=== PATIENT | female | born 1975 | race Caucasian/White ===

== ENCOUNTER 2017-09-19 13:41 | Emergency (ER) | payer OTHER ==
[~2017-09-19] VITALS: Ht 167.6 cm; Wt 126.1 kg
--- OUTSIDE RECORDS SUMMARY | ~2017-09-19 | XMS | Clinical Summary ---
Demographics + + + | Address | [address] [place] | | | [place] [address] | + + + | Home Phone | | + + + | Preferred Language | Unknown | + + + | Marital Status | Single | + + + | Yazidi Affiliation | None | + + + | Race | White | + + + | Ethnic Group | Not or | + + + Author + + + | Author | [facility] | + + + | Organization | [facility] | + + + | Address | Unknown | + + + | Phone | Unavailable | + + + Support + + +---------+ + | Name | Relationship | Address | Phone | + + +---------+ + | MANDEEP BRICE | ECON | Unknown | | + + +---------+ + Care Team Providers + +------+ + | Care Learning Support Aide Name | Role | Phone | + +------+ + | Sekou Willis MANAGER ANDROID | PP | | + +------+ + Allergies + + + + + + | Active Allergy | Reactions | Severity | Noted | Comments | | | | | Date | | + + + + + + | Codeine | Other (See Comments) | Low | | Oversedation -all | | | | | | other opioids are | | | | | | fine | + + + + + + | Egg Derived | Nausea And Vomiting | Low | 02/19/20 | | | | | | 11 | | + + + + + + Current Medications + + +--------+---------+------+------+-------+ | Prescription | Sig. | Disp. | Refills | Star | End | Statu | | | | | | t | Date | s | | | | | | Date | | | + + +--------+---------+------+------+-------+ | albuterol (PROAIR | Inhale 1 puff into | | 0 | 06/2 | | Activ | | HFA) 90 | the lung Every 4 | | | 5/20 | | e | | mcg/Actuation | Hours As Needed. | | | 10 | | | | inhaler | | | | | | | + + +--------+---------+------+------+-------+ | sertraline | Take 150 mg by mouth | | | | | Activ | | (ZOLOFT) 100 mg | daily | | | | | e | | tablet | | | | | | | + + +--------+---------+------+------+-------+ | | Take 1 tablet by | | | | | Activ | | HYDROcodone-acetamin | mouth every 4 hours | | | | | e | | ophen (NORCO) 10-325 | as needed for Pain | | | | | | | mg per tablet | | | | | | | + + +--------+---------+------+------+-------+ | furosemide (LASIX) | Take 20 mg by mouth | | | | | Activ | | 20 mg tablet | 2 times daily | | | | | e | + + +--------+---------+------+------+-------+ | pramipexole | Take 0.125 mg by | | | | | Activ | | (MIRAPEX) 0.125 mg | mouth every evening | | | | | e | | tablet | | | | | | | + + +--------+---------+------+------+-------+ | oxybutynin | Take 5 mg by mouth | | | | | Activ | | (DITROPAN) 5 mg | every evening | | | | | e | | tablet | | | | | | | + + +--------+---------+------+------+-------+ | cholecalciferol, | Take 1,000 Units by | | | | | Activ | | Vitamin D3, (VITAMIN | mouth daily | | | | | e | | D3) 1,000 unit | | | | | | | | tablet | | | | | | | + + +--------+---------+------+------+-------+ | atorvastatin | Take 40 mg by mouth | | | | | Activ | | (LIPITOR) 40 mg | at bedtime | | | | | e | | tablet | | | | | | | + + +--------+---------+------+------+-------+ | calcium acetate | Take 667 mg by mouth | | | | | Activ | | (PHOSLO) 667 mg | 3 times daily (with | | | | | e | | capsule | meals) | | | | | | + + +--------+---------+------+------+-------+ | lisinopril | Take 1 tablet (40 mg | 30 | 0 | 06/1 | | Activ | | (PRINIVIL;ZESTRIL) | total) by mouth | tablet | | 8/20 | | e | | 40 mg tablet | daily | | | 15 | | | + + +--------+---------+------+------+-------+ | oxybutynin | Take 1 tablet (10 mg | | | 06/1 | | Activ | | (DITROPAN-XL) 10 mg | total) by mouth | | | 8/20 | | e | | ER tablet | daily | | | 15 | | | + + +--------+---------+------+------+-------+ | propranolol | Take 1 tablet (40 mg | | | 06/1 | | Activ | | (INDERAL) 40 mg | total) by mouth 2 | | | 8/20 | | e | | tablet | times daily | | | 15 | | | + + +--------+---------+------+------+-------+ | acetaminophen | Take 2 tablets (650 | | | 06/1 | | Activ | | (TYLENOL) 325 mg | mg total) by mouth | | | 8/20 | | e | | tablet | every 6 hours as | | | 15 | | | | | needed for Pain | | | | | | + + +--------+---------+------+------+-------+ | insulin glargine | Inject 5 Units into | | | 06/1 | | Activ | | (LANTUS) 100 unit/mL | the skin 2 times | | | 8/20 | | e | | injection | daily | | | 15 | | | + + +--------+---------+------+------+-------+ | oxyCODONE | Take 1-2 tablets | 30 | 0 | 06/1 | | Activ | | (ROXICODONE) 5 mg | (5-10 mg total) by | tablet | | 8/20 | | e | | immediate release | mouth every 6 hours | | | 15 | | | | tablet | as needed for Pain | | | | | | + + +--------+---------+------+------+-------+ | AMLODIPINE | Take by mouth | | | | | Activ | | BESYLATE (AMLODIPINE | | | | | | e | | ORAL) | | | | | | | + + +--------+---------+------+------+-------+ | buPROPion | Take 75 mg by mouth | | | | | Activ | | (WELLBUTRIN) 75 mg | daily | | | | | e | | tablet | | | | | | | + + +--------+---------+------+------+-------+ | | Take 1-2 tablets by | 30 | 0 | 05/2 | | Activ | | HYDROcodone-acetamin | mouth every 6 hours | tablet | | 5/20 | | e | | ophen (NORCO) 5-325 | as needed for Pain | | | 17 | | | | mg per tablet | | | | | | | + + +--------+---------+------+------+-------+ Active Problems + + + | Problem | Noted Date | + + + | Hypervolemia | 04/20/2015 | + + + | DM (diabetes mellitus), type 2 with neurological complications | 12/30/2014 | | (HCC) | | + + + + + | Overview: Formatting of this note may be different from the | | original.Lab Results Component Value Date HGBA1C 6.5* 12/30/2014 | | | | HGBA1C 6.5* 12/30/2014 | | | | | | | | | + + + + + | HTN (hypertension), benign | 12/30/2014 | + + + | Unspecified osteomyelitis, site unspecified | 12/28/2014 | + + + + + | Overview: Left MTP | + + + + + | Diabetes mellitus, insulin dependent (IDDM), controlled ([facility]) | 12/28/2014 | + + + | ESRD on dialysis ([facility]) | 12/28/2014 | + + + | 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 | 12/28/2014 | | circulatory disorders, not stated as uncontrolled(250.71) | | + + + | Tobacco use disorder | 12/28/2014 | + + + Resolved Problems + + + + | Problem | Noted | Resolved | | | Date | Date | + + + + | Hypoxia | 04/20/20 | | | | 15 | 5 | + + + + | Acute dyspnea | 04/20/20 | | | | 15 | 5 | + + + + Social History + + + +--------+------+ | Tobacco Use | Types | Packs/Day | Years | Date | | | | | Used | | + + + +--------+------+ | Current Every Day | Cigarettes | 0.75 | 15 | | | Smoker | | | | | + + + +--------+------+ + + | Tobacco Cessation: Ready to Quit: No | + + + + +---------+ + | Alcohol Use | Drinks/We | oz/Week | Comments | | | ek | | | + + +---------+ + | No | | | | + + +---------+ + + + + | Sex Assigned at | Date Recorded | | | | + + + | Not on file | | + + + Last Filed Vital Signs + + + + | Vital Sign | Reading | Time Taken | + + + + | Blood Pressure | 134/73 | 12/09/2016 11:50 AM PDT | + + + + | Pulse | 84 | 12/09/2016 11:11 AM PDT | + + + + | Temperature | 36 C (96.8 F) | 12/09/2016 11:11 AM PDT | + + + + | Respiratory Rate | 18 | 12/09/2016 11:11 AM PDT | + + + + | Oxygen Saturation | 90% | 12/09/2016 11:50 AM PDT | + + + + | Inhaled Oxygen | - | - | | Concentration | | | + + + + | Weight | 124.7 kg (275 lb) | 12/07/2016 3:24 PM PDT | + + + + | Height | 167.6 cm (5' 6") | 12/07/2016 3:24 PM PDT | + + + + | Body Mass Index | 44.39 | 12/07/2016 3:24 PM PDT | + + + + Plan of Treatment + + + + + | Health Maintenance | Due Date | Last Done | Comments | + + + + + | Eye Exam Chronic | | | | | Disease | 7 | | | + + + + + | Foot Exam | | | | | | 7 | | | + + + + + | Microalbuminuria | | | | | | 7 | | | + + + + + | Lipid Screening | | | | | | 7 | | | + + + + + | Tobacco Cessation | | | | | Counseling | 9 | | | + + + + + | HIV Screening | | | | | | 2 | | | + + + + + | Pneumo 19-64 Medium | | | | | Risk (1 of 1 - | 6 | | | | PPSV23) | | | | + + + + + | Tetanus | | | | | | 6 | | | + + + + + | Cervical Cancer | | | | | Screening | 8 | | | + + + + + | Hemoglobin A1c | | 12/30/2014, 10/03/2010 | | | | 5 | | | + + + + + | Breast Cancer | | | | | Screening | 7 | | | + + + + + | IMM Influenza (#1) | | | | | | 7 | | | + + + + + Implants + +--------+--------+ +--------+--------+--------+ | Implanted | Type | Area | Manufacture | Device | Expira | Model | | | | | r | | tion | / | | | | | | Identi | Date | Serial | | | | | | fier | | / Lot | + +--------+--------+ +--------+--------+--------+ | Imp Osteoset Mini Bead 5cc | Surgic | Left: | ELKINS | | 11/14/ | 8400-0 | | Kit Fast Cure *[id number] - | al IMP | Bone - | MEDICAL | | 2022 | 611 | | [id number]: Qty: 1 on | Bone | Foot | TECHNOLOGY | | | /N/A | | 12/31/2014 by Maryann, | & | | | | | /[id number] | | Minesh Le DPM | Tissue | | | | | 15 | | | (47 | | | | | | | | 432) | | | | | | + +--------+--------+ +--------+--------+--------+ Results Not on filefrom Last 3 Months Insurance + +--------+ +--------+ + + | Payer | Benefi | Subscriber | Type | Phone | Address | | | t Plan | ID | | | | | | / | | | | | | | Group | | | | | + +--------+ +--------+ + + | MOD[employer]DS MNGD MCAID | [place] | [id number] | Medica | [phone] | [address] | | | MODA | | id | [id number] | [place], [place] | | | ODS | | | | [phone] | + +--------+ +--------+ + + + +--------+ +--------+ + + | Guarantor Name | Accoun | Relation to | Date | Phone | Billing Address | | | t Type | Patient | of | | | | | | | | | | + +--------+ +--------+ + + | CORRINA BRICE | Person | Self | [birth year] | Home: | [address] | | | al/Fam | | 1974 | [phone] | [place] | | | telly | | | [phone] | + +--------+ +--------+ + + Advance Directives Patient has advance directives. For more information, please contact:[address] [place] [address]
--- OUTSIDE RECORDS SUMMARY | ~2017-09-19 | XMS | Clinical Summary ---
Demographics + + + | Address | [address] | | | [place] [address] | + + + | Home Phone | | + + + | Preferred Language | Unknown | + + + | Marital Status | Single | + + + | Druze Affiliation | None | + + + [...] Team Providers + +------+ + | Care Assistant City Attorney Name | Role | Phone | + +------+ + | Sekou Willis VICE PRESIDENT OF INSTRUCTION | PP | | + +------+ + [...] | Diabetes mellitus, insulin dependent (IDDM), controlled ([facility]) | 12/28/2014 | + + + | ESRD on dialysis ([facility]) | 12/28/2014 | + + + | [...] | 8400-0 | | Kit Fast Cure *[id number] - | al IMP | Bone - | MEDICAL | | 2022 | 611 | | [id number]: Qty: 1 on | Bone | Foot | TECHNOLOGY | | | /N/A | | 12/31/2014 by Maryann, | & | | | | | /[id number] | | Minesh Le DPM | Tissue [...] MODA ODS MNGD MCAID | [place] | [id number] | Medica | [phone] | [address] | | | MODA | | id | [id number] | [place], [place] | | | ODS | | | | [phone] | + +--------+ +--------+ + + + +--------+ +--------+ + + | Guarantor Name | Accoun | Relation to | Date | Phone | Billing Address | | | t Type | Patient | of | | | | | | | | | | + +--------+ +--------+ + + | CORRINA BRICE | Person | Self | [birth year] | Home: | [address] | | | al/Fam | | 1974 | [phone] | [place] | | | telly | | | [phone] | + +--------+ +--------+ + + Advance Directives Patient has advance directives. For more information, please contact:[id number] [place] [address]
[~2017-09-19 13:41] MED LIST: AMLODIPINE BESY10 MG PO; ASPIR 8181 MG PO; ATORVASTATIN CA40 MG PO; BACTRIM DS TAB1 EACH PO; CARDURA4 MG PO; CRUTCH1 EACH; DOXYCYCLINE HY100 MG PO; HUMALOG100 UNITS/ IV; HYDROCODON-ACE1 EAC8 PO; KEFLEX500 MG PO; LANTUS100 UNITS/ SUB-Q; LASIX20 MG PO; LISINOPRIL40 MG PO; NORCO 5-325 TA1 EACH PO; OXYBUTYNIN CHLOR5 MG PO; OXYCODONE HCL5 MG PO; PROPRANOLOL HCL40 MG PO; VICODIN HP 10-1 EAC1 PO; ZOLOFT50 MG PO
== END 2017-09-19 13:58 | disposition home or self-care (01) ==
LOC: ED 13:41
DX: M25.551 Pain in right hip (principal)

== ENCOUNTER 2017-12-26 13:08 | Emergency (ER) | payer OTHER ==
[~2017-12-26] VITALS: Ht 167.6 cm; Wt 121.1 kg
[2017-12-26] MEDS ORDERED: BACTRIM DS TAB1 EACH PO (13:50)
== END 2017-12-26 14:00 | disposition home or self-care (01) ==
LOC: ED 13:08
DX: L97.529 Non-pressure chronic ulcer of other part of left foot with unspecified severity (principal); F17.200 Nicotine dependence, unspecified, uncomplicated; Z91.012 Allergy to eggs; Z99.2 Dependence on renal dialysis; Z86.73 Personal history of transient ischemic attack (TIA), and cerebral infarction without residual deficits; Z79.899 Other long term (current) drug therapy
CPT/HCPCS: 99283

== ENCOUNTER 2018-04-02 15:18 | Emergency (ER) | payer OTHER ==
[~2018-04-02] VITALS: Ht 167.6 cm; Wt 118.4 kg
--- OUTSIDE RECORDS SUMMARY | ~2018-04-02 | XMS | Clinical Summary ---
Demographics + + + | Address | [address] | | | [place] [address] | + + + | Home Phone | | + + + | Preferred Language | Unknown | + + + | Marital Status | Single | + + + | Temple Affiliation | Unknown | + + + | Race | Unknown | + + + | Ethnic Group | Unknown | + + + Author + + + | Author | [facility] | + + + | Organization | [facility] | + + + | Address | Unknown | + + + | Phone | Unavailable | + + + Support + + + + + | Name | Relationship | Address | Phone | + + + + + | Juliana Dixon | ECON | Unknown | | + + + + + | Mya Dixon | ECON | [address] | | | | | [place] | | | | | [address] | | + + + + + Care Team Providers + +------+ + | Care Reinforcing Steel Placer Name | Role | Phone | + +------+ + | Donis Martel MD | PP | | + +------+ + Allergies + + + + + + | Active Allergy | Reactions | Severity | Noted | Comments | | | | | Date | | + + + + + + | Codeine | Other (See Comments) | Medium | 04/02/20 | "I dont wake up on | | | | | 15 | it" | + + + + + + | Eggs Or Egg-Derived | Nausea and Vomiting | Low | 04/02/20 | | | Products | | | 15 | | + + + + + + Current Medications + + +---------+---------+------+------+-------+ | Prescription | Sig. | Disp. | Refills | Star | End | Statu | | | | | | t | Date | s | | | | | | Date | | | + + +---------+---------+------+------+-------+ | oxybutynin | Take 10 mg by mouth | | | | | Activ | | (DITROPAN) 5 MG | 2 (two) times daily. | | | | | e | | tablet | | | | | | | + + +---------+---------+------+------+-------+ | propranolol | Take 40 mg by mouth | | | | | Activ | | (INDERAL) 40 MG | daily. | | | | | e | | tablet | | | | | | | + + +---------+---------+------+------+-------+ | RENVELA 2.4 G | MIX AND TAKE 1 | 150 | 11 | 11/0 | | Activ | | packet | PACKET WITHEACH | each | | 1/20 | | e | | | MEALS 3 TIMES DAILY | | | 16 | | | | | AND WITH SNACKS | | | | | | + + +---------+---------+------+------+-------+ | doxazosin | Take 4 mg by mouth 2 | | | | | Activ | | (CARDURA) 4 MG | (two) times daily. | | | | | e | | tablet | Take with doxazosin | | | | | | | | 1 mg tablet | | | | | | + + +---------+---------+------+------+-------+ | albuterol (PROAIR | Inhale 2 puffs into | | | | | Activ | | HFA) 108 (90 BASE) | the lungs every 4 | | | | | e | | MCG/ACT inhaler | (four) hours as | | | | | | | | needed for Wheezing. | | | | | | + + +---------+---------+------+------+-------+ | amLODIPine | Take 1 tablet by | 30 | 1 | 03/1 | | Activ | | (NORVASC) 5 MG | mouth daily. | tablet | | 3/20 | | e | | tablet | | | | 17 | | | + + +---------+---------+------+------+-------+ | Cholecalciferol | TAKE 1 BY MOUTH | 30 | 11 | 06/ | | Activ | | (VITAMIN D3) 5000 | DAILY | capsule | | 7/20 | | e | | units CAPS | | | | 17 | | | + + +---------+---------+------+------+-------+ | doxazosin | TAKE 1 BY MOUTH TWO | 60 | 10 | 07/0 | | Activ | | (CARDURA) 1 MG | TIMES DAILY | tablet | | 3/20 | | e | | tablet | | | | 17 | | | + + +---------+---------+------+------+-------+ | sertraline | Take 100 mg by mouth | | | | | Activ | | (ZOLOFT) 100 MG | daily. | | | | | e | | tablet | | | | | | | + + +---------+---------+------+------+-------+ | cinacalcet | Take 1 tablet by | 84 | 0 | 04/17 | | Activ | | (SENSIPAR) 30 MG | mouth daily. Lot# | tablet | | 8/20 | | e | | tablet | [id number]. Exp date | | | 17 | | | | | 02/02. | | | | | | + + +---------+---------+------+------+-------+ | PHOSLO 667 MG CAPS | TAKE 3 BY MOUTH 3 | 390 | 11 | 02/1 | | Activ | | | TIMES DAILY WITH | capsule | | 8/20 | | e | | | MEALS AND 2 BY | | | 18 | | | | | MOUTH TWO TIMES | | | | | | | | DAILY WITH SNACKS | | | | | | + + +---------+---------+------+------+-------+ + + +-------+ +------+------+-------+ | Hospital, Clinic, or | Ordered | Route | Frequency | Star | End | Statu | | Other Facility | Dose | | | t | Date | s | | Administered | | | | Date | | | | Medication | | | | | | | + + +-------+ +------+------+-------+ | lidocaine buffered | 0.5 mL | ID | Once | 05/2 | | Activ | | 1% injection 0.5 | | | | 7/20 | | e | | mLIndications: ESRD | | | | 16 | | | | (end stage renal | | | | | | | | disease) (HCC) | | | | | | | + + +-------+ +------+------+-------+ Active Problems + + + | Problem | Noted Date | + + + | Morbid obesity due to excess calories (HCC) | 09/27/2016 | + + + | ESRD on hemodialysis | 09/27/2016 | + + + | BMI 45.0-49.9, adult | 09/26/2016 | + + + | Renovascular hypertension | 09/26/2016 | + + + | Leucocytosis | 09/26/2016 | + + + | Hyperphosphatemia | 12/13/2015 | + + + | Hypoalbuminemia | 12/13/2015 | + + + | Anemia of chronic renal failure, stage 5 (HCC) | 12/13/2015 | + + + | Essential hypertension | 04/03/2015 | + + + | ESRD (end stage renal disease) | 04/02/2015 | + + + | Pulmonary edema | 04/02/2015 | + + + | Non-compliance with treatment | 04/02/2015 | + + + | Smoker | 04/02/2015 | + + + | Obesity (BMI 30-39.9) | | + + + Resolved Problems + + + + | Problem | Noted | Resolved | | | Date | Date | + + + + | Acute respiratory failure with hypoxia (HCC) | 09/28/19 | | | | 17 | 7 | + + + + | Limb ischemia | 12/12/19 | | | | 16 | 6 | + + + + | Clotted renal dialysis AV graft | 12/12/19 | | | | 16 | 6 | + + + + | Arm pain, left | 12/12/19 | | | | 16 | 6 | + + + + | Hyperkalemia | 04/02/20 | | | | 15 | 7 | + + + + Encounters +--------+ + + + + | Date | Type | Specialty | Care Team | Description | +--------+ + + + + | 03/21/ | Documentati | | Eric Sun MD | Other (February 2018- | | 2018 | on Only | | | [facility] Provider | | | | | | Antoine Rounding | | | | | | Note) | +--------+ + + + + | 02/17/ | Documentati | | Eric Sun MD | Other (January | 2017 | on Only | | | 2017-[facility] Provider | | | | | | Dialysis Rounding | | | | | | Note) | +--------+ + + + + | 01/20/ | Documentati | | Eric Sun MD | Other (December | on Only | | | 2017-[facility] Provider | | | | | | Rounding Dialysis | | | | | | Note) | +--------+ + + + + | 01/06/ | Documentati | | Eric Sun MD | Other (November | on Only | | | 2017-[facility] Provider | | | | | | Rounding Dialysis | | | | | | Note) | +--------+ + + + + from Last 3 Months Family History + + +------+ + | Medical History | Relation | Name | Comments | + + +------+ + | Kidney disease | Neg Hx | | | + + +------+ + + +------+--------+ + | Relation | Name | Status | Comments | + +------+--------+ + | Mother | | Alive | | + +------+--------+ + | Sister | | Alive | | + +------+--------+ + Social History + + + +--------+------+ | Tobacco Use | Types | Packs/Day | Years | Date | | | | | Used | | + + + +--------+------+ | Current Some Day | Cigarettes | 0.5 | 8 | | | Smoker | | | | | + + + +--------+------+ + +---+---+---+ | Smokeless Tobacco: | | | | | Never Used | | | | + +---+---+---+ + + | Tobacco Cessation: Ready to Quit: Yes; Counseling Given: Yes | + + + + +---------+ + | Alcohol Use | Drinks/We | oz/Week | Comments | | | ek | | | + + +---------+ + | Yes | 0 | 0.0 | "Once a year" | | | Standard | | | | | drinks or | | | | | | | | | | equivalen | | | | | t | | | + + +---------+ + + + + | Sex Assigned at | Date Recorded | | | | + + + | Not on file | | + + + Last Filed Vital Signs + + + + | Vital Sign | Reading | Time Taken | + + + + | Blood Pressure | 163/71 | 02/28/2017 8:18 PM PDT | + + + + | Pulse | 87 | 02/28/2017 8:18 PM PDT | + + + + | Temperature | 36.2 C (97.2 F) | 02/28/2017 7:40 PM PDT | + + + + | Respiratory Rate | 20 | 02/28/2017 8:18 PM PDT | + + + + | Oxygen Saturation | 94% | 02/28/2017 8:02 PM PDT | + + + + | Inhaled Oxygen | - | - | | Concentration | | | + + + + | Weight | 126.1 kg (278 lb) | 02/28/2017 3:22 PM PDT | + + + + | Height | 168.9 cm (5' 6.5") | 02/28/2017 3:22 PM PDT | + + + + | Body Mass Index | 44.2 | 02/28/2017 3:22 PM PDT | + + + + Plan of Treatment + + + + + | Health Maintenance | Due Date | Last Done | Comments | + + + + + | Vaccine: | | | | | Pneumococcal 19-64 | 6 | | | | Highest Risk (1 of 3 | | | | | - PCV13) | | | | + + + + + | Cervical Cancer | | | | | Screening (Pap) | 7 | | | + + + + + | Vaccine: Influenza | | | | | (#1) | 8 | | | + + + + + | Vaccine: | | 12/16/2009 | | | Dtap/Tdap/Td (2 - | 0 | | | | Td) | | | | + + + + + Results Not on filefrom Last 3 Months Insurance + +--------+ +------+-------+ + | Payer | Benefi | Subscriber | Type | Phone | Address | | | t Plan | ID | | | | | | / | | | | | | | Group | | | | | + +--------+ +------+-------+ + | MEDICAID | [place] | [id number] | | | [address] | | | [place] | | | | [place] | | | [place] | | | | [phone] | | | [place] | | | | | + +--------+ +------+-------+ + + +--------+ +--------+ + + | Guarantor Name | Accoun | Relation to | Date | Phone | Billing Address | | | t Type | Patient | of | | | | | | | | | | + +--------+ +--------+ + + | CORRINA BRICE | Person | Self [birth year] | Home: | [address] | | | [place] | | 1974 | [phone] | [place] | | | telly | | [phone] | + +--------+ +--------+ + +
--- OUTSIDE RECORDS SUMMARY | ~2018-04-02 | XMS | Encounter Summary ---
Demographics + + + | Address | [address] | | | [place] [address] | + + + | Home Phone | | + + + | Preferred Language | Unknown | + + + | Marital Status | Single | + + + | Quaker Affiliation | Unknown | + + + | Race | Unknown | + + + | Ethnic Group | Unknown | + + + Author + + + | Author | [facility] | + + + | Organization | [facility] | + + + | Address | Unknown | + + + | Phone | Unavailable | + + + Support + + + + + | Name | Relationship | Address | Phone | + + + + + | Juliana Dixon | ECON | Unknown | | + + + + + | Mya Dixon | ECON | [address] | | | | | [place] | | | | | [address] | | + + + + + Care Team Providers + +------+ + | Care Muck Hauler Name | Role | Phone | + +------+ + | Donis Martel MD | PCP | | + +------+ + Reason for Visit +--------+ + | Reason | Comments | +--------+ + | Other | January 2018-[facility] Note | +--------+ + Encounter Details +--------+ + + + + | Date | Type | Department | Care Team | Description | +--------+ + + + + | 02/17/ | Documentati | [facility] | Eric Sun MD | Other (January | | 2017 | on Only | [place] [address] | 2018-[facility] Provider | | | | [address] | [address] [place], [place] | Dialysis Rounding | | | | [place] [address] | [phone] | Note) | | | | [phone] | | | +--------+ + + + + Social History + + + +--------+------+ [...] | | | + +---+---+---+ + + +---------+ + | Alcohol Use [...] on file | | + + + as of this encounter Plan of Treatment Not on fileas of this encounter Visit Diagnoses Not on filein this encounter
--- OUTSIDE RECORDS SUMMARY | ~2018-04-02 | XMS | Encounter Summary ---
Demographics + + + | Address | [address] | | | [place] [address] | + + + | Home Phone | | + + + | Preferred Language | Unknown | + + + | Marital Status | Single | + + + | Faith Affiliation | Unknown | + + + | Race | Unknown | + + + | Ethnic Group | Unknown | + + + Author + + + | Author | [facility] | + + + | Organization | [facility] | + + + | Address | Unknown | + + + | Phone | Unavailable | + + + Support + + + + + | Name | Relationship | Address | Phone | + + + + + | Juliana Dixon | ECON | Unknown | | + + + + + | Mya Dixon | ECON | [address] | | | | | [place] | | | | | [address] | | + + + + + Care Team Providers + +------+ + | Care Custom Frame Assembler Name | Role | Phone | + +------+ + | Donis Martel MD | PCP | | + +------+ + Reason for Visit +--------+ + | Reason | Comments | +--------+ + | Other | November 2017[facility] Note | +--------+ + Encounter Details +--------+ + + + + | Date | Type | Department | Care Team | Description | +--------+ + + + + | 01/06/ | Documentati | [facility] | Eric Sun MD | Other (November | 2017 | on Only | [employer] [facility] [address] | [address] | 2018-[facility] Provider | | | | [address] | [address] [place], [place] | Rounding Dialysis | | | | [place] [address] | [address] | Note) | | | | [phone] | | | +--------+ + + + [...]
--- OUTSIDE RECORDS SUMMARY | ~2018-04-02 | XMS | Encounter Summary ---
Demographics + + + | Address | [address] | | | [place] [address] | + + + | Home Phone | | + + + | Preferred Language | Unknown | + + + | Marital Status | Single | + + + | Restoration Affiliation | Unknown | + + + | Race | Unknown | + + + | Ethnic Group | Unknown | + + + Author + + + | Author | [facility] | + + + | Organization | [facility] | + + + | Address | Unknown | + + + | Phone | Unavailable | + + + Support + + + + + | Name | Relationship | Address | Phone | + + + + + | Juliana Dixon | ECON | Unknown | | + + + + + | Mya Dixon | ECON | [address] | | | | | [place] | | | | | [address] | | + + + + + Care Team Providers + +------+ + | Care Shift Mechanic Name | Role | Phone | + +------+ + | Donis Martel MD | PCP | | + +------+ + Reason for Visit +--------+ + | Reason | Comments | +--------+ + | Other | February 2018- [facility] Provider [facility] Note | +--------+ + Encounter Details +--------+ + + + + | Date | Type | Department | Care Team | Description | +--------+ + + + + | 03/21/ | Documentati | [facility] | Eric Sun MD | Other (February 2018- | | 2018 | on Only | [place] [address] | [address] | [facility] Provider | | | | [address] | [address] [place], [place] | Dialysis Rounding | | | | [place] [address] | [address] | Note) | | | | [phone] | | | +--------+ + + + [...]
--- OUTSIDE RECORDS SUMMARY | ~2018-04-02 | XMS | Clinical Summary ---
Demographics + + + | Address | [address] | | | [place] [address] | + + + | Home Phone | | + + + | Preferred Language | Unknown | + + + | Marital Status | Single | + + + | Christianity Affiliation | Unknown | + + + | Race | Unknown | + + + | Ethnic Group | Unknown | + + + Author + + + | Author | [facility] | | | and [place] | + + + | Organization | [facility] | | | and [place] | + + + | Address | Unknown | + + + | Phone | Unavailable | + + + Care Team Providers + +------+ + | Care Furniture Decals Inspector Name | Role | Phone | + +------+ + | Donis Martel MD | PP | | + +------+ + Allergies Not on File Current Medications Not on file Active Problems Not on file Social History + +-------+ +--------+------+ | Tobacco Use | Types | Packs/Day | Years | Date | | | | | Used | | + +-------+ +--------+------+ | Never Assessed | | | | | + +-------+ +--------+------+ + + + | Sex Assigned at | Date Recorded | | | | + + + | Not on file | | + + + Plan of Treatment + [...] Last 3 Months Insurance + +--------+ +--------+ +---------+ | Payer | Benefi | Subscriber | Type | Phone | Address | | | t Plan | ID | | | | | | / | | | | | | | Group | | | | | + +--------+ +--------+ +---------+ | [employer] | MODA | [id number] | Medica | [phone] | | | MEDICAID HMO | HEALTH | | id | [id number] | | | | [place] | | | | | | | [place] | | | | | + +--------+ +--------+ +---------+ + +--------+ +--------+ + + | Guarantor Name | Accoun | Relation to | Date | Phone | Billing Address | | | t Type | Patient | of | | | | | | | | | | + +--------+ +--------+ + + | CORRINA BRICE | Person | Self | [birth year] | Home: | [address] | | | al/Fam | | 1974 | [phone] | [place] | | | telly | | | [phone] | + +--------+ +--------+ + +"
--- OUTSIDE RECORDS SUMMARY | ~2018-04-02 | XMS | Encounter Summary ---
Demographics + + + | Address | [address] | | | [place] [address] | + + + | Home Phone | | + + + | Preferred Language | Unknown | + + + | Marital Status | Single | + + + | Baptism Affiliation | Unknown | + + + | Race | Unknown | + + + | Ethnic Group | Unknown | + + + Author + + + | Author | [facility] | + + + | Organization | [facility] | + + + | Address | Unknown | + + + | Phone | Unavailable | + + + Support + + + + + | Name | Relationship | Address | Phone | + + + + + | Juliana Dixon | ECON | Unknown | | + + + + + | Mya Dixon | ECON | [address] | | | | | [place] | | | | | [address] | | + + + + + Care Team Providers + +------+ + | Care Primary Teaching Assistant Name | Role | Phone | [...] | | 2018 | on Only | [place] [address] | [address] | [facility] Provider | | | | [address] | [address] [place], [place] | Dialysis Rounding | | | | [place] [address] | [address] | Note) | | | | [phone] | | | +--------+ + + + [...]
--- OUTSIDE RECORDS SUMMARY | ~2018-04-02 | XMS | Encounter Summary ---
Demographics + + + | Address | [address] | | | [place] [address] | + + + | Home Phone | | + + + | Preferred Language | Unknown | + + + | Marital Status | Single | + + + | Scientologist Affiliation | Unknown | + + + | Race | Unknown | + + + | Ethnic Group | Unknown | + + + Author + + + | Author | [facility] | + + + | Organization | [facility] | + + + | Address | Unknown | + + + | Phone | Unavailable | + + + Support + + + + + | Name | Relationship | Address | Phone | + + + + + | Juliana Dixon | ECON | Unknown | | + + + + + | Mya Dixon | ECON | [address] | | | | | [place] | | | | | [address] | | + + + + + Care Team Providers + +------+ + | Care Director Data Architecture Name | Role | Phone | + [...] | | 2017 | on Only | [place] [address] | [address] | 2018-[facility] Provider | | | | [address] | [address] [place], [place] | Dialysis Rounding | | | | [place] [address] | [address] | Note) | | | | [phone] | | | +--------+ + + + [...]
--- OUTSIDE RECORDS SUMMARY | ~2018-04-02 | XMS | Encounter Summary ---
Demographics + + + | Address | [address] | | | [place] [address] | + + + | Home Phone | | + + + | Preferred Language | Unknown | + + + | Marital Status | Single | + + + | Tenriism Affiliation | Unknown | + + + | Race | Unknown | + + + | Ethnic Group | Unknown | + + + Author + + + | Author | [facility] | + + + | Organization | [facility] | + + + | Address | Unknown | + + + | Phone | Unavailable | + + + Support + + + + + | Name | Relationship | Address | Phone | + + + + + | Juliana Dixon | ECON | Unknown | | + + + + + | Mya Dixon | ECON | [address] | | | | | [place] | | | | | [address] | | + + + + + Care Team Providers + +------+ + | Care Hot Cell Technician Name | Role | Phone | + +------+ + | Donis Martel MD | PCP | | + +------+ + Reason for Visit +--------+ + | Reason | Comments | +--------+ + | Other | December 2017-[facility] Provider [facility] Note | +--------+ + Encounter Details +--------+ + + + + | Date | Type | Department | Care Team | Description | +--------+ + + + + | 01/20/ | Documentati | [facility] | Eric Sun MD | Other (December | | 2017 | on Only | [place] [address] | [address] | 2018-[facility] Provider | | | | [address] | [address] [place], [place] | Rounding Dialysis | | | | [place] [address] | [address] | Note) | | | | [phone] | | | +--------+ + + + [...]
--- OUTSIDE RECORDS SUMMARY | ~2018-04-02 | XMS | Encounter Summary ---
Demographics + + + | Address | [address] | | | [place] [address] | + + + | Home Phone | | + + + | Preferred Language | Unknown | + + + | Marital Status | Single | + + + | Buddhism Affiliation | Unknown | + + + | Race | Unknown | + + + | Ethnic Group | Unknown | + + + Author + + + | Author | [facility] | + + + | Organization | [facility] | + + + | Address | Unknown | + + + | Phone | Unavailable | + + + Support + + + + + | Name | Relationship | Address | Phone | + + + + + | Juliana Dixon | ECON | Unknown | | + + + + + | Mya Dixon | ECON | [address] | | | | | [place] | | | | | [address] | | + + + + + Care Team Providers + +------+ + | Care Architecture Professor Name | Role | Phone | [...] (November | 2017 | on Only | [place] [address] | [address] | 2018-[facility] Provider | | | | [address] | [address] [place], [place] | Rounding Dialysis | | | | [place] [address] | [address] | Note) | | | | [phone] | | | +--------+ + + + [...]
--- OUTSIDE RECORDS SUMMARY | ~2018-04-02 | XMS | Clinical Summary ---
Demographics + + + | Address | [address] | | | [place] [address] | + + + | Home Phone | | + + + | Preferred Language | Unknown | + + + | Marital Status | Single | + + + | Tenriism Affiliation | Unknown | + + + | Race | Unknown | + + + | Ethnic Group | Unknown | + + + Author + + + | Author | [facility] | | | and [place] | + + + | Organization | [facility] | | | and [place] | + + + | Address | Unknown | + + + | Phone | Unavailable | + + + Care Team Providers + +------+ + | Care Regional Sales Associate Name | Role | Phone | + [...] | [employer] | MODA | [id number] | Medica | [phone] | | | MEDICAID HMO | HEALTH [...] | Self | [birth year] | Home: | [address] | | | al/Fam | | 1974 | [phone] | [place] | | | [place]elly | | | [phone] | [phone] | + +--------+ +--------+ + +"
--- OUTSIDE RECORDS SUMMARY | ~2018-04-02 | XMS | Clinical Summary ---
Demographics + + + | Address | [address] | | | [place] [address] | + + + | Home Phone | | + + + | Preferred Language | Unknown | + + + | Marital Status | Single | + + + | Yarsanism Affiliation | Unknown | + + + | Race | Unknown | + + + | Ethnic Group | Unknown | + + + Author + + + | Author | [facility] | + + + | Organization | [facility] | + + + | Address | Unknown | + + + | Phone | Unavailable | + + + Support + + + + + | Name | Relationship | Address | Phone | + + + + + | Juliana Dixon | ECON | Unknown | | + + + + + | Mya Dixon | ECON | [address] | | | | | [place] | | | | | [address] | | + + + + + Care Team Providers + +------+ + | Care Irrigator Overhead Name | Role | Phone | + [...] | | e | | tablet | [id number]. Exp date | | | 17 | [...] +------+-------+ + | MEDICAID | [place] | [id number] | | | [address] | | | N | | | | [place] | | | [place] | | | | [address] | | | DEALER ACCOUNTS INVESTIGATOR | | | | | + +--------+ [...] | Self | [birth year] | Home: | [address] | | | [place] | | 1974 | [phone] | [place] | | | [place] | | | [phone] | [phone] | + +--------+ +--------+ + +
--- OUTSIDE RECORDS SUMMARY | ~2018-04-02 | XMS | Encounter Summary ---
Demographics + + + | Address | [address] | | | [place] [address] | + + + | Home Phone | | + + + | Preferred Language | Unknown | + + + | Marital Status | Single | + + + | Taoism Affiliation | Unknown | + + + | Race | Unknown | + + + | Ethnic Group | Unknown | + + + Author + + + | Author | [facility] | + + + | Organization | [facility] | + + + | Address | Unknown | + + + | Phone | Unavailable | + + + Support + + + + + | Name | Relationship | Address | Phone | + + + + + | Juliana Dixon | ECON | Unknown | | + + + + + | Mya Dixon | ECON | [address] | | | | | [place] | | | | | [address] | | + + + + + Care Team Providers + +------+ + | Care Unix Architect Name | Role | Phone | [...] | | 2017 | on Only | [place] [address] | [address] | 2018-[facility] Provider | | | | [address] | [address] [place], [place] | Rounding Dialysis | | | | [place] [address] | [address] | Note) | | | | [phone] | | | +--------+ + + + [...]
[~2018-04-02 15:18] MED LIST changes: +CARVEDILOL ER10 MG PO
--- OUTSIDE RECORDS SUMMARY | 2018-04-02 15:22 | XMS ---
PreManage Notification: SRINIVASAN BRICE Security Cash Accounting Clerk Events No recent Security Events currently on file CRITERIA MET - [facility] - 2 Visits in 30 Days CARE PROVIDERS [facility] 04/23/2013-Current Tim [place] PHONE: Unknown [facility] Current PHONE: Unknown Rodrigo has no Care Guidelines for this patient. Darek VISIT COUNT (12 MO.) [address] [place] [address] TOTAL 4 NOTE: Visits indicate total known visits. 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 - Allergy to eggs - Other specified soft tissue disorders - Nicotine dependence, unspecified, uncomplicated - Cellulitis of left lower limb 12/26/2017 13:09 [facility] [place] TYPE: Emergency COMPLAINT: - POSS INFECTION ON LEFT FOOT DIAGNOSES: - Allergy to eggs - Personal history of transient ischemic attack (TIA), and cerebral infarction without residual deficits - Local infection of the skin and subcutaneous tissue, unspecified - 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
[2018-04-02] MEDS ORDERED: WELLBUTRIN SR100 MG PO (16:03)
[2018-04-02] MEDS ORDERED: CLEOCIN HCL300 MG PO (18:19)
[2018-04-02] MEDS ORDERED: NORCO 5-325 TA1 EACH PO (18:19)
== END 2018-04-02 18:30 | disposition home or self-care (01) ==
LOC: ED 15:18
DX: L03.116 Cellulitis of left lower limb (principal); N18.9 Chronic kidney disease, unspecified; Z99.2 Dependence on renal dialysis; F17.200 Nicotine dependence, unspecified, uncomplicated; Z91.012 Allergy to eggs; Z79.899 Other long term (current) drug therapy
CPT/HCPCS: 73630; 80053; 85025; 96374; 99283; J3490

== ENCOUNTER 2018-07-31 14:05 | Emergency (ER) | payer OTHER ==
[~2018-07-31] VITALS: Ht 167.6 cm; Wt 118.4 kg
[~2018-07-31 14:05] MED LIST changes: +CLEOCIN HCL300 MG PO; +WELLBUTRIN SR100 MG PO
[2018-07-31] MEDS ORDERED: LIDOCAINE-PRILO30 GM TOP (14:34)
[2018-07-31] MEDS ORDERED: NORCO 7.5-3251 EACH PO (16:59)
== END 2018-07-31 19:13 | disposition home or self-care (01) ==
LOC: ED 14:05
DX: L03.311 Cellulitis of abdominal wall (principal); N18.6 End stage renal disease; Z99.2 Dependence on renal dialysis; F17.200 Nicotine dependence, unspecified, uncomplicated; Z90.710 Acquired absence of both cervix and uterus; Z91.012 Allergy to eggs; Z79.899 Other long term (current) drug therapy
CPT/HCPCS: 74176; 80053; 83605; 85025; 85610; 96365; 96366; 96375; 99284-25; J2270; J2405; J3370; J7060

== ENCOUNTER 2018-08-11 13:44 | Emergency (ER) | payer OTHER ==
[~2018-08-11] VITALS: Ht 167.6 cm; Wt 118.4 kg
[~2018-08-11 13:44] MED LIST changes: +LIDOCAINE-PRILO30 GM TOP; +NORCO 7.5-3251 EACH PO
--- OUTSIDE RECORDS SUMMARY | 2018-08-11 13:46 | XMS ---
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 Care History Medical/Surgical 04/03/2018 [facility] - Patient is currently established with [facility]. If patient is seen in the ED during business hours. Please contact CHWs at [facility]. Care Recommendation: This patient has had 5 or more Emergency Department visits in the last 12 months.\T\nbsp; Patient requires education on the scope and purpose of the ED as an acute care provider not a Primary Care Provider and should not be utilized for chronic conditions.\T\nbsp; These are guidelines and the provider should exercise clinical judgment when providing care. E.D. VISIT COUNT (12 MO.) 6 [facility] TOTAL 6 NOTE: Visits indicate total known visits. ED/UCC VISIT TRACKING (12 MO.) 08/11/2018 13:44 [facility] [place] TYPE: Emergency COMPLAINT: - SKIN PROBLEM 07/31/2018 14:06 [facility] [place] TYPE: Emergency COMPLAINT: - POSS ABSCESS/SKIN PROBLEM DIAGNOSES: - Dependence on renal dialysis - Cellulitis of abdominal wall - Nicotine dependence, unspecified, uncomplicated - Allergy to eggs - End stage renal disease - Acquired absence of both cervix and uterus - Other termite helper (current) drug therapy 04/02/2018 15:19 [facility] [place] TYPE: Emergency COMPLAINT: - EXTREMITY SWELLING,NON INJURY DIAGNOSES: - Other specified soft tissue disorders - Chronic kidney disease, unspecified - Nicotine dependence, unspecified, uncomplicated - Allergy to eggs - Dependence on renal dialysis - Cellulitis of left lower limb - Other mcc (current) drug therapy 03/27/2018 13:27 [facility] [place] [place] TYPE: Emergency COMPLAINT: - L LEG SWOLLEN/PAINFUL/NO INJURY DIAGNOSES: - Other termite helper (current) drug therapy - Allergy to eggs [...] and subcutaneous tissue, unspecified - Other termite helper (current) drug therapy - Dependence on renal dialysis - Non-pressure chronic ulcer of other part of left foot with unspecified severity - Nicotine dependence, unspecified, uncomplicated 09/19/2017 13:41 [facility] [place] TYPE: Emergency COMPLAINT: - RIGHT HIP/TROUBLE WALKING/NO KNOWN INJURY DIAGNOSES: - Pain in right hip INPATIENT VISIT TRACKING (12 MO.) No inpatient visits to display in this time frame [email or web address]
[2018-08-11] MEDS ORDERED: ULTRAM50 MG PO (15:54)
== END 2018-08-11 16:00 | disposition home or self-care (01) ==
LOC: ED 13:44
DX: L98.9 Disorder of the skin and subcutaneous tissue, unspecified (principal); N19 Unspecified kidney failure; Z99.2 Dependence on renal dialysis; Z86.73 Personal history of transient ischemic attack (TIA), and cerebral infarction without residual deficits; Z90.710 Acquired absence of both cervix and uterus; F17.200 Nicotine dependence, unspecified, uncomplicated; Z79.899 Other long term (current) drug therapy
CPT/HCPCS: 36415; 80053; 85025; 99283

== ENCOUNTER 2018-08-16 13:47 | Emergency (ER) | payer OTHER ==
[~2018-08-16] VITALS: Ht 167.6 cm; Wt 118.4 kg
[~2018-08-16 13:47] MED LIST changes: +ULTRAM50 MG PO
--- OUTSIDE RECORDS SUMMARY | 2018-08-16 13:50 | XMS ---
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 Care History Medical/Surgical 04/03/2018 [facility] - Patient is currently established with [facility]. If patient is seen in the ED during business hours. Please contact CHWs at [facility]. Care Recommendation: This patient has had 5 [...] providing care. E.D. VISIT COUNT (12 MO.) 7 [facility]. TOTAL 7 NOTE: Visits indicate total known visits. ED/UCC VISIT TRACKING (12 MO.) 08/16/2018 13:47 [facility] [place] TYPE: Emergency COMPLAINT: - ABD PAIN 08/11/2018 13:44 [facility] [place] TYPE: Emergency COMPLAINT: - SKIN PROBLEM DIAGNOSES: - Acquired absence of both cervix and uterus - Other specified disorders of the skin and subcutaneous tissue - Dependence on renal dialysis - Other long term care pharmacist (current) drug therapy - Unspecified kidney failure - Disorder of the skin and subcutaneous tissue, unspecified - Nicotine dependence, unspecified, uncomplicated - Personal history of transient ischemic attack (TIA), and cerebral infarction without residual deficits 07/31/2018 14:06 [facility] [place] [place] TYPE: Emergency COMPLAINT: - POSS ABSCESS/SKIN PROBLEM DIAGNOSES: - Dependence on renal dialysis - Cellulitis of abdominal wall - Nicotine dependence, unspecified, uncomplicated - Allergy to eggs - End stage renal disease - Acquired absence of both cervix and uterus - Other long term care pharmacist (current) drug therapy 04/02/2018 15:19 [facility] [place] [place] TYPE: Emergency COMPLAINT: - EXTREMITY SWELLING,NON INJURY DIAGNOSES: - Other specified soft tissue disorders - Chronic kidney disease, unspecified - Nicotine dependence, unspecified, uncomplicated - Allergy to eggs - Dependence on renal dialysis - Cellulitis of left lower limb - Other senior care (current) drug therapy 03/27/2018 13:27 [facility] [place] [place] TYPE: Emergency COMPLAINT: - L LEG SWOLLEN/PAINFUL/NO INJURY DIAGNOSES: - Other senior care (current) drug therapy - Allergy to eggs [...] skin and subcutaneous tissue, unspecified - Other long term care pharmacist (current) drug therapy - Dependence on renal dialysis - Non-pressure chronic ulcer of other part of left foot with unspecified severity - Nicotine dependence, unspecified, uncomplicated 09/19/2017 13:[address] [facility] [place] TYPE: Emergency COMPLAINT: - RIGHT HIP/TROUBLE WALKING/NO KNOWN INJURY DIAGNOSES: - Pain in right hip INPATIENT VISIT TRACKING (12 MO.) No inpatient visits to display in this time frame [id number]
== END 2018-08-16 16:00 | disposition home or self-care (01) ==
LOC: ED 13:47
DX: M79.3 Panniculitis, unspecified (principal); N19 Unspecified kidney failure; Z99.2 Dependence on renal dialysis; Z90.710 Acquired absence of both cervix and uterus; F17.200 Nicotine dependence, unspecified, uncomplicated; Z79.899 Other long term (current) drug therapy
CPT/HCPCS: 80053; 83690; 85025; 96374; 99284-25; 99406; J1170

== ENCOUNTER 2018-09-07 12:56 | Emergency (ER) | payer OTHER ==
[~2018-09-07] VITALS: Ht 167.6 cm; Wt 118.4 kg
--- OUTSIDE RECORDS SUMMARY | 2018-09-07 12:58 | XMS ---
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 Care History Medical/Surgical 04/03/2018 [facility] - Patient is currently established with [facility]. If patient is seen in the ED during business hours. Please contact CHWs at [facility]. Care Recommendation: This patient has had 5 [...] providing care. E.D. VISIT COUNT (12 MO.) 8 [facility] TOTAL 8 NOTE: Visits indicate total known visits. ED/UCC VISIT TRACKING (12 MO.) 09/07/2018 12:57 [facility] [place] TYPE: Emergency COMPLAINT: - ABDOMINAL SORES 08/16/2018 13:47 [facility] [place] TYPE: Emergency COMPLAINT: - ABD PAIN DIAGNOSES: - Panniculitis, unspecified - Unspecified kidney failure - Lower abdominal pain, unspecified - Acquired absence of both cervix and uterus - Dependence on renal dialysis - Nicotine dependence, unspecified, uncomplicated - Other detention (current) drug therapy 08/11/2018 13:44 [facility] [place] TYPE: Emergency COMPLAINT: - SKIN PROBLEM DIAGNOSES: - Acquired absence of both cervix and uterus - Other specified disorders of the skin and subcutaneous tissue - Dependence on renal dialysis - Other ferry engineer (current) drug therapy - Unspecified kidney failure [...] of both cervix and uterus - Other detention (current) drug therapy 04/02/2018 15:19 [facility] [place] TYPE: Emergency COMPLAINT: - EXTREMITY SWELLING,NON INJURY DIAGNOSES: - Other specified soft tissue disorders - Chronic kidney disease, unspecified - Nicotine dependence, unspecified, uncomplicated - Allergy to eggs - Dependence on renal dialysis - Cellulitis of left lower limb - Other detention (current) drug therapy 03/27/2018 13:27 [facility] [place] TYPE: Emergency COMPLAINT: - L LEG SWOLLEN/PAINFUL/NO INJURY DIAGNOSES: - Other ferry engineer (current) drug therapy - Allergy to eggs [...] skin and subcutaneous tissue, unspecified - Other ferry engineer (current) drug therapy - Dependence on renal dialysis - Non-pressure chronic ulcer of other part of left foot with unspecified severity - Nicotine dependence, unspecified, uncomplicated 09/19/2017 13:41 [facility] [place] TYPE: Emergency COMPLAINT: - RIGHT HIP/TROUBLE WALKING/NO KNOWN INJURY DIAGNOSES: - Pain in right hip INPATIENT VISIT TRACKING (12 MO.) No inpatient visits to display in this time frame [email or web address]
== END 2018-09-07 15:13 | disposition home or self-care (01) ==
LOC: ED 12:56
PROC: 0H97XZZ Drainage of Abdomen Skin, External Approach (ICD-10-PCS; principal; 2018-09-07)
DX: M79.3 Panniculitis, unspecified (principal); N19 Unspecified kidney failure; Z99.2 Dependence on renal dialysis; F17.200 Nicotine dependence, unspecified, uncomplicated; Z90.710 Acquired absence of both cervix and uterus; Z79.899 Other long term (current) drug therapy
CPT/HCPCS: 10060; 88305; 99283-25; J1630; J1885

== ENCOUNTER 2018-09-13 13:54 | Emergency (ER) | payer OTHER ==
[~2018-09-13] VITALS: Ht 167.6 cm; Wt 118.4 kg
--- OUTSIDE RECORDS SUMMARY | 2018-09-13 13:56 | XMS ---
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 Care History Medical/Surgical 04/03/2018 [facility] - Patient is currently established with [facility]. If patient is seen in the ED during business hours. Please contact CHWs at [facility]. Care Recommendation: This patient has had 5 [...] providing care. E.D. VISIT COUNT (12 MO.) 9 [facility] TOTAL 9 NOTE: Visits indicate total known visits. ED/UCC VISIT TRACKING (12 MO.) 09/13/2018 13:55 [facility] [place] TYPE: Emergency COMPLAINT: - SKIN PROBLEM 09/07/2018 12:57 [facility] [place] TYPE: Emergency COMPLAINT: - ABDOMINAL SORES DIAGNOSES: - Nicotine dependence, unspecified, uncomplicated - Unspecified kidney failure - Dependence on renal dialysis - Other detention (current) drug therapy - Acquired absence of both cervix and uterus - Panniculitis, unspecified - Unspecified abdominal pain 08/16/2018 13:47 [facility] [place] TYPE: Emergency [...] - Dependence on renal dialysis - Other detention (current) drug therapy - Unspecified kidney failure [...] of both cervix and uterus - Other exterminator termite (current) drug therapy 04/02/2018 15:19 [facility] [...] L LEG SWOLLEN/PAINFUL/NO INJURY DIAGNOSES: - Other exterminator termite (current) drug therapy - Allergy to eggs [...] skin and subcutaneous tissue, unspecified - Other exterminator termite (current) drug therapy - Dependence on renal dialysis - Non-pressure chronic ulcer of other part of left foot with unspecified severity - Nicotine dependence, unspecified, uncomplicated 09/19/2017 13:41 [facility] [place] TYPE: Emergency COMPLAINT: - RIGHT HIP/TROUBLE WALKING/NO KNOWN INJURY DIAGNOSES: - Pain in right hip INPATIENT VISIT TRACKING (12 MO.) No inpatient visits to display in this time frame [id number]
[2018-09-13] MEDS ORDERED: AMLODIPINE BESY10 MG PO (17:51)
[2018-09-13] MEDS ORDERED: NORCO 7.5-3251 EACH PO (18:59)
[2018-09-13] MEDS ORDERED: ONDANSETRON ODT8 MG PO (18:59)
== END 2018-09-13 14:19 | disposition home or self-care (01) ==
LOC: ED 13:54
DX: Z00.8 Encounter for other general examination (principal)

== ENCOUNTER 2018-09-13 17:14 | Emergency (ER) | payer OTHER ==
[~2018-09-13] VITALS: Ht 167.6 cm; Wt 118.4 kg
--- OUTSIDE RECORDS SUMMARY | 2018-09-13 17:16 | XMS ---
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 Care History Medical/Surgical 04/03/2018 [facility] - Patient is currently established with [facility]. If patient is seen in the ED during business hours. Please contact CHWs at [facility]. Care Recommendation: This patient has had [...] providing care. E.D. VISIT COUNT (12 MO.) 10 [facility] TOTAL 10 NOTE: Visits indicate total known visits. ED/UCC VISIT TRACKING (12 MO.) 09/13/2018 17:15 [facility] [place] TYPE: Emergency COMPLAINT: - STICH REMOVAL 09/13/2018 13:55 [facility] [place] TYPE: Emergency COMPLAINT: - SKIN PROBLEM 09/07/2018 12:[address] 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 - Acquired absence of both cervix and uterus - Panniculitis, unspecified - Unspecified abdominal pain 08/16/2018 13:47 [facility] [place] TYPE: Emergency COMPLAINT: - ABD PAIN DIAGNOSES: - Panniculitis, unspecified - Unspecified kidney failure - Lower abdominal pain, unspecified - Acquired absence of both cervix and uterus - Dependence on renal dialysis - Nicotine dependence, unspecified, uncomplicated - 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 08/11/2018 13:44 [facility] [place] TYPE: Emergency COMPLAINT: - SKIN PROBLEM DIAGNOSES: - Acquired absence of both cervix and uterus - Other specified disorders of the skin and subcutaneous tissue - Dependence on renal dialysis - Other [place] [facility] (current[facility] drug therapy - Unspecified kidney failure [...] of both cervix and uterus - 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 04/02/2018 15:19 [facility] [place] TYPE: Emergency COMPLAINT: - EXTREMITY SWELLING,NON INJURY DIAGNOSES: - Other specified soft tissue disorders - Chronic kidney disease, unspecified - Nicotine dependence, unspecified, uncomplicated - Allergy to eggs - Dependence on renal dialysis - Cellulitis of left lower limb - Other [place] [facility] (current) drug therapy 03/27/2018 13:27 [facility] [place] TYPE: Emergency COMPLAINT: - L LEG SWOLLEN/PAINFUL/NO INJURY DIAGNOSES: - 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
[2018-09-13] MEDS ORDERED: AMLODIPINE BESY10 MG PO (17:51)
[2018-09-13] MEDS ORDERED: NORCO 7.5-3251 EACH PO (18:59)
[2018-09-13] MEDS ORDERED: ONDANSETRON ODT8 MG PO (18:59)
== END 2018-09-13 19:19 | disposition home or self-care (01) ==
LOC: ED 17:14
DX: N18.9 Chronic kidney disease, unspecified (principal); Z99.2 Dependence on renal dialysis; F17.200 Nicotine dependence, unspecified, uncomplicated; Z79.899 Other long term (current) drug therapy
CPT/HCPCS: 99283

== ENCOUNTER 2018-09-20 14:24 | Emergency (ER) | payer OTHER ==
[~2018-09-20] VITALS: Ht 167.6 cm; Wt 118.4 kg
[~2018-09-20 14:24] MED LIST changes: +ONDANSETRON ODT8 MG PO
--- OUTSIDE RECORDS SUMMARY | 2018-09-20 14:28 | XMS ---
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 Care History Medical/Surgical 04/03/2018 [facility] - Patient is currently established with [facility]. If patient is seen in the ED during business hours. Please contact CHWs at [facility]. Care Recommendation: This patient has [...] care. E.D. VISIT COUNT (12 MO.) 10 [facility] TOTAL 10 NOTE: Visits indicate total known visits. 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 - Dependence on renal dialysis - Chronic kidney disease, unspecified - Chronic kidney disease, unspecified 09/13/2018 13:55 [facility] [place] TYPE: Emergency COMPLAINT: - SKIN PROBLEM DIAGNOSES: - Encounter for other general examination 09/07/2018 12:57 [facility] [place] TYPE: Emergency COMPLAINT: - ABDOMINAL SORES DIAGNOSES: - Nicotine dependence, unspecified, uncomplicated - Unspecified kidney failure - Dependence on renal dialysis - 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 - Acquired absence of both cervix and uterus - Panniculitis, unspecified - Unspecified abdominal pain 08/16/2018 13:47 [facility] [place] TYPE: Emergency COMPLAINT: - ABD PAIN DIAGNOSES: - Panniculitis, unspecified - Unspecified kidney failure - Lower abdominal pain, unspecified - Acquired absence of both cervix and uterus - Dependence on renal dialysis - Nicotine dependence, unspecified, uncomplicated - Other long-term (current) drug therapy 08/11/2018 13:44 [facility] [place] TYPE: Emergency COMPLAINT: - SKIN PROBLEM DIAGNOSES: - Acquired absence of both cervix and uterus - Other specified disorders of the skin and subcutaneous tissue - Dependence on renal dialysis - 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 - Unspecified kidney failure [...] of both cervix and uterus - Other long-term (current) drug therapy 04/02/2018 15:19 [facility] [place] TYPE: Emergency COMPLAINT: - EXTREMITY SWELLING,NON INJURY DIAGNOSES: - Other specified soft tissue disorders - Chronic kidney disease, unspecified - Nicotine dependence, unspecified, uncomplicated - Allergy to eggs - Dependence on renal dialysis - Cellulitis of left lower limb - 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 03/27/2018 13:27 [facility] [place] TYPE: Emergency COMPLAINT: - L LEG SWOLLEN/PAINFUL/NO INJURY DIAGNOSES: - 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
== END 2018-09-20 17:56 | disposition short-term general hospital (02) ==
LOC: ED 14:24
DX: L03.311 Cellulitis of abdominal wall (principal); N18.6 End stage renal disease; Z99.2 Dependence on renal dialysis; E66.9 Obesity, unspecified; Z86.73 Personal history of transient ischemic attack (TIA), and cerebral infarction without residual deficits; F17.200 Nicotine dependence, unspecified, uncomplicated
CPT/HCPCS: 74176; 80053; 83605; 85025; 96365; 96375; 96376; 99284-25; 99406; J1170; J2270; J2405; J2543; J7060

== ENCOUNTER 2018-10-28 14:34 | Emergency (ER) | payer OTHER ==
[~2018-10-28] VITALS: Ht 167.6 cm; Wt 108.9 kg
--- OUTSIDE RECORDS SUMMARY | ~2018-10-28 | XMS | Encounter Summary ---
Demographics + + + | Address | [address] | | | [place] [address] | + + + | Home Phone | | + + + | Preferred Language | Unknown | + + + | Marital Status | Single | + + + | Roman Catholic Affiliation | Unknown | + + + | Race | Unknown | + + + | Ethnic Group | Unknown | + + + Author + + + | Author | [facility] [employer] | + + + | Organization | [facility] [employer] | + + + | Address | Unknown | + + + | Phone | Unavailable | + + + Support + + + + + | Name | Relationship | Address | Phone | + + + + + | Juliana Dixon | ECON | Unknown | | + + + + + | Mya Dixon | ECON | [address] | | | | | [place] | | | | | [address] | | + + + + + Care Team Providers + +------+ + | Care Office Communication Professor Name | Role | Phone | + +------+ + | Donis Martel MD | PCP | | + +------+ + Reason for Visit +--------+ + | Reason | Comments | +--------+ + | Other | August 2018-Светлана Provider Antoine Avila Note | +--------+ + Encounter Details +--------+ + + + + | Date | Type | Department | Care Team | Description | +--------+ + + + + | 09/22/ | Documentati | [facility] | Eric Sun MD | Other (August | | 2018 | on Only | [place] [address] | [address] | 2019-[facility] Provider | | | | [address] | [address] [place], [place] | Dialysis Rounding | | | | [place] [address] | [address] | Note) | | | | [phone] | | | +--------+ + + + [...] as of this encounter Plan of Treatment +--------+---------+ + + + | Date | Type | Specialty | Care Team | Description | +--------+---------+ + + + | 10/31/ | Office | Infectious Diseases | Jordan Beltrán DO | | | 2019 | Visit | | [address] | | | | | | [place] [address] | | | | | | [phone] | | | | | | | | +--------+---------+ + + + as of this encounter Visit Diagnoses Not on filein this encounter
--- OUTSIDE RECORDS SUMMARY | ~2018-10-28 | XMS | Encounter Summary ---
Demographics + + + | Address | [address] | | | [place] [address] | + + + | Home Phone | | + + + | Preferred Language | Unknown | + + + | Marital Status | Single | + + + | Yarsani Affiliation | Unknown | + + + | Race | Unknown | + + + | Ethnic Group | Unknown | + + + Author + + + | Author | [facility] [employer] | + + + | Organization | [facility] [employer] [facility] | + + + | Address | Unknown | + + + | Phone | Unavailable | + + + Support + + + + + | Name | Relationship | Address | Phone | + + + + + | Juliana Dixon | ECON | Unknown | | + + + + + | Mya Dixon | ECON | [address] | | | | | [place] | | | | | [address] | | + + + + + Care Team Providers + +------+ + | Care Gasket Inspector Name | Role | Phone | + [...] | | 2018 | on Only | [address] | [address] | 2019-[facility] Provider | | | | [address] | [address] [place], [place] | Dialysis Rounding | | | | [place] [address] | [id number] | Note) | | | | [phone] | | | +--------+ + + + [...] [address] | | | | | | [place] [address] | | | | | | [phone] | | | | | | | | +--------+---------+ + + + as of this encounter Visit Diagnoses Not on filein this encounter
--- OUTSIDE RECORDS SUMMARY | ~2018-10-28 | XMS | Encounter Summary ---
Demographics + + + | Address | [address] | | | [place] [address] | + + + | Home Phone | | + + + | Preferred Language | Unknown | + + + | Marital Status | Single | + + + | Buddhism Affiliation | Unknown | + + + | Race | Unknown | + + + | Ethnic Group | Unknown | + + + Author + + + | Author | [facility] [employer] | + + + | Organization | [facility] [employer] | + + + | Address | Unknown | + + + | Phone | Unavailable | + + + Support + + + + + | Name | Relationship | Address | Phone | + + + + + | Juliana Dixon | ECON | Unknown | | + + + + + | Mya Dixon | ECON | [address] | | | | | [place] | | | | | [address] | | + + + + + Care Team Providers + +------+ + | Care Dietary Aide Name | Role | Phone | + +------+ + | Donis Martel MD | PCP | | + +------+ + Encounter Details +--------+ + + + + | Date | Type | Department | Care Team | Description | +--------+ + + + + | 09/26/ | [facility] | [facility] | | [facility] | [facility] | [facility] | | | | | | Operating [address] | | | | | | [address] | | | | | | [place] [address] | | | | | | [phone] | | | +--------+ + + + [...] [address] | | | | | | [place] [address] | | | | | | [phone] | | | | | | | | +--------+---------+ + + + as of this encounter Visit Diagnoses Not on filein this encounter
--- OUTSIDE RECORDS SUMMARY | ~2018-10-28 | XMS | Encounter Summary ---
Demographics + + + | Address | [address] | | | [place] [address] | + + + | Home Phone | | + + + | Preferred Language | Unknown | + + + | Marital Status | Single | + + + | Mandaeism Affiliation | Unknown | + + + | Race | Unknown | + + + | Ethnic Group | Unknown | + + + Author + + + | Author | [facility] | + + + | Organization | [facility] | + + + | Address | Unknown | + + + | Phone | Unavailable | + + + Support + + + + + | Name | Relationship | Address | Phone | + + + + + | Juliana Dixon | ECON | Unknown | | + + + + + | Mya Dixon | ECON | [address] | | | | | [place] | | | | | [address] | | + + + + + Care Team Providers + +------+ + | Care Running Rigger Name | Role | Phone | + +------+ + | Jatin Rodríguez MD | PCP | | + +------+ + Reason for Referral Consultation (Urgent) + + + + + + + | Status | Reason | Specialty | Diagnoses / | Referred By | Referred To | | | | | Procedures | Contact | Contact | + + + + + + + | New Request | Specialty | Infectious | Diagnoses | Becki, | Jerel, | | | Services | Diseases | | MD Ludin | DO Jordan | | | Required | | Panniculitis | [address] | [address] | [address] | [place], [place] | | | | | | [place], [place] | [address] Phone: | | | | | | [phone] | [phone] | | | | | | Phone: | Fax: | | | | | | [phone] | [phone] | | | | | | Fax: | | | | | | | [phone] | | + + + + + + + Surgical (Urgent) +--------+ + + + + + | Status | Reason | Specialty | Diagnoses / | Referred By | Referred To | | | | | Procedures | Contact | Contact | +--------+ + + + + + | Denied | Specialty | Plastic | Diagnoses | Becki, | Rocío, | | | Services | Surgery | | MD Ludin | MD Qamar | | | Required | | Panniculitis | [address] | | | | | [address] | Point | | | | | | [address] | [place], [place] | | | | | | [place], [place] | [address] Phone: | | | | | | [address] | [phone] | | | | | | Phone: | Fax: | | | | | | [phone] | [phone] | | | | | | Fax: | | | | | | | [phone] | | +--------+ + + + + + Consultation (Routine) + + + + + + + | Status | Reason | Specialty | Diagnoses / | Referred By | Referred To | | | | | Procedures | Contact | Contact | + + + + + + + | New Request | Specialty | Wound Care | Diagnoses | | [facility]ound | | | Services | | | Laith, | Care [address] | | | Required | | Panniculitis | Dayna Rizzo MD | [address] | | | | | | [address] | [place], [place] | | | | | | [address]VD | [address] Phone: | | | | | | [place], [place] | [phone] | | | | | | [address] | Fax: | | | | | | Phone: | [phone] | | | | | | [phone] | | | | | | | Fax: | | | | | | | [phone] | | + + + + + + + Reason for Visit Auth/Cert +--------+--------+ + + + + | Status | Reason | Specialty | Diagnoses / | Referred By | Referred To | | | | | Procedures | Contact | Contact | +--------+--------+ + + + + | | | | Diagnoses | | | | | | | ABD wall | | | | | | | cellulitis | | | +--------+--------+ + + + + Encounter Details +--------+ + + + + | Date | Type | Department | Care Team | Description | +--------+ + + + + | 09/20/ | Hospital | [facility] | Horace Escoto, | ESRD (end stage | | 2019 - | Encounter | [address] | MD [address] | renal disease) | | | | Floor [facility] | [place] [address] | (Primary Dx); | | 09/30/ | | [address] | [phone] | Essential | | 2018 | | [place] [address] | | hypertension; | | | | [phone] | [place] Oz[place] S, | Panniculitis | | | | | [address] | | | | | | [place] [address] | | | | | | [phone] | | | | | | | | | | | | Ludin Connell MD | | | | | | [address] | | | | | | [address] | | | | | | [place] [address] | | | | | | [phone] | | | | | | | | +--------+ + + + [...] + +---+---+---+ + + | Tobacco Cessation: Counseling Given: Yes | + + + [...] + + + as of this encounter Last Filed Vital Signs + + + + | Vital Sign | Reading | Time Taken | + + + + | Blood Pressure | 117/57 | 09/30/2018 7:50 AM PDT | + + + + | Pulse | 70 | 09/30/2018 7:50 AM PDT | + + + + | Temperature | 36.7 C (98 F) | 09/30/2018 7:50 AM PDT | + + + + | Respiratory Rate | 20 | 09/30/2018 7:50 AM PDT | + + + + | Oxygen Saturation | 93% | 09/30/2018 7:50 AM PDT | + + + + | Inhaled Oxygen | - | - | | Concentration | | | + + + + | Weight | 108.8 kg (239 lb | 09/29/2018 11:48 AM PDT | | | 13.8 oz) | | + + + + | Height | 168.9 cm (5' 6.5") | 09/20/2018 9:53 PM PST | + + + + | Body Mass Index | 38.13 | 09/29/2018 11:48 AM PDT | + + + + in this encounter Discharge Summaries Ludin Connell MD - 09/30/2018 11:30 AM PDTFormatting of this note may be different from gela michelle. [facility] Service: Hospitalist Discharge Summary Date of Admission: 09/20/2018 Date of Discharge: 09/30/2018 Discharge Provider: Ludin Connell MD Treatment Team: Consulting Physician: Venkatesh Ingram MD Consulting Physician: Qamar Alford MD Consulting Physician: Louisa Sarmiento MD Admitting Provider: Horace Escoto MD Discharge Diagnoses: Principal Problem: Panniculitis Active Problems: Smoker Obesity (BMI 30-39.9) Hyperphosphatemia Hypoalbuminemia Anemia of chronic renal failure, stage 5 (HCC) BMI 45.0-49.9, adult Renovascular hypertension Morbid obesity due to excess calories (HCC) ESRD on hemodialysis Diabetes mellitus, type 2 (HCC) Resolved Problems: * No resolved hospital problems. * BRIEF HISTORY OF PRESENTATION: Corrina Knight is a 43 y.o. female whoHistory of end-stage renal disease, diabetes, hypertension, history of obesity, who has been fighting the panniculitis for several days, t ried outpatient IV antibiotics and failed to improve, so she is admitted by Dr. Alford. Sh e underwent panniculectomy. She tolerated the surgery well. She had expected postop pain, which was adequately controlled with oral narcotics. The patient was quite deconditioned fr om the hospital stay and will be discharged to a [facility] facility. Blood culture wa s negative. ID advised 2 weeks of IV vancomycin post dialysis and Augmentin for 2 weeks. T he patient still has 2 drains in her abdomen, which will be removed by Dr. Alford during th e clinic visit. She does not need regular dressing change. He advised dressing change prio r to discharge and then when he follows up with her in the clinic. Facility-Administered Medications Prior to Admission Medication Dose Route Frequency Provider Last Rate Last Dose lidocaine buffered 1% injection 0.5 mL 0.5 mL Intradermal Once Caden Sultana MD Prescriptions Prior to Admission Medication Sig Dispense Refill Last Dose buPROPion (WELLBUTRIN) 100 MG tablet Take 100 mg by mouth 2 (two) times daily. carvedilol (COREG) 25 MG tablet Take 25 mg by mouth 2 (two) times daily with meals. T aking at 0600 cinacalcet (SENSIPAR) 30 MG tablet Take 1 tablet by mouth daily. Lot# [id number]. Exp date 02/02. 84 tablet 0 Taking at Unknown time doxazosin (CARDURA) 1 MG tablet TAKE 1 BY MOUTH TWO TIMES DAILY 60 tablet 10 Taking at Unknown time albuterol (PROAIR HFA) 108 (90 BASE) MCG/ACT inhaler Inhale 2 puffs into the lungs ever y 4 (four) hours as needed for Wheezing. Not Taking at Unknown time amLODIPine (NORVASC) 5 MG tablet Take 1 tablet by mouth daily. 30 tablet 1 02/28/2017 at Unknown time Cholecalciferol (VITAMIN D3) 5000 units CAPS TAKE 1 BY MOUTH DAILY (Patient not taking: Reported on 02/28/2017) 30 capsule 11 Not Taking at Unknown time oxybutynin (DITROPAN) 5 MG tablet Take 10 mg by mouth 2 (two) times daily. Not Taking at Unknown time RENVELA 2.4 G packet MIX AND TAKE 1 PACKET WITHEACH MEALS 3 TIMES DAILY AND WITH SNA CKS (Patient not taking: Reported on 02/28/2017) 150 each 11 Not Taking at Unknown time sertraline (ZOLOFT) 100 MG tablet Take 75 mg by mouth daily. 02/28/2017 at Unknown edyta e DISCHARGE EXAM Vital Signs: BP 117/57 (BP Location: Right upper arm) | Pulse 70 | Temp 98 F (36.7 C) (Oral) | Re sp 20 | Ht 1.689 m (5' 6.5") | Wt 108.8 kg (239 lb 13.8 oz) | SpO2 93% | BMI 38.13 kg/m Physical Exam General Appearance: awake, alert, oriented, in no acute distress Eyes: No gross abnormalities. Neck: neck- supple, no mass, non-tender Lungs: Normal expansion. Clear to auscultation. No rales, rhonchi, or wheezing. Abdomen: [address] Extremities: Extremities warm to touch, pink, with no edema. DATA Recent Labs Lab 09/30/18 0529 09/29/18 0612 09/28/18 0525 09/27/18 0521 WBC 12.34* 14.78* 14.43* 14.33* HGB 8.6* 8.3* 8.2* 8.5* HCT 27.6* 26.5* 26.5* 28.1* PLT 328 313 292 292 NEUTOPHILPCT 67.57 71.16 -- 74.28 MONOPCT 11.35 10.20 -- 9.23 Recent Labs Lab 09/30/18 0529 09/29/18 0612 09/28/18 0525 NA 132* 131* 131* K 4.5 4.6 4.5 CL 93* 92* 95* CO2 30 27 27 BUN 15 22 14 CREATININE 3.8* 5.1* 3.7* Phosphorus: Lab Results Component Value Date PHOS 3.7 09/30/2018 Invalid input(s): LABALBU No results for input(s): MG in the last 168 hours. No results for input(s): AMYLASE in the last 168 hours. No results for input(s): PHART, PO2ART, HFZ4XKH, Q1YDJBHT, BEART in the last 168 hours. No results for input(s): APTT, INR, PTT in the last 168 hours. No results for input(s): TSH, T3FREE, FREET4 in the last 168 hours. No results for input(s): CKTOTAL, TROPONINI, TROPONINT, CKMBINDEX in the last 168 hours. Radiology No results found. Disposition: Home Condition: Stable Code Status: Prior Discharge Instructions CBC W/Auto Diff (Reflex to Manual) Standing Status: Future Standing Exp. Date: 09/28/19 Order Comments: STANDING ORDER: Please draw weekly while on IV antibiotics. Comprehensive metabolic panel Standing Status: Future Standing Exp. Date: 09/28/19 Order Comments: STANDING ORDER: Please draw weekly while on IV antibiotics. Ambulatory Referral to Wound Clinic Referral Priority: Routine Referral Type: Consultation Referral Reason: Specialty Services Required Requested Specialty: Wound Care Number of Visits Requested: 1 Ambulatory referral to Plastic Surgery Referral Priority: Urgent Referral Type: Surgical Referral Reason: Specialty Services Required Referred to Provider: QAMAR ALFORD Requested Specialty: Plastic Surgery Number of Visits Requested: 1 Ambulatory referral to Infectious Disease Referral Priority: Urgent Referral Type: Consultation Referral Reason: Specialty Services Required Referred to Provider: JORDAN HO Requested Specialty: Infectious Diseases Number of Visits Requested: 1 Call MD for: Persistant Nausea and Vomiting Call MD for: Redness, Tenderness, or Signs of Infection (Pain, Swelling, Redness, Odor or Green/Yellow Discharge Around Incision Site) Call MD for: Persistant Dizziness or Light-Headedness Follow up: Jatin Rodríguez MD [address] [place] [address] Follow up [facility] [address] [place] [id number] Jordan Ho DO [address] [facility] [id number] On 10/10/2018 Qamar Alford MD [address] [facility] [id number] In 1 week Medication List START taking these medications amoxicillin-clavulanate 500-125 MG per tablet QTY: 10 tablet Refills: 0 Commonly known as: AUGMENTIN Take 1 tablet by mouth daily. oxyCODONE 5 MG immediate release tablet QTY: 30 tablet Refills: 0 Commonly known as: ROXICODONE Take 1 tablet by mouth every 6 (six) hours as needed. vancomycin 750 mg QTY: 7500 mL Refills: 0 Commonly known as: VANCOCIN Inject 750 mg into the vein After Hemodialysis (see admin instructions) for 12 days. CHANGE how you take these medications doxazosin 1 MG tablet QTY: 60 tablet Refills: 10 Commonly known as: CARDURA TAKE 1 BY MOUTH TWO TIMES DAILY What changed: Another medication with the same name was removed. Continue taking this medi cation, and follow the directions you see here. CONTINUE taking these medications albuterol 108 (90 BASE) MCG/ACT inhaler Refills: 0 Commonly known as: PROAIR HFA amLODIPine 5 MG tablet QTY: 30 tablet Refills: 1 Commonly known as: NORVASC Take 1 tablet by mouth daily. buPROPion 100 MG tablet Refills: 0 Commonly known as: WELLBUTRIN carvedilol 25 MG tablet Refills: 0 Commonly known as: COREG cinacalcet 30 MG tablet QTY: 84 tablet Refills: 0 Commonly known as: SENSIPAR Take 1 tablet by mouth daily. Lot# [id number]. Exp date 02/02. oxybutynin 5 MG tablet Refills: 0 Commonly known as: DITROPAN RENVELA 2.4 g packet QTY: 150 each Refills: 11 Generic drug: sevelamer carbonate MIX AND TAKE 1 PACKET WITHEACH MEALS 3 TIMES DAILY AND WITH SNACKS sertraline 100 MG tablet Refills: 0 Commonly known as: ZOLOFT Vitamin D3 5000 units Caps QTY: 30 capsule Refills: 11 TAKE 1 BY MOUTH DAILY You might also be taking other medications not listed above. If you have questions about an y of your other medications, talk to the person who prescribed them or your Primary Care Pro vider. STOP taking these medications PHOSLO 667 MG Caps Generic drug: Calcium Acetate (Phos Binder) propranolol 40 MG tablet Commonly known as: INDERAL Where to Get Your Medications You can get these medications from any pharmacy Bring a paper prescription for each of these medications amoxicillin-clavulanate 500-125 MG per tablet oxyCODONE 5 MG immediate release tablet vancomycin 750 mg Discharge took 35 minutes, to include final examination, discussion of admission, and prepa ration of prescriptions, instructions for on-going care, follow-up and documentation of disc harge summary. Ludin Connell MD 09/30/2018 11:30 Richardson this encounter Discharge Instructions Ludin Connell MD - 09/28/2018No need to change dressing if it appears clean. Dr Alford w zahra change it at clinic appointment in 1 week Drain will stay in till patient sees Dr Alford.in this encounter Medications at Time of Discharge + + + +---------+ + + | Medication | Sig. | Disp. | Refills | Start | End Date | | | | | | Date | | + + + +---------+ + + | albuterol (PROAIR | Inhale 2 puffs into | | | | | | HFA) 108 (90 BASE) | the lungs every 4 | | | | | | MCG/ACT inhaler | (four) hours as | | | | | | | needed for Wheezing. | | | | | + + + +---------+ + + | buPROPion | Take 100 mg by mouth | | | | | | (WELLBUTRIN) 100 MG | 2 (two) times | | | | | | tablet | daily. | | | | | + + + +---------+ + + | carvedilol (COREG) | Take 25 mg by mouth | | | | | | 25 MG tablet | 2 (two) times daily | | | | | | | with meals. | | | | | + + + +---------+ + + | Cholecalciferol | TAKE 1 BY MOUTH | 30 | 11 | 01/02/20 | | | (VITAMIN D3) 5000 | DAILY | capsule | | 17 | | | units CAPS | | | | | | + + + +---------+ + + | cinacalcet | Take 1 tablet by | 84 | 0 | 05/04/20 | | | (SENSIPAR) 30 MG | mouth daily. Lot# | tablet | | 17 | | | tablet | [id number]. Exp date | | | | | | | 02/02. | | | | | + + + +---------+ + + | doxazosin | TAKE 1 BY MOUTH TWO | 60 | 10 | 01/18/20 | | | (CARDURA) 1 MG | TIMES DAILY | tablet | | 17 | | | tablet | | | | | | + + + +---------+ + + | oxybutynin | Take 10 mg by mouth | | | | | | (DITROPAN) 5 MG | 2 (two) times daily. | | | | | | tablet | | | | | | + + + +---------+ + + | oxyCODONE | Take 1 tablet by | 30 | 0 | 09/24/19 | | | (ROXICODONE) 5 MG | mouth every 6 (six) | tablet | | 19 | | | immediate release | hours as needed. | | | | | | tablet | | | | | | + + + +---------+ + + | RENVELA 2.4 G | MIX AND TAKE 1 | 150 | 11 | 05/18/20 | | | packet | PACKET WITHEACH | each | | 16 | | | | MEALS 3 TIMES DAILY | | | | | | | AND WITH SNACKS | | | | | + + + +---------+ + + | sertraline | Take 75 mg by mouth | | | | | | (ZOLOFT) 100 MG | daily. | | | | | | tablet | | | | | | + + + +---------+ + + | vancomycin | Inject 750 mg into | 7500 mL | 0 | 09/29/19 | | | (VANCOCIN) 750 | the vein After | | | 19 | 9 | | mgIndications: | Hemodialysis (see | | | | | | Panniculitis | admin instructions) | | | | | | | for 12 days. | | | | | + + + +---------+ + + | | Take 1 tablet by | 10 | 0 | 10/01/19 | | | amoxicillin-clavulan | mouth daily. | tablet | | 19 | 9 | | ate (AUGMENTIN) | | | | | | | 500-125 MG per | | | | | | | tabletIndications: | | | | | | | Skin and Soft Tissue | | | | | | | Abscess | | | | | | + + + +---------+ + + as of this encounter Progress Notes Ludin oCnnell MD - 09/29/2018 11:09 AM PDTFormatting of this note may be different from t he original. [facility] Service: Hospitalist Progress Note Hospital Day: LOS: 9 days SUBJECTIVE Patient Summary: Events Overnight: Patient reports pain is well controlled. Drain in place. No new com plaints. Scheduled Medications amoxicillin-clavulanate 1 tablet Oral Daily buPROPion 100 mg Oral BID carvedilol 25 mg Oral BID WC cinacalcet 30 mg Oral Daily doxazosin 1 mg Oral BID insulin lispro (human) 0-3 Units Subcutaneous Nightly insulin lispro (human) 0-6 Units Subcutaneous TID AC sevelamer 2,400 mg Oral TID WC tumescent anesthetic solution Infiltration What Job Titles Mean to OR tumescent anesthetic solution Infiltration What Job Titles Mean to OR sodium chloride (PF) 10 mL Intravenous Q8H vancomycin 750 mg Intravenous See Admin Instructions vancomycin 750 mg Intravenous Once Continuous Infusions dextrose OBJECTIVE Vital Signs: BP 102/50 | Pulse 63 | Temp 98 F (36.7 C) (Oral) | Resp 14 | Ht 1.689 m (5' 6.5") | Wt 112 kg (246 lb 14.6 oz) | SpO2 99% | BMI 39.26 kg/m Physical Exam General Appearance: awake, alert, oriented, in no acute distress Eyes: No gross abnormalities. Neck: neck- supple, no mass, non-tender Lungs: Normal expansion. Clear to auscultation. No rales, rhonchi, or wheezing. Abdomen: Binder in place drain in place Extremities: ++edema DATA Recent Labs Lab 09/29/18 0609/28/18 0525 09/27/18 0509/26/18 0555 WBC 14.78* 14.43* 14.33* 10.22 HGB 8.3* 8.2* 8.5* 9.2* HCT 26.5* 26.5* 28.1* 29.0* PLT 313 292 292 302 NEUTOPHILPCT 71.16 -- 74.28 63.97 MONOPCT 10.20 -- 9.23 9.57 Recent Labs Lab 09/29/18 0612 09/28/18 0525 09/27/18 0521 NA 131* 131* 132* K 4.6 4.5 4.7 CL 92* 95* 94* CO2 27 27 28 BUN 22 14 27* CREATININE 5.1* 3.7* 5.3* Phosphorus: Lab Results Component Value Date PHOS 4.7 09/29/2018 Invalid input(s): LABALBU No results for input(s): MG in the last 168 hours. No results for input(s): AMYLASE in the last 168 hours. No results for input(s): PHART, PO2ART, NSS3WQY, V8CCEFBG, BEART in the last 168 hours. No results for input(s): APTT, INR, PTT in the last 168 hours. No results for input(s): TSH, T3FREE, FREET4 in the last 168 hours. No results for input(s): CKTOTAL, TROPONINI, TROPONINT, CKMBINDEX in the last 168 hours. Radiology No results found. PROBLEM LIST Principal Problem: Panniculitis Active Problems: Smoker Obesity (BMI 30-39.9) Hyperphosphatemia Hypoalbuminemia Anemia of chronic renal failure, stage 5 (HCC) BMI 45.0-49.9, adult Renovascular hypertension Morbid obesity due to excess calories ([facility]) ESRD on hemodialysis Diabetes mellitus, type 2 ([facility]) Resolved Problems: * No resolved hospital problems. * ASSESSMENT & PLAN Panniculitis, status post debridement and then surgery and on broad spectrum antibiotics. Dr Alford advised to keep the drain in at discharge. Cont abx, Home tomorrow. Dressing to b e changed prior to discharge. No need for dressing change until patient follows up with Dr Magdiel segovia in 1 week CKD stage 5, end stage renal disease, hemodialysis dependent. Continue hemodialysis. Anemia of chronic kidney disease. Deferred to Dr. Sanchez for further management. Obesity, encourage weight loss. Deconditioned awaiting placement Code Status: Prior Ludin Connell MD 09/29/2018 11:09 AMDerrick Sanchez MD - 09/29/2018 11:05 AM PDTFormatting of this note may be differen t from the original. PCP : JATIN RODRÍGUEZ LOS: 9 days Corrina Knight is a 43 y.o. woman followed for ESRD management. I assumed nephrology care from Dr. Ingram 09/26/18. She is s/p panniculectomy with Dr. Alford 09/26/18. She feels 'OK' today and has no fever, chills sweats, nausea, vomiting or diarrhea, shortne ss of breath, chest pain, cough. She is seen on HD with RN, Zeenat. No complications during HD identified. Discharge planning is ongoing. ROS: As in History of Present Illness. 7 area ROS was done and was otherwise negative. Examination: Vitals: As noted General appearance: Morbidly obese woman sitting in bed comfortably. Conversant Neck: FROM, supple. Thick neck without JVD. Lungs: Effort fair. Extremities: Minimal peripheral edema and no digital cyanosis Skin: Venous stasis both LE. Psych: Pleasant demeanor Neurologic: Alert and oriented to person, place and time. Gait not tested. Speech fluent. Dialysis access: Left UE AVF. The following portions of the patient's history were reviewed and updated as appropriate: l aboratory data, radiologic studies, allergies, current medications, and problem list. Past m edical, surgical, social, and family history was also reviewed as appropriate. Past history summarized as above. Vital Signs: BP 108/53 | Pulse 63 | Temp 98 F (36.7 C) (Oral) | Resp 14 | Ht 1.689 m (5' 6.5") | Wt 112 kg (246 lb 14.6 oz) | SpO2 97% | BMI 39.26 kg/m Intake/Output Summary (Last 24 hours) at 09/29/18 1105 Last data filed at 09/29/18 0003 Gross per 24 hour Intake 0 ml Output 50 ml Net -50 ml Data evaluation: Lab Results Component Value Date BUN 22 09/29/2018 CREATININE 5.1 (H) 09/29/2018 EGFR 9 (L) 09/29/2018 NA 131 (L) 09/29/2018 K 4.6 09/29/2018 CL 92 (L) 09/29/2018 CO2 27 09/29/2018 CA 8.4 (L) 09/29/2018 PHOS 4.7 09/29/2018 MG 2.1 09/21/2018 ALB 3.3 (L) 09/20/2018 HGB 8.3 (L) 09/29/2018 Lab Results Component Value Date ANIONGAP 17 09/29/2018 Assessment and Recommendations: 1. ESRD on HD 2. S/p panniculectomy 3. Hyponatremia 4. Hypochloremia 5. Anemia chronic renal failure 6. Leucocytosis 7. Hypoalbuminemia 8. Secondary hypertension 9. Secondary hyperparathyroidism She is hemodynamically stable with no fever/tachycardia/bradycardia/hypotension or severe h ypertension/hypoxia at rest. Blood cultures from 09/20/18 remain -. MRSA screen from 09/20/18 is +. She is s/p panniculectom y with Dr. Alford 09/26/18. ESRD is established. Access is working OK. She is close to euvolemic state. BP is on the lower side on BB/CB. She is not on BITA-/ARB. Anemia is moderate. I would continue maintenance HD MWF using left UE AVF for now. Continue to use DELL to achieve target Hb of 10-11. Continue current medications. As noted in Dr. Ho's note she will be on vancomycin/augm entin through [facility] . FU corrected Ca every day for now as she is on Sensipar. Diet 2 gm Na Dose all meds for an eGFR of less than 15 ml/min/1.73 m2. No use of NSAIDs (including CAMPOS 2 inhibitors). No use of Magnesium or aluminum containing antacids. No use of Magnesium or phosphorus containing laxatives Fluid restriction 1.5 L in 24 hour period. Strict I/O Daily weights. DERRICK SANCHEZ MD 09/29/2018 Plan of care was discussed with Dr. Connell. Portions of my previous notes have been carried over for continuity of care. She was seen earlier in the day and charting was completed later after rounds. Dictation software, [employer], was used which may contain error for similar sounding words jaye n after review. Personal communication is requested for any clarification. Risk of complications is high and prognosis is guarded in view of multiple comorbid illness es and ESRD amoxicillin-clavulanate 1 tablet Oral Daily buPROPion 100 mg Oral BID carvedilol 25 mg Oral BID WC cinacalcet 30 mg Oral Daily doxazosin 1 mg Oral BID insulin lispro (human) 0-3 Units Subcutaneous Nightly insulin lispro (human) 0-6 Units Subcutaneous TID AC sevelamer 2,400 mg Oral TID WC tumescent anesthetic solution Infiltration What Job Titles Mean to OR tumescent anesthetic solution Infiltration What Job Titles Mean to OR sodium chloride (PF) 10 mL Intravenous Q8H vancomycin 750 mg Intravenous See Admin Instructions vancomycin 750 mg Intravenous Once dextrose Jordan Ho, - 09/29/2018 8:04 AM PDTFormatting of this note may be different from the original. [facility] Service: Infectious Disease Progress Note Hospital Day: LOS: 9 days Post-Op Day: * No surgery found * SUBJECTIVE Patient Summary: 43 y.o. female with significant past medical history of morbid obes ity, type II diabetes mellitus, end-stage renal disease on hemodialysis who presented on Sep with abdominal wall pain, found to have cellulitis of the pannus. The patient has repor tedly been treated with multiple recent courses of antibiotics, including a recent course of vancomycin with hemodialysis. The patient initially presented to [facility], and was transferred here with the supposedly need for surgical debridement, although CT scan did not show any evidence of abscess. At the time of admission, the patient was placed on Z osyn. I am asked to consult regarding further antibiotic recommendations. The patient reports that her most recent course of antibiotics for her panniculitis was abo ut 2 months ago, and consisted of vancomycin being given with hemodialysis. She reports that since that time she has continued to have painful swelling of the lower pannus, including a reas that are lumpy and firm. MRSA screen was positive on admission. The patient had persist ent necrotic changes despite vancomycin, and still persistent despite addition of Zosyn, and ultimately underwent panniculectomy on September 26. CC: Panniculitis Chart reviewed: No new events. Subjective The patient reports that her incisional pain is gradually improving. She has been able to e at without difficulty, tolerating regular diet. She was told that she may be able to dischar ge early next week. ROS No fever, chills sweats. No nausea, vomiting or diarrhea. No rashes or pruritis. No oral pa in. Scheduled Medications amoxicillin-clavulanate 1 tablet Oral Daily buPROPion 100 mg Oral BID carvedilol 25 mg Oral BID WC cinacalcet 30 mg Oral Daily doxazosin 1 mg Oral BID epoetin curly 10,000 Units Intravenous Once in dialysis insulin lispro (human) 0-3 Units Subcutaneous Nightly insulin lispro (human) 0-6 Units Subcutaneous TID AC sevelamer 2,400 mg Oral TID WC tumescent anesthetic solution Infiltration What Job Titles Mean to OR tumescent anesthetic solution Infiltration What Job Titles Mean to OR sodium chloride (PF) 10 mL Intravenous Q8H vancomycin 750 mg Intravenous See Admin Instructions Continuous Infusions dextrose PRN Medications acetaminophen OR acetaminophen, albumin human, albuterol, denture adhesive, dextrose, d extrose, dextrose, diphenhydrAMINE, fentaNYL, glucagon, glucagon, ondansetron OR ondanse ira, oxyCODONE OR [DISCONTINUED] oxyCODONE, polyethylene glycol, traMADol, zolpidem OBJECTIVE Vital Signs: BP 110/58 (BP Location: Right upper arm) | Pulse 69 | Temp 98 F (36.7 C) (Oral) | Re sp 16 | Ht 1.689 m (5' 6.5") | Wt 112 kg (246 lb 14.6 oz) | SpO2 93% | BMI 39.26 kg/m Temp (24hrs), Av.3 F (36.8 C), Min:98 F (36.7 C), Max:98.5 F (36.9 C) Exam: Const: Vitals reviewed. No acute distress Skin: No rashes, no edema. Binder in place on lower abdominal wall. CALEB drains contain scant serosanguineous fluid. ENT: No thrush. Lungs: CTAB, no rales or wheezes Heart: RRR, no murmur Abd: soft, NT, + bowel sounds DATA CBC: Lab Results Component Value Date WBC 14.78 (H) 09/29/2018 RBC 3.31 (L) 09/29/2018 HGB 8.3 (L) 09/29/2018 HCT 26.5 (L) 09/29/2018 MCV 79.9 (L) 09/29/2018 MCH 25.0 (L) 09/29/2018 MCHC 31.3 (L) 09/29/2018 RDW 52.5 09/29/2018 PLT 313 09/29/2018 MPV 8.6 09/29/2018 DIFFTYPE AUTOMATED 09/29/2018 CMP: Lab Results Component Value Date NA 131 (L) 09/29/2018 K 4.6 09/29/2018 K 6.1 (H) 12/12/2015 CL 92 (L) 09/29/2018 CO2 27 09/29/2018 ANIONGAP 17 09/29/2018 GLUF 77 09/29/2018 BUN 22 09/29/2018 CREATININE 5.1 (H) 09/29/2018 BCR 4 09/29/2018 CA 8.4 (L) 09/29/2018 PROT 7.3 09/20/2018 ALB 3.3 (L) 09/20/2018 GLOB 4.0 09/20/2018 BILITOT 0.4 09/20/2018 ALP 109 09/20/2018 AST 16 09/20/2018 ALT 9 (L) 09/20/2018 EGFR 9 (L) 09/29/2018 Microbiology: MRSA screen positive. Blood cultures negative 2 so far. PROBLEM LIST Principal Problem: Panniculitis Active Problems: Smoker Obesity (BMI 30-39.9) Hyperphosphatemia Hypoalbuminemia Anemia of chronic renal failure, stage 5 (HCC) BMI 45.0-49.9, adult Renovascular hypertension Morbid obesity due to excess calories ([facility]) ESRD on hemodialysis Diabetes mellitus, type 2 ([facility]) ASSESSMENT & PLAN Panniculitis (09/21/2018) appreciate panniculectomy. Continue oral Augmentin and vancomycin with hemodialysis for a total of 2 weeks following surgical debridement, therefore through October 10. ESRD (end stage renal disease) (04/02/2015) Vancomycin and Zosyn dosed accordingly. Diabetes mellitus type II Reportedly resolved. Leukocytosis Expected exacerbation postop, we will monitor. Disposition: Ready for discharge from infectious diseases standpoint. Orders written to con tinue vancomycin through October 10. She will also need prescription for Augmentin to last thr ough October 10 at the time of discharge. Dr. Sarmiento will assume Infectious Diseases followup starting Saturday 09/30 if needed. Code Status: Prior JORDAN HO, 09/29/2018Vance Rosenberg, [facility] - 09/29/2018 7:58 AM PDTFormatting of this note may be different from the original. Vancomycin Monitoring Subjective Pharmacy to dose vancomycin per protocol. Diagnosis: Panniculitis. Vancomycin Day: 9 Objective Lab Results Component Value Date/Time CREATININE 5.1 (H) 09/29/2018 06:12 AM WBC 14.78 (H) 09/29/2018 06:12 AM Wt= 112 kg, CrCl= HD, Tmax afeb Cultures= Bloodx2 [id number], MRSA PCR - Pos . Other Abx= Augmentin Current Vancomycin Dose = 750 mg post dialysis Vancomycin Random Level: 24.1 ug/mL on 09/29/18 @ 0612. Assessment Per protocol, continue current dosing for a random level between 15-25 ug/mL. Vancomycin will continue through October 10. Plan Continue vancomycin HD protocol. No further levels needed at this time. Pharmacist: Vance Real, [facility] - 09/28/2018 1:27 PM PDTRenal Dosing Monitoring: S: Renal dose monitoring per protocol. O: Dialysis Patient A/P: Changed dosing of Augmentin from 500-125 mg BID to 500-125 mg QD based on dialysis dos ing and per Lexicomp/Gaffney Guide. Pharmacist: Vance Rosenberg, Derrick Saunders MD - 09/28/2018 12:55 PM PDTFormatting of this note may be different from t he original. PCP : JATIN RODRÍGUEZ LOS: 8 days Corrina Knight is a 43 y.o. woman followed for ESRD management. I assumed nephrology care from Dr. Ingram 09/26/18. She is s/p panniculectomy with Dr. Alford 09/26/18. She feels 'OK' today and has no fever, chills sweats, nausea, vomiting or diarrhea, shortne ss of breath, chest pain, cough. ROS: As in History of Present Illness. 7 area ROS was done and was otherwise negative. Examination: Vitals: As noted General appearance: Morbidly obese woman sitting in chair comfortably. Conversant Neck: FROM, supple. Thick neck without JVD. Lungs: Effort fair. Reduced AE at bases. CV: RRR, no MRGs; normal carotid upstroke and amplitude without bruits. No pericardial rub. Abdomen: Binder in with 2 drains. Extremities: No peripheral edema or digital cyanosis Skin: No rash, lesions or ulcers Psych: Pleasant demeanor Neurologic: Alert and oriented to person, place and time. Gait not tested. Speech fluent. Dialysis access: Left UE AVF. The following portions of the patient's history were reviewed and updated as appropriate: l aboratory data, radiologic studies, allergies, current medications, and problem list. Past m edical, surgical, social, and family history was also reviewed as appropriate. Past history summarized as above. Vital Signs: BP 106/55 (BP Location: Right upper arm) | Pulse 74 | Temp 98.5 F (36.9 C) (Oral) | Resp 20 | Ht 1.689 m (5' 6.5") | Wt 112.4 kg (247 lb 12.8 oz) | SpO2 95% | BMI 39.40 kg/ m Intake/Output Summary (Last 24 hours) at 09/28/18 1255 Last data filed at 09/28/18 0950 Gross per 24 hour Intake 710 ml Output 70.5 ml Net 639.5 ml Data evaluation: Lab Results Component Value Date BUN 09/28/2018 CREATININE 3.7 (H) 09/28/2018 EGFR 14 (L) 09/28/2018 NA 131 (L) 09/28/2018 K 4.5 09/28/2018 CL 95 (L) 09/28/2018 CO2 27 09/28/2018 CA 7.9 (L) 09/28/2018 PHOS 3.3 09/28/2018 MG 2.1 09/21/2018 ALB 3.3 (L) 09/20/2018 HGB 8.2 (L) 09/28/2018 Lab Results Component Value Date ANIONGAP 09/28/2018 Assessment and Recommendations: 1. ESRD on HD 2. S/p panniculectomy 3. Hyponatremia 4. Hypochloremia 5. Anemia chronic renal failure 6. Leucocytosis 7. Hypoalbuminemia 8. Secondary hypertension 9. Secondary hyperparathyroidism She is hemodynamically stable with no fever/tachycardia/bradycardia/hypotension or severe h ypertension/hypoxia at rest. Blood cultures from 09/20/18 remain -. MRSA screen from 09/20/18 is +. She is s/p panniculectom y with Dr. Alford 09/26/18. ESRD is established. Access is working OK. She is close to euvolemic state. BP is on the lower side on BB/CB. She is not on ARB. Anemia is moderate. I would continue maintenance HD MWF using left UE AVF for now. Continue to use DELL to achieve target Hb of 10-11. Continue current medications. As noted in Dr. Ho's note she will be on vancomycin/augm entin through [facility] . FU corrected Ca every day for now as she is on Sensipar. Diet 2 gm Na Dose all meds for an eGFR of less than 15 ml/min/1.73 m2. No use of NSAIDs (including CAMPOS 2 inhibitors). No use of Magnesium or aluminum containing antacids. No use of Magnesium or phosphorus containing laxatives Fluid restriction 1.5 L in 24 hour period. Strict I/O Daily weights. DERRICK SANCHEZ MD 09/28/2018 Plan of care was discussed with Dr. Connell. Portions of my previous notes have been carried over for continuity of care. She was seen earlier in the day and charting was completed later after rounds. Dictation software, GonnaBe, was used which may contain error for similar sounding words jaye n after review. Personal communication is requested for any clarification. Risk of complications is high and prognosis is guarded in view of multiple comorbid illness es and ESRD amoxicillin-clavulanate 1 tablet Oral 2 times per day buPROPion 100 mg Oral BID carvedilol 25 mg Oral BID WC cinacalcet 30 mg Oral Daily doxazosin 1 mg Oral BID insulin lispro (human) 0-3 Units Subcutaneous Nightly insulin lispro (human) 0-6 Units Subcutaneous TID AC sevelamer 2,400 mg Oral TID WC tumescent anesthetic solution Infiltration What Job Titles Mean to OR tumescent anesthetic solution Infiltration What Job Titles Mean to OR sodium chloride (PF) 10 mL Intravenous Q8H vancomycin 750 mg Intravenous See Admin Instructions dextrose Ludin Connell MD - 09/28/2018 11:45 AM PDTFormatting of this note may be different from t mary original. [facility] Service: Hospitalist Progress Note Hospital Day: LOS: 8 days SUBJECTIVE Patient Summary: Events Overnight: Patient reports pain is well controlled. Drain in place. No new com plaints. Scheduled Medications amoxicillin-clavulanate 1 tablet Oral 2 times per day buPROPion 100 mg Oral BID carvedilol 25 mg Oral BID WC cinacalcet 30 mg Oral Daily doxazosin 1 mg Oral BID insulin lispro (human) 0-3 Units Subcutaneous Nightly insulin lispro (human) 0-6 Units Subcutaneous TID AC sevelamer 2,400 mg Oral TID WC tumescent anesthetic solution Infiltration What Job Titles Mean to OR tumescent anesthetic solution Infiltration What Job Titles Mean to OR sodium chloride (PF) 10 mL Intravenous Q8H vancomycin 750 mg Intravenous See Admin Instructions Continuous Infusions dextrose OBJECTIVE Vital Signs: BP 99/57 | Pulse 74 | Temp 98.4 F (36.9 C) (Oral) | Resp 19 | Ht 1.689 m (5' 6.5") | Wt 112.4 kg (247 lb 12.8 oz) | SpO2 93% | BMI 39.40 kg/m Physical Exam General Appearance: awake, alert, oriented, in no acute distress Eyes: No gross abnormalities. Neck: neck- supple, no mass, non-tender Lungs: Normal expansion. Clear to auscultation. No rales, rhonchi, or wheezing. Abdomen: Binder in place drain in place Extremities: ++edema DATA Recent Labs Lab 09/28/18 0525 09/27/18 0521 09/26/18 0555 09/25/18 0538 WBC 14.43* 14.33* 10.22 10.60 HGB 8.2* 8.5* 9.2* 9.3* HCT 26.5* 28.1* 29.0* 29.9* PLT 292 292 302 316 NEUTOPHILPCT -- 74.28 63.97 65.29 MONOPCT -- 9.23 9.57 8.17 Recent Labs Lab 09/28/18 0525 09/27/18 0521 09/26/18 0555 NA 131* 132* 133* K 4.5 4.7 4.4 CL 95* 94* 96* CO2 27 28 28 BUN 14 27* 20 CREATININE 3.7* 5.3* 4.0* Phosphorus: Lab Results Component Value Date PHOS 3.3 09/28/2018 Invalid input(s): LABALBU No results for input(s): MG in the last 168 hours. No results for input(s): AMYLASE in the last 168 hours. No results for input(s): PHART, PO2ART, SRF1PMN, Y0ENGEWK, BEART in the last 168 hours. No results for input(s): APTT, INR, PTT in the last 168 hours. No results for input(s): TSH, T3FREE, FREET4 in the last 168 hours. No results for input(s): CKTOTAL, TROPONINI, TROPONINT, CKMBINDEX in the last 168 hours. Radiology No results found. PROBLEM LIST Principal Problem: Panniculitis Active Problems: Smoker Obesity (BMI 30-39.9) Hyperphosphatemia Hypoalbuminemia Anemia of chronic renal failure, stage 5 (HCC) BMI 45.0-49.9, adult Renovascular hypertension Morbid obesity due to excess calories (HCC) ESRD on hemodialysis Diabetes mellitus, type 2 (HCC) Resolved Problems: * No resolved hospital problems. * ASSESSMENT & PLAN Panniculitis, status post debridement and then surgery and on broad spectrum antibiotics. Dr Alford advised to keep the drain in at discharge. Cont abx, Home tomorrow. Dressing to b e changed prior to discharge. No need for dressing change until patient follows up with Dr Magdiel segovia. CKD stage 5, end stage renal disease, hemodialysis dependent. Continue hemodialysis. Anemia of chronic kidney disease. Deferred to Dr. Sanchez for further management. Obesity, encourage weight loss. Code Status: Prior Ludin Connell MD 09/28/2018 11:45 Vance Mendoza, [facility] - 09/28/2018 11:39 AM PDTFormatting of this note may be d ifferent from the original. Vancomycin Monitoring Subjective Pharmacy to dose vancomycin per protocol. Diagnosis: Panniculitis. Vancomycin Day: 8 Objective Lab Results Component Value Date/Time CREATININE 3.7 (H) 09/28/2018 05:25 AM WBC 14.43 (H) 09/28/2018 05:25 AM Wt= 112.4 kg, CrCl= HD, Tmax afeb Cultures= Bloodx2 [id number], MRSA PCR - Pos . Other Abx= Zosyn. Current Vancomycin Dose = 750 mg post dialysis. Assessment Trough goal: 10- 20 ug/mL Per ID, vancomycin will continue through October 10. Plan Continue vancomycin HD protocol. Order written to draw level Tuesday morning (09/27/18) pr ior to dialysis. Pharmacist: Qamar Olson MD - 09/28/2018 10:08 AM PDTThe patient's pain is controlled Afebrile vital signs stable No wound or blood supply issues. The patient can be discharged when cleared by the hospitalist service. I should see her for follow-up in about 7-10 days.Jordan Ho, - 09/28/2018 9:55 AM PDTFormatting of this no te may be different from the original. [facility] Service: Infectious Disease Progress Note Hospital Day: LOS: 8 days Post-Op Day: * No surgery found * SUBJECTIVE Patient Summary: 43 y.o. female with significant past medical history of morbid obes ity, type II diabetes mellitus, end-stage renal disease on hemodialysis who presented on Sep with abdominal wall pain, found to have cellulitis of the pannus. The patient has repor tedly been treated with multiple recent courses of antibiotics, including a recent course of vancomycin with hemodialysis. The patient initially presented to [facility], and was transferred here with the supposedly need for surgical debridement, although CT scan did not show any evidence of abscess. At the time of admission, the patient was placed on Z osyn. I am asked to consult regarding further antibiotic recommendations. The patient reports that her most recent course of antibiotics for her panniculitis was abo ut 2 months ago, and consisted of vancomycin being given with hemodialysis. She reports that since that time she has continued to have painful swelling of the lower pannus, including a reas that are lumpy and firm. MRSA screen was positive on admission. The patient had persist ent necrotic changes despite vancomycin, and still persistent despite addition of Zosyn, and ultimately underwent panniculectomy on September 26. CC: Panniculitis Chart reviewed: No new events. Subjective The patient reports that her incisional pain is gradually improving. She has been able to e at without difficulty, tolerating regular diet. She was told that she may be able to dischar ge early next week. ROS No fever, chills sweats. No nausea, vomiting or diarrhea. No rashes or pruritis. No oral pa in. Scheduled Medications buPROPion 100 mg Oral BID carvedilol 25 mg Oral BID WC cinacalcet 30 mg Oral Daily doxazosin 1 mg Oral BID insulin lispro (human) 0-3 Units Subcutaneous Nightly insulin lispro (human) 0-6 Units Subcutaneous TID AC piperacillin-tazobactam 2.25 g Intravenous Q12H sevelamer 2,400 mg Oral TID WC tumescent anesthetic solution Infiltration What Job Titles Mean to OR tumescent anesthetic solution Infiltration What Job Titles Mean to OR sodium chloride (PF) 10 mL Intravenous Q8H vancomycin 750 mg Intravenous See Admin Instructions Continuous Infusions dextrose PRN Medications acetaminophen OR acetaminophen, albuterol, denture adhesive, dextrose, dextrose, dextro se, diphenhydrAMINE, fentaNYL, glucagon, glucagon, ondansetron OR ondansetron, oxyCODONE OR [DISCONTINUED] oxyCODONE, polyethylene glycol, traMADol, zolpidem OBJECTIVE Vital Signs: BP 97/56 (BP Location: Right upper arm) | Pulse 72 | Temp 98.4 F (36.9 C) (Oral) | R salma 19 | Ht 1.689 m (5' 6.5") | Wt 112.4 kg (247 lb 12.8 oz) | SpO2 93% | BMI 39.40 kg/m Temp (24hrs), Av.2 F (36.8 C), Min:97.7 F (36.5 C), Max:98.7 F (37.1 C) Exam: Const: Vitals reviewed. No acute distress Skin: No rashes, no edema. Binder in place on lower abdominal wall. CALEB drains contain scant serosanguineous fluid. ENT: No thrush. Lungs: CTAB, no rales or wheezes Heart: RRR, no murmur Abd: soft, NT, + bowel sounds DATA CBC: Lab Results Component Value Date WBC 14.43 (H) 09/28/2018 RBC 3.22 (L) 09/28/2018 HGB 8.2 (L) 09/28/2018 HCT 26.5 (L) 09/28/2018 MCV 82.4 09/28/2018 MCH 25.5 (L) 09/28/2018 MCHC 30.9 (L) 09/28/2018 RDW 54.7 (H) 09/28/2018 PLT 292 09/28/2018 MPV 8.4 09/28/2018 DIFFTYPE MANUAL 09/28/2018 CMP: Lab Results Component Value Date NA 131 (L) 09/28/2018 K 4.5 09/28/2018 K 6.1 (H) 12/12/2015 CL 95 (L) 09/28/2018 CO2 27 09/28/2018 ANIONGAP 14 09/28/2018 GLUF 85 09/28/2018 BUN 14 09/28/2018 CREATININE 3.7 (H) 09/28/2018 BCR 4 09/28/2018 CA 7.9 (L) 09/28/2018 PROT 7.3 09/20/2018 ALB 3.3 (L) 09/20/2018 GLOB 4.0 09/20/2018 BILITOT 0.4 09/20/2018 ALP 109 09/20/2018 AST 16 09/20/2018 ALT 9 (L) 09/20/2018 EGFR 14 (L) 09/28/2018 Microbiology: MRSA screen positive. Blood cultures negative 2 so far. PROBLEM LIST Principal Problem: Panniculitis Active Problems: Smoker Obesity (BMI 30-39.9) Hyperphosphatemia Hypoalbuminemia Anemia of chronic renal failure, stage 5 (HCC) BMI 45.0-49.9, adult Renovascular hypertension Morbid obesity due to excess calories (HCC) ESRD on hemodialysis Diabetes mellitus, type 2 (HCC) ASSESSMENT & PLAN Panniculitis (09/21/2018) appreciate panniculectomy. I will transition from Zosyn to oral Augmentin, and we will p rhiannon to continue Augmentin and vancomycin for a total of 2 weeks following surgical debrideme nt, therefore through October 10. ESRD (end stage renal disease) (04/02/2015) Vancomycin and Zosyn dosed accordingly. Diabetes mellitus type II Reportedly resolved. Leukocytosis Expected exacerbation postop, we will monitor. Disposition: Orders written to continue vancomycin through October 10. She will also need pre scription for Augmentin to last through October 10 at the time of discharge. Code Status: Prior JORDAN HO, DO 09/28/2018Diane Haider, RD - 09/27/2018 3:53 PM PDTFormatting of this note may b e different from the original. 09/27/18 1530 Subjective Timepoint Admit Pt c/o Triggered for screening secondary to LOS. Pt presented with abdominal pain in the se tting of prior panniculitis and underwent a panniculectomy on 09/26. Pt sitting in chair comp laining of pain with family at bedside. Symptoms Pt reports poor appetite and PO intake. Reported by Patient Diet Experience Self-selected diet(s) followed Pt reports poor PO intake over the last year. Family reports that pt doesn't eat when she is in pain and appears to get tired of chewing. Fluid / Beverage Intake Oral Fluids Amount 1500 mL FR Liquid Meal Replacement or Supplement Discussed dietary supplements with pt. Pt not agreeab le to liquid supplement as it would affect her FR. Pt agreeable to Boost Pudding BID. Food Intake Amount of Food Per charting, 100B on 09/24 and 09/25. Per family, pt only ate a few bites of a urger and a Mountain Dew for lunch today and a few bites of cream of wheat, fruit, and cof fee for breakfast. Type of Food / Meals Renal, Diabetic, Cardiac Nutrition-Focused Physical Findings Overall Appearance Obese. Body Language Uncomfortable. In Pain. Extremities, Muscles and Bones BLE non-pitting edema. Digestive System (Mouth to Rectum) Pt is oliguric. Anthropometrics Weight change Admit Wt: 119.6 kg. Pt is 199% IBW and BMI of 41.9. Pt reports UBW of 120 kg (265 lbs) last measured 2 months ago at the dialysis clinic which indicates non-significant wtl loss of 0.4 kg (2 lbs) over 2 months. No other recents wts found in record over the last year. Biochemical data, medical tests, and procedures reviewed Biochemical data, medical tests, and procedures reviewed Na 132 (L), BUN 27 (H), Cr 5.3 (H) , H&H low. Estimated Energy Needs Total Energy Estimated Needs 7219-1485 kcal/day Method for Estimating Needs 25-30 kcal/kg per 75.1 kg AdjBW Estimated Protein Needs Total Protein Estimated Needs 90-113 gPRO/day Method for Estimating Needs 1.2-1.5 gPRO/kg per 75.1 kg AdjBW Recommendations Recommended energy needs Continue Renal, Diabetic, Cardiac Diet with 1500 mL FR as ordered. Will trial Boost Pudding BID to supplement PO intake. Encourage PO intake of meals and snac ks. Nutritional Risk Nutritional risk Low Follow up date 10/04/18 Diane Lopez MS-MPH, RDN Ludin Connell MD - 09/27/2018 2:49 PM PDTFormatting of this note may be different from t mary original. [facility] Service: Hospitalist Progress Note Hospital Day: LOS: 7 days SUBJECTIVE Patient Summary: Events Overnight: Patient reports pain is not well controlled Requesting adjustment o f pain meds. Scheduled Medications buPROPion 100 mg Oral BID carvedilol 25 mg Oral BID WC cinacalcet 30 mg Oral Daily doxazosin 1 mg Oral BID insulin lispro (human) 0-3 Units Subcutaneous Nightly insulin lispro (human) 0-6 Units Subcutaneous TID AC piperacillin-tazobactam 2.25 g Intravenous Q12H sevelamer 2,400 mg Oral TID WC tumescent anesthetic solution Infiltration What Job Titles Mean to OR tumescent anesthetic solution Infiltration What Job Titles Mean to OR sodium chloride (PF) 10 mL Intravenous Q8H vancomycin 750 mg Intravenous See Admin Instructions vancomycin 750 mg Intravenous Once Continuous Infusions dextrose OBJECTIVE Vital Signs: BP 99/51 (BP Location: Right forearm) | Pulse 68 | Temp 97.9 F (36.6 C) (Oral) | Res p 16 | Ht 1.689 m (5' 6.5") | Wt 113.3 kg (249 lb 12.5 oz) | SpO2 99% | BMI 39.71 kg/m Physical Exam General Appearance: awake, alert, oriented, in no acute distress Eyes: No gross abnormalities. Neck: neck- supple, no mass, non-tender Lungs: Normal expansion. Clear to auscultation. No rales, rhonchi, or wheezing. Abdomen: Binder in place Extremities: ++edema DATA Recent Labs Lab 09/27/18 0521 09/26/18 0555 09/25/18 0538 WBC 14.33* 10.22 10.60 HGB 8.5* 9.2* 9.3* HCT 28.1* 29.0* 29.9* PLT 292 302 316 NEUTOPHILPCT 74.28 63.97 65.29 MONOPCT 9.23 9.57 8.17 Recent Labs Lab 09/27/18 0521 09/26/18 0555 09/25/18 0538 09/20/18 1950 NA 132* 133* 132* < > 139 K 4.7 4.4 5.2* < > 4.2 CL 94* 96* 94* < > 97* CO2 28 28 27 < > 35* BUN 27* 20 40* < > 13 CREATININE 5.3* 4.0* 5.9* < > 2.69* PROT -- -- -- -- 7.3 BILITOT -- -- -- -- 0.4 ALT -- -- -- -- 9* AST -- -- -- -- 16 < > = values in this interval not displayed. Phosphorus: Lab Results Component Value Date PHOS 4.5 09/27/2018 Invalid input(s): LABALBU Recent Labs Lab 09/21/18 0610 09/20/18 1950 MG 2.1 1.8 No results for input(s): AMYLASE in the last 168 hours. No results for input(s): PHART, PO2ART, OUT0IKQ, R0VKOBAW, BEART in the last 168 hours. No results for input(s): APTT, INR, PTT in the last 168 hours. No results for input(s): TSH, T3FREE, FREET4 in the last 168 hours. No results for input(s): CKTOTAL, TROPONINI, TROPONINT, CKMBINDEX in the last 168 hours. Radiology No results found. PROBLEM LIST Principal Problem: Panniculitis Active Problems: Smoker Obesity (BMI 30-39.9) Hyperphosphatemia Hypoalbuminemia Anemia of chronic renal failure, stage 5 (HCC) BMI 45.0-49.9, adult Renovascular hypertension Morbid obesity due to excess calories (HCC) ESRD on hemodialysis Diabetes mellitus, type 2 ([facility]) Resolved Problems: * No resolved hospital problems. * ASSESSMENT & PLAN Panniculitis, status post debridement and then surgery and on broad spectrum antibiotics. Deferred to ID for further management. Dr. Alford following the wound. CKD stage 5, end s tage renal disease, hemodialysis dependent. Continue hemodialysis. Anemia of chronic kidne y disease. Deferred to Dr. Sanchez for further management. Obesity, encourage weight loss. Code Status: Prior Ludin Connell MD 09/27/2018 2:49 Vance Owusu, [facility] - 09/27/2018 12:55 PM PDTFormatting of this note may be di fferent from the original. Vancomycin Monitoring Subjective Pharmacy to dose vancomycin per protocol. Diagnosis: Panniculitis. Vancomycin Day: 7 Objective Lab Results Component Value Date/Time CREATININE 5.3 (H) 09/27/2018 05:21 AM WBC 14.33 (H) 09/27/2018 05:21 AM Wt= 113.3 kg, CrCl= HD, Tmax afeb, Procalcitonin 0.45 ng/mL on 09/20/18 Cultures= Bloodx2 [id number], MRSA PCR - Pos . Other Abx= Zosyn. Current Vancomycin Dose = 750 mg post dialysis. Assessment Trough goal: 10- 20 ug/mL. May warrant higher trough goals given necrotizing nature/sev erity of infection noted. No vancomycin level has been drawn since admission. Will drawn level prior to next dialy sis session on Tuesday since today is day 7 of therapy. Plan Continue vancomycin HD protocol. Order written to draw level Tuesday morning (09/27/18) pr ior to dialysis. Pharmacist: Jordan Hardy, - 09/27/2018 11:26 AM PDTFormatting of this note may be different from the original. [facility] Service: Infectious Disease Progress Note Hospital Day: LOS: 7 days Post-Op Day: * No surgery found * SUBJECTIVE Patient Summary: 43 y.o. female with significant past medical history of morbid obes ity, type II diabetes mellitus, end-stage renal disease on hemodialysis who presented on Sep with abdominal wall pain, found to have cellulitis of the pannus. The patient has repor tedly been treated with multiple recent courses of antibiotics, including a recent course of vancomycin with hemodialysis. The patient initially presented to [facility], and was transferred here with the supposedly need for surgical debridement, although CT scan did not show any evidence of abscess. At the time of admission, the patient was placed on Z osyn. I am asked to consult regarding further antibiotic recommendations. The patient reports that her most recent course of antibiotics for her panniculitis was abo ut 2 months ago, and consisted of vancomycin being given with hemodialysis. She reports that since that time she has continued to have painful swelling of the lower pannus, including a reas that are lumpy and firm. MRSA screen was positive on admission. The patient had persist ent necrotic changes despite vancomycin, and still persistent despite addition of Zosyn, and ultimately underwent panniculectomy on September 26. CC: Panniculitis Chart reviewed: No new events. Subjective The patient underwent panniculectomy yesterday afternoon. She continues to have episodic lo wer abdominal pain. She denies any fevers, chills, nausea or vomiting. ROS No fever, chills sweats. No nausea, vomiting or diarrhea. No rashes or pruritis. No oral pa in. Scheduled Medications buPROPion 100 mg Oral BID carvedilol 25 mg Oral BID WC cinacalcet 30 mg Oral Daily doxazosin 1 mg Oral BID insulin lispro (human) 0-3 Units Subcutaneous Nightly insulin lispro (human) 0-6 Units Subcutaneous TID AC piperacillin-tazobactam 2.25 g Intravenous Q12H sevelamer 2,400 mg Oral TID WC tumescent anesthetic solution Infiltration What Job Titles Mean to OR tumescent anesthetic solution Infiltration What Job Titles Mean to OR sodium chloride (PF) 10 mL Intravenous Q8H vancomycin 750 mg Intravenous See Admin Instructions Continuous Infusions dextrose PRN Medications acetaminophen OR acetaminophen, albuterol, denture adhesive, dextrose, dextrose, dextro se, diphenhydrAMINE, glucagon, glucagon, HYDROmorphone, ondansetron OR ondansetron, oxyC ODONE OR [DISCONTINUED] oxyCODONE, polyethylene glycol, traMADol, zolpidem OBJECTIVE Vital Signs: BP 104/51 | Pulse 66 | Temp 98.3 F (36.8 C) (Oral) | Resp 16 | Ht 1.689 m (5' 6.5") | Wt 115.3 kg (254 lb 3.1 oz) | SpO2 99% | BMI 40.41 kg/m Temp (24hrs), Av.8 F (36.6 C), Min:97.2 F (36.2 C), Max:98.5 F (36.9 C) Exam: Const: Vitals reviewed. No acute distress Skin: No rashes, no edema. Erythema in right lower quadrant of abdominal wall is about the same today. Some of the area of necrosis has sloughed away, but surrounding area remains mar kedly indurated and tender ENT: No thrush. Lungs: CTAB, no rales or wheezes Heart: RRR, no murmur Abd: soft, NT, + bowel sounds DATA CBC: Lab Results Component Value Date WBC 14.33 (H) 09/27/2018 RBC 3.49 (L) 09/27/2018 HGB 8.5 (L) 09/27/2018 HCT 28.1 (L) 09/27/2018 MCV 80.6 09/27/2018 MCH 24.5 (L) 09/27/2018 MCHC 30.3 (L) 09/27/2018 RDW 52.1 09/27/2018 PLT 292 09/27/2018 MPV 8.8 09/27/2018 DIFFTYPE AUTOMATED 09/27/2018 CMP: Lab Results Component Value Date NA 132 (L) 09/27/2018 K 4.7 09/27/2018 K 6.1 (H) 12/12/2015 CL 94 (L) 09/27/2018 CO2 28 09/27/2018 ANIONGAP 15 09/27/2018 GLUF 69 09/27/2018 BUN 27 (H) 09/27/2018 CREATININE 5.3 (H) 09/27/2018 BCR 5 09/27/2018 CA 8.1 (L) 09/27/2018 PROT 7.3 09/20/2018 ALB 3.3 (L) 09/20/2018 GLOB 4.0 09/20/2018 BILITOT 0.4 09/20/2018 ALP 109 09/20/2018 AST 16 09/20/2018 ALT 9 (L) 09/20/2018 EGFR 9 (L) 09/27/2018 Microbiology: MRSA screen positive. Blood cultures negative 2 so far. PROBLEM LIST Principal Problem: Panniculitis Active Problems: Smoker Obesity (BMI 30-39.9) Hyperphosphatemia Hypoalbuminemia Anemia of chronic renal failure, stage 5 (HCC) BMI 45.0-49.9, adult Renovascular hypertension Morbid obesity due to excess calories (HCC) ESRD on hemodialysis Diabetes mellitus, type 2 (HCC) ASSESSMENT & PLAN Panniculitis (09/21/2018) This is usually gram-positive, and with the patient's positive MRSA screen, and there was initial improvement with vancomycin, although she had also been given Unasyn on admission. On a combination of Zosyn and vancomycin, the patient persistent chronic changes, now underg one debridement via panniculectomy, much appreciated. We will monitor for clinical improveme nt. ESRD (end stage renal disease) (04/02/2015) Vancomycin and Zosyn dosed accordingly. Diabetes mellitus type II Reportedly resolved. Leukocytosis Expected exacerbation postop, we will monitor. Code Status: Prior JORDAN HO DO 09/27/2018Derrick Sanchez MD - 09/27/2018 10:48 AM PDTFormatting of this note may be differe nt from the original. PCP : JATIN RODRÍGUEZ LOS: 7 days Corrina Knight is a 43 y.o. woman followed for ESRD management. I assumed nephrology care from Dr. Ingram 09/26/18. She is s/p panniculectomy with Dr. Alford 09/26/18. She is seen with her mother. She is seen on dialysis with RN, Ela. No complications during HD identified. She feels 'OK' today and has no fever, chills sweats, nausea, vomiting or diarrhea, shortne ss of breath, chest pain, cough. She urinated a little yesterday and did not have a BM today. She does have pain at surgical site. ROS: As in History of Present Illness. 7 area ROS was done and was otherwise negative. Examination: Vitals: As noted General appearance: Morbidly obese woman in some pain. Sitting up in bed conversant Neck: FROM, supple. Thick neck without JVD. Lungs: Effort fair. Reduced AE at bases. CV: RRR, no MRGs; normal carotid upstroke and amplitude without bruits. No pericardial rub. Abdomen: Binder in with 2 drains. Extremities: No peripheral edema or digital cyanosis Skin: No rash, lesions or ulcers Psych: Pleasant demeanor Neurologic: Alert and oriented to person, place and time. Gait not tested. Speech fluent. Dialysis access: Left UE AVF. The following portions of the patient's history were reviewed and updated as appropriate: l aboratory data, radiologic studies, allergies, current medications, and problem list. Past m edical, surgical, social, and family history was also reviewed as appropriate. Past history summarized as above. Vital Signs: BP 125/60 | Pulse 66 | Temp 98.3 F (36.8 C) (Oral) | Resp 16 | Ht 1.689 m (5' 6.5") | Wt 115.3 kg (254 lb 3.1 oz) | SpO2 99% | BMI 40.41 kg/m Intake/Output Summary (Last 24 hours) at 09/27/18 1048 Last data filed at 09/27/18 0858 Gross per 24 hour Intake 1457 ml Output 500 ml Net 957 ml Data evaluation: Lab Results Component Value Date BUN 27 (H) 09/27/2018 CREATININE 5.3 (H) 09/27/2018 EGFR 9 (L) 09/27/2018 NA 132 (L) 09/27/2018 K 4.7 09/27/2018 CL 94 (L) 09/27/2018 CO2 28 09/27/2018 CA 8.1 (L) 09/27/2018 PHOS 5.1 (H) 09/21/2018 MG 2.1 09/21/2018 ALB 3.3 (L) 09/20/2018 HGB 8.5 (L) 09/27/2018 Lab Results Component Value Date HGB 8.5 (L) 09/27/2018 No results found for: LDH No results found for: URICACID No results found for: PTHINT, PTHINTACT Lab Results Component Value Date ANIONGAP 15 09/27/2018 Assessment and Recommendations: 1. ESRD on HD 2. S/p panniculectomy 3. Hyponatremia 4. Hypochloremia 5. Anemia chronic renal failure 6. Leucocytosis 7. Hypoalbuminemia 8. Secondary hypertension 9. Secondary hyperparathyroidism She is hemodynamically stable with no fever/tachycardia/bradycardia/hypotension or severe h ypertension/hypoxia at rest. Blood cultures from 09/20/18 remain -. MRSA screen from 09/20/18 is +. She is s/p panniculectom y with Dr. Alford 09/26/18. ESRD is established. Access is working OK. She is close to euvolemic state. Anemia is moderate. I would continue maintenance HD MWF using left UE AVF for now. Continue to use DELL to achieve target Hb of 10-11. Continue current medications. Check corrected Ca every day as she is on Sensipar. Diet 2 gm Na Dose all meds for an eGFR of less than 15 ml/min/1.73 m2. No use of NSAIDs (including CAMPOS 2 inhibitors). No use of Magnesium or aluminum containing antacids. No use of Magnesium or phosphorus containing laxatives Fluid restriction 1.5 L in 24 hour period. Strict I/O Daily weights. DERRICK SANCHEZ MD 09/27/2018 Portions of my previous notes have been carried over for continuity of care. She was seen earlier in the day and charting was completed later after rounds. Dictation software, GonnaBe, was used which may contain error for similar sounding words jaye velasco after review. Personal communication is requested for any clarification. Risk of complications is high and prognosis is guarded in view of multiple comorbid illness es and ESRD buPROPion 100 mg Oral BID carvedilol 25 mg Oral BID WC cinacalcet 30 mg Oral Daily doxazosin 1 mg Oral BID insulin lispro (human) 0-3 Units Subcutaneous Nightly insulin lispro (human) 0-6 Units Subcutaneous TID AC piperacillin-tazobactam 2.25 g Intravenous Q12H sevelamer 2,400 mg Oral TID WC tumescent anesthetic solution Infiltration What Job Titles Mean to OR tumescent anesthetic solution Infiltration What Job Titles Mean to OR sodium chloride (PF) 10 mL Intravenous Q8H vancomycin 750 mg Intravenous See Admin Instructions Derrick Gregory MD - 09/26/2018 6:19 PM PDTFormatting of this note may be different from t he original. PCP : JATIN RODRÍGUEZ LOS: 6 days Corrina Knight is a 43 y.o. woman followed for ESRD management. I assumed nephrology care from Dr. Ingram 09/26/18. She is s/p panniculectomy with Dr. Alford today. She is seen with her mother. She feels 'OK' today and has no fever, chills sweats, nausea, vomiting or diarrhea, shortne ss of breath, chest pain, cough. She does have pain at surgical site. She is oliguric. ROS: As in History of Present Illness. 7 area ROS was done and was otherwise negative. Examination: Vitals: As noted General appearance: Morbidly obese woman in some pain. Sitting up in bed conversant Neck: FROM, supple. Thick neck without JVD. Lungs: Effort fair. CV: RRR, no MRGs; normal carotid upstroke and amplitude without bruits Abdomen: Binder in with 2 drains. Extremities: No peripheral edema or digital cyanosis Skin: No rash, lesions or ulcers Psych: Pleasant demeanor Neurologic: Alert and oriented to person, place and time. Gait not tested. Speech fluent. Dialysis access: Left UE AVF. The following portions of the patient's history were reviewed and updated as appropriate: l aboratory data, radiologic studies, allergies, current medications, and problem list. Past m edical, surgical, social, and family history was also reviewed as appropriate. Past history summarized as above. Vital Signs: BP 112/57 | Pulse 61 | Temp 97.6 F (36.4 C) (Axillary) | Resp 16 | Ht 1.689 m (5' 6 .5") | Wt 118 kg (260 lb 2.3 oz) | SpO2 96% | BMI 41.36 kg/m Intake/Output Summary (Last 24 hours) at 09/26/18 1819 Last data filed at 09/26/18 1713 Gross per 24 hour Intake 250 ml Output 410 ml Net -160 ml Data evaluation: Lab Results Component Value Date BUN 20 09/26/2018 CREATININE 4.0 (H) 09/26/2018 EGFR 12 (L) 09/26/2018 NA 133 (L) 09/26/2018 K 4.4 09/26/2018 CL 96 (L) 09/26/2018 CO2 28 09/26/2018 CA 8.3 (L) 09/26/2018 PHOS 5.1 (H) 09/21/2018 MG 2.1 09/21/2018 ALB 3.3 (L) 09/20/2018 HGB 9.2 (L) 09/26/2018 Lab Results Component Value Date HGB 9.2 (L) 09/26/2018 No results found for: LDH No results found for: URICACID No results found for: PTHINT, PTHINTACT Lab Results Component Value Date ANIONGAP 13 09/26/2018 Assessment and Recommendations: 1. ESRD on HD 2. S/p panniculectomy 3. Anemia chronic renal failure 4. Hypoalbuminemia ESRD is established. Access is working OK. She is close to euvolemic state. Anemia is moderate. I would continue maintenance HD MWF using left UE AVF for now. Continue to use DELL to achieve target Hb of 10-11. Continue current medications. Diet 2 gm Na Dose all meds for an eGFR of less than 15 ml/min/1.73 m2. No use of NSAIDs (including CAMPOS 2 inhibitors). No use of Magnesium or aluminum containing antacids. No use of Magnesium or phosphorus containing laxatives Fluid restriction 1.5 L in 24 hour period. Strict I/O Daily weights. DERRICK SANCHEZ MD 09/26/2018 Plan of care was discussed with Dr. Fransisca Clarke She was seen earlier in the day and charting was completed later after rounds. Dictation software, GonnaBe, was used which may contain error for similar sounding words jaye n after review. Personal communication is requested for any clarification. Prognosis is guarded in view of multiple comorbid illnesses and ESRD buPROPion 100 mg Oral BID carvedilol 25 mg Oral BID WC cinacalcet 30 mg Oral Daily doxazosin 1 mg Oral BID insulin lispro (human) 0-3 Units Subcutaneous Nightly insulin lispro (human) 0-6 Units Subcutaneous TID AC piperacillin-tazobactam 2.25 g Intravenous Q12H sevelamer 2,400 mg Oral TID WC tumescent anesthetic solution Infiltration What Job Titles Mean to OR tumescent anesthetic solution Infiltration What Job Titles Mean to OR sodium chloride (PF) 10 mL Intravenous Q8H vancomycin 750 mg Intravenous See Admin Instructions dextrose Dayna Ozuna MD - 09/26/2018 3:38 PM PDTFormatting of this note may be different f rom the original. [facility] Service: Hospitalist Progress Note Pt: Corrina Knight AGE/SEX: 43 y.o. female ROOM: 4461/4461-1 : 1975 PCP: JATIN RODRÍGUEZ ADMIT DATE: 09/20/2018 TODAY'S DATE: 09/26/2018 Hospital Day/Hospital Course: LOS: 6 days SUBJECTIVE: Patient seen and examine. Patient was seen after surgery for panniculectomy with Dr. Jericho ruiz, she is awake and pain is controlled at this time as anesthesia didn't wear off completely Scheduled Medications: buPROPion 100 mg Oral BID carvedilol 25 mg Oral BID WC cinacalcet 30 mg Oral Daily doxazosin 1 mg Oral BID insulin lispro (human) 0-3 Units Subcutaneous Nightly insulin lispro (human) 0-6 Units Subcutaneous TID AC piperacillin-tazobactam 2.25 g Intravenous Q12H sevelamer 2,400 mg Oral TID WC tumescent anesthetic solution Infiltration What Job Titles Mean to OR tumescent anesthetic solution Infiltration What Job Titles Mean to OR sodium chloride (PF) 10 mL Intravenous Q8H vancomycin 750 mg Intravenous See Admin Instructions Continuous Infusions dextrose PRN Medications acetaminophen OR acetaminophen, albuterol, denture adhesive, dextrose, dextrose, dextro se, diphenhydrAMINE, glucagon, glucagon, HYDROmorphone, ondansetron OR ondansetron, oxyC ODONE OR [DISCONTINUED] oxyCODONE, polyethylene glycol, traMADol, zolpidem Allergy: No Known Allergies OBJECTIVE: Vitals: Temp: [97.2 F (36.2 C)-98.8 F (37.1 C)] 97.6 F (36.4 C) Heart Rate: [58-74] 61 Resp: [0-20] 16 BP: (106-161)/(56-78) 112/57 FiO2 : [56 %-100 %] 99 % I&O Detailed Table: Intake/Output Summary (Last 24 hours) at 09/26/18 1738 Last data filed at 09/26/18 1713 Gross per 24 hour Intake 750 ml Output 410 ml Net 340 ml Patient Vitals for the past 96 hrs: Weight 09/26/18 0310 118 kg (260 lb 2.3 oz) 09/25/18 1638 117 kg (257 lb 15 oz) 09/25/18 1220 119 kg (262 lb 5.6 oz) Physical Examination: Constitutional: Alert and oriented to person, place, and time. Morbid obese HEENT: Neck supple, no JVD, non icteric sclera. Cardiovascular: Normal rate, regular rhythm, normal heart sounds with S1 and S2, and intact distal pulses. Exam reveals no gallop and no friction rub. No murmur heard. Pulmonary/Chest: Effort normal and breath sounds normal. No stridor. No respiratory distres s. no wheezes. no rales. exhibits no tenderness. Abdominal: Soft. Bowel sounds are normal. exhibits no distension and no mass. There is Gigi gical dressing over incision Extremeties/Musculoskeletal: Normal range of motion.exhibits no tenderness. exhibits no ed brandyn. Normal equal peripheral pulses. Neurological: Alert and oriented to person, place, and time. No cranial nerve deficit. E xhibits normal muscle tone. No gross motor deficits. Skin: Skin is warm. No pallor. Patient has normal capillary refill, no mottling. Psychiatric: Has a normal mood and affect. Behavior is normal. Judgment normal. LABS: Recent Labs Lab 09/26/18 0555 09/25/18 0538 09/24/18 0524 WBC 10.22 10.60 11.57* HGB 9.2* 9.3* 9.1* HCT 29.0* 29.9* 29.1* PLT 302 316 294 NEUTOPHILPCT 63.97 65.29 67.46 MONOPCT 9.57 8.17 8.73 Recent Labs Lab 09/26/18 0555 09/25/18 0538 09/24/18 0524 09/20/18 1950 NA 133* 132* 131* < > 139 K 4.4 5.2* 5.0* < > 4.2 CL 96* 94* 94* < > 97* CO2 28 27 25 < > 35* BUN 20 40* 29* < > 13 CREATININE 4.0* 5.9* 4.7* < > 2.69* PROT -- -- -- -- 7.3 BILITOT -- -- -- -- 0.4 ALT -- -- -- -- 9* AST -- -- -- -- 16 < > = values in this interval not displayed. Phosphorus: Lab Results Component Value Date PHOS 5.1 (H) 09/21/2018 Invalid input(s): LABALBU Recent Labs Lab 09/21/18 0610 09/20/18 1950 MG 2.1 1.8 No results for input(s): AMYLASE in the last 168 hours. No results for input(s): PHART, PO2ART, JPC3GYH, I2PHIQPT, BEART in the last 168 hours. No results for input(s): APTT, INR, PTT in the last 168 hours. No results for input(s): TSH, T3FREE, FREET4 in the last 168 hours. No results for input(s): CKTOTAL, TROPONINI, TROPONINT, CKMBINDEX in the last 168 hours.i PROBLEM LIST Principal Problem: Panniculitis Active Problems: ESRD (end stage renal disease) Smoker Essential hypertension Obesity (BMI 30-39.9) Anemia of chronic renal failure, stage 5 (HCC) Renovascular hypertension Morbid obesity due to excess calories (HCC) Diabetes mellitus, type 2 (HCC) ASSESSMENT & PLAN 1. Panniculitis with recurrent infection, MRSA nasal screen is positive continue IV Zosyn a nd Vancomycin s/p panniculectomy with Dr. Mahoney on 09/26/18, PRN Dilaudid IV and continue O xycodone Tramadol PRN. 2. ESRD (end stage renal disease) nephrology was consulted, HD, M/W/F 3. Tobacco Smoker counseling to stop smoking. 4. Essential hypertension continue Carvedilol. 5. Obesity (BMI 30-39.9) lifestyle modification is advised.. 6. Anemia of chronic renal failure, stable 7. Diabetes mellitus, type 2 insulin sliding scale. 8. DVT prophylaxis Heparin D/C in 48 hours when pain improves and cleared by Dr. Ho and Denzel Ozuna MD 09/26/2018 5:38 PM Jordan Ho, DO - 09/26/2018 9:41 AM PDTFormatting of this note may be different from the original. [facility] Service: Infectious Disease Progress Note Hospital Day: LOS: 6 days Post-Op Day: * No surgery found * SUBJECTIVE Patient Summary: 43 y.o. female with significant past medical history of morbid obes ity, type II diabetes mellitus, end-stage renal disease on hemodialysis who presented on Sep with abdominal wall pain, found to have cellulitis of the pannus. The patient has repor tedly been treated with multiple recent courses of antibiotics, including a recent course of vancomycin with hemodialysis. The patient initially presented to [facility], and was transferred here with the supposedly need for surgical debridement, although CT scan did not show any evidence of abscess. At the time of admission, the patient was placed on Z osyn. I am asked to consult regarding further antibiotic recommendations. The patient reports that her most recent course of antibiotics for her panniculitis was abo ut 2 months ago, and consisted of vancomycin being given with hemodialysis. She reports that since that time she has continued to have painful swelling of the lower pannus, including a reas that are lumpy and firm. MRSA screen was positive on admission. CC: Panniculitis Chart reviewed: No new events. Subjective The patient reports that she still has pain in the lower abdominal wall, no significant imp rovement. She denies any fevers or chills. She has been scheduled for surgical debridement a t noon. ROS No fever, chills sweats. No nausea, vomiting or diarrhea. No rashes or pruritis. No oral pa in. Scheduled Medications buPROPion 100 mg Oral BID carvedilol 25 mg Oral BID WC cinacalcet 30 mg Oral Daily doxazosin 1 mg Oral BID insulin lispro (human) 0-3 Units Subcutaneous Nightly insulin lispro (human) 0-6 Units Subcutaneous TID AC piperacillin-tazobactam 2.25 g Intravenous Q12H sevelamer 2,400 mg Oral TID WC tumescent anesthetic solution Infiltration What Job Titles Mean to OR sodium chloride (PF) 10 mL Intravenous Q8H vancomycin 750 mg Intravenous See Admin Instructions Continuous Infusions dextrose PRN Medications acetaminophen OR acetaminophen, albuterol, denture adhesive, dextrose, dextrose, dextro se, diphenhydrAMINE, glucagon, glucagon, HYDROmorphone, ondansetron OR ondansetron, oxyC ODONE OR [DISCONTINUED] oxyCODONE, polyethylene glycol, traMADol, zolpidem OBJECTIVE Vital Signs: BP 121/59 (BP Location: Right upper arm) | Pulse 65 | Temp 98.6 F (37 C) (Oral) | Re sp 18 | Ht 1.689 m (5' 6.5") | Wt 118 kg (260 lb 2.3 oz) | SpO2 91% | BMI 41.36 kg/m Temp (24hrs), Av.2 F (36.8 C), Min:97.9 F (36.6 C), Max:98.7 F (37.1 C) Exam: Const: Vitals reviewed. No acute distress Skin: No rashes, no edema. Erythema in right lower quadrant of abdominal wall is about the same today. Some of the area of necrosis has sloughed away, but surrounding area remains mar kedly indurated and tender ENT: No thrush. Lungs: CTAB, no rales or wheezes Heart: RRR, no murmur Abd: soft, NT, + bowel sounds DATA CBC: Lab Results Component Value Date WBC 10.22 09/26/2018 RBC 3.63 (L) 09/26/2018 HGB 9.2 (L) 09/26/2018 HCT 29.0 (L) 09/26/2018 MCV 79.7 (L) 09/26/2018 MCH 25.4 (L) 09/26/2018 MCHC 31.9 (L) 09/26/2018 RDW 52.1 09/26/2018 PLT 302 09/26/2018 MPV 8.8 09/26/2018 DIFFTYPE AUTOMATED 09/26/2018 CMP: Lab Results Component Value Date NA 133 (L) 09/26/2018 K 4.4 09/26/2018 K 6.1 (H) 12/12/2015 CL 96 (L) 09/26/2018 CO2 28 09/26/2018 ANIONGAP 13 09/26/2018 GLUF 80 09/26/2018 BUN 20 09/26/2018 CREATININE 4.0 (H) 09/26/2018 BCR 5 09/26/2018 CA 8.3 (L) 09/26/2018 PROT 7.3 09/20/2018 ALB 3.3 (L) 09/20/2018 GLOB 4.0 09/20/2018 BILITOT 0.4 09/20/2018 ALP 109 09/20/2018 AST 16 09/20/2018 ALT 9 (L) 09/20/2018 EGFR 12 (L) 09/26/2018 Microbiology: MRSA screen positive. Blood cultures negative 2 so far. PROBLEM LIST Principal Problem: Panniculitis Active Problems: ESRD (end stage renal disease) Smoker Essential hypertension Obesity (BMI 30-39.9) Anemia of chronic renal failure, stage 5 (HCC) Renovascular hypertension Morbid obesity due to excess calories ([facility]) Diabetes mellitus, type 2 ([facility]) ASSESSMENT & PLAN Panniculitis (09/21/2018) This is usually gram-positive, and with the patient's positive MRSA screen, and there was initial improvement with vancomycin, although she had also been given Unasyn on admission. Today there is increased pain and induration, but no fluctuance. There is a large necrotic a bev, which is unlikely to improve without debridement, therefore appreciate plan for debride ment later today. ESRD (end stage renal disease) (04/02/2015) Vancomycin dosed accordingly. Diabetes mellitus type II Reportedly resolved. Code Status: Full Code JORDAN HO DO 09/26/2018Andres Jn - 09/25/2018 11:16 PM PDTOn call shingles roofer helper responded to staff vis it request per pt's mother while on site. Corrina (43/f) expressed feeling anxious prior to gigi edi tomorrow. Her mother requested a shingles roofer helper visit for prayer. Assumed goal of emotional/s piritual support. Visited briefly with Corrina and her mother. Corrina showed normal signs of distress/anxiety prio r to surgery; stated she was not in any pain. Her mother stated she goes to dialysis 3x/week , but is hopeful tomorrow's surgery will be "successful". Per request, offered prayer of pea ce at Corrina's bedside with full participation. Corrina stated she "felt better" after prayer, adding she felt she would be able to rest now. Musical Instrument Supervisor offered simulation engineer support through the night and on site support at 0600. Family expre ssed openness to follow up visit post op. Left message for day shingles roofer helper to check in.Benita Ingram MD - 09/25/2018 4:00 PM PDTFormatting of this note may be different from the original . [facility] Service: NEPHROLOGY Dialysis/ Progress Note Corrina Knight 43 y.o. [id number] female [facility] Day: LOS: 5 days 43-year-old female with past medical history significant for end-stage renal disease on hem odialysis 3 times a week Tuesday, hypertension, obesity, type II diabetes, anemia in end-stage renal disease, history of cva presented to [facility] with abdominal wall pain and swelling in the setting of prior panniculitis with repeated treatment with several antibiotic courses most recently got vancomycin admitted with acute panniculitis. Nephrology consulted for evaluation and management of ESRD ONSET Chronic severity severe Associated with fluid electrolyte acid base imbalances Assess need for hd/uf Seen and examined on hd with hd rn zeenat/ family tolerating hd/ uf well Access functioning well HD FLOW SHEET REVIEWED Says feel ok, plan for sx in am Denies cp, sob, nausea, vomiting, diarrhea, fever, headache Past Medical History Diagnosis Date Allergic rhinitis, cause unspecified Anemia of chronic renal failure, stage 5 ([facility]) 12/13/2015 Chronic kidney disease Diabetes mellitus, type 2 (HCC) Dialysis patient ([facility]) ESRD (end stage renal disease) ([facility]) 04/02/2015 Essential hypertension 04/03/2015 Hypertension Obesity (BMI 30-39.9) Stroke ([facility]) Past Surgical History Procedure Laterality Date ANKLE SURGERY DENTAL SURGERY left dialysis catheter removal of 2 toes Facility-Administered Medications Prior to Admission Medication Dose Route Frequency Provider Last Rate Last Dose lidocaine buffered 1% injection 0.5 mL 0.5 mL Intradermal Once Caden Sultana MD Prescriptions Prior to Admission Medication Sig Dispense Refill Last Dose buPROPion (WELLBUTRIN) 100 MG tablet Take 100 mg by mouth 2 (two) times daily. carvedilol (COREG) 25 MG tablet Take 25 mg by mouth 2 (two) times daily with meals. T aking at 0600 cinacalcet (SENSIPAR) 30 MG tablet Take 1 tablet by mouth daily. Lot# [id number]. Exp date tablet 0 Taking at Unknown time doxazosin (CARDURA) 1 MG tablet TAKE 1 BY MOUTH TWO TIMES DAILY 60 tablet 10 Taking at Unknown time doxazosin (CARDURA) 4 MG tablet Take 4 mg by mouth 2 (two) times daily. Take with doxaz osin 1 mg tablet Taking at Unknown time PHOSLO 667 MG CAPS TAKE 3 BY MOUTH 3 TIMES DAILY WITH MEALS AND 2 BY MOUTH TWO TIME S DAILY WITH SNACKS 390 capsule 11 Taking at Unknown time albuterol (PROAIR HFA) 108 (90 BASE) MCG/ACT inhaler Inhale 2 puffs into the lungs ever y 4 (four) hours as needed for Wheezing. Not Taking at Unknown time amLODIPine (NORVASC) 5 MG tablet Take 1 tablet by mouth daily. 30 tablet 1 02/28/2017 at Unknown time Cholecalciferol (VITAMIN D3) 5000 units CAPS TAKE 1 BY MOUTH DAILY (Patient not taking: Reported on 02/28/2017) 30 capsule 11 Not Taking at Unknown time oxybutynin (DITROPAN) 5 MG tablet Take 10 mg by mouth 2 (two) times daily. Not Taking at Unknown time propranolol (INDERAL) 40 MG tablet Take 40 mg by mouth daily. 02/28/2017 at Unknown ti me RENVELA 2.4 G packet MIX AND TAKE 1 PACKET WITHEACH MEALS 3 TIMES DAILY AND WITH SNA CKS (Patient not taking: Reported on 02/28/2017) 150 each 11 Not Taking at Unknown time sertraline (ZOLOFT) 100 MG tablet Take 100 mg by mouth daily. 02/28/2017 at Unknown ti me Allergies Allergen Reactions Codeine Other (See Comments) "I dont wake up on it" Eggs Or Egg-Derived Products Nausea and Vomiting Family History Problem Relation Age of Onset Kidney disease Neg Hx Social History Social History Marital status: Single Spouse name: N/A Number of children: N/A Years of education: N/A Occupational History Not on file. Social History Main Topics Smoking status: Current Some Day Smoker Packs/day: 0.50 Years: 8.00 Types: Cigarettes Smokeless tobacco: Never Used Alcohol use 0.0 oz/week Comment: "Once a year" Drug use: Yes Types: Marijuana Comment: Occasional Sexual activity: Not on file Other Topics Concern Not on file Social History Narrative Lives in [place] (lives with her sister who is her caregiver). Mother lives in [place]. Uses cane for ambulation. No kids Allergy: Allergies Allergen Reactions Codeine Other (See Comments) "I dont wake up on it" Eggs Or Egg-Derived Products Nausea and Vomiting OBJECTIVE Vital Signs: BP 116/64 | Pulse 57 | Temp 97.7 F (36.5 C) (Oral) | Resp 16 | Ht 1.689 m (5' 6.5") | Wt 119.6 kg (263 lb 11.2 oz) | SpO2 94% | BMI 41.92 kg/m I&O Detailed Table: I/O last 3 completed shifts: In: 478 [P.O.:240; I.V.:238] Out: 0 Weight change: Examination: seen with hd rn zeenat/ family at bedside APPEARANCE: The patient is a pleasant lying in bed in no apparent distress. VITALS: Reviewed as listed. HEAD: NC/AT. EYES: +ve pale conjunctiva LUNGS: Clear to auscultation bilaterally. HEART: S1, S2, no pericardial rub noted. +vbradycardia ABDOMEN: Full, soft, no tenderness. +ve for erythema/ area of induration/ tenderness on right side of abd pannus noted EXTREMITIES: no pedal edema noted. NEUROLOGIC: No gross focal motor deficit noted. PSYCH: The patient is alert and oriented x 3, mood and affect looks ok, memory seems to be intact. MEGHAN AVG functioning well LABS: Recent Results (from the past 24 hour(s)) POCT glucose Collection Time: 09/24/18 12:04 PM Result Value Ref Range GLUCOSE,POC SCREEN 121 (H) 65 - 99 mg/dL POCT glucose Collection Time: 09/24/18 4:38 PM Result Value Ref Range GLUCOSE,POC SCREEN 123 (H) 65 - 99 mg/dL POCT glucose Collection Time: 09/24/18 10:02 PM Result Value Ref Range GLUCOSE,POC SCREEN 107 (H) 65 - 99 mg/dL CBC W/Auto Diff (Reflex to Manual) Collection Time: 09/25/18 5:38 AM Result Value Ref Range WBC 10.60 3.80 - 11.00 K/uL RBC 3.73 3.70 - 5.10 M/uL HGB 9.3 (L) 11.3 - 15.5 g/dL HCT 29.9 (L) 34.0 - 46.0 % MCV 80.3 80.0 - 100.0 fl MCH 24.9 (L) 27.0 - 34.0 pg MCHC 31.0 (L) 32.0 - 35.5 g/dL RDW SD 50.8 37 - 53 fl PLT 316 150 - 400 K/uL MPV 9.0 fl DIFF TYPE AUTOMATED NEUTROPHILS 65.29 % LYMPHOCYTES 14.66 % MONOCYTES 8.17 % EOSINOPHILS 10.87 % BASOPHILS 1.01 % NEUTROPHILS ABS 6.92 1.90 - 7.40 K/uL LYMPHOCYTES ABS 1.55 1.00 - 3.90 K/uL MONOCYTES ABS 0.87 (H) 0.00 - 0.80 K/uL EOSINOPHILS ABS 1.15 (H) 0.00 - 0.50 K/uL BASOPHILS ABS 0.11 (H) 0.00 - 0.10 K/uL MORPHOLOGY 1+ Basic metabolic panel Collection Time: 09/25/18 5:38 AM Result Value Ref Range SODIUM 132 (L) 135 - 145 mmol/L POTASSIUM 5.2 (H) 3.5 - 4.9 mmol/L CHLORIDE 94 (L) 99 - 109 mmol/L CO2 27 23 - 32 mmol/L ANION GAP AGAP 16 5 - 20 mmol/L GLUCOSE 85 65 - 99 mg/dL BUN 40 (H) 8 - 25 mg/dL CREATININE 5.9 (H) 0.50 - 1.00 mg/dL BUN/CREAT 7 CALCIUM 8.2 (L) 8.5 - 10.5 mg/dL EGFR 8 (L) >60 mL/min/1.73m2 POCT glucose Collection Time: 09/25/18 6:22 AM Result Value Ref Range GLUCOSE,POC SCREEN 103 (H) 65 - 99 mg/dL IMAGING: Ct Abdomen Pelvis Without Contrast Result Date: 09/20/2018 This is a non-reportable procedure without a radiologist report and is used for image [employer] only Patient's old records, imaging and labs were reviewed in detail and summarized. PROBLEM LIST Principal Problem: Panniculitis Active Problems: ESRD (end stage renal disease) Smoker Essential hypertension Obesity (BMI 30-39.9) Anemia of chronic renal failure, stage 5 (HCC) Renovascular hypertension Morbid obesity due to excess calories (HCC) Diabetes mellitus, type 2 (HCC) ASSESSMENT & PLAN ESRD ON HD Seen and examined on hd tolerating hd/ uf well Access functioning well HD FLOW SHEET REVIEWED Assess daily for need for hd & uf Orders in the chart Fluid restriction 1.2 litres/24 hours Strict I & O Daily RFP Renal diet Daily weights will help with subsequent hd with uf Dose all meds per protocol for ESRD on hd ANEMIA in ESRD stable EPOGEN TO KEEP HGB 10-11 on dialysis Lab Results Component Value Date HGB 9.3 (L) 09/25/2018 HGB 9.1 (L) 09/24/2018 HGB 9.5 (L) 09/23/2018 HYPERTENSION controlled WATCH BP CLOSELY DURING HOSPITALIZATION LOW NA DIET Will adjust BP meds according to BP readings BP Readings from Last 3 Encounters: 09/25/18 116/64 02/28/17 163/71 09/27/16 153/63 HYPERPHOSPHATEMIA LOW P DIET PO4 BINDERS ca acetate with meals Lab Results Component Value Date PHOS 5.1 (H) 09/21/2018 PHOS 4.3 09/20/2018 PHOS 7.7 (H) 09/26/2016 Lab Results Component Value Date CA 8.2 (L) 09/25/2018 CA 8.7 09/24/2018 CA 8.8 09/23/2018 HYPOALBUMINEMIA INCREASE PROTEIN INTAKE Lab Results Component Value Date ALB 3.3 (L) 09/20/2018 ALB 2.5 (L) 09/26/2016 ALB 2.7 (L) 09/26/2016 DM-2 OPTIMUM GLYCEMIC CONTROL PER PRIMARY TEAM Panniculitis Abx per ID Plan for debridement in am by plastic sx CASE DISCUSSED IN DETAIL WITH PATIENT/ care team, ANSWERS ALL QUESTIONS IN DETAIL, VERBALIZ ES UNDERSTANDING VENKATESH INGRAM MD 09/25/2018 JATIN RODRÍGUEZ Seen earlier and charting completed later Dictation software, [employer], used which may contain error for similar sounding words even af ter review. Personal communication requested for any clarification. Dayna Ozuna MD - 09/25/2018 2:52 PM PDTFormatting of this note may be different f rom the original. [facility] Service: Hospitalist Progress Note Pt: Corrina Knight AGE/SEX: 43 y.o. female ROOM: 4461/4461-1 : 1975 PCP: JATIN RODRÍGUEZ ADMIT DATE: 09/20/2018 TODAY'S DATE: 09/25/2018 Hospital Day/Hospital Course: LOS: 5 days SUBJECTIVE: Patient seen and examine. Complaint of sever pain at pannus ulceration site, she will go fo r OR tomorrow at 12:[address] Mahoney. Scheduled Medications: buPROPion 100 mg Oral BID calcium acetate 2,001 mg Oral TID WC carvedilol 25 mg Oral BID WC cinacalcet 30 mg Oral Daily doxazosin 1 mg Oral BID insulin lispro (human) 0-3 Units Subcutaneous Nightly insulin lispro (human) 0-6 Units Subcutaneous TID AC piperacillin-tazobactam 2.25 g Intravenous Q12H [START ON 09/26/2018] tumescent anesthetic solution Infiltration What Job Titles Mean to OR sodium chloride (PF) 10 mL Intravenous Q8H vancomycin 750 mg Intravenous See Admin Instructions vancomycin 750 mg Intravenous Once Continuous Infusions dextrose PRN Medications acetaminophen OR acetaminophen, albuterol, denture adhesive, dextrose, dextrose, dextro se, diphenhydrAMINE, glucagon, glucagon, HYDROmorphone, ondansetron OR ondansetron, oxyC ODONE OR [DISCONTINUED] oxyCODONE, polyethylene glycol, traMADol, zolpidem Allergy: Allergies Allergen Reactions Codeine Other (See Comments) "I dont wake up on it" Eggs Or Egg-Derived Products Nausea and Vomiting OBJECTIVE: Vitals: Temp: [97.7 F (36.5 C)-98.4 F (36.9 C)] 97.9 F (36.6 C) Heart Rate: [57-70] 65 Resp: [14-18] 14 BP: (106-150)/(55-75) 146/65 I&O Detailed Table: Intake/Output Summary (Last 24 hours) at 09/25/18 1452 Last data filed at 09/25/18 1317 Gross per 24 hour Intake 778 ml Output 1 ml Net 777 ml Patient Vitals for the past 96 hrs: Weight 09/25/18 1220 119 kg (262 lb 5.6 oz) 09/22/18 0336 119.6 kg (263 lb 11.2 oz) Physical Examination: Constitutional: Alert and oriented to person, place, and time. Morbid obese HEENT: Neck supple, no JVD, non icteric sclera. Cardiovascular: Normal rate, regular rhythm, normal heart sounds with S1 and S2, and intact distal pulses. Exam reveals no gallop and no friction rub. No murmur heard. Pulmonary/Chest: Effort normal and breath sounds normal. No stridor. No respiratory distres s. no wheezes. no rales. exhibits no tenderness. Abdominal: Soft. Bowel sounds are normal. exhibits no distension and no mass. There is ulc eration tenderness and redness of right side of Pannus. There is no rebound and no guarding. Extremeties/Musculoskeletal: Normal range of motion.exhibits no tenderness. exhibits no ed brandyn. Normal equal peripheral pulses. Neurological: Alert and oriented to person, place, and time. No cranial nerve deficit. E xhibits normal muscle tone. No gross motor deficits. Skin: Skin is warm. No pallor. Patient has normal capillary refill, no mottling. Psychiatric: Has a normal mood and affect. Behavior is normal. Judgment normal. LABS: Recent Labs Lab 09/25/1853709/24/[id number]/23/18 0557 WBC 10.60 11.57* 10.54 HGB 9.3* 9.1* 9.5* HCT 29.9* 29.1* 31.3* PLT 316 294 274 NEUTOPHILPCT 65.29 67.46 69.41 MONOPCT 8.17 8.73 10.89 Recent Labs Lab 09/25/18 0538 09/24/18 0524 09/23/18 0557 09/20/18 1950 NA 132* 131* 132* < > 139 K 5.2* 5.0* 4.8 < > 4.2 CL 94* 94* 94* < > 97* CO2 27 25 26 < > 35* BUN 40* 29* 18 < > 13 CREATININE 5.9* 4.7* 3.4* < > 2.69* PROT -- -- -- -- 7.3 BILITOT -- -- -- -- 0.4 ALT -- -- -- -- 9* AST -- -- -- -- 16 < > = values in this interval not displayed. Phosphorus: Lab Results Component Value Date PHOS 5.1 (H) 09/21/2018 Invalid input(s): LABALBU Recent Labs Lab 09/21/18 0610 09/20/18 1950 MG 2.1 1.8 No results for input(s): AMYLASE in the last 168 hours. No results for input(s): PHART, PO2ART, CKG6XGF, L7MBMSZV, BEART in the last 168 hours. No results for input(s): APTT, INR, PTT in the last 168 hours. No results for input(s): TSH, T3FREE, FREET4 in the last 168 hours. No results for input(s): CKTOTAL, TROPONINI, TROPONINT, CKMBINDEX in the last 168 hours.i PROBLEM LIST Principal Problem: Panniculitis Active Problems: ESRD (end stage renal disease) Smoker Essential hypertension Obesity (BMI 30-39.9) Anemia of chronic renal failure, stage 5 (HCC) Renovascular hypertension Morbid obesity due to excess calories (HCC) Diabetes mellitus, type 2 ([facility]) ASSESSMENT & PLAN 1. Panniculitis with recurrent infection, MRSA nasal screen is positive continue IV Zosyn a nd Vancomycin discussed with Dr. Ho recommendations. she will go for OR tomorrow at 12:[address] Mahoney for debridement. He had plan for panniculectomy in 7-10 days. pain management decreased Dilaudid, continue Oxycodone less frequent and Tramadol PRN. 2. ESRD (end stage renal disease) nephrology was consulted, HD, M/W/F 3. Tobacco Smoker counseling to stop smoking. 4. Essential hypertension continue Carvedilol. 5. Obesity (BMI 30-39.9) lifestyle modification is advised.. 6. Anemia of chronic renal failure, stable 7. Diabetes mellitus, type 2 insulin sliding scale. 8. DVT prophylaxis Heparin Dayna Ozuna MD 09/25/2018 2:52 PM Marcia Tran, [facility] - 09/25/2018 11:42 AM PDTPatient is scheduled for HD today at 1300. Vanco mycin dose has been sent to the floor and RN has been notified that is should be given durin g the last hour of HD today.JerelJordan, DO - 09/25/2018 10:19 AM PDTFormatting of this note may be different from the original. [facility] Service: Infectious Disease Progress Note Hospital Day: LOS: 5 days Post-Op Day: * No surgery found * SUBJECTIVE Patient Summary: 43 y.o. female with significant past medical history of morbid obes ity, type II diabetes mellitus, end-stage renal disease on hemodialysis who presented on Sep with abdominal wall pain, found to have cellulitis of the pannus. The patient has repor tedly been treated with multiple recent courses of antibiotics, including a recent course of vancomycin with hemodialysis. The patient initially presented to [facility], and was transferred here with the supposedly need for surgical debridement, although CT scan did not show any evidence of abscess. At the time of admission, the patient was placed on Z osyn. I am asked to consult regarding further antibiotic recommendations. The patient reports that her most recent course of antibiotics for her panniculitis was abo ut 2 months ago, and consisted of vancomycin being given with hemodialysis. She reports that since that time she has continued to have painful swelling of the lower pannus, including a reas that are lumpy and firm. MRSA screen was positive on admission. CC: Panniculitis Chart reviewed: No new events. Subjective The patient reports that she still has pain in the lower abdominal wall, no significant imp rovement. She denies any fevers or chills. ROS No fever, chills sweats. No nausea, vomiting or diarrhea. No rashes or pruritis. No oral pa in. Scheduled Medications buPROPion 100 mg Oral BID calcium acetate 2,001 mg Oral TID WC carvedilol 25 mg Oral BID WC cinacalcet 30 mg Oral Daily doxazosin 1 mg Oral BID insulin lispro (human) 0-3 Units Subcutaneous Nightly insulin lispro (human) 0-6 Units Subcutaneous TID AC piperacillin-tazobactam 2.25 g Intravenous Q12H sodium chloride (PF) 10 mL Intravenous Q8H vancomycin 750 mg Intravenous See Admin Instructions Continuous Infusions dextrose PRN Medications acetaminophen OR acetaminophen, albuterol, dextrose, dextrose, dextrose, diphenhydrAMIN E, glucagon, glucagon, HYDROmorphone, ondansetron OR ondansetron, oxyCODONE OR [DISC ONTINUED] oxyCODONE, polyethylene glycol, traMADol, zolpidem OBJECTIVE Vital Signs: BP 116/64 | Pulse 57 | Temp 97.7 F (36.5 C) (Oral) | Resp 16 | Ht 1.689 m (5' 6.5") | Wt 119.6 kg (263 lb 11.2 oz) | SpO2 94% | BMI 41.92 kg/m Temp (24hrs), Av.1 F (36.7 C), Min:97.7 F (36.5 C), Max:98.4 F (36.9 C) Exam: Const: Vitals reviewed. No acute distress Skin: No rashes, no edema. Erythema in right lower quadrant of abdominal wall is about the same today. Some of the area of necrosis has sloughed away, but surrounding area remains mar kedly indurated and tender ENT: No thrush. Lungs: CTAB, no rales or wheezes Heart: RRR, no murmur Abd: soft, NT, + bowel sounds DATA CBC: Lab Results Component Value Date WBC 10.60 09/25/2018 RBC 3.73 09/25/2018 HGB 9.3 (L) 09/25/2018 HCT 29.9 (L) 09/25/2018 MCV 80.3 09/25/2018 MCH 24.9 (L) 09/25/2018 MCHC 31.0 (L) 09/25/2018 RDW 50.8 09/25/2018 PLT 316 09/25/2018 MPV 9.0 09/25/2018 DIFFTYPE AUTOMATED 09/25/2018 CMP: Lab Results Component Value Date NA 132 (L) 09/25/2018 K 5.2 (H) 09/25/2018 K 6.1 (H) 12/12/2015 CL 94 (L) 09/25/2018 CO2 27 09/25/2018 ANIONGAP 16 09/25/2018 GLUF 85 09/25/2018 BUN 40 (H) 09/25/2018 CREATININE 5.9 (H) 09/25/2018 BCR 7 09/25/2018 CA 8.2 (L) 09/25/2018 PROT 7.3 09/20/2018 ALB 3.3 (L) 09/20/2018 GLOB 4.0 09/20/2018 BILITOT 0.4 09/20/2018 ALP 109 09/20/2018 AST 16 09/20/2018 ALT 9 (L) 09/20/2018 EGFR 8 (L) 09/25/2018 Microbiology: MRSA screen positive. Blood cultures negative 2 so far. PROBLEM LIST Principal Problem: Panniculitis Active Problems: ESRD (end stage renal disease) Smoker Essential hypertension Obesity (BMI 30-39.9) Anemia of chronic renal failure, stage 5 (HCC) Renovascular hypertension Morbid obesity due to excess calories (HCC) Diabetes mellitus, type 2 (HCC) ASSESSMENT & PLAN Panniculitis (09/21/2018) This is usually gram-positive, and with the patient's positive MRSA screen, and there was initial improvement with vancomycin, although she had also been given Unasyn on admission. Today there is increased pain and induration, but no fluctuance. There is a large necrotic a bev, which is unlikely to improve without debridement. I think we have seen as much benefit as can be gained from her current broad-spectrum IV antibiotics. Would recommend surgical de bridement. ESRD (end stage renal disease) (04/02/2015) Vancomycin dosed accordingly. Diabetes mellitus type II Reportedly resolved. Code Status: Full Code JORDAN HO, DO 09/25/2018Dayna Ozuna MD - 09/24/2018 3:35 PM PDTFormatting of this note may be di fferent from the original. [facility] Service: Hospitalist Progress Note Pt: Corrina Knight AGE/SEX: 43 y.o. female ROOM: 4461/4461-1 : 1975 PCP: JATIN RDORÍGUEZ ADMIT DATE: 09/20/2018 TODAY'S DATE: 09/24/2018 Hospital Day/Hospital Course: LOS: 4 days SUBJECTIVE: Patient seen and examine. Complaint of sever pain at pannus ulceration site it is the same she said the pain is 10/10. Scheduled Medications: buPROPion 100 mg Oral BID calcium acetate 2,001 mg Oral TID WC carvedilol 25 mg Oral BID WC cinacalcet 30 mg Oral Daily doxazosin 1 mg Oral BID heparin (porcine) 5000 unit/0.5mL 5,000 Units Subcutaneous 3 times per day insulin lispro (human) 0-3 Units Subcutaneous Nightly insulin lispro (human) 0-6 Units Subcutaneous TID AC piperacillin-tazobactam 2.25 g Intravenous Q12H sodium chloride (PF) 10 mL Intravenous Q8H vancomycin 750 mg Intravenous See Admin Instructions Continuous Infusions dextrose PRN Medications acetaminophen OR acetaminophen, albuterol, dextrose, dextrose, dextrose, diphenhydrAMIN E, glucagon, glucagon, HYDROmorphone, ondansetron OR ondansetron, oxyCODONE OR [DISC ONTINUED] oxyCODONE, polyethylene glycol, traMADol, zolpidem Allergy: Allergies Allergen Reactions Codeine Other (See Comments) "I dont wake up on it" Eggs Or Egg-Derived Products Nausea and Vomiting OBJECTIVE: Vitals: Temp: [98.1 F (36.7 C)-98.6 F (37 C)] 98.1 F (36.7 C) Heart Rate: [64-70] 70 Resp: [17-18] 18 BP: (100-122)/(55-61) 116/58 I&O Detailed Table: Intake/Output Summary (Last 24 hours) at 09/24/18 1535 Last data filed at 09/24/18 0745 Gross per 24 hour Intake 500 ml Output 0 ml Net 500 ml Patient Vitals for the past 96 hrs: Weight 09/22/18 0336 119.6 kg (263 lb 11.2 oz) 09/21/18 0430 126.1 kg (278 lb) 09/20/18 1940 126.1 kg (278 lb) Physical Examination: Constitutional: Alert and oriented to person, place, and time. Morbid obese HEENT: Neck supple, no JVD, non icteric sclera. Cardiovascular: Normal rate, regular rhythm, normal heart sounds with S1 and S2, and intact distal pulses. Exam reveals no gallop and no friction rub. No murmur heard. Pulmonary/Chest: Effort normal and breath sounds normal. No stridor. No respiratory distres s. no wheezes. no rales. exhibits no tenderness. Abdominal: Soft. Bowel sounds are normal. exhibits no distension and no mass. There is ulc eration tenderness and redness of right side of Pannus. There is no rebound and no guarding. Extremeties/Musculoskeletal: Normal range of motion.exhibits no tenderness. exhibits no ed brandyn. Normal equal peripheral pulses. Neurological: Alert and oriented to person, place, and time. No cranial nerve deficit. E xhibits normal muscle tone. No gross motor deficits. Skin: Skin is warm. No pallor. Patient has normal capillary refill, no mottling. Psychiatric: Has a normal mood and affect. Behavior is normal. Judgment normal. LABS: Recent Labs Lab 09/24/[id number]/23/1855609/21/18 0610 WBC 11.57* 10.54 7.63 HGB 9.1* 9.5* 9.3* HCT 29.1* 31.3* 30.0* PLT 294 274 273 NEUTOPHILPCT 67.46 69.41 69.73 MONOPCT 8.73 10.89 9.94 Recent Labs Lab 09/24/1852309/23/1857 09/21/18 0610 09/20/181949 NA 131* 132* 135 139 K 5.0* 4.8 4.6 4.2 CL 94* 94* 93* 97* CO2 25 26 32 35* BUN 29* 18 18 13 CREATININE 4.7* 3.4* 3.5* 2.69* PROT -- -- -- 7.3 BILITOT -- -- -- 0.4 ALT -- -- -- 9* AST -- -- -- 16 Phosphorus: Lab Results Component Value Date PHOS 5.1 (H) 09/21/2018 Invalid input(s): LABALBU Recent Labs Lab 09/21/1860909/20/18 1950 MG 2.1 1.8 No results for input(s): AMYLASE in the last 168 hours. No results for input(s): PHART, PO2ART, JTG6CHB, H1LDAKKJ, BEART in the last 168 hours. No results for input(s): APTT, INR, PTT in the last 168 hours. No results for input(s): TSH, T3FREE, FREET4 in the last 168 hours. No results for input(s): CKTOTAL, TROPONINI, TROPONINT, CKMBINDEX in the last 168 hours.i PROBLEM LIST Principal Problem: Panniculitis Active Problems: ESRD (end stage renal disease) Smoker Essential hypertension Obesity (BMI 30-39.9) Anemia of chronic renal failure, stage 5 (HCC) Renovascular hypertension Morbid obesity due to excess calories (HCC) Diabetes mellitus, type 2 (HCC) ASSESSMENT & PLAN 1. Panniculitis with recurrent infection, MRSA nasal screen is positive continue Vancomycin discussed with Dr. Ho recommended to start IV Zosyn continue wound care, may need surgic al debridement, Aba Mahoney was consulted will reevaluate patient tomorrow for possible need for debridement. He had plan for panniculectomy in 7-10 days. pain management decreased Dilaudid, continue Oxycodone less frequent and Tramadol PRN. 2. ESRD (end stage renal disease) nephrology was consulted, HD, M/W/F 3. Tobacco Smoker counseling to stop smoking. 4. Essential hypertension continue Carvedilol. 5. Obesity (BMI 30-39.9) lifestyle modification is advised.. 6. Anemia of chronic renal failure, stable 7. Diabetes mellitus, type 2 insulin sliding scale. 8. DVT prophylaxis Heparin Dayna Ozuna MD 09/24/2018 3:35 PM Anna Xiao, [facility] - 09/24/2018 12:36 PM PDTClinical Pharmacy Note: Vancomycin Day 4 Goal Trough: 10-20 mcg/mL Current dose: 750 mg IV during last hour of each dialysis Plan: Continue same dose. No dialysis today, no dose today. Anna Xiao, Pharm.D. 09/24/2018 12:36 PM Jordan Ho DO - 09/24/2018 10:28 AM PDTFormatting of this note may be different from the original. [facility] Service: Infectious Disease Progress Note Hospital Day: LOS: 4 days Post-Op Day: * No surgery found * SUBJECTIVE Patient Summary: 43 y.o. female with significant past medical history of morbid obes ity, type II diabetes mellitus, end-stage renal disease on hemodialysis who presented on Sep with abdominal wall pain, found to have cellulitis of the pannus. The patient has repor tedly been treated with multiple recent courses of antibiotics, including a recent course of vancomycin with hemodialysis. The patient initially presented to [facility], and was transferred here with the supposedly need for surgical debridement, although CT scan did not show any evidence of abscess. At the time of admission, the patient was placed on Z osyn. I am asked to consult regarding further antibiotic recommendations. The patient reports that her most recent course of antibiotics for her panniculitis was abo ut 2 months ago, and consisted of vancomycin being given with hemodialysis. She reports that since that time she has continued to have painful swelling of the lower pannus, including a reas that are lumpy and firm. MRSA screen was positive on admission. CC: Panniculitis Chart reviewed: No new events. Subjective The patient reports that she still has pain in the lower abdominal wall, no significant imp rovement. She denies any fevers or chills. ROS No fever, chills sweats. No nausea, vomiting or diarrhea. No rashes or pruritis. No oral pa in. Scheduled Medications buPROPion 100 mg Oral BID calcium acetate 2,001 mg Oral TID WC carvedilol 25 mg Oral BID WC cinacalcet 30 mg Oral Daily doxazosin 1 mg Oral BID heparin (porcine) 5000 unit/0.5mL 5,000 Units Subcutaneous 3 times per day insulin lispro (human) 0-3 Units Subcutaneous Nightly insulin lispro (human) 0-6 Units Subcutaneous TID AC piperacillin-tazobactam 2.25 g Intravenous Q12H sodium chloride (PF) 10 mL Intravenous Q8H vancomycin 750 mg Intravenous See Admin Instructions Continuous Infusions dextrose PRN Medications acetaminophen OR acetaminophen, albuterol, dextrose, dextrose, dextrose, diphenhydrAMIN E, glucagon, glucagon, HYDROmorphone, ondansetron OR ondansetron, oxyCODONE OR [DISC ONTINUED] oxyCODONE, polyethylene glycol, traMADol, zolpidem OBJECTIVE Vital Signs: BP 108/56 (BP Location: Right upper arm) | Pulse 65 | Temp 98.4 F (36.9 C) (Oral) | Resp 18 | Ht 1.689 m (5' 6.5") | Wt 119.6 kg (263 lb 11.2 oz) | SpO2 91% | BMI 41.92 kg/ m Temp (24hrs), Av.4 F (36.9 C), Min:98.3 F (36.8 C), Max:98.6 F (37 C) Exam: Const: Vitals reviewed. No acute distress Skin: No rashes, no edema. Erythema in right lower quadrant of abdominal wall is slightly i mproved compared to yesterday's exam, but there continue to be prominent necrotic changes. ENT: No thrush. Lungs: CTAB, no rales or wheezes Heart: RRR, no murmur Abd: soft, NT, + bowel sounds DATA CBC: Lab Results Component Value Date WBC 11.57 (H) 09/24/2018 RBC 3.59 (L) 09/24/2018 HGB 9.1 (L) 09/24/2018 HCT 29.1 (L) 09/24/2018 MCV 81.1 09/24/2018 MCH 25.3 (L) 09/24/2018 MCHC 31.2 (L) 09/24/2018 RDW 52.1 09/24/2018 PLT 294 09/24/2018 MPV 9.2 09/24/2018 DIFFTYPE AUTOMATED 09/24/2018 CMP: Lab Results Component Value Date NA 131 (L) 09/24/2018 K 5.0 (H) 09/24/2018 K 6.1 (H) 12/12/2015 CL 94 (L) 09/24/2018 CO2 25 09/24/2018 ANIONGAP 17 09/24/2018 GLUF 90 09/24/2018 BUN 29 (H) 09/24/2018 CREATININE 4.7 (H) 09/24/2018 BCR 6 09/24/2018 CA 8.7 09/24/2018 PROT 7.3 09/20/2018 ALB 3.3 (L) 09/20/2018 GLOB 4.0 09/20/2018 BILITOT 0.4 09/20/2018 ALP 109 09/20/2018 AST 16 09/20/2018 ALT 9 (L) 09/20/2018 EGFR 10 (L) 09/24/2018 Microbiology: MRSA screen positive. Blood cultures negative 2 so far. PROBLEM LIST Principal Problem: Panniculitis Active Problems: ESRD (end stage renal disease) Smoker Essential hypertension Obesity (BMI 30-39.9) Anemia of chronic renal failure, stage 5 (HCC) Renovascular hypertension Morbid obesity due to excess calories (HCC) Diabetes mellitus, type 2 (HCC) ASSESSMENT & PLAN Panniculitis (09/21/2018) This is usually gram-positive, and with the patient's positive MRSA screen, and there was initial improvement with vancomycin, although she had also been given Unasyn on admission. Today there is increased pain and induration, but no fluctuance. There is a large necrotic a bev, with no improvement despite improvement in erythema on Zosyn and vancomycin. Anticipate that this will need surgical debridement, please reconsult plastic surgery on Tuesday. ESRD (end stage renal disease) (04/02/2015) Vancomycin dosed accordingly. Diabetes mellitus type II Reportedly resolved. Code Status: Full Code JORDAN HO, DO 09/24/2018Dayna Ozuna MD - 09/23/2018 2:29 PM PSTFormatting of this note may be di fferent from the original. [facility] Service: Hospitalist Progress Note Pt: Corrina Knight AGE/SEX: 43 y.o. female ROOM: [facility]/4461- : 1975 PCP: JATIN RODRÍGUEZ ADMIT DATE: 09/20/2018 TODAY'S DATE: 09/23/2018 Hospital Day/Hospital Course: LOS: 3 days SUBJECTIVE: Patient seen and examine. Complaint of sever pain at pannus ulceration site, patient said t hat pain is the same, not much improved. Scheduled Medications: buPROPion 100 mg Oral BID calcium acetate 2,001 mg Oral TID WC carvedilol 25 mg Oral BID WC cinacalcet 30 mg Oral Daily doxazosin 1 mg Oral BID heparin (porcine) 5000 unit/0.5mL 5,000 Units Subcutaneous 3 times per day insulin lispro (human) 0-3 Units Subcutaneous Nightly insulin lispro (human) 0-6 Units Subcutaneous TID AC piperacillin-tazobactam 2.25 g Intravenous Q12H sodium chloride (PF) 10 mL Intravenous Q8H vancomycin 750 mg Intravenous See Admin Instructions Continuous Infusions dextrose PRN Medications acetaminophen OR acetaminophen, albuterol, dextrose, dextrose, dextrose, diphenhydrAMIN E, glucagon, glucagon, HYDROmorphone, ondansetron OR ondansetron, oxyCODONE OR [DISC ONTINUED] oxyCODONE, polyethylene glycol, traMADol, zolpidem Allergy: Allergies Allergen Reactions Codeine Other (See Comments) "I dont wake up on it" Eggs Or Egg-Derived Products Nausea and Vomiting OBJECTIVE: Vitals: Temp: [97.1 F (36.2 C)-98.5 F (36.9 C)] 98.4 F (36.9 C) Heart Rate: [63-69] 64 Resp: [18-20] 18 BP: (95-129)/(54-62) 95/54 I&O Detailed Table: Intake/Output Summary (Last 24 hours) at 09/23/18 1429 Last data filed at 09/23/18 1200 Gross per 24 hour Intake 550 ml Output 0 ml Net 550 ml Patient Vitals for the past 96 hrs: Weight 09/22/18 0336 119.6 kg (263 lb 11.2 oz) 09/21/18 0430 126.1 kg (278 lb) 09/20/18 1940 126.1 kg (278 lb) Physical Examination: Constitutional: Alert and oriented to person, place, and time. Morbid obese HEENT: Neck supple, no JVD, non icteric sclera. Cardiovascular: Normal rate, regular rhythm, normal heart sounds with S1 and S2, and intact distal pulses. Exam reveals no gallop and no friction rub. No murmur heard. Pulmonary/Chest: Effort normal and breath sounds normal. No stridor. No respiratory distres s. no wheezes. no rales. exhibits no tenderness. Abdominal: Soft. Bowel sounds are normal. exhibits no distension and no mass. There is ulc eration tenderness and redness of right side of Pannus. There is no rebound and no guarding. Extremeties/Musculoskeletal: Normal range of motion.exhibits no tenderness. exhibits no ed brandyn. Normal equal peripheral pulses. Neurological: Alert and oriented to person, place, and time. No cranial nerve deficit. E xhibits normal muscle tone. No gross motor deficits. Skin: Skin is warm. No pallor. Patient has normal capillary refill, no mottling. Psychiatric: Has a normal mood and affect. Behavior is normal. Judgment normal. LABS: Recent Labs Lab 09/23/18 0557 09/21/18 0610 09/20/18 1950 WBC 10.54 7.63 6.46 HGB 9.5* 9.3* 9.3* HCT 31.3* 30.0* 30.2* PLT 274 273 280 NEUTOPHILPCT 69.41 69.73 64.74 MONOPCT 10.89 9.94 10.20 Recent Labs Lab 09/23/18 0557 09/21/18 0610 09/20/18 1950 NA 132* 135 139 K 4.8 4.6 4.2 CL 94* 93* 97* CO2 26 32 35* BUN 18 18 13 CREATININE 3.4* 3.5* 2.69* PROT -- -- 7.3 BILITOT -- -- 0.4 ALT -- -- 9* AST -- -- 16 Phosphorus: Lab Results Component Value Date PHOS 5.1 (H) 09/21/2018 Invalid input(s): LABALBU Recent Labs Lab 09/21/18 0610 09/20/18 1950 MG 2.1 1.8 No results for input(s): AMYLASE in the last 168 hours. No results for input(s): PHART, PO2ART, WKT6NOZ, Q7YYNSNW, BEART in the last 168 hours. No results for input(s): APTT, INR, PTT in the last 168 hours. No results for input(s): TSH, T3FREE, FREET4 in the last 168 hours. No results for input(s): CKTOTAL, TROPONINI, TROPONINT, CKMBINDEX in the last 168 hours.i PROBLEM LIST Principal Problem: Panniculitis Active Problems: ESRD (end stage renal disease) Smoker Essential hypertension Obesity (BMI 30-39.9) Anemia of chronic renal failure, stage 5 (HCC) Renovascular hypertension Morbid obesity due to excess calories ([facility]) Diabetes mellitus, type 2 ([facility]) ASSESSMENT & PLAN 1. Panniculitis with recurrent infection, MRSA nasal screen is positive continue Vancomycin discussed with Dr. Ho recommended to start IV Zosyn continue wound care, may need surgic al debridement, Aba Mahoney was consulted and saw the patient. pain management decreased Dilaudid, continue Oxycodone less frequent and Tramadol PRN. 2. ESRD (end stage renal disease) nephrology was consulted, HD, M/W/F 3. Tobacco Smoker counseling to stop smoking. 4. Essential hypertension continue Carvedilol. 5. Obesity (BMI 30-39.9) lifestyle modification is advised.. 6. Anemia of chronic renal failure, stable 7. Diabetes mellitus, type 2 insulin sliding scale. 8. DVT prophylaxis Heparin Dayna Ozuna MD 09/23/2018 2:29 PM Anna Xiao [facility] - 09/23/2018 12:53 PM PSTClinical Pharmacy Note: Vancomycin Day 3 Goal Trough: 10-20 mcg/mL Current dose: 750 mg IV during last hour of each dialysis Plan: Continue same dose. No dialysis today, no dose today. Anna Xiao Pharm.D. 09/23/2018 12:52 PM Vance Rosenberg, [facility] - 09/23/2018 10:58 AM PSTFormatting of this note may be different from the original. Zosyn Extended Infusion Initial Consult Corrina Knight 43 y.o. female Estimated Creatinine Clearance: 28.9 mL/min (A) (by C-G formula based on SCr of 3.4 mg/dL ( H)). NEUTROPHILS ABS Date Value Ref Range Status 09/23/2018 7.32 1.90 - 7.40 K/uL Final Neutrophils Absolute Date Value Ref Range Status 09/26/2016 17.00 (H) 1.90 - 7.40 K/uL Final Comment: [place] [facility] [place] [place] [address];[place] [address] CREATININE Date Value Ref Range Status 09/23/2018 3.4 (H) 0.50 - 1.00 mg/dL Final Zosyn extended Infusion loading and maintenance dose guidelines: Plan per pharmacy protocol: Loading Dose Re-load if maintenance dose is not given within > = 4 hours 4.5 g IV Over 30 minutes CrCl >20 ml/min 3.375 g IV Q 8 hours Over 4 hours CrCl 10-20 ml/min *Do Not re-load if CrCl ?20 ml/min regardless of time in between dosing 3.375 g IV Q 12 matty rs Over 4 hours CrCl <10, HD, PD Zosyn 2.25 g Q12H ordered as patient is an HD patient. 4.5 g load given this morning. Pharmacy will continue monitoring patient for appropriate dosing per renal function. 09/23/2018 10:53 AM Pharmacist: Jordan Hardy DO - 09/23/2018 10:16 AM PSTFormatting of this note may be different from the original. [facility] Service: Infectious Disease Progress Note Hospital Day: LOS: 3 days Post-Op Day: * No surgery found * SUBJECTIVE Patient Summary: 43 y.o. female with significant past medical history of morbid obes ity, type II diabetes mellitus, end-stage renal disease on hemodialysis who presented on Sep with abdominal wall pain, found to have cellulitis of the pannus. The patient has repor tedly been treated with multiple recent courses of antibiotics, including a recent course of vancomycin with hemodialysis. The patient initially presented to [facility], and was transferred here with the supposedly need for surgical debridement, although CT scan did not show any evidence of abscess. At the time of admission, the patient was placed on Z osyn. I am asked to consult regarding further antibiotic recommendations. The patient reports that her most recent course of antibiotics for her panniculitis was abo ut 2 months ago, and consisted of vancomycin being given with hemodialysis. She reports that since that time she has continued to have painful swelling of the lower pannus, including a reas that are lumpy and firm. MRSA screen was positive on admission. CC: Panniculitis Chart reviewed: No new events. Subjective The patient reports that she still has pain in the lower abdominal wall. She states that th e pain has not improved at all. She denies any fevers or chills. ROS No fever, chills sweats. No nausea, vomiting or diarrhea. No rashes or pruritis. No oral pa in. Scheduled Medications buPROPion 100 mg Oral BID calcium acetate 2,001 mg Oral TID WC carvedilol 25 mg Oral BID WC cinacalcet 30 mg Oral Daily doxazosin 1 mg Oral BID heparin (porcine) 5000 unit/0.5mL 5,000 Units Subcutaneous 3 times per day insulin lispro (human) 0-3 Units Subcutaneous Nightly insulin lispro (human) 0-6 Units Subcutaneous TID AC sodium chloride (PF) 10 mL Intravenous Q8H vancomycin 750 mg Intravenous See Admin Instructions Continuous Infusions dextrose PRN Medications acetaminophen OR acetaminophen, albuterol, dextrose, dextrose, dextrose, diphenhydrAMIN E, glucagon, glucagon, HYDROmorphone, ondansetron OR ondansetron, oxyCODONE OR [DISC ONTINUED] oxyCODONE, polyethylene glycol, traMADol, zolpidem OBJECTIVE Vital Signs: BP 110/60 | Pulse 64 | Temp 98.5 F (36.9 C) (Oral) | Resp 18 | Ht 1.689 m (5' 6.5") | Wt 119.6 kg (263 lb 11.2 oz) | SpO2 93% | BMI 41.92 kg/m Temp (24hrs), Av.9 F (36.6 C), Min:97.1 F (36.2 C), Max:98.5 F (36.9 C) Exam: Const: Vitals reviewed. No acute distress Skin: No rashes, no edema. Erythema in right lower quadrant of abdominal wall is stable com pared to yesterday's exam, more prominent ecchymotic changes below the knee dressing, much m ore tender today ENT: No thrush. Lungs: CTAB, no rales or wheezes Heart: RRR, no murmur Abd: soft, NT, + bowel sounds DATA CBC: Lab Results Component Value Date WBC 10.54 09/23/2018 RBC 3.81 09/23/2018 HGB 9.5 (L) 09/23/2018 HCT 31.3 (L) 09/23/2018 MCV 82.1 09/23/2018 MCH 25.0 (L) 09/23/2018 MCHC 30.5 (L) 09/23/2018 RDW 53.4 (H) 09/23/2018 PLT 274 09/23/2018 MPV 9.0 09/23/2018 DIFFTYPE AUTOMATED 09/23/2018 CMP: Lab Results Component Value Date NA 132 (L) 09/23/2018 K 4.8 09/23/2018 K 6.1 (H) 12/12/2015 CL 94 (L) 09/23/2018 CO2 26 09/23/2018 ANIONGAP 17 09/23/2018 GLUF 88 09/23/2018 BUN 18 09/23/2018 CREATININE 3.4 (H) 09/23/2018 BCR 5 09/23/2018 CA 8.8 09/23/2018 PROT 7.3 09/20/2018 ALB 3.3 (L) 09/20/2018 GLOB 4.0 09/20/2018 BILITOT 0.4 09/20/2018 ALP 109 09/20/2018 AST 16 09/20/2018 ALT 9 (L) 09/20/2018 EGFR 15 (L) 09/23/2018 Microbiology: MRSA screen positive. Blood cultures negative 2 so far. PROBLEM LIST Principal Problem: Panniculitis Active Problems: ESRD (end stage renal disease) Smoker Essential hypertension Obesity (BMI 30-39.9) Anemia of chronic renal failure, stage 5 ([facility]) Renovascular hypertension Morbid obesity due to excess calories ([facility]) Diabetes mellitus, type 2 ([facility]) ASSESSMENT & PLAN Panniculitis (09/21/2018) This is usually gram-positive, and with the patient's positive MRSA screen, and there was initial improvement with vancomycin, although she had also been given Unasyn on admission. Today there is increased pain and induration, but no fluctuance. There is a large necrotic a bev. I am going to add Zosyn and monitor 24-48 hours for improvement. We may need to reconsi cece surgical debridement. ESRD (end stage renal disease) (04/02/2015) Vancomycin dosed accordingly. Diabetes mellitus type II Reportedly resolved. Code Status: Full Code JORDAN HO, DO 09/23/2018Dayna Ozuna MD - 09/22/2018 4:13 PM PSTFormatting of this note may be dif ferent from the original. [facility] Service: Hospitalist Progress Note Pt: Corrina Knight AGE/SEX: 43 y.o. female ROOM: [facility]- : 1975 PCP: JATIN RODRÍGUEZ ADMIT DATE: 09/20/2018 TODAY'S DATE: 09/22/2018 Hospital Day/Hospital Course: LOS: 2 days SUBJECTIVE: Patient seen and examine. Complaint of sever pain at pannus ulceration site, still complain s of sever pain. Scheduled Medications: buPROPion 100 mg Oral BID calcium acetate 2,001 mg Oral TID WC carvedilol 25 mg Oral BID WC cinacalcet 30 mg Oral Daily doxazosin 1 mg Oral BID heparin (porcine) 5000 unit/0.5mL 5,000 Units Subcutaneous 3 times per day insulin lispro (human) 0-3 Units Subcutaneous Nightly insulin lispro (human) 0-6 Units Subcutaneous TID AC sodium chloride (PF) 10 mL Intravenous Q8H vancomycin 750 mg Intravenous See Admin Instructions Continuous Infusions dextrose PRN Medications acetaminophen OR acetaminophen, albuterol, dextrose, dextrose, dextrose, glucagon, gluc agon, HYDROmorphone, ondansetron OR ondansetron, oxyCODONE OR [DISCONTINUED] oxyCODO NE, polyethylene glycol, traMADol, zolpidem Allergy: Allergies Allergen Reactions Codeine Other (See Comments) "I dont wake up on it" Eggs Or Egg-Derived Products Nausea and Vomiting OBJECTIVE: Vitals: Temp: [97.1 F (36.2 C)-98.5 F (36.9 C)] 97.1 F (36.2 C) Heart Rate: [60-67] 66 Resp: [18-20] 20 BP: (86-128)/(42-63) 127/60 I&O Detailed Table: Intake/Output Summary (Last 24 hours) at 09/22/18 1613 Last data filed at 09/22/18 1156 Gross per 24 hour Intake 3575 ml Output 4400 ml Net -825 ml Patient Vitals for the past 96 hrs: Weight 09/22/18 0336 119.6 kg (263 lb 11.2 oz) 09/21/18 0430 126.1 kg (278 lb) 09/20/18 1940 126.1 kg (278 lb) Physical Examination: Constitutional: Alert and oriented to person, place, and time. Morbid obese HEENT: Neck supple, no JVD, non icteric sclera. Cardiovascular: Normal rate, regular rhythm, normal heart sounds with S1 and S2, and intact distal pulses. Exam reveals no gallop and no friction rub. No murmur heard. Pulmonary/Chest: Effort normal and breath sounds normal. No stridor. No respiratory distres s. no wheezes. no rales. exhibits no tenderness. Abdominal: Soft. Bowel sounds are normal. exhibits no distension and no mass. There is ulc eration tenderness and redness of right side of Pannus. There is no rebound and no guarding. Extremeties/Musculoskeletal: Normal range of motion.exhibits no tenderness. exhibits no ed brandyn. Normal equal peripheral pulses. Neurological: Alert and oriented to person, place, and time. No cranial nerve deficit. E xhibits normal muscle tone. No gross motor deficits. Skin: Skin is warm. No pallor. Patient has normal capillary refill, no mottling. Psychiatric: Has a normal mood and affect. Behavior is normal. Judgment normal. LABS: Recent Labs Lab 09/21/1860909/20/181949 WBC 7.63 6.46 HGB 9.3* 9.3* HCT 30.0* 30.2* PLT 273 280 NEUTOPHILPCT 69.73 64.74 MONOPCT 9.94 10.20 Recent Labs Lab 09/21/1860909/20/181949 NA 135 139 K 4.6 4.2 CL 93* 97* CO2 32 35* BUN 18 13 CREATININE 3.5* 2.69* PROT -- 7.3 BILITOT -- 0.4 ALT -- 9* AST -- 16 Phosphorus: Lab Results Component Value Date PHOS 5.1 (H) 09/21/2018 Invalid input(s): LABALBU Recent Labs Lab 09/21/1860909/20/181949 MG 2.1 1.8 No results for input(s): AMYLASE in the last 168 hours. No results for input(s): PHART, PO2ART, DNW3OPJ, W6WKRKJW, BEART in the last 168 hours. No results for input(s): APTT, INR, PTT in the last 168 hours. No results for input(s): TSH, T3FREE, FREET4 in the last 168 hours. No results for input(s): CKTOTAL, TROPONINI, TROPONINT, CKMBINDEX in the last 168 hours.i PROBLEM LIST Principal Problem: Panniculitis Active Problems: ESRD (end stage renal disease) Smoker Essential hypertension Obesity (BMI 30-39.9) Anemia of chronic renal failure, stage 5 (HCC) Renovascular hypertension Morbid obesity due to excess calories (HCC) Diabetes mellitus, type 2 (HCC) ASSESSMENT & PLAN 1. Panniculitis with recurrent infection, MRSA nasal screen is positive Vancomycin was kwame [place], I consulted Dr. Ho recommended to D/C Zosyn continue on Vancomycin with HD Dr. Mahoney recommended surgery after 1-2 weeks with antibiotics, continue wound care. pain management decreased Dilaudid, continue Oxycodone less frequent and Tramadol PRN. 2. ESRD (end stage renal disease) nephrology was consulted 3. Tobacco Smoker counseling to stop smoking. 4. Essential hypertension continue Carvedilol. 5. Obesity (BMI 30-39.9) lifestyle modification is advised.. 6. Anemia of chronic renal failure, stable 7. Diabetes mellitus, type 2 insulin sliding scale. 8. DVT prophylaxis Heparin Dayna Ozuna MD 09/22/2018 4:13 PM Jordan Ho DO - 09/22/2018 9:28 AM PSTFormatting of this note may be different from the original. [facility] Service: Infectious Disease Progress Note Hospital Day: LOS: 2 days Post-Op Day: * No surgery found * SUBJECTIVE Patient Summary: 43 y.o. female with significant past medical history of morbid obes ity, type II diabetes mellitus, end-stage renal disease on hemodialysis who presented on Sep with abdominal wall pain, found to have cellulitis of the pannus. The patient has repor tedly been treated with multiple recent courses of antibiotics, including a recent course of vancomycin with hemodialysis. The patient initially presented to [facility], and was transferred here with the supposedly need for surgical debridement, although CT scan did not show any evidence of abscess. At the time of admission, the patient was placed on Z osyn. I am asked to consult regarding further antibiotic recommendations. The patient reports that her most recent course of antibiotics for her panniculitis was abo ut 2 months ago, and consisted of vancomycin being given with hemodialysis. She reports that since that time she has continued to have painful swelling of the lower pannus, including a reas that are lumpy and firm. MRSA screen was positive on admission. CC: Panniculitis Chart reviewed: No new events. Subjective The patient reports that she still has pain in the lower abdominal wall. She has little con fidence that antibiotics will solve this problem, and is desirous of debridement surgery. ROS No fever, chills sweats. No nausea, vomiting or diarrhea. No rashes or pruritis. No oral pa in. Scheduled Medications buPROPion 100 mg Oral BID calcium acetate 2,001 mg Oral TID WC carvedilol 25 mg Oral BID WC cinacalcet 30 mg Oral Daily doxazosin 1 mg Oral BID epoetin curly 10,000 Units Intravenous Once in dialysis heparin (porcine) 5000 unit/0.5mL 5,000 Units Subcutaneous 3 times per day insulin lispro (human) 0-3 Units Subcutaneous Nightly insulin lispro (human) 0-6 Units Subcutaneous TID AC sodium chloride (PF) 10 mL Intravenous Q8H vancomycin 750 mg Intravenous See Admin Instructions vancomycin 750 mg Intravenous Once Continuous Infusions dextrose PRN Medications acetaminophen OR acetaminophen, albuterol, dextrose, dextrose, dextrose, glucagon, gluc agon, HYDROmorphone, ondansetron OR ondansetron, oxyCODONE OR oxyCODONE, polyethylen e glycol, zolpidem OBJECTIVE Vital Signs: BP 112/55 | Pulse 61 | Temp 97.6 F (36.4 C) | Resp 18 | Ht 1.689 m (5' 6.5") | Wt 119.6 kg (263 lb 11.2 oz) | SpO2 98% | BMI 41.92 kg/m Temp (24hrs), Av.2 F (36.8 C), Min:97.6 F (36.4 C), Max:98.5 F (36.9 C) Exam: Const: Vitals reviewed. No acute distress Skin: No rashes, no edema ENT: No thrush. Lungs: CTAB, no rales or wheezes Heart: RRR, no murmur Abd: soft, NT, + bowel sounds DATA CBC: Lab Results Component Value Date WBC 7.63 09/21/2018 RBC 3.70 09/21/2018 HGB 9.3 (L) 09/21/2018 HCT 30.0 (L) 09/21/2018 MCV 81.0 09/21/2018 MCH 25.1 (L) 09/21/2018 MCHC 30.9 (L) 09/21/2018 RDW 52.5 09/21/2018 PLT 273 09/21/2018 MPV 8.6 09/21/2018 DIFFTYPE AUTOMATED 09/21/2018 CMP: Lab Results Component Value Date NA 135 09/21/2018 K 4.6 09/21/2018 K 6.1 (H) 12/12/2015 CL 93 (L) 09/21/2018 CO2 32 09/21/2018 ANIONGAP 15 09/21/2018 GLUF 65 09/21/2018 BUN 18 09/21/2018 CREATININE 3.5 (H) 09/21/2018 BCR 5 09/21/2018 CA 9.0 09/21/2018 PROT 7.3 09/20/2018 ALB 3.3 (L) 09/20/2018 GLOB 4.0 09/20/2018 BILITOT 0.4 09/20/2018 ALP 109 09/20/2018 AST 16 09/20/2018 ALT 9 (L) 09/20/2018 EGFR 14 (L) 09/21/2018 Microbiology: MRSA screen positive. Blood cultures negative 2 so far. PROBLEM LIST Principal Problem: Panniculitis Active Problems: ESRD (end stage renal disease) Smoker Essential hypertension Obesity (BMI 30-39.9) Anemia of chronic renal failure, stage 5 (HCC) Renovascular hypertension Morbid obesity due to excess calories (HCC) Diabetes mellitus, type 2 (HCC) ASSESSMENT & PLAN Panniculitis (09/21/2018) This is usually gram-positive, and with the patient's positive MRSA screen, I would favor treatment with vancomycin. The patient's most recent treatment with vancomycin was about 6 weeks ago. Symptoms are improving today with vancomycin, exam findings much improved. I have advised the patient that surgical debridement would be extensive and difficult to recover f rom, but may be necessary if antibiotics fail. She has had a response the past to IV therapy , though her treatment courses have been 10-14 days. As long as we continues improving, I wo uld recommend treating for 4-6 weeks with intravenous vancomycin. If this does not solve the problem, that surgical debridement would be the next step. ESRD (end stage renal disease) (04/02/2015) Vancomycin dosed accordingly. Diabetes mellitus type II Reportedly resolved. Code Status: Full Code JORDAN HO DO 09/22/2018Anna Xiao RPH - 09/22/2018 8:58 AM PSTClinical Pharmacy Note: Vancomycin Day 2 Goal Trough: 10-20 mcg/mL Current dose: 750 mg IV during last hour of each hemodialysis Plan: Receiving dialysis this am, 750 mg IV dose planned for administration during last matty r of dialysis. Anna Xiao, Pharm.D. 09/22/2018 8:57 AM Anna Xiao RP - 09/21/2018 2:54 PM PSTFormatting of this note may be different from the original. Initiation of Vancomycin Pharmacy Dosing Corrina Knight 43 y.o. female 1.689 m (5' 6.5") 126.1 kg (278 lb) Body mass index is 44.2 kg/m. CREATININE Date Value Ref Range Status 09/21/2018 3.5 (H) 0.50 - 1.00 mg/dL Final Dialysis patient. Indications: Panniculitis Dose per Protocol: Loading Dose: Vancomycin 2000 mg IV once, then 750 mg IV during last hour of each hemodialy sis. First Dose to be Given: 09/21 @ 1530 Goal Trough for Vancomycin: 10-20 mcg/mL Pharmacist: Anna Xiao 09/21/2018 2:53 PM Venkatesh Ingram MD - 09/21/2018 10:49 AM PSTFormatting of this note may be different from the original. [facility] Service: NEPHROLOGY Progress Note Corrina Knight 43 y.o. [id number] female [facility] Day: LOS: 1 day 43-year-old female with past medical history significant for end-stage renal disease on hem odialysis 3 times a week Tuesday, hypertension, obesity, type II diabetes, anemia in end-stage renal disease, history of cva presented to [facility] with abdominal wall pain and swelling in the setting of prior panniculitis with repeated treatment with several antibiotic courses most recently got vancomycin admitted with acute panniculitis. Nephrology consulted for evaluation and management of ESRD ONSET Chronic severity severe Associated with fluid electrolyte acid base imbalances Assess need for hd/uf Patient seen and examined Says feel weak, c/o pain at abd pannus right side Denies cp, sob, nausea, vomiting, diarrhea, fever, headache Past Medical History Diagnosis Date Allergic rhinitis, cause unspecified Anemia of chronic renal failure, stage 5 (HCC) 12/13/2015 Chronic kidney disease Diabetes mellitus, type 2 (HCC) Dialysis patient ([facility]) ESRD (end stage renal disease) ([facility]) 04/02/2015 Essential hypertension 04/03/2015 Hypertension Obesity (BMI 30-39.9) Stroke ([facility]) Past Surgical History Procedure Laterality Date ANKLE SURGERY DENTAL SURGERY left dialysis catheter removal of 2 toes Facility-Administered Medications Prior to Admission Medication Dose Route Frequency Provider Last Rate Last Dose lidocaine buffered 1% injection 0.5 mL 0.5 mL Intradermal Once Caden Sultana MD Prescriptions Prior to Admission Medication Sig Dispense Refill Last Dose buPROPion (WELLBUTRIN) 100 MG tablet Take 100 mg by mouth 2 (two) times daily. carvedilol (COREG) 25 MG tablet Take 25 mg by mouth 2 (two) times daily with meals. T aking at 0600 cinacalcet (SENSIPAR) 30 MG tablet Take 1 tablet by mouth daily. Lot# [id number]. Exp date tablet 0 Taking at Unknown time doxazosin (CARDURA) 1 MG tablet TAKE 1 BY MOUTH TWO TIMES DAILY 60 tablet 10 Taking at Unknown time doxazosin (CARDURA) 4 MG tablet Take 4 mg by mouth 2 (two) times daily. Take with doxaz osin 1 mg tablet Taking at Unknown time PHOSLO 667 MG CAPS TAKE 3 BY MOUTH 3 TIMES DAILY WITH MEALS AND 2 BY MOUTH TWO TIME S DAILY WITH SNACKS 390 capsule 11 Taking at Unknown time albuterol (PROAIR HFA) 108 (90 BASE) MCG/ACT inhaler Inhale 2 puffs into the lungs ever y 4 (four) hours as needed for Wheezing. Not Taking at Unknown time amLODIPine (NORVASC) 5 MG tablet Take 1 tablet by mouth daily. 30 tablet 1 02/28/2017 at Unknown time Cholecalciferol (VITAMIN D3) 5000 units CAPS TAKE 1 BY MOUTH DAILY (Patient not taking: Reported on 02/28/2017) 30 capsule 11 Not Taking at Unknown time oxybutynin (DITROPAN) 5 MG tablet Take 10 mg by mouth 2 (two) times daily. Not Taking at Unknown time propranolol (INDERAL) 40 MG tablet Take 40 mg by mouth daily. 02/28/2017 at Unknown ti me RENVELA 2.4 G packet MIX AND TAKE 1 PACKET WITHEACH MEALS 3 TIMES DAILY AND WITH SNA CKS (Patient not taking: Reported on 02/28/2017) 150 each 11 Not Taking at Unknown time sertraline (ZOLOFT) 100 MG tablet Take 100 mg by mouth daily. 02/28/2017 at Unknown ti me Allergies Allergen Reactions Codeine Other (See Comments) "I dont wake up on it" Eggs Or Egg-Derived Products Nausea and Vomiting Family History Problem Relation Age of Onset Kidney disease Neg Hx Social History Social History Marital status: Single Spouse name: N/A Number of children: N/A Years of education: N/A Occupational History Not on file. Social History Main Topics Smoking status: Current Some Day Smoker Packs/day: 0.50 Years: 8.00 Types: Cigarettes Smokeless tobacco: Never Used Alcohol use 0.0 oz/week Comment: "Once a year" Drug use: Yes Types: Marijuana Comment: Occasional Sexual activity: Not on file Other Topics Concern Not on file Social History Narrative Lives in [place] (lives with her sister who is her caregiver). Mother lives in [place]. Uses cane for ambulation. No kids Allergy: Allergies Allergen Reactions Codeine Other (See Comments) "I dont wake up on it" Eggs Or Egg-Derived Products Nausea and Vomiting OBJECTIVE Vital Signs: BP 123/64 (BP Location: Left upper arm) | Pulse 71 | Temp 98.3 F (36.8 C) (Oral) | R salma 18 | Ht 1.689 m (5' 6.5") | Wt 126.1 kg (278 lb) | SpO2 93% | BMI 44.20 kg/m I&O Detailed Table: I/O last 3 completed shifts: In: 675 [P.O.:300; I.V.:375] Out: - Weight change: Examination: APPEARANCE: The patient is a pleasant lying in bed in no apparent distress. VITALS: Reviewed as listed. HEAD: NC/AT. EYES: +ve pale conjunctiva LUNGS: Clear to auscultation bilaterally, no respiratory distress. HEART: S1, S2, no pericardial rub noted ABDOMEN: Full, soft, no tenderness. +ve for erythema/ area of induration/ tenderness on right side of abd pannus noted EXTREMITIES: no pedal edema noted. NEUROLOGIC: No gross focal motor deficit, no asterixis PSYCH: The patient is alert and oriented x 3, mood and affect looks ok MEGHAN AVG +ve thrill/ bruit LABS: Recent Results (from the past 24 hour(s)) CBC W/Auto Diff (Reflex to Manual) Collection Time: 09/20/18 7:50 PM Result Value Ref Range WBC 6.46 3.80 - 11.00 K/uL RBC 3.73 3.70 - 5.10 M/uL HGB 9.3 (L) 11.3 - 15.5 g/dL HCT 30.2 (L) 34.0 - 46.0 % MCV 80.9 80.0 - 100.0 fl MCH 25.0 (L) 27.0 - 34.0 pg MCHC 30.9 (L) 32.0 - 35.5 g/dL RDW SD 53.8 (H) 37 - 53 fl PLT 280 150 - 400 K/uL MPV 8.3 fl DIFF TYPE AUTOMATED NEUTROPHILS 64.74 % LYMPHOCYTES 18.82 % MONOCYTES 10.20 % EOSINOPHILS 5.26 % BASOPHILS 0.98 % NEUTROPHILS ABS 4.18 1.90 - 7.40 K/uL LYMPHOCYTES ABS 1.22 1.00 - 3.90 K/uL MONOCYTES ABS 0.66 0.00 - 0.80 K/uL EOSINOPHILS ABS 0.34 0.00 - 0.50 K/uL BASOPHILS ABS 0.06 0.00 - 0.10 K/uL MORPHOLOGY NORMAL PLT MORPH Platelet Estimate ADEQUATE Comprehensive metabolic panel Collection Time: 09/20/18 7:50 PM Result Value Ref Range SODIUM 139 135 - 145 mmol/L POTASSIUM 4.2 3.5 - 4.9 mmol/L CHLORIDE 97 (L) 99 - 109 mmol/L CO2 35 (H) 23 - 32 mmol/L ANION GAP AGAP 11 5 - 20 mmol/L GLUCOSE 78 65 - 99 mg/dL BUN 13 8 - 25 mg/dL CREATININE 2.69 (H) 0.50 - 1.00 mg/dL BUN/CREAT 5 CALCIUM 8.4 (L) 8.5 - 10.5 mg/dL TOTAL PROTEIN 7.3 6.3 - 8.2 g/dL Albumin 3.3 (L) 3.6 - 5.0 g/dL GLOBULIN 4.0 1.3 - 4.9 g/dL A/G 0.8 (L) 1.0 - 2.4 TBIL 0.4 0.1 - 1.5 mg/dL ALK PHOS 109 35 - 115 U/L AST 16 10 - 45 U/L ALT 9 (L) 10 - 65 U/L EGFR 20 (L) >60 mL/min/1.73m2 Magnesium Collection Time: 09/20/18 7:50 PM Result Value Ref Range MAGNESIUM 1.8 1.7 - 2.4 mg/dL Phosphorus Collection Time: 09/20/18 7:50 PM Result Value Ref Range PHOSPHORUS 4.3 2.3 - 4.8 mg/dL ESR Collection Time: 09/20/18 7:50 PM Result Value Ref Range ESR >130 (H) 0 - 20 mm/Hr C-reactive protein Collection Time: 09/20/18 7:50 PM Result Value Ref Range CRP 8.8 (H) <0.5 mg/dL Procalcitonin Collection Time: 09/20/18 7:50 PM Result Value Ref Range PROCALCITONIN 0.45 <0.5 ng/mL POCT glucose Collection Time: 09/20/18 11:28 PM Result Value Ref Range GLUCOSE,POC SCREEN 91 65 - 99 mg/dL MRSA by PCR Collection Time: 09/20/18 11:36 PM Result Value Ref Range SOURCE NARES(NOSE) MRSA PCR POSITIVE for MRSA by PCR (A) NEGATIVE POCT glucose Collection Time: 09/21/18 5:13 AM Result Value Ref Range GLUCOSE,POC SCREEN 74 65 - 99 mg/dL POCT glucose Collection Time: 09/21/18 6:05 AM Result Value Ref Range GLUCOSE,POC SCREEN 100 (H) 65 - 99 mg/dL CBC w/auto diff (reflex to manual) Collection Time: 09/21/18 6:10 AM Result Value Ref Range WBC 7.63 3.80 - 11.00 K/uL RBC 3.70 3.70 - 5.10 M/uL HGB 9.3 (L) 11.3 - 15.5 g/dL HCT 30.0 (L) 34.0 - 46.0 % MCV 81.0 80.0 - 100.0 fl MCH 25.1 (L) 27.0 - 34.0 pg MCHC 30.9 (L) 32.0 - 35.5 g/dL RDW SD 52.5 37 - 53 fl PLT 273 150 - 400 K/uL MPV 8.6 fl DIFF TYPE AUTOMATED NEUTROPHILS 69.73 % LYMPHOCYTES 14.95 % MONOCYTES 9.94 % EOSINOPHILS 4.24 % BASOPHILS 1.14 % NEUTROPHILS ABS 5.32 1.90 - 7.40 K/uL LYMPHOCYTES ABS 1.14 1.00 - 3.90 K/uL MONOCYTES ABS 0.76 0.00 - 0.80 K/uL EOSINOPHILS ABS 0.32 0.00 - 0.50 K/uL BASOPHILS ABS 0.09 0.00 - 0.10 K/uL MORPHOLOGY 1+ Basic metabolic panel Collection Time: 09/21/18 6:10 AM Result Value Ref Range SODIUM 135 135 - 145 mmol/L POTASSIUM 4.6 3.5 - 4.9 mmol/L CHLORIDE 93 (L) 99 - 109 mmol/L CO2 32 23 - 32 mmol/L ANION GAP AGAP 15 5 - 20 mmol/L GLUCOSE 65 65 - 99 mg/dL BUN 18 8 - 25 mg/dL CREATININE 3.5 (H) 0.50 - 1.00 mg/dL BUN/CREAT 5 CALCIUM 9.0 8.5 - 10.5 mg/dL EGFR 14 (L) >60 mL/min/1.73m2 Glycohemoglobin A1c Collection Time: 09/21/18 6:10 AM Result Value Ref Range HEMOGLOBIN A1C 5.7 4.0 - 6.0 % ESTIMATED AVG GLUCOSE 117 <154 mg/dL Magnesium Collection Time: 09/21/18 6:10 AM Result Value Ref Range MAGNESIUM 2.1 1.7 - 2.4 mg/dL Phosphorus Collection Time: 09/21/18 6:10 AM Result Value Ref Range PHOSPHORUS 5.1 (H) 2.3 - 4.8 mg/dL Lipid panel Collection Time: 09/21/18 6:10 AM Result Value Ref Range CHOLESTEROL 119 <200 mg/dL Triglycerides 70 <150 mg/dL HDL CHOL 38 (L) >40 mg/dL LDL CALC 67 <100 mg/dL POCT glucose Collection Time: 09/21/18 11:41 AM Result Value Ref Range GLUCOSE,POC SCREEN 99 65 - 99 mg/dL Vancomycin, trough Collection Time: 09/21/18 2:27 PM Result Value Ref Range VANCOMYCIN,TROUGH <3.0 (L) 10 - 20 ug/mL POCT glucose Collection Time: 09/21/18 4:11 PM Result Value Ref Range GLUCOSE,POC SCREEN 86 65 - 99 mg/dL IMAGING: Ct Abdomen Pelvis Without Contrast Result Date: 09/20/2018 This is a non-reportable procedure without a radiologist report and is used for image [facility] ge only Patient's old records, imaging and labs were reviewed in detail and summarized. PROBLEM LIST Principal Problem: Panniculitis Active Problems: ESRD (end stage renal disease) Smoker Essential hypertension Obesity (BMI 30-39.9) Anemia of chronic renal failure, stage 5 (HCC) Renovascular hypertension Morbid obesity due to excess calories (HCC) Diabetes mellitus, type 2 (HCC) ASSESSMENT & PLAN ESRD ON HD No need for hd/uf today from fluid electrolyte acid base balance point of view Assess daily for need for hd & uf Plan for hd/ uf in am , informed HD RN Orders in the chart Fluid restriction 1.2 litres/24 hours Strict I & O Daily RFP Renal diet Daily weights will help with subsequent hd with uf Dose all meds per protocol for ESRD on hd ANEMIA in ESRD Controlled EPOGEN TO KEEP HGB 10-11 on dialysis Lab Results Component Value Date HGB 9.3 (L) 09/21/2018 HGB 9.3 (L) 09/20/2018 HGB 9.4 (L) 09/27/2016 HYPERTENSION Controlled WATCH BP CLOSELY DURING HOSPITALIZATION LOW NA DIET Will adjust BP meds according to BP readings BP Readings from Last 3 Encounters: 09/21/18 123/64 02/28/17 163/71 09/27/16 153/63 HYPERPHOSPHATEMIA Worsened LOW P DIET PO4 BINDERS change ca acetate to RENVELA with meals GIVEN POSSIBILITY OF CALCIPHYLAXIS Lab Results Component Value Date PHOS 5.1 (H) 09/21/2018 PHOS 4.3 09/20/2018 PHOS 7.7 (H) 09/26/2016 HYPOALBUMINEMIA improving INCREASE PROTEIN INTAKE Lab Results Component Value Date ALB 3.3 (L) 09/20/2018 ALB 2.5 (L) 09/26/2016 ALB 2.7 (L) 09/26/2016 DM-2 OPTIMUM GLYCEMIC CONTROL PER PRIMARY TEAM Panniculitis Abx per ID Plan for debridement in am by plastic sx CASE DISCUSSED IN DETAIL WITH PATIENT/ care team, ANSWERS ALL QUESTIONS IN DETAIL, VERBALIZ ES UNDERSTANDING VENKATESH INGRAM MD 09/21/2018 JATIN RODRÍGUEZ Seen earlier and charting completed later Dictation software, GonnaBe, used which may contain error for similar sounding words even af ter review. Personal communication requested for any clarification. Dayna Ozuna MD - 09/21/2018 8:38 AM PSTFormatting of this note may be different f rom the original. [facility] Service: Hospitalist Progress Note Pt: Corrina Knight AGE/SEX: 43 y.o. female ROOM: 4461/4461-1 : 1975 PCP: JATIN RODRÍGUEZ ADMIT DATE: 09/20/2018 TODAY'S DATE: 09/21/2018 Hospital Day/Hospital Course: LOS: 1 day SUBJECTIVE: Patient seen and examine. Complaint of sever pain at pannus ulceration site, 4-04/26 she schultz s no fever. Scheduled Medications: buPROPion 100 mg Oral BID calcium acetate 2,001 mg Oral TID WC carvedilol 25 mg Oral BID WC cinacalcet 30 mg Oral Daily doxazosin 1 mg Oral BID heparin (porcine) 5000 unit/0.5mL 5,000 Units Subcutaneous 3 times per day insulin lispro (human) 0-3 Units Subcutaneous Nightly insulin lispro (human) 0-6 Units Subcutaneous TID AC piperacillin-tazobactam 3.375 g 3.375 g Intravenous Q8H sodium chloride (PF) 10 mL Intravenous Q8H Continuous Infusions dextrose PRN Medications acetaminophen OR acetaminophen, albuterol, dextrose, dextrose, dextrose, glucagon, gluc agon, HYDROmorphone, ondansetron OR ondansetron, polyethylene glycol, zolpidem Allergy: Allergies Allergen Reactions Codeine Other (See Comments) "I dont wake up on it" Eggs Or Egg-Derived Products Nausea and Vomiting OBJECTIVE: Vitals: Temp: [98.3 F (36.8 C)-98.6 F (37 C)] 98.5 F (36.9 C) Heart Rate: [73-81] 73 Resp: [16-18] 17 BP: (116-130)/(61-64) 124/62 I&O Detailed Table: Intake/Output Summary (Last 24 hours) at 09/21/18 0838 Last data filed at 09/21/18 043 Gross per 24 hour Intake 675 ml Output 0 ml Net 675 ml Patient Vitals for the past 96 hrs: Weight 09/21/18 043 126.1 kg (278 lb) 09/20/18 1940 126.1 kg (278 lb) Physical Examination: Constitutional: Alert and oriented to person, place, and time. Morbid obese HEENT: Neck supple, no JVD, non icteric sclera. Cardiovascular: Normal rate, regular rhythm, normal heart sounds with S1 and S2, and intact distal pulses. Exam reveals no gallop and no friction rub. No murmur heard. Pulmonary/Chest: Effort normal and breath sounds normal. No stridor. No respiratory distres s. no wheezes. no rales. exhibits no tenderness. Abdominal: Soft. Bowel sounds are normal. exhibits no distension and no mass. There is ulc eration tenderness and redness of right side of Pannus. There is no rebound and no guarding. Extremeties/Musculoskeletal: Normal range of motion.exhibits no tenderness. exhibits no ed brandyn. Normal equal peripheral pulses. Neurological: Alert and oriented to person, place, and time. No cranial nerve deficit. E xhibits normal muscle tone. No gross motor deficits. Skin: Skin is warm. No pallor. Patient has normal capillary refill, no mottling. Psychiatric: Has a normal mood and affect. Behavior is normal. Judgment normal. LABS: Recent Labs Lab 09/21/1860909/20/181949 WBC 7.63 6.46 HGB 9.3* 9.3* HCT 30.0* 30.2* PLT 273 280 NEUTOPHILPCT 69.73 64.74 MONOPCT 9.94 10.20 Recent Labs Lab 09/21/1860909/20/181949 NA 135 139 K 4.6 4.2 CL 93* 97* CO2 32 35* BUN 18 13 CREATININE 3.5* 2.69* PROT -- 7.3 BILITOT -- 0.4 ALT -- 9* AST -- 16 Phosphorus: Lab Results Component Value Date PHOS 5.1 (H) 09/21/2018 Invalid input(s): LABALBU Recent Labs Lab 09/21/1860909/20/181949 MG 2.1 1.8 No results for input(s): AMYLASE in the last 168 hours. No results for input(s): PHART, PO2ART, OJM3TLG, I2TWHQMJ, BEART in the last 168 hours. No results for input(s): APTT, INR, PTT in the last 168 hours. No results for input(s): TSH, T3FREE, FREET4 in the last 168 hours. No results for input(s): CKTOTAL, TROPONINI, TROPONINT, CKMBINDEX in the last 168 hours.i PROBLEM LIST Principal Problem: Panniculitis Active Problems: ESRD (end stage renal disease) Smoker Essential hypertension Obesity (BMI 30-39.9) Anemia of chronic renal failure, stage 5 (HCC) Renovascular hypertension Morbid obesity due to excess calories (HCC) Diabetes mellitus, type 2 (HCC) ASSESSMENT & PLAN 1. Panniculitis with recurrent infection, continue on zosyn, MRSA nasal screen is positive Vancomycin was added, I consulted Dr. Ho for repeated infection, she was on Vancomycin wit h HD in the past, I consulted Dr. Mahoney for surgical evaluation, continue wound care. 2. ESRD (end stage renal disease) nephrology was consulted 3. Tobacco Smoker counseling to stop smoking. 4. Essential hypertension continue Carvedilol. 5. Obesity (BMI 30-39.9) lifestyle modification is advised.. 6. Anemia of chronic renal failure, stable 7. Diabetes mellitus, type 2 insulin sliding scale. 8. DVT prophylaxis Heparin Dayna Ozuna MD 09/21/2018 8:38 AM Mariana Cabrera RN - 09/21/2018 7:48 AM PSTPlease document contact precautions on the wi owsheets/daily cares. Thank you! Mariana Infection Preventionin this encounter Plan of Treatment +--------+---------+ + + + | Date | Type | Specialty | Care Team | Description | +--------+---------+ + + + | 10/31/ | Office | Infectious Diseases | Jordan Ho DO | | | 2019 | Visit | | [address] [facility] | | | | | | [place] [address] | | | | | | [phone] | | | | | | | | +--------+---------+ + + + + +--------+ + + | Name | Priori | Associated Diagnoses | Order Schedule | | | ty | | | + +--------+ + + | CBC W/Auto Diff (Reflex to | Routin | Panniculitis | Expected: 09/28/2018 | | Manual) | e | | (Approximate), | | | | | Expires: 09/28/2019 | + +--------+ + + | Comprehensive metabolic panel | Routin | Panniculitis | Expected: 09/28/2018 | | | e | | (Approximate), | | | | | Expires: 09/28/2019 | + +--------+ + + + +--------+ + + | Name | Priori | Associated Diagnoses | Order Schedule | | | ty | | | + +--------+ + + | Ambulatory Referral to Wound | Routin | Panniculitis | Ordered: 09/23/2018 | | Clinic | e | | | + +--------+ + + | Ambulatory referral to Plastic | Routin | Panniculitis | Ordered: 09/30/2018 | | Surgery | e | | | + +--------+ + + | Ambulatory referral to Infectious | Routin | Panniculitis | Ordered: 09/30/2018 | | Disease | e | | | + +--------+ + + as of this encounter Procedures + +--------+ + + + | Procedure Name | Priori | Date/Time | Associated Diagnosis | Comments | | | ty | | | | + +--------+ + + + | CBC W/AUTO DIFF | Routin | 09/30/2018 | | Results for this | | (REFLEX TO MANUAL) | e | 5:29 AM | | procedure are in the | | | | PDT | | results section. | + +--------+ + + + | PHOSPHOROUS | Routin | 09/30/2018 | | Results for this | | | e | 5:29 AM | | procedure are in the | | | | PDT | | results section. | + +--------+ + + + | CALCIUM, IONIZED | Routin | 09/30/2018 | | Results for this | | | e | 5:29 AM | | procedure are in the | | | | PDT | | results section. | + +--------+ + + + | BASIC METABOLIC | Routin | 09/30/2018 | | Results for this | | PANEL | e | 5:29 AM | | procedure are in the | | | | PDT | | results section. | + +--------+ + + + | POCT GLUCOSE | Routin | 09/30/2018 | | Results for this | | | e | 5:16 AM | | procedure are in the | | | | PDT | | results section. | + +--------+ + + + | POCT GLUCOSE | Routin | 09/30/2018 | | Results for this | | | e | 12:26 AM | | procedure are in the | | | | PDT | | results section. | + +--------+ + + + | POCT GLUCOSE | Routin | 09/29/2018 | | Results for this | | | e | 9:30 PM | | procedure are in the | | | | PDT | | results section. | + +--------+ + + + | POCT GLUCOSE | Routin | 09/29/2018 | | Results for this | | | e | 4:31 PM | | procedure are in the | | | | PDT | | results section. | + +--------+ + + + | IRON AND TIBC | Routin | 09/29/2018 | | Results for this | | | e | 1:47 PM | | procedure are in the | | | | PDT | | results section. | + +--------+ + + + | FOLATE | Routin | 09/29/2018 | | Results for this | | | e | 1:47 PM | | procedure are in the | | | | PDT | | results section. | + +--------+ + + + | FERRITIN | Routin | 09/29/2018 | | Results for this | | | e | 1:47 PM | | procedure are in the | | | | PDT | | results section. | + +--------+ + + + | VITAMIN B12 | Routin | 09/29/2018 | | Results for this | | | e | 1:47 PM | | procedure are in the | | | | PDT | | results section. | + +--------+ + + + | POCT GLUCOSE | Routin | 09/29/2018 | | Results for this | | | e | 11:39 AM | | procedure are in the | | | | PDT | | results section. | + +--------+ + + + | CBC W/AUTO DIFF | Routin | 09/29/2018 | | Results for this | | (REFLEX TO MANUAL) | e | 6:12 AM | | procedure are in the | | | | PDT | | results section. | + +--------+ + + + | PHOSPHOROUS | Routin | 09/29/2018 | | Results for this | | | e | 6:12 AM | | procedure are in the | | | | PDT | | results section. | + +--------+ + + + | CALCIUM, IONIZED | Routin | 09/29/2018 | | Results for this | | | e | 6:12 AM | | procedure are in the | | | | PDT | | results section. | + +--------+ + + + | VANCOMYCIN RANDOM | EMIGDIO | 09/29/2018 | | Results for this | | | | 6:12 AM | | procedure are in the | | | | PDT | | results section. | + +--------+ + + + | BASIC METABOLIC | Routin | 09/29/2018 | | Results for this | | PANEL | e | 6:12 AM | | procedure are in the | | | | PDT | | results section. | + +--------+ + + + | POCT GLUCOSE | Routin | 09/29/2018 | | Results for this | | | e | 5:39 AM | | procedure are in the | | | | PDT | | results section. | + +--------+ + + + | POCT GLUCOSE | Routin | 09/28/2018 | | Results for this | | | e | 9:02 PM | | procedure are in the | | | | PDT | | results section. | + +--------+ + + + | POCT GLUCOSE | Routin | 09/28/2018 | | Results for this | | | e | 4:13 PM | | procedure are in the | | | | PDT | | results section. | + +--------+ + + + | POCT GLUCOSE | Routin | 09/28/2018 | | Results for this | | | e | 12:01 PM | | procedure are in the | | | | PDT | | results section. | + +--------+ + + + | POCT GLUCOSE | Routin | 09/28/2018 | | Results for this | | | e | 5:48 AM | | procedure are in the | | | | PDT | | results section. | + +--------+ + + + | CBC W/AUTO DIFF | EMIGDIO | 09/28/2018 | | Results for this | | (REFLEX TO MANUAL) | | 5:25 AM | | procedure are in the | | | | PDT | | results section. | + +--------+ + + + | PHOSPHOROUS | Routin | 09/28/2018 | | Results for this | | | e | 5:25 AM | | procedure are in the | | | | PDT | | results section. | + +--------+ + + + | CALCIUM, IONIZED | Routin | 09/28/2018 | | Results for this | | | e | 5:25 AM | | procedure are in the | | | | PDT | | results section. | + +--------+ + + + | BASIC METABOLIC | Routin | 09/28/2018 | | Results for this | | PANEL | e | 5:25 AM | | procedure are in the | | | | PDT | | results section. | + +--------+ + + + | POCT GLUCOSE | Routin | 09/27/2018 | | Results for this | | | e | 9:07 PM | | procedure are in the | | | | PDT | | results section. | + +--------+ + + + | POCT GLUCOSE | Routin | 09/27/2018 | | Results for this | | | e | 4:35 PM | | procedure are in the | | | | PDT | | results section. | + +--------+ + + + | POCT GLUCOSE | Routin | 09/27/2018 | | Results for this | | | e | 11:25 AM | | procedure are in the | | | | PDT | | results section. | + +--------+ + + + | POCT GLUCOSE | Routin | 09/27/2018 | | Results for this | | | e | 5:40 AM | | procedure are in the | | | | PDT | | results section. | + +--------+ + + + | CBC W/AUTO DIFF | Routin | 09/27/2018 | | Results for this | | (REFLEX TO MANUAL) | e | 5:21 AM | | procedure are in the | | | | PDT | | results section. | + +--------+ + + + | PHOSPHOROUS | Add-On | 09/27/2018 | | Results for this | | | | 5:21 AM | | procedure are in the | | | | PDT | | results section. | + +--------+ + + + | BASIC METABOLIC | Routin | 09/27/2018 | | Results for this | | PANEL | e | 5:21 AM | | procedure are in the | | | | PDT | | results section. | + +--------+ + + + | POCT GLUCOSE | Routin | 09/26/2018 | | Results for this | | | e | 9:02 PM | | procedure are in the | | | | PDT | | results section. | + +--------+ + + + | POCT GLUCOSE | Routin | 09/26/2018 | | Results for this | | | e | 4:03 PM | | procedure are in the | | | | PDT | | results section. | + +--------+ + + + | PATHOLOGY HISTOLOGY | Routin | 09/26/2018 | Panniculitis | Results for this | | - TISSUE | e | 3:00 PM | | procedure are in the | | | | PDT | | results section. | + +--------+ + + + | POCT GLUCOSE | Routin | 09/26/2018 | | Results for this | | | e | 2:58 PM | | procedure are in the | | | | PDT | | results section. | + +--------+ + + + | PANNICULECTOMY | | 09/26/2018 | Panniculitis | | | | | 12:00 PM | | | | | | PDT | | | + +--------+ + + + +---+--------+ | | | | | Specia | | | l | | | Needs | | | 1.25 | | | HOURS, | | | | | | GENERA | | | L, | | | DISTRESSER | +---+--------+ + +--------+ +---+ + | POCT GLUCOSE | Routin | 09/26/2018 | | Results for this | | | e | 11:28 AM | | procedure are in the | | | | PDT | | results section. | + +--------+ +---+ + | CBC W/AUTO DIFF | Routin | 09/26/2018 | | Results for this | | (REFLEX TO MANUAL) | e | 5:55 AM | | procedure are in the | | | | PDT | | results section. | + +--------+ +---+ + | BASIC METABOLIC | Routin | 09/26/2018 | | Results for this | | PANEL | e | 5:55 AM | | procedure are in the | | | | PDT | | results section. | + +--------+ +---+ + | POCT GLUCOSE | Routin | 09/26/2018 | | Results for this | | | e | 5:24 AM | | procedure are in the | | | | PDT | | results section. | + +--------+ +---+ + | POCT GLUCOSE | Routin | 09/25/2018 | | Results for this | | | e | 9:02 PM | | procedure are in the | | | | PDT | | results section. | + +--------+ +---+ + | POCT GLUCOSE | Routin | 09/25/2018 | | Results for this | | | e | 4:15 PM | | procedure are in the | | | | PDT | | results section. | + +--------+ +---+ + | POCT GLUCOSE | Routin | 09/25/2018 | | Results for this | | | e | 11:38 AM | | procedure are in the | | | | PDT | | results section. | + +--------+ +---+ + | POCT GLUCOSE | Routin | 09/25/2018 | | Results for this | | | e | 6:22 AM | | procedure are in the | | | | PDT | | results section. | + +--------+ +---+ + | CBC W/AUTO DIFF | Routin | 09/25/2018 | | Results for this | | (REFLEX TO MANUAL) | e | 5:38 AM | | procedure are in the | | | | PDT | | results section. | + +--------+ +---+ + | BASIC METABOLIC | Routin | 09/25/2018 | | Results for this | | PANEL | e | 5:38 AM | | procedure are in the | | | | PDT | | results section. | + +--------+ +---+ + | POCT GLUCOSE | Routin | 09/24/2018 | | Results for this | | | e | 10:02 PM | | procedure are in the | | | | PDT | | results section. | + +--------+ +---+ + | POCT GLUCOSE | Routin | 09/24/2018 | | Results for this | | | e | 4:38 PM | | procedure are in the | | | | PDT | | results section. | + +--------+ +---+ + | POCT GLUCOSE | Routin | 09/24/2018 | | Results for this | | | e | 12:04 PM | | procedure are in the | | | | PDT | | results section. | + +--------+ +---+ + | POCT GLUCOSE | Routin | 09/24/2018 | | Results for this | | | e | 5:53 AM | | procedure are in the | | | | PDT | | results section. | + +--------+ +---+ + | CBC W/AUTO DIFF | Routin | 09/24/2018 | | Results for this | | (REFLEX TO MANUAL) | e | 5:24 AM | | procedure are in the | | | | PDT | | results section. | + +--------+ +---+ + | BASIC METABOLIC | Routin | 09/24/2018 | | Results for this | | PANEL | e | 5:24 AM | | procedure are in the | | | | PDT | | results section. | + +--------+ +---+ + | POCT GLUCOSE | Routin | 09/23/2018 | | Results for this | | | e | 10:15 PM | | procedure are in the | | | | PST | | results section. | + +--------+ +---+ + | POCT GLUCOSE | Routin | 09/23/2018 | | Results for this | | | e | 4:51 PM | | procedure are in the | | | | PST | | results section. | + +--------+ +---+ + | POCT GLUCOSE | Routin | 09/23/2018 | | Results for this | | | e | 11:33 AM | | procedure are in the | | | | PST | | results section. | + +--------+ +---+ + | POCT GLUCOSE | Routin | 09/23/2018 | | Results for this | | | e | 6:04 AM | | procedure are in the | | | | PST | | results section. | + +--------+ +---+ + | CBC W/AUTO DIFF | Routin | 09/23/2018 | | Results for this | | (REFLEX TO MANUAL) | e | 5:57 AM | | procedure are in the | | | | PST | | results section. | + +--------+ +---+ + | BASIC METABOLIC | Routin | 09/23/2018 | | Results for this | | PANEL | e | 5:57 AM | | procedure are in the | | | | PST | | results section. | + +--------+ +---+ + | POCT GLUCOSE | Routin | 09/22/2018 | | Results for this | | | e | 9:16 PM | | procedure are in the | | | | PST | | results section. | + +--------+ +---+ + | POCT GLUCOSE | Routin | 09/22/2018 | | Results for this | | | e | 4:22 PM | | procedure are in the | | | | PST | | results section. | + +--------+ +---+ + | POCT GLUCOSE | Routin | 09/22/2018 | | Results for this | | | e | 11:21 AM | | procedure are in the | | | | PST | | results section. | + +--------+ +---+ + | HEPATITIS | STAT | 09/22/2018 | | Results for this | | PANEL,CHRONIC | | 7:23 AM | | procedure are in the | | | | PST | | results section. | + +--------+ +---+ + | POCT GLUCOSE | Routin | 09/22/2018 | | Results for this | | | e | 6:03 AM | | procedure are in the | | | | PST | | results section. | + +--------+ +---+ + | POCT GLUCOSE | Routin | 09/21/2018 | | Results for this | | | e | 9:10 PM | | procedure are in the | | | | PST | | results section. | + +--------+ +---+ + | POCT GLUCOSE | Routin | 09/21/2018 | | Results for this | | | e | 4:11 PM | | procedure are in the | | | | PST | | results section. | + +--------+ +---+ + | VANCOMYCIN, TROUGH | Timed | 09/21/2018 | | Results for this | | | | 2:27 PM | | procedure are in the | | | | PST | | results section. | + +--------+ +---+ + | POCT GLUCOSE | Routin | 09/21/2018 | | Results for this | | | e | 11:41 AM | | procedure are in the | | | | PST | | results section. | + +--------+ +---+ + | CBC W/AUTO DIFF | Routin | 09/21/2018 | | Results for this | | (REFLEX TO MANUAL) | e - AM | 6:10 AM | | procedure are in the | | | | PST | | results section. | + +--------+ +---+ + | PHOSPHOROUS | Routin | 09/21/2018 | | Results for this | | | e - AM | 6:10 AM | | procedure are in the | | | | PST | | results section. | + +--------+ +---+ + | MAGNESIUM | Routin | 09/21/2018 | | Results for this | | | e - AM | 6:10 AM | | procedure are in the | | | | PST | | results section. | + +--------+ +---+ + | HEMOGLOBIN A1C | Routin | 09/21/2018 | | Results for this | | | e - AM | 6:10 AM | | procedure are in the | | | | PST | | results section. | + +--------+ +---+ + | LIPID PANEL | Routin | 09/21/2018 | | Results for this | | | e - AM | 6:10 AM | | procedure are in the | | | | PST | | results section. | + +--------+ +---+ + | BASIC METABOLIC | Routin | 09/21/2018 | | Results for this | | PANEL | e - AM | 6:10 AM | | procedure are in the | | | | PST | | results section. | + +--------+ +---+ + | POCT GLUCOSE | Routin | 09/21/2018 | | Results for this | | | e | 6:05 AM | | procedure are in the | | | | PST | | results section. | + +--------+ +---+ + | POCT GLUCOSE | Routin | 09/21/2018 | | Results for this | | | e | 5:13 AM | | procedure are in the | | | | PST | | results section. | + +--------+ +---+ + | MRSA BY PCR | Timed | 09/20/2018 | | Results for this | | | | 11:36 PM | | procedure are in the | | | | PST | | results section. | + +--------+ +---+ + | POCT GLUCOSE | Routin | 09/20/2018 | | Results for this | | | e | 11:28 PM | | procedure are in the | | | | PST | | results section. | + +--------+ +---+ + | BLOOD CULTURE, SET 2 | Timed | 09/20/2018 | | Results for this | | | | 8:46 PM | | procedure are in the | | | | PST | | results section. | + +--------+ +---+ + | PROCALCITONIN | STAT | 09/20/2018 | | Results for this | | | | 7:50 PM | | procedure are in the | | | | PST | | results section. | + +--------+ +---+ + | BLOOD CULTURE, SET 1 | Timed | 09/20/2018 | | Results for this | | | | 7:50 PM | | procedure are in the | | | | PST | | results section. | + +--------+ +---+ + | SEDIMENTATION RATE, | STAT | 09/20/2018 | | Results for this | | AUTOMATED | | 7:50 PM | | procedure are in the | | | | PST | | results section. | + +--------+ +---+ + | CBC W/AUTO DIFF | STAT | 09/20/2018 | | Results for this | | (REFLEX TO MANUAL) | | 7:50 PM | | procedure are in the | | | | PST | | results section. | + +--------+ +---+ + | C-REACTIVE PROTEIN | STAT | 09/20/2018 | | Results for this | | | | 7:50 PM | | procedure are in the | | | | PST | | results section. | + +--------+ +---+ + | PHOSPHOROUS | STAT | 09/20/2018 | | Results for this | | | | 7:50 PM | | procedure are in the | | | | PST | | results section. | + +--------+ +---+ + | MAGNESIUM | STAT | 09/20/2018 | | Results for this | | | | 7:50 PM | | procedure are in the | | | | PST | | results section. | + +--------+ +---+ + | COMPREHENSIVE | STAT | 09/20/2018 | | Results for this | | METABOLIC PANEL | | 7:50 PM | | procedure are in the | | | | PST | | results section. | + +--------+ +---+ + in this encounter Results Phosphorus (09/30/2018 5:29 AM) + + + + + | Component | Value | Ref Range | Performed At | + + + + + | PHOSPHORUS | 3.7Comment: Testing | 2.3 - 4.8 mg/dL | [facility] | | | performed at [facility], [address] | | LABORATORY | | | [facility], | | | | | [place] [address] | | | + + + + + + + | Specimen | + + | Blood | + + + + + + + | Performing | Address | City/State/Zipcode | Phone Number | | Organization | | | | + + + + + | [facility] | [address] | [place] [address] | [phone] | | LABORATORY | [address] | | | + + + + + Calcium, ionized (09/30/2018 5:29 AM) + + + + + | Component | Value | Ref Range | Performed At | + + + + + | CA++ | 1.03 (L) | 1.08 - 1.25 mmol/L | [facility] | + + + + + | pH | 7.436Comment: Testing | 7.300 - 7.450 | [facility] | | | performed at [facility] [place];[place] | | | | | [address] | | | + + + + + + + | Specimen | + + | Blood | + + + + + + + | Performing | Address | City/State/Zipcode | Phone Number | | Organization | | | | + + + + + | [facility] | [address] | [place] [address] | | + + + + + Basic metabolic panel (09/30/2018 5:29 AM) + + + + + | Component | Value | Ref Range | Performed At | + + + + + | SODIUM | 132 (L) | 135 - 145 mmol/L | [facility] | | | | | LABORATORY | + + + + + | POTASSIUM | 4.5 | 3.5 - 4.9 mmol/L | [facility] | | | | | LABORATORY | + + + + + | CHLORIDE | 93 (L) | 99 - 109 mmol/L | [facility] | | | | | LABORATORY | + + + + + | CO2 | 30 | 23 - 32 mmol/L | [facility] | | | | | LABORATORY | + + + + + | ANION GAP AGAP | 14 | 5 - 20 mmol/L | [facility] | | | | | LABORATORY | + + + + + | GLUCOSE | 74 | 65 - 99 mg/dL | [facility] | | | | | LABORATORY | + + + + + | BUN | 15 | 8 - 25 mg/dL | [facility] | | | | | LABORATORY | + + + + + | CREATININE | 3.8 (H) | 0.50 - 1.00 mg/dL | [facility] | | | | | LABORATORY | + + + + + | BUN/CREAT | 4 | | [facility] | | | | | LABORATORY | + + + + + | CALCIUM | 8.6 | 8.5 - 10.5 mg/dL | [facility] | | | | | LABORATORY | + + + + + | EGFR | 13 (L)Comment: GFR <60: | >60 mL/min/1.73m2 | [facility] | | | CHRONIC KIDNEY DISEASE, | | LABORATORY | | | IF FOUND OVER A 3 MONTH | | | | | PERIOD.GFR <15: KIDNEY | | | | | FAILURE.FOR | | | | | AMERICANS, MULTIPLY THE | | | | | CALCULATED GFR BY | | | | | 1.210.This eGFR is | | | | | calculated using the | | | | | MDRD IDMS traceable | | | | | equation.Testing | | | | | performed at [facility], [address] | | | | [facility], | | | | | [place] [address] | | | + + + + + + + | Specimen | + + | Blood | + + + + + + + | Performing | Address | City/State/Zipcode | Phone Number | | Organization | | | | + + + + + | [facility] | [address] | [place] [address] | [phone] | | LABORATORY | [address] | | | + + + + + CBC W/Auto Diff (Reflex to Manual) (09/30/2018 5:29 AM) + + + + + | Component | Value | Ref Range | Performed At | + + + + + | WBC | 12.34 (H) | 3.80 - 11.00 K/uL | [facility] | | | | | LABORATORY | + + + + + | RBC | 3.43 (L) | 3.70 - 5.10 M/uL | [facility] | | | | | LABORATORY | + + + + + | HGB | 8.6 (L) | 11.3 - 15.5 g/dL | [facility] | | | | | LABORATORY | + + + + + | HCT | 27.6 (L) | 34.0 - 46.0 % | [facility] | | | | | LABORATORY | + + + + + | MCV | 80.5 | 80.0 - 100.0 fl | [facility] | | | | | LABORATORY | + + + + + | MCH | 25.0 (L) | 27.0 - 34.0 pg | [facility] | | | | | LABORATORY | + + + + + | MCHC | 31.0 (L) | 32.0 - 35.5 g/dL | [facility] | | | | | LABORATORY | + + + + + | RDW SD | 52.5 | 37 - 53 fl | [facility] | | | | | LABORATORY | + + + + + | PLT | 328 | 150 - 400 K/uL | [facility] | | | | | LABORATORY | + + + + + | MPV | 8.4 | fl | [facility] | | | | | LABORATORY | + + + + + | DIFF TYPE | AUTOMATED | | [facility] | | | | | LABORATORY | + + + + + | NEUTROPHILS | 67.57 | % | [facility] | | | | | LABORATORY | + + + + + | LYMPHOCYTES | 13.93 | % | [facility] | | | | | LABORATORY | + + + + + | MONOCYTES | 11.35 | % | [facility] | | | | | LABORATORY | + + + + + | EOSINOPHILS | 6.14 | % | [facility] | | | | | LABORATORY | + + + + + | BASOPHILS | 1.01 | % | [facility] | | | | | LABORATORY | + + + + + | NEUTROPHILS ABS | 8.34 (H) | 1.90 - 7.40 K/uL | [facility] | | | | | LABORATORY | + + + + + | LYMPHOCYTES ABS | 1.72 | 1.00 - 3.90 K/uL | [facility] | | | | | LABORATORY | + + + + + | MONOCYTES ABS | 1.40 (H) | 0.00 - 0.80 K/uL | [facility] | | | | | LABORATORY | + + + + + | EOSINOPHILS ABS | 0.76 (H) | 0.00 - 0.50 K/uL | [facility] | | | | | LABORATORY | + + + + + | BASOPHILS ABS | 0.12 (H) | 0.00 - 0.10 K/uL | [facility] | | | | | LABORATORY | + + + + + | MORPHOLOGY | 1+Comment: ANISONORMAL | | [facility] | | | PLT MORPHTesting | | LABORATORY | | | performed at [facility], [address] | | | | [address], | | | | | [place] [address] | | | | | | | | + + + + + + + | Specimen | + + | Blood | + + + + + + + | Performing | Address | City/State/Zipcode | Phone Number | | Organization | | | | + + + + + | [facility] | [address] | [place] [address] | [phone] | | LABORATORY | [address] | | | + + + + + POCT glucose (09/30/2018 5:16 AM) + + + + + | Component | Value | Ref Range | Performed At | + + + + + | GLUCOSE,POC SCREEN | 94Comment: Testing | 65 - 99 mg/dL | [facility] | | | performed at [facility] [place] | | [address];[place] | | | | | [address] | | | + + + + + + + + + + | Performing | Address | City/State/Zipcode | Phone Number | | Organization | | | | + + + + + | [facility] | [address] | [place] [address] | | + + + + + POCT glucose (09/30/2018 12:26 AM) + + + + + | Component | Value | Ref Range | Performed At | + + + + + | GLUCOSE,POC SCREEN | 124 (H)Comment: Testing | 65 - 99 mg/dL | [facility] | | | performed at [facility] [place] | | | [address];[place] | | | | | [address] | | | + + + + + + + + + + | Performing | Address | City/State/Zipcode | Phone Number | | Organization | | | | + + + + + | [facility] | [address] | [place] [address] | | + + + + + POCT glucose (09/29/2018 9:30 PM) + + + + + | Component | Value | Ref Range | Performed At | + + + + + | GLUCOSE,POC SCREEN | 166 (H)Comment: Testing | 65 - 99 mg/dL | [facility] | | | performed at [facility] [place] | [address] [facility], [place] | | | | | [address] | | | + + + + + + + + + + | Performing | Address | City/State/Zipcode | Phone Number | | Organization | | | | + + + + + | [facility] | [address] | [place] [address] | | + + + + + POCT glucose (09/29/2018 4:31 PM) + + + + + | Component | Value | Ref Range | Performed At | + + + + + | GLUCOSE,POC SCREEN | 172 (H)Comment: Testing | 65 - 99 mg/dL | [facility] | | | performed at [facility] [place] | [address];[place] | | | | | [address] | | | + + + + + + + + + + | Performing | Address | City/State/Zipcode | Phone Number | | Organization | | | | + + + + + | [facility] | [address] | [place] [address] | | + + + + + Ferritin (09/29/2018 1:47 PM) + + + + + | Component | Value | Ref Range | Performed At | + + + + + | FERRITIN | 344 (H)Comment: Testing | 6 - 170 ng/mL | [facility] | | | performed at [facility], [address] | | LABORATORY | | | [address], | | | | | [place] [address] | | | + + + + + + + | Specimen | + + | Blood | + + + + + + + | Performing | Address | City/State/Zipcode | Phone Number | | Organization | | | | + + + + + | [facility] | [address] | [place] [address] | [phone] | | LABORATORY | [address] | | | + + + + + Iron panel (09/29/2018 1:47 PM) + + + + + | Component | Value | Ref Range | Performed At | + + + + + | IRON | 19 (L) | 30 - 180 ug/dL | [facility] | | | | | LABORATORY | + + + + + | TIBC | 177 (L) | 260 - 490 ug/dL | [facility] | | | | | LABORATORY | + + + + + | IRON % SAT | 11 (L)Comment: Testing | 15 - 50 % | [facility] | | | performed at [address], [address] | | LABORATORY | | | [address], | | | | | [place] [address] | | | + + + + + + + | Specimen | + + | Blood | + + + + + + + | Performing | Address | City/State/Zipcode | Phone Number | | Organization | | | | + + + + + | [facility] | [address] [place] [address] | [place] [address] | [phone] | | LABORATORY | [address] | | | + + + + + Vitamin B12 (09/29/2018 1:47 PM) + + + + + | Component | Value | Ref Range | Performed At | + + + + + | VITAMIN B12 | 921Comment: Testing | 254 - 1,320 pg/mL | [facility] | | | performed at [facility], [address] | LABORATORY | | | [facility], | | | | | [place] [address] | | | + + + + + + + | Specimen | + + | Blood | + + + + + + + | Performing | Address | City/State/Zipcode | Phone Number | | Organization | | | | + + + + + | [facility] | [address] [facility] | [place] [address] | [phone] | | LABORATORY | [address] | | | + + + + + Folate (09/29/2018 1:47 PM) + + + + + | Component | Value | Ref Range | Performed At | + + + + + | FOLATE | 5.0 (L)Comment: Testing | >5.4 ng/mL | [facility] | | | performed at [facility], [address] | | LABORATORY | | | [address], | | | | | [place] [address] | | | + + + + + + + | Specimen | + + | Blood | + + + + + + + | Performing | Address | City/State/Zipcode | Phone Number | | Organization | | | | + + + + + | [facility] | [address] | [place] [address] | [phone] | | LABORATORY | [address] | | | + + + + + POCT glucose (09/29/2018 11:39 AM) + + + + + | Component | Value | Ref Range | Performed At | + + + + + | GLUCOSE,POC SCREEN | 108 (H)Comment: Testing | 65 - 99 mg/dL | [facility] | | | performed at [facility] [place] | | | | | [address];[place] | | | | | [address] | | | + + + + + + + + + + | Performing | Address | City/State/Zipcode | Phone Number | | Organization | | | | + + + + + | [facility] | [address] | [place] [address] | | + + + + + Phosphorus (09/29/2018 6:12 AM) + + + + + | Component | Value | Ref Range | Performed At | + + + + + | PHOSPHORUS | 4.7Comment: Testing | 2.3 - 4.8 mg/dL | [facility] | | | performed at [facility], [address] | | LABORATORY | | | [address], | | | | | [place] [address] | | | + + + + + + + | Specimen | + + | Blood | + + + + + + + | Performing | Address | City/State/Zipcode | Phone Number | | Organization | | | | + + + + + | [facility] | [address] [facility] | [place] [address] | [phone] | | LABORATORY | [address] | | | + + + + + Calcium, ionized (09/29/2018 6:12 AM) + + + + + | Component | Value | Ref Range | Performed At | + + + + + | CA++ | 1.01 (L) | 1.08 - 1.25 mmol/L | [facility] | + + + + + | pH | 7.405Comment: Testing | 7.300 - 7.450 | [facility] | | | performed at [facility] | | [address];[place], [place] | | | | | [address] | | | + + + + + + + | Specimen | + + | Blood | + + + + + + + | Performing | Address | City/State/Zipcode | Phone Number | | Organization | | | | + + + + + | [facility] | [address] | [place] [address] | | + + + + + Basic metabolic panel (09/29/2018 6:12 AM) + + + + + | Component | Value | Ref Range | Performed At | + + + + + | SODIUM | 131 (L) | 135 - 145 mmol/L | [facility] | | | | | LABORATORY | + + + + + | POTASSIUM | 4.6 | 3.5 - 4.9 mmol/L | [facility] | | | | | LABORATORY | + + + + + | CHLORIDE | 92 (L) | 99 - 109 mmol/L | [facility] | | | | | LABORATORY | + + + + + | CO2 | 27 | 23 - 32 mmol/L | [facility] | | | | | LABORATORY | + + + + + | ANION GAP AGAP | 17 | 5 - 20 mmol/L | [facility] | | | | | LABORATORY | + + + + + | GLUCOSE | 77 | 65 - 99 mg/dL | [facility] | | | | | LABORATORY | + + + + + | BUN | 22 | 8 - 25 mg/dL | [facility] | | | | | LABORATORY | + + + + + | CREATININE | 5.1 (H) | 0.50 - 1.00 mg/dL | [facility] | | | | | LABORATORY | + + + + + | BUN/CREAT | 4 | | [facility] | | | | | LABORATORY | + + + + + | CALCIUM | 8.4 (L) | 8.5 - 10.5 mg/dL | [facility] | | | | | LABORATORY | + + + + + | EGFR | 9 (L)Comment: GFR <60: | >60 mL/min/1.73m2 | [facility] | | | CHRONIC KIDNEY DISEASE, | | LABORATORY | | | IF FOUND OVER A 3 MONTH | | | | | PERIOD.GFR <15: KIDNEY | | | | | FAILURE.FOR | | | | | AMERICANS, MULTIPLY THE | | | | | CALCULATED GFR BY | | | | | 1.210.This eGFR is | | | | | calculated using the | | | | | MDRD IDMS traceable | | | | | equation.Testing | | | | | performed at [facility], [address] | | | | [address], | | | | | [place] [address] | | | + + + + + + + | Specimen | + + | Blood | + + + + + + + | Performing | Address | City/State/Zipcode | Phone Number | | Organization | | | | + + + + + | [facility] | [address] | [place] [address] | [phone] | | LABORATORY | [address] | | | + + + + + CBC W/Auto Diff (Reflex to Manual) (09/29/2018 6:12 AM) + + + + + | Component | Value | Ref Range | Performed At | + + + + + | WBC | 14.78 (H) | 3.80 - 11.00 K/uL | [facility] | | | | | LABORATORY | + + + + + | RBC | 3.31 (L) | 3.70 - 5.10 M/uL | [facility] | | | | | LABORATORY | + + + + + | HGB | 8.3 (L) | 11.3 - 15.5 g/dL | [facility] | | | | | LABORATORY | + + + + + | HCT | 26.5 (L) | 34.0 - 46.0 % | [facility] | | | | | LABORATORY | + + + + + | MCV | 79.9 (L) | 80.0 - 100.0 fl | [facility] | | | | | LABORATORY | + + + + + | MCH | 25.0 (L) | 27.0 - 34.0 pg | [facility] | | | | | LABORATORY | + + + + + | MCHC | 31.3 (L) | 32.0 - 35.5 g/dL | [facility] | | | | | LABORATORY | + + + + + | RDW SD | 52.5 | 37 - 53 fl | [facility] | | | | | LABORATORY | + + + + + | PLT | 313 | 150 - 400 K/uL | [facility] | | | | | LABORATORY | + + + + + | MPV | 8.6 | fl | [facility] | | | | | LABORATORY | + + + + + | DIFF TYPE | AUTOMATED | | [facility] | | | | | LABORATORY | + + + + + | NEUTROPHILS | 71.16 | % | [facility] | | | | | LABORATORY | + + + + + | LYMPHOCYTES | 11.36 | % | [facility] | | | | | LABORATORY | + + + + + | MONOCYTES | 10.20 | % | [facility] | | | | | LABORATORY | + + + + + | EOSINOPHILS | 6.01 | % | [facility] | | | | | LABORATORY | + + + + + | BASOPHILS | 1.27 | % | [facility] | | | | | LABORATORY | + + + + + | NEUTROPHILS ABS | 10.52 (H) | 1.90 - 7.40 K/uL | [facility] | | | | | LABORATORY | + + + + + | LYMPHOCYTES ABS | 1.68 | 1.00 - 3.90 K/uL | [facility] | | | | | LABORATORY | + + + + + | MONOCYTES ABS | 1.51 (H) | 0.00 - 0.80 K/uL | [facility] | | | | | LABORATORY | + + + + + | EOSINOPHILS ABS | 0.89 (H) | 0.00 - 0.50 K/uL | [facility] | | | | | LABORATORY | + + + + + | BASOPHILS ABS | 0.19 (H) | 0.00 - 0.10 K/uL | [facility] | | | | | LABORATORY | + + + + + | MORPHOLOGY | 2+Comment: | | [facility] | | | ANISO1+HYPONORMAL PLT | | LABORATORY | | | MORPHTesting performed | | | | | at [facility], [address] | | | | [address], | | | | | [place] [address] | | | | |Testing performed at [facility], [address], [place] [address] | | | | | | | | + + + + + + + | Specimen | + + | Blood | + + + + + + + | Performing | Address | City/State/Zipcode | Phone Number | | Organization | | | | + + + + + | [facility] | [address] | [place] [address] | [phone] | | LABORATORY | [address] | | | + + + + + Vancomycin, random (09/29/2018 6:12 AM) + + + + + | Component | Value | Ref Range | Performed At | + + + + + | VANCOMYCIN,RANDOM | 24.1Comment: Testing | ug/mL | [facility] | | | performed at [facility] | | | | | [address];[place], [place] | | | | | [address] | | | + + + + + + + | Specimen | + + | Blood | + + + + + + + | Performing | Address | City/State/Zipcode | Phone Number | | Organization | | | | + + + + + | [facility] | [address] | [facility] [place] [place] [address] | | + + + + + POCT glucose (09/29/2018 5:39 AM) + + + + + | Component | Value | Ref Range | Performed At | + + + + + | GLUCOSE,POC SCREEN | 93Comment: Testing | 65 - 99 mg/dL | [facility] | | | performed at [facility] | | | | [address];[place] | | | | | [address] | | | + + + + + + + + + + | Performing | Address | City/State/Zipcode | Phone Number | | Organization | | | | + + + + + | [facility] | [address] | [place] [address] | | + + + + + POCT glucose (09/28/2018 9:02 PM) + + + + + | Component | Value | Ref Range | Performed At | + + + + + | GLUCOSE,POC SCREEN | 122 (H)Comment: Testing | 65 - 99 mg/dL | [facility] | | | performed at [facility];[address] | | | | | [address];[place] | | | | | [address] | | | + + + + + + + + + + | Performing | Address | City/State/Zipcode | Phone Number | | Organization | | | | + + + + + | [facility] | [address] | [place] [address] | | + + + + + POCT glucose (09/28/2018 4:13 PM) + + + + + | Component | Value | Ref Range | Performed At | + + + + + | GLUCOSE,POC SCREEN | 130 (H)Comment: Testing | 65 - 99 mg/dL | [facility] | | | performed at [facility];[address] | | | [address];[place] | | | | | [address] | | | + + + + + + + + + + | Performing | Address | City/State/Zipcode | Phone Number | | Organization | | | | + + + + + | [facility] | [address] | [place] [address] | | + + + + + POCT glucose (09/28/2018 12:01 PM) + + + + + | Component | Value | Ref Range | Performed At | + + + + + | GLUCOSE,POC SCREEN | 122 (H)Comment: Testing | 65 - 99 mg/dL | [facility] | | | performed at [facility];[address] | | | | | [address];[place] | | | | | [address] | | | + + + + + + + + + + | Performing | Address | City/State/Zipcode | Phone Number | | Organization | | | | + + + + + | [facility] | [address] | [place] [address] | | + + + + + POCT glucose (09/28/2018 5:48 AM) + + + + + | Component | Value | Ref Range | Performed At | + + + + + | GLUCOSE,POC SCREEN | 100 (H)Comment: Testing | 65 - 99 mg/dL | [facility] | | | performed at [facility] | | | | | [address] [facility];[place], [place] | | | | | [address] | | | + + + + + + + + + + | Performing | Address | City/State/Zipcode | Phone Number | | Organization | | | | + + + + + | [facility] | [address] | [place] [address] | | + + + + + Phosphorus (09/28/2018 5:25 AM) + + + + + | Component | Value | Ref Range | Performed At | + + + + + | PHOSPHORUS | 3.3Comment: Testing | 2.3 - 4.8 mg/dL | [facility] | | | performed at [facility], [address] | | LABORATORY | | | [facility] [address], | | | | | [place] [address] | | | + + + + + + + | Specimen | + + | Blood | + + + + + + + | Performing | Address | City/State/Zipcode | Phone Number | | Organization | | | | + + + + + | [facility] | [address] | [place] [address] | [phone] | | LABORATORY | [address] | | | + + + + + Calcium, ionized (09/28/2018 5:25 AM) + + + + + | Component | Value | Ref Range | Performed At | + + + + + | CA++ | 0.99 (L) | 1.08 - 1.25 mmol/L | [facility] | + + + + + | pH | 7.458 (H)Comment: | 7.300 - 7.450 | [facility] | | | Testing performed at | | | | | [facility];[address];[place] [address] | | | + + + + + + + | Specimen | + + | Blood | + + + + + + + | Performing | Address | City/State/Zipcode | Phone Number | | Organization | | | | + + + + + | [facility] | [address] | [place] [address] | | + + + + + Basic metabolic panel (09/28/2018 5:25 AM) + + + + + | Component | Value | Ref Range | Performed At | + + + + + | SODIUM | 131 (L) | 135 - 145 mmol/L | [facility] | | | | | LABORATORY | + + + + + | POTASSIUM | 4.5 | 3.5 - 4.9 mmol/L | [facility] | | | | | LABORATORY | + + + + + | CHLORIDE | 95 (L) | 99 - 109 mmol/L | [facility] | | | | | LABORATORY | + + + + + | CO2 | 27 | 23 - 32 mmol/L | [facility] | | | | | LABORATORY | + + + + + | ANION GAP AGAP | 14 | 5 - 20 mmol/L | [facility] | | | | | LABORATORY | + + + + + | GLUCOSE | 85 | 65 - 99 mg/dL | [facility] | | | | | LABORATORY | + + + + + | BUN | 14 | 8 - 25 mg/dL | [facility] | | | | | LABORATORY | + + + + + | CREATININE | 3.7 (H) | 0.50 - 1.00 mg/dL | [facility] | | | | | LABORATORY | + + + + + | BUN/CREAT | 4 | | [facility] | | | | | LABORATORY | + + + + + | CALCIUM | 7.9 (L) | 8.5 - 10.5 mg/dL | [facility] | | | | | LABORATORY | + + + + + | EGFR | 14 (L)Comment: GFR <60: | >60 mL/min/1.73m2 | [facility] | | | CHRONIC KIDNEY DISEASE, | | LABORATORY | | | IF FOUND OVER A 3 MONTH | | | | | PERIOD.GFR <15: KIDNEY | | | | | FAILURE.FOR | | | | | AMERICANS, MULTIPLY THE | | | | | CALCULATED GFR BY | | | | | 1.210.This eGFR is | | | | | calculated using the | | | | | MDRD IDMS traceable | | | | | equation.Testing | | | | | performed at [facility], [address] | | | | | [facility], | | | | | [place] [address] | | | + + + + + + + | Specimen | + + | Blood | + + + + + + + | Performing | Address | City/State/Zipcode | Phone Number | | Organization | | | | + + + + + | [facility] | [address] | [place] [address] | [phone] | | LABORATORY | [address] | | | + + + + + CBC W/Auto Diff (Reflex to Manual) (09/28/2018 5:25 AM) + + + + + | Component | Value | Ref Range | Performed At | + + + + + | WBC | 14.43 (H) | 3.80 - 11.00 K/uL | [facility] | + + + + + | RBC | 3.22 (L) | 3.70 - 5.10 M/uL | [facility] | + + + + + | HGB | 8.2 (L) | 11.3 - 15.5 g/dL | [facility] | + + + + + | HCT | 26.5 (L) | 34.0 - 46.0 % | [facility] | + + + + + | MCV | 82.4 | 80.0 - 100.0 fl | [facility] | + + + + + | MCH | 25.5 (L) | 27.0 - 34.0 pg | [facility] | + + + + + | MCHC | 30.9 (L) | 32.0 - 35.5 g/dL | [facility] | + + + + + | RDW SD | 54.7 (H) | 37 - 53 fl | [facility] | + + + + + | PLT | 292 | 150 - 400 K/uL | [facility] | + + + + + | MPV | 8.4 | fl | [facility] | + + + + + | DIFF TYPE | MANUAL | | [facility] | + + + + + | Neutrophils Manual | 75 | % | [facility] | + + + + + | Lymphocytes Manual | 12 | % | [facility] | + + + + + | Monocytes Manual | 10 | % | [facility] | + + + + + | Eosinophils Manual | 3 | % | [facility] | + + + + + | Neutrophils Absolute | 10.83 (H) | 1.90 - 7.40 K/uL | [facility] | + + + + + | Lymphocytes Absolute | 1.73 | 1.00 - 3.90 K/uL | [facility] | + + + + + | Monocytes Absolute | 1.44 (H) | 0.00 - 0.80 K/uL | [facility] | + + + + + | Eosinophils Absolute | 0.43 | 0.00 - 0.50 K/uL | [facility] | + + + + + | Platelet Estimate | ADEQUATE | | [facility] | + + + + + | MORPHOLOGY | NORMAL PLT MORPHComment: | | [facility] | | | 1+ANISOTesting | | | | | performed at [facility] | | | | | [address] [facility] [address];[place], [place] | | | | | [address] | | | | | | | | + + + + + + + | Specimen | + + | Blood | + + + + + + + | Performing | Address | City/State/Zipcode | Phone Number | | Organization | | | | + + + + + | [facility] | [address] | [place] [address] | | + + + + + POCT glucose (09/27/2018 9:07 PM) + + + + + | Component | Value | Ref Range | Performed At | + + + + + | GLUCOSE,POC SCREEN | 114 (H)Comment: Testing | 65 - 99 mg/dL | [facility] | | | performed at [facility];[address] | | | | | [address];[place] | | | | | [address] | | | + + + + + + + + + + | Performing | Address | City/State/Zipcode | Phone Number | | Organization | | | | + + + + + | [facility] | [address] | [place] [address] | | + + + + + POCT glucose (09/27/2018 4:35 PM) + + + + + | Component | Value | Ref Range | Performed At | + + + + + | GLUCOSE,POC SCREEN | 87Comment: Testing | 65 - 99 mg/dL | [facility] | | | performed at [facility];[address] | | | [address];[place] | | | | | [address] | | | + + + + + + + + + + | Performing | Address | City/State/Zipcode | Phone Number | | Organization | | | | + + + + + | [facility] | [address] | [facility] [place] [place] [address] | | + + + + + POCT glucose (09/27/2018 11:25 AM) + + + + + | Component | Value | Ref Range | Performed At | + + + + + | GLUCOSE,POC SCREEN | 88Comment: Testing | 65 - 99 mg/dL | [facility] | | | performed at [facility];[address] | | | | | [address];[place] | | | | | [address] | | | + + + + + + + + + + | Performing | Address | City/State/Zipcode | Phone Number | | Organization | | | | + + + + + | [facility] | [address] | [place] [address] | | + + + + + POCT glucose (09/27/2018 5:40 AM) + + + + + | Component | Value | Ref Range | Performed At | + + + + + | GLUCOSE,POC SCREEN | 81Comment: Testing | 65 - 99 mg/dL | [facility] | | | performed at [facility];[address] | | | | | [address];[place] | | | | | [address] | | | + + + + + + + + + + | Performing | Address | City/State/Zipcode | Phone Number | | Organization | | | | + + + + + | [facility] | [address] | [place] [address] | | + + + + + Phosphorus (09/27/2018 5:21 AM) + + + + + | Component | Value | Ref Range | Performed At | + + + + + | PHOSPHORUS | 4.5Comment: Testing | 2.3 - 4.8 mg/dL | [facility] | | | performed at [facility], [address] | | LABORATORY | | | [address], | | | | | [place] [address] | | | + + + + + + + | Specimen | + + | Blood | + + + + + + + | Performing | Address | City/State/Zipcode | Phone Number | | Organization | | | | + + + + + | [facility] | [address] | [place] [address] | [phone] | | LABORATORY | [address] | | | + + + + + Basic metabolic panel (09/27/2018 5:21 AM) + + + + + | Component | Value | Ref Range | Performed At | + + + + + | SODIUM | 132 (L) | 135 - 145 mmol/L | [facility] | | | | | LABORATORY | + + + + + | POTASSIUM | 4.7 | 3.5 - 4.9 mmol/L | [facility] | | | | | LABORATORY | + + + + + | CHLORIDE | 94 (L) | 99 - 109 mmol/L | [facility] | | | | | LABORATORY | + + + + + | CO2 | 28 | 23 - 32 mmol/L | [facility] | | | | | LABORATORY | + + + + + | ANION GAP AGAP | 15 | 5 - 20 mmol/L | [facility] | | | | | LABORATORY | + + + + + | GLUCOSE | 69 | 65 - 99 mg/dL | [facility] | | | | | LABORATORY | + + + + + | BUN | 27 (H) | 8 - 25 mg/dL | [facility] | | | | | LABORATORY | + + + + + | CREATININE | 5.3 (H) | 0.50 - 1.00 mg/dL | [facility] | | | | | LABORATORY | + + + + + | BUN/CREAT | 5 | | [facility] | | | | | LABORATORY | + + + + + | CALCIUM | 8.1 (L) | 8.5 - 10.5 mg/dL | [facility] | | | | | LABORATORY | + + + + + | EGFR | 9 (L)Comment: GFR <60: | >60 mL/min/1.73m2 | [facility] | | | CHRONIC KIDNEY DISEASE, | | LABORATORY | | | IF FOUND OVER A 3 MONTH | | | | | PERIOD.GFR <15: KIDNEY | | | | | FAILURE.FOR | | | | | AMERICANS, MULTIPLY THE | | | | | CALCULATED GFR BY | | | | | 1.210.This eGFR is | | | | | calculated using the | | | | | MDRD IDMS traceable | | | | | equation.Testing | | | | | performed at [facility], [address] | | | | [facility], | | | | | [place] [address] | | | + + + + + + + | Specimen | + + | Blood | + + + + + + + | Performing | Address | City/State/Zipcode | Phone Number | | Organization | | | | + + + + + | [facility] | [address] | [place] [address] | [phone] | | LABORATORY | [address] | | | + + + + + CBC W/Auto Diff (Reflex to Manual) (09/27/2018 5:21 AM) + + + + + | Component | Value | Ref Range | Performed At | + + + + + | WBC | 14.33 (H) | 3.80 - 11.00 K/uL | [facility] | | | | | LABORATORY | + + + + + | RBC | 3.49 (L) | 3.70 - 5.10 M/uL | [facility] | | | | | LABORATORY | + + + + + | HGB | 8.5 (L) | 11.3 - 15.5 g/dL | [facility] | | | | | LABORATORY | + + + + + | HCT | 28.1 (L) | 34.0 - 46.0 % | [facility] | | | | | LABORATORY | + + + + + | MCV | 80.6 | 80.0 - 100.0 fl | [facility] | | | | | LABORATORY | + + + + + | MCH | 24.5 (L) | 27.0 - 34.0 pg | [facility] | | | | | LABORATORY | + + + + + | MCHC | 30.3 (L) | 32.0 - 35.5 g/dL | [facility] | | | | | LABORATORY | + + + + + | RDW SD | 52.1 | 37 - 53 fl | [facility] | | | | | LABORATORY | + + + + + | PLT | 292 | 150 - 400 K/uL | [facility] | | | | | LABORATORY | + + + + + | MPV | 8.8 | fl | [facility] | | | | | LABORATORY | + + + + + | DIFF TYPE | AUTOMATED | | [facility] | | | | | LABORATORY | + + + + + | NEUTROPHILS | 74.28 | % | [facility] | | | | | LABORATORY | + + + + + | LYMPHOCYTES | 7.99 | % | [facility] | | | | | LABORATORY | + + + + + | MONOCYTES | 9.23 | % | [facility] | | | | | LABORATORY | + + + + + | EOSINOPHILS | 7.77 | % | [facility] | | | | | LABORATORY | + + + + + | BASOPHILS | 0.73 | % | [facility] | | | | | LABORATORY | + + + + + | NEUTROPHILS ABS | 10.65 (H) | 1.90 - 7.40 K/uL | [facility] | | | | | LABORATORY | + + + + + | LYMPHOCYTES ABS | 1.15 | 1.00 - 3.90 K/uL | [facility] | | | | | LABORATORY | + + + + + | MONOCYTES ABS | 1.32 (H) | 0.00 - 0.80 K/uL | [facility] | | | | | LABORATORY | + + + + + | EOSINOPHILS ABS | 1.11 (H) | 0.00 - 0.50 K/uL | [facility] | | | | | LABORATORY | + + + + + | BASOPHILS ABS | 0.11 (H) | 0.00 - 0.10 K/uL | [facility] | | | | | LABORATORY | + + + + + | MORPHOLOGY | 2+Comment: | | [facility] | | | ANISO2+HYPONORMAL PLT | | LABORATORY | | | MORPHTesting performed | | | | | at [facility], [address] | | | | | [facility], | | | | | [place] [address] | | | | |Testing performed at [facility], [address] [facility] [facility], [place] [address] | | | | | | | | + + + + + + + | Specimen | + + | Blood | + + + + + + + | Performing | Address | City/State/Zipcode | Phone Number | | Organization | | | | + + + + + | [facility] | [address] | [place] [address] | [phone] | | LABORATORY | [address] | | | + + + + + POCT glucose (09/26/2018 9:02 PM) + + + + + | Component | Value | Ref Range | Performed At | + + + + + | GLUCOSE,POC SCREEN | 125 (H)Comment: Testing | 65 - 99 mg/dL | [facility] | | | performed at [facility] [place] | | [address];[place] | | | | | [address] | | | + + + + + + + + + + | Performing | Address | City/State/Zipcode | Phone Number | | Organization | | | | + + + + + | [facility] | [address] | [place] [address] | | + + + + + POCT glucose (09/26/2018 4:03 PM) + + + + + | Component | Value | Ref Range | Performed At | + + + + + | GLUCOSE,POC SCREEN | 126 (H)Comment: Testing | 65 - 99 mg/dL | [facility] | | | performed at [facility] [place] | [address];[place], [place] | | | | | [address] | | | + + + + + + + + + + | Performing | Address | City/State/Zipcode | Phone Number | | Organization | | | | + + + + + | [facility] | [address] | [place] [address] | | + + + + + Pathology histology - tissue (09/26/2018 3:00 PM) + + | Specimen | + + | Tissue | + + + + + | Narrative | Performed At | + + + | SPECIMEN(S): A RIGHT ABDOMINAL PANNUS SPECIMEN SOURCE: A. RIGHT | [facility] | | ABDOMINAL PANNUS CLINICAL HISTORY: Panniculitis. FINAL PATHOLOGIC | PATHOLOGY | | DIAGNOSIS: Right abdominal pannus, panniculectomy: - Skin and | | | subcutaneous tissue with ulceration, suppurative soft-tissue | | | inflammation, fat necrosis, and calcifications. (See Comment.) | | | COMMENT: Histologic sections show skin and underlying subcutaneous | | | tissue with extensive ulceration, mixed suppurative and chronic | | | soft-tissue inflammation, fat necrosis, and extensive calcifications. | | | Some calcifications are identified within vascular spann, and | | | therefore a component of calciphylaxis cannot be entirely excluded. | | | However, given the extensive background calcification with associated | | | inflammatory infiltrates and fat necrosis, a diagnosis of primary | | | calciphylaxis is not favored. Correlation with clinical findings is | | | recommended. CLR:emb:C2NR MICROSCOPIC EXAMINATION: Histologic | | | sections of all submitted blocks are examined by light | | | microscopy. These findings, together with the gross examination, | | | support the pathologic diagnosis. GROSS DESCRIPTION: The specimen, | | | received in formalin, labeled "right abdominal pannus," consists of a | | | 2375 gram, 54.1 x 17.5 x 7.1 cm fragment of paulson-yellow and lobulated | | | adipose tissue that is overlaid by paulson-brown, granular skin on one | | | side. The skin includes a single 9.1 x 5.4 cm, variegated brown to | | | dark brown discoloration plaque. The adipose tissue cut surface is | | | paulson-yellow and lobulated with diffuse areas of induration and | | | hemorrhagic discoloration. There are also focal areas of bright | | | yellow discoloration and cystic spaces containing paulson-green, thick | | | material. Representatively submitted in (A1-A2). am:BES:meenakshi | | | PERFORMING LABORATORY: The technical component was performed by | | | [facility], [address] [place] [id number] (Medical | | | Director: Ludy Savage MD; CLIA# [id number]). Professional | | | [facility] | | | [address] [address] | | | (Hand Bander: Vance Foley M.D.; | | | CLIA#: [id number]). Diagnostician: Vance Foley MD | | | Pathologist Electronically Signed 09/27/2018 | | + + + + +---------+ + + | Performing | Address | City/State/Zipcode | Phone Number | | Organization | | | | + +---------+ + + | [facility] | | | | + +---------+ + + POCT glucose (09/26/2018 2:58 PM) + + + + + | Component | Value | Ref Range | Performed At | + + + + + | GLUCOSE,POC SCREEN | 91Comment: Testing | 65 - 99 mg/dL | [facility] | | | performed at [facility] | | | | | [address];[place], [place] | | | | | [address] | | | + + + + + + + + + + | Performing | Address | City/State/Zipcode | Phone Number | | Organization | | | | + + + + + | [facility] | [address] | [place] [address] | | + + + + + POCT glucose (09/26/2018 11:28 AM) + + + + + | Component | Value | Ref Range | Performed At | + + + + + | GLUCOSE,POC SCREEN | 81Comment: Testing | 65 - 99 mg/dL | [facility] | | | performed at [facility] | | | | | [address];[place] | | | | | [address] | | | + + + + + + + + + + | Performing | Address | City/State/Zipcode | Phone Number | | Organization | | | | + + + + + | [facility] | [address] | [place] [address] | | + + + + + Basic metabolic panel (09/26/2018 5:55 AM) + + + + + | Component | Value | Ref Range | Performed At | + + + + + | SODIUM | 133 (L) | 135 - 145 mmol/L | [facility] | | | | | LABORATORY | + + + + + | POTASSIUM | 4.4 | 3.5 - 4.9 mmol/L | [facility] | | | | | LABORATORY | + + + + + | CHLORIDE | 96 (L) | 99 - 109 mmol/L | [facility] | | | | | LABORATORY | + + + + + | CO2 | 28 | 23 - 32 mmol/L | [facility] | | | | | LABORATORY | + + + + + | ANION GAP AGAP | 13 | 5 - 20 mmol/L | [facility] | | | | | LABORATORY | + + + + + | GLUCOSE | 80 | 65 - 99 mg/dL | [facility] | | | | | LABORATORY | + + + + + | BUN | 20 | 8 - 25 mg/dL | [facility] | | | | | LABORATORY | + + + + + | CREATININE | 4.0 (H) | 0.50 - 1.00 mg/dL | [facility] | | | | | LABORATORY | + + + + + | BUN/CREAT | 5 | | [facility] | | | | | LABORATORY | + + + + + | CALCIUM | 8.3 (L) | 8.5 - 10.5 mg/dL | [facility] | | | | | LABORATORY | + + + + + | EGFR | 12 (L)Comment: GFR <60: | >60 mL/min/1.73m2 | [facility] | | | CHRONIC KIDNEY DISEASE, | | LABORATORY | | | IF FOUND OVER A 3 MONTH | | | | | PERIOD.GFR <15: KIDNEY | | | | | FAILURE.FOR | | | | | AMERICANS, MULTIPLY THE | | | | | CALCULATED GFR BY | | | | | 1.210.This eGFR is | | | | | calculated using the | | | | | MDRD IDTX traceable | | | | | equation.Testing | | | | | performed at [facility], [address] | | | | [facility], | | | | | [place] [address] | | | + + + + + + + | Specimen | + + | Blood | + + + + + + + | Performing | Address | City/State/Zipcode | Phone Number | | Organization | | | | + + + + + | [facility] | [address] | [place] [address] | [phone] | | LABORATORY | [address] | | | + + + + + CBC W/Auto Diff (Reflex to Manual) (09/26/2018 5:55 AM) + + + + + | Component | Value | Ref Range | Performed At | + + + + + | WBC | 10.22 | 3.80 - 11.00 K/uL | [facility] | | | | | LABORATORY | + + + + + | RBC | 3.63 (L) | 3.70 - 5.10 M/uL | [facility] | | | | | LABORATORY | + + + + + | HGB | 9.2 (L) | 11.3 - 15.5 g/dL | [facility] | | | | | LABORATORY | + + + + + | HCT | 29.0 (L) | 34.0 - 46.0 % | [facility] | | | | | LABORATORY | + + + + + | MCV | 79.7 (L) | 80.0 - 100.0 fl | [facility] | | | | | LABORATORY | + + + + + | MCH | 25.4 (L) | 27.0 - 34.0 pg | [facility] | | | | | LABORATORY | + + + + + | MCHC | 31.9 (L) | 32.0 - 35.5 g/dL | [facility] | | | | | LABORATORY | + + + + + | RDW SD | 52.1 | 37 - 53 fl | [facility] | | | | | LABORATORY | + + + + + | PLT | 302 | 150 - 400 K/uL | [facility] | | | | | LABORATORY | + + + + + | MPV | 8.8 | fl | [facility] | | | | | LABORATORY | + + + + + | DIFF TYPE | AUTOMATED | | [facility] | | | | | LABORATORY | + + + + + | NEUTROPHILS | 63.97 | % | [facility] | | | | | LABORATORY | + + + + + | LYMPHOCYTES | 14.15 | % | [facility] | | | | | LABORATORY | + + + + + | MONOCYTES | 9.57 | % | [facility] | | | | | LABORATORY | + + + + + | EOSINOPHILS | 11.38 | % | [facility] | | | | | LABORATORY | + + + + + | BASOPHILS | 0.93 | % | [facility] | | | | | LABORATORY | + + + + + | NEUTROPHILS ABS | 6.54 | 1.90 - 7.40 K/uL | [facility] | | | | | LABORATORY | + + + + + | LYMPHOCYTES ABS | 1.45 | 1.00 - 3.90 K/uL | [facility] | | | | | LABORATORY | + + + + + | MONOCYTES ABS | 0.98 (H) | 0.00 - 0.80 K/uL | [facility] | | | | | LABORATORY | + + + + + | EOSINOPHILS ABS | 1.16 (H) | 0.00 - 0.50 K/uL | [facility] | | | | | LABORATORY | + + + + + | BASOPHILS ABS | 0.10 | 0.00 - 0.10 K/uL | [facility] | | | | | LABORATORY | + + + + + | MORPHOLOGY | 1+Comment: | | [facility] | | | ANISO2+POLY1+HYPONORMAL | | LABORATORY | | | PLT MORPHTesting | | | | | performed at [facility], [address] | | | | [facility], | | | | | [place] [address] | | | | |HYPO | | | | |NORMAL PLT MORPH | | | | |Testing performed at [facility], [address] [facility], [place] [address] | | | | | | | | + + + + + + + | Specimen | + + | Blood | + + + + + + + | Performing | Address | City/State/Zipcode | Phone Number | | Organization | | | | + + + + + | [facility] | [address] | [place] [address] | [phone] | | LABORATORY | [address] | | | + + + + + POCT glucose (09/26/2018 5:24 AM) + + + + + | Component | Value | Ref Range | Performed At | + + + + + | GLUCOSE,POC SCREEN | 84Comment: Testing | 65 - 99 mg/dL | [facility] | | | performed at [facility] | | | | | [address];[place] | | | | | [address] | | | + + + + + + + + + + | Performing | Address | City/State/Zipcode | Phone Number | | Organization | | | | + + + + + | [facility] | [address] | [place] [address] | | + + + + + POCT glucose (09/25/2018 9:02 PM) + + + + + | Component | Value | Ref Range | Performed At | + + + + + | GLUCOSE,POC SCREEN | 115 (H)Comment: Testing | 65 - 99 mg/dL | [facility] | | | performed at [facility] | [address] | | [address];[place], [place] | | | | | [address] | | | + + + + + + + + + + | Performing | Address | City/State/Zipcode | Phone Number | | Organization | | | | + + + + + | [facility] | [address] | [place] [address] | | + + + + + POCT glucose (09/25/2018 4:15 PM) + + + + + | Component | Value | Ref Range | Performed At | + + + + + | GLUCOSE,POC SCREEN | 116 (H)Comment: Testing | 65 - 99 mg/dL | [facility] | | | performed at [facility];[address] | | | | | [address];[place] | | | | | [address] | | | + + + + + + + + + + | Performing | Address | City/State/Zipcode | Phone Number | | Organization | | | | + + + + + | [facility] | [address] | [place] [address] | | + + + + + POCT glucose (09/25/2018 11:38 AM) + + + + + | Component | Value | Ref Range | Performed At | + + + + + | GLUCOSE,POC SCREEN | 112 (H)Comment: Testing | 65 - 99 mg/dL | [facility] | | | performed at [facility];[address] | | | | | [address];[place] | | | | | [address] | | | + + + + + + + + + + | Performing | Address | City/State/Zipcode | Phone Number | | Organization | | | | + + + + + | [facility] | [address] | [place] [address] | | + + + + + POCT glucose (09/25/2018 6:22 AM) + + + + + | Component | Value | Ref Range | Performed At | + + + + + | GLUCOSE,POC SCREEN | 103 (H)Comment: Testing | 65 - 99 mg/dL | [facility] | | | performed at [facility] | | | | | [address];[place], [place] | | | | | [address] | | | + + + + + + + + + + | Performing | Address | City/State/Zipcode | Phone Number | | Organization | | | | + + + + + | [facility] | [address] | [place] [address] | | + + + + + Basic metabolic panel (09/25/2018 5:38 AM) + + + + + | Component | Value | Ref Range | Performed At | + + + + + | SODIUM | 132 (L) | 135 - 145 mmol/L | [facility] | | | | | LABORATORY | + + + + + | POTASSIUM | 5.2 (H) | 3.5 - 4.9 mmol/L | [facility] | | | | | LABORATORY | + + + + + | CHLORIDE | 94 (L) | 99 - 109 mmol/L | [facility] | | | | | LABORATORY | + + + + + | CO2 | 27 | 23 - 32 mmol/L | [facility] | | | | | LABORATORY | + + + + + | ANION GAP AGAP | 16 | 5 - 20 mmol/L | [facility] | | | | | LABORATORY | + + + + + | GLUCOSE | 85 | 65 - 99 mg/dL | [facility] | | | | | LABORATORY | + + + + + | BUN | 40 (H) | 8 - 25 mg/dL | [facility] | | | | | LABORATORY | + + + + + | CREATININE | 5.9 (H) | 0.50 - 1.00 mg/dL | [facility] | | | | | LABORATORY | + + + + + | BUN/CREAT | 7 | | [facility] | | | | | LABORATORY | + + + + + | CALCIUM | 8.2 (L) | 8.5 - 10.5 mg/dL | [facility] | | | | | LABORATORY | + + + + + | EGFR | 8 (L)Comment: GFR <60: | >60 mL/min/1.73m2 | [facility] | | | CHRONIC KIDNEY DISEASE, | | LABORATORY | | | IF FOUND OVER A 3 MONTH | | | | | PERIOD.GFR <15: KIDNEY | | | | | FAILURE.FOR | | | | | AMERICANS, MULTIPLY THE | | | | | CALCULATED GFR BY | | | | | 1.210.This eGFR is | | | | | calculated using the | | | | | MDRD IDMS traceable | | | | | equation.Testing | | | | | performed at [facility], [address] | | | [address], | | | | | [place] [address] | | | + + + + + + + | Specimen | + + | Blood | + + + + + + + | Performing | Address | City/State/Zipcode | Phone Number | | Organization | | | | + + + + + | [facility] | [address] | [place] [address] | [phone] | | LABORATORY | [address] | | | + + + + + CBC W/Auto Diff (Reflex to Manual) (09/25/2018 5:38 AM) + + + + + | Component | Value | Ref Range | Performed At | + + + + + | WBC | 10.60 | 3.80 - 11.00 K/uL | [facility] | | | | | LABORATORY | + + + + + | RBC | 3.73 | 3.70 - 5.10 M/uL | [facility] | | | | | LABORATORY | + + + + + | HGB | 9.3 (L) | 11.3 - 15.5 g/dL | [facility] | | | | | LABORATORY | + + + + + | HCT | 29.9 (L) | 34.0 - 46.0 % | [facility] | | | | | LABORATORY | + + + + + | MCV | 80.3 | 80.0 - 100.0 fl | [facility] | | | | | LABORATORY | + + + + + | MCH | 24.9 (L) | 27.0 - 34.0 pg | [facility] | | | | | LABORATORY | + + + + + | MCHC | 31.0 (L) | 32.0 - 35.5 g/dL | [facility] | | | | | LABORATORY | + + + + + | RDW SD | 50.8 | 37 - 53 fl | [facility] | | | | | LABORATORY | + + + + + | PLT | 316 | 150 - 400 K/uL | [facility] | | | | | LABORATORY | + + + + + | MPV | 9.0 | fl | [facility] | | | | | LABORATORY | + + + + + | DIFF TYPE | AUTOMATED | | [facility] | | | | | LABORATORY | + + + + + | NEUTROPHILS | 65.29 | % | [facility] | | | | | LABORATORY | + + + + + | LYMPHOCYTES | 14.66 | % | [facility] | | | | | LABORATORY | + + + + + | MONOCYTES | 8.17 | % | [facility] | | | | | LABORATORY | + + + + + | EOSINOPHILS | 10.87 | % | [facility] | | | | | LABORATORY | + + + + + | BASOPHILS | 1.01 | % | [facility] | | | | | LABORATORY | + + + + + | NEUTROPHILS ABS | 6.92 | 1.90 - 7.40 K/uL | [facility] | | | | | LABORATORY | + + + + + | LYMPHOCYTES ABS | 1.55 | 1.00 - 3.90 K/uL | [facility] | | | | | LABORATORY | + + + + + | MONOCYTES ABS | 0.87 (H) | 0.00 - 0.80 K/uL | [facility] | | | | | LABORATORY | + + + + + | EOSINOPHILS ABS | 1.15 (H) | 0.00 - 0.50 K/uL | [facility] | | | | | LABORATORY | + + + + + | BASOPHILS ABS | 0.11 (H) | 0.00 - 0.10 K/uL | [facility] | | | | | LABORATORY | + + + + + | MORPHOLOGY | 1+Comment: | | [facility] | | | ANISO2+POLY2+HYPONORMAL | | LABORATORY | | | PLT MORPHTesting | | | | | performed at [facility], [address] | [address] | [facility], | | | | | [place] [address] | | | | |HYPO | | | | |NORMAL PLT MORPH | | | | |Testing performed at [facility], [facility] [address] [facility], [place] [address] | | | | | | | | + + + + + + + | Specimen | + + | Blood | + + + + + + + | Performing | Address | City/State/Zipcode | Phone Number | | Organization | | | | + + + + + | [facility] | [address] [place], [place] [address] | [place] [address] | [phone] | | LABORATORY | [address] | | | + + + + + POCT glucose (09/24/2018 10:02 PM) + + + + + | Component | Value | Ref Range | Performed At | + + + + + | GLUCOSE,POC SCREEN | 107 (H)Comment: Testing | 65 - 99 mg/dL | [facility] | | | performed at [facility] | | | | | [address];[place], [place] | | | | | [address] | | | + + + + + + + + + + | Performing | Address | City/State/Zipcode | Phone Number | | Organization | | | | + + + + + | [facility] | [address] | [place] [address] | | + + + + + POCT glucose (09/24/2018 4:38 PM) + + + + + | Component | Value | Ref Range | Performed At | + + + + + | GLUCOSE,POC SCREEN | 123 (H)Comment: Testing | 65 - 99 mg/dL | [facility] | | | performed at [facility];[address] | | | | | [address];[place] | | | | | [address] | | | + + + + + + + + + + | Performing | Address | City/State/Zipcode | Phone Number | | Organization | | | | + + + + + | [facility] | [address] | [place] [address] | | + + + + + POCT glucose (09/24/2018 12:04 PM) + + + + + | Component | Value | Ref Range | Performed At | + + + + + | GLUCOSE,POC SCREEN | 121 (H)Comment: Testing | 65 - 99 mg/dL | [facility] | | | performed at [facility];[address] | | | | | [address];[place] | | | | | [address] | | | + + + + + + + + + + | Performing | Address | City/State/Zipcode | Phone Number | | Organization | | | | + + + + + | [facility] | [address] | [place] [address] | | + + + + + POCT glucose (09/24/2018 5:53 AM) + + + + + | Component | Value | Ref Range | Performed At | + + + + + | GLUCOSE,POC SCREEN | 106 (H)Comment: Testing | 65 - 99 mg/dL | [facility] | | | performed at [facility] | | | | | [address];[place] | | | | | [address] | | | + + + + + + + + + + | Performing | Address | City/State/Zipcode | Phone Number | | Organization | | | | + + + + + | [facility] | [address] | [place] [address] | | + + + + + Basic metabolic panel (09/24/2018 5:24 AM) + + + + + | Component | Value | Ref Range | Performed At | + + + + + | SODIUM | 131 (L) | 135 - 145 mmol/L | [facility] | | | | | LABORATORY | + + + + + | POTASSIUM | 5.0 (H) | 3.5 - 4.9 mmol/L | [facility] | | | | | LABORATORY | + + + + + | CHLORIDE | 94 (L) | 99 - 109 mmol/L | [facility] | | | | | LABORATORY | + + + + + | CO2 | 25 | 23 - 32 mmol/L | [facility] | | | | | LABORATORY | + + + + + | ANION GAP AGAP | 17 | 5 - 20 mmol/L | [facility] | | | | | LABORATORY | + + + + + | GLUCOSE | 90 | 65 - 99 mg/dL | [facility] | | | | | LABORATORY | + + + + + | BUN | 29 (H) | 8 - 25 mg/dL | [facility] | | | | | LABORATORY | + + + + + | CREATININE | 4.7 (H) | 0.50 - 1.00 mg/dL | [facility] | | | | | LABORATORY | + + + + + | BUN/CREAT | 6 | | [facility] | | | | | LABORATORY | + + + + + | CALCIUM | 8.7 | 8.5 - 10.5 mg/dL | [facility] | | | | | LABORATORY | + + + + + | EGFR | 10 (L)Comment: GFR <60: | >60 mL/min/1.73m2 | [facility] | | | CHRONIC KIDNEY DISEASE, | | LABORATORY | | | IF FOUND OVER A 3 MONTH | | | | | PERIOD.GFR <15: KIDNEY | | | | | FAILURE.FOR | | | | | AMERICANS, MULTIPLY THE | | | | | CALCULATED GFR BY | | | | | 1.210.This eGFR is | | | | | calculated using the | | | | | MDRD IDMS traceable | | | | | equation.Testing | | | | | performed at [facility], [address] | | | | [address], | | | | | [place] [address] | | | + + + + + + + | Specimen | + + | Blood | + + + + + + + | Performing | Address | City/State/Zipcode | Phone Number | | Organization | | | | + + + + + | [facility] | [address] | [place] [address] | [phone] | | LABORATORY | [address] | | | + + + + + CBC W/Auto Diff (Reflex to Manual) (09/24/2018 5:24 AM) + + + + + | Component | Value | Ref Range | Performed At | + + + + + | WBC | 11.57 (H) | 3.80 - 11.00 K/uL | [facility] | | | | | LABORATORY | + + + + + | RBC | 3.59 (L) | 3.70 - 5.10 M/uL | [facility] | | | | | LABORATORY | + + + + + | HGB | 9.1 (L) | 11.3 - 15.5 g/dL | [facility] | | | | | LABORATORY | + + + + + | HCT | 29.1 (L) | 34.0 - 46.0 % | [facility] | | | | | LABORATORY | + + + + + | MCV | 81.1 | 80.0 - 100.0 fl | [facility] | | | | | LABORATORY | + + + + + | MCH | 25.3 (L) | 27.0 - 34.0 pg | [facility] | | | | | LABORATORY | + + + + + | MCHC | 31.2 (L) | 32.0 - 35.5 g/dL | [facility] | | | | | LABORATORY | + + + + + | RDW SD | 52.1 | 37 - 53 fl | [facility] | | | | | LABORATORY | + + + + + | PLT | 294 | 150 - 400 K/uL | [facility] | | | | | LABORATORY | + + + + + | MPV | 9.2 | fl | [facility] | | | | | LABORATORY | + + + + + | DIFF TYPE | AUTOMATED | | [facility] | | | | | LABORATORY | + + + + + | NEUTROPHILS | 67.46 | % | [facility] | | | | | LABORATORY | + + + + + | LYMPHOCYTES | 13.08 | % | [facility] | | | | | LABORATORY | + + + + + | MONOCYTES | 8.73 | % | [facility] | | | | | LABORATORY | + + + + + | EOSINOPHILS | 9.53 | % | [facility] | | | | | LABORATORY | + + + + + | BASOPHILS | 1.20 | % | [facility] | | | | | LABORATORY | + + + + + | NEUTROPHILS ABS | 7.81 (H) | 1.90 - 7.40 K/uL | [facility] | | | | | LABORATORY | + + + + + | LYMPHOCYTES ABS | 1.51 | 1.00 - 3.90 K/uL | [facility] | | | | | LABORATORY | + + + + + | MONOCYTES ABS | 1.01 (H) | 0.00 - 0.80 K/uL | [facility] | | | | | LABORATORY | + + + + + | EOSINOPHILS ABS | 1.10 (H) | 0.00 - 0.50 K/uL | [facility] | | | | | LABORATORY | + + + + + | BASOPHILS ABS | 0.14 (H) | 0.00 - 0.10 K/uL | [facility] | | | | | LABORATORY | + + + + + | MORPHOLOGY | NORMAL PLT MORPHComment: | | [facility] | | | | | LABORATORY | | | 1+ANISO2+POLY2+HYPOTesti | | | | | ng performed at [facility], | | | | | [address] [facility], | | | | | [place] [address] | | | | |2+ | | | | |HYPO | | | | |Testing performed at [facility], [facility] [address] [facility], [place] [address] | | | | | | | | + + + + + + + | Specimen | + + | Blood | + + + + + + + | Performing | Address | City/State/Zipcode | Phone Number | | Organization | | | | + + + + + | [facility] | [address] | [place] [address] | [phone] | | LABORATORY | [address] | | | + + + + + POCT glucose (09/23/2018 10:15 PM) + + + + + | Component | Value | Ref Range | Performed At | + + + + + | GLUCOSE,POC SCREEN | 126 (H)Comment: Testing | 65 - 99 mg/dL | [facility] | | | performed at [facility] | | | | | [address];[place] | | | | | [address] | | | + + + + + + + + + + | Performing | Address | City/State/Zipcode | Phone Number | | Organization | | | | + + + + + | [facility] | [address] | [place] [address] | | + + + + + POCT glucose (09/23/2018 4:51 PM) + + + + + | Component | Value | Ref Range | Performed At | + + + + + | GLUCOSE,POC SCREEN | 118 (H)Comment: Testing | 65 - 99 mg/dL | [facility] | | | performed at [facility] [place] | | | | | [facility];[place] | | | | | [address] | | | + + + + + + + + + + | Performing | Address | City/State/Zipcode | Phone Number | | Organization | | | | + + + + + | [facility] | [address] | [place] [address] | | + + + + + POCT glucose (09/23/2018 11:33 AM) + + + + + | Component | Value | Ref Range | Performed At | + + + + + | GLUCOSE,POC SCREEN | 131 (H)Comment: Testing | 65 - 99 mg/dL | [facility] | | | performed at [facility] [place] | | | | | [address];[place] | | | | | [address] | | | + + + + + + + + + + | Performing | Address | City/State/Zipcode | Phone Number | | Organization | | | | + + + + + | [facility] | [address] | [place] [address] | | + + + + + POCT glucose (09/23/2018 6:04 AM) + + + + + | Component | Value | Ref Range | Performed At | + + + + + | GLUCOSE,POC SCREEN | 93Comment: Testing | 65 - 99 mg/dL | [facility] | | | performed at [facility] [place] | | [address];[place] | | | | | [address] | | | + + + + + + + + + + | Performing | Address | City/State/Zipcode | Phone Number | | Organization | | | | + + + + + | [facility] | [address] | [place] [address] | | + + + + + Basic metabolic panel (09/23/2018 5:57 AM) + + + + + | Component | Value | Ref Range | Performed At | + + + + + | SODIUM | 132 (L) | 135 - 145 mmol/L | [facility] | | | | | [facility] | + + + + + | POTASSIUM | 4.8 | 3.5 - 4.9 mmol/L | [facility] | | | | | [facility] | + + + + + | CHLORIDE | 94 (L) | 99 - 109 mmol/L | [facility] | | | | | [facility] | + + + + + | CO2 | 26 | 23 - 32 mmol/L | [facility] | | | | | [facility] | + + + + + | ANION GAP AGAP | 17 | 5 - 20 mmol/L | [facility] | | | | | [facility] | + + + + + | GLUCOSE | 88 | 65 - 99 mg/dL | [facility] | | | | | [facility] | + + + + + | BUN | 18 | 8 - 25 mg/dL | [facility] | | | | | [facility] | + + + + + | CREATININE | 3.4 (H) | 0.50 - 1.00 mg/dL | [facility] | | | | | [facility] | + + + + + | BUN/CREAT | 5 | | [facility] | | | | | [facility] | + + + + + | CALCIUM | 8.8 | 8.5 - 10.5 mg/dL | [facility] | | | | | [facility] | + + + + + | EGFR | 15 (L)Comment: GFR <60: | >60 mL/min/1.73m2 | [facility] | | | CHRONIC KIDNEY DISEASE, | | LABORATORY | | | IF FOUND OVER A 3 MONTH | | | | | PERIOD.GFR <15: KIDNEY | | | | | FAILURE.FOR | | | | | AMERICANS, MULTIPLY THE | | | | | CALCULATED GFR BY | | | | | 1.210.This eGFR is | | | | | calculated using the | | | | | [facility] traceable | | | | | equation.Testing | | | | | performed at [facility], [address] | | | | [facility], | | | | | [place] [address] | | | + + + + + + + | Specimen | + + | Blood | + + + + + + + | Performing | Address | City/State/Zipcode | Phone Number | | Organization | | | | + + + + + | [facility] | [address] [facility] | [place] [address] | [phone] | | LABORATORY | [address] | | | + + + + + CBC W/Auto Diff (Reflex to Manual) (09/23/2018 5:57 AM) + + + + + | Component | Value | Ref Range | Performed At | + + + + + | WBC | 10.54 | 3.80 - 11.00 K/uL | [facility] | | | | | [facility] | + + + + + | RBC | 3.81 | 3.70 - 5.10 M/uL | [facility] | | | | | [facility] | + + + + + | HGB | 9.5 (L) | 11.3 - 15.5 g/dL | [facility] | | | | | [facility] | + + + + + | HCT | 31.3 (L) | 34.0 - 46.0 % | [facility] | | | | | [facility] | + + + + + | MCV | 82.1 | 80.0 - 100.0 fl | [facility] | | | | | [facility] | + + + + + | MCH | 25.0 (L) | 27.0 - 34.0 pg | [facility] | | | | | [facility] | + + + + + | MCHC | 30.5 (L) | 32.0 - 35.5 g/dL | [facility] | | | | | [facility] | + + + + + | RDW SD | 53.4 (H) | 37 - 53 fl | [facility] | | | | | [facility] | + + + + + | PLT | 274 | 150 - 400 K/uL | [facility] | | | | | [facility] | + + + + + | MPV | 9.0 | fl | [facility] | | | | | [facility] | + + + + + | DIFF TYPE | AUTOMATED | | [facility] | | | | | [facility] | + + + + + | NEUTROPHILS | 69.41 | % | [facility] | | | | | [facility] | + + + + + | LYMPHOCYTES | 10.33 | % | [facility] | | | | | LABORATORY | + + + + + | MONOCYTES | 10.89 | % | [facility] | | | | | LABORATORY | + + + + + | EOSINOPHILS | 8.58 | % | [facility] | | | | | LABORATORY | + + + + + | BASOPHILS | 0.79 | % | [facility] | | | | | LABORATORY | + + + + + | NEUTROPHILS ABS | 7.32 | 1.90 - 7.40 K/uL | [facility] | | | | | LABORATORY | + + + + + | LYMPHOCYTES ABS | 1.09 | 1.00 - 3.90 K/uL | [facility] | | | | | LABORATORY | + + + + + | MONOCYTES ABS | 1.15 (H) | 0.00 - 0.80 K/uL | [facility] | | | | | LABORATORY | + + + + + | EOSINOPHILS ABS | 0.90 (H) | 0.00 - 0.50 K/uL | [facility] | | | | | LABORATORY | + + + + + | BASOPHILS ABS | 0.08 | 0.00 - 0.10 K/uL | [facility] | | | | | LABORATORY | + + + + + | MORPHOLOGY | NORMAL PLT MORPHComment: | | [facility] | | | | | LABORATORY | | | 1+ANISO1+TEARDROP1+HYPOT | | | | | esting performed at [facility], | | | | | [address], | | | | | [place] [address] | | | | |1+ | | | | |HYPO | | | | |Testing performed at [facility], [facility] [place] [address] | | | | | | | | + + + + + + + | Specimen | + + | Blood | + + + + + + + | Performing | Address | City/State/Zipcode | Phone Number | | Organization | | | | + + + + + | [facility] | [address] | [place] [address] | [phone] | | LABORATORY | [address] | | | + + + + + POCT glucose (09/22/2018 9:16 PM) + + + + + | Component | Value | Ref Range | Performed At | + + + + + | GLUCOSE,POC SCREEN | 117 (H)Comment: Testing | 65 - 99 mg/dL | [facility] | | | performed at [facility] | | | | | [address];[place] | | | | | [address] | | | + + + + + + + + + + | Performing | Address | City/State/Zipcode | Phone Number | | Organization | | | | + + + + + | [facility] | [address] | [place] [address] | | + + + + + POCT glucose (09/22/2018 4:22 PM) + + + + + | Component | Value | Ref Range | Performed At | + + + + + | GLUCOSE,POC SCREEN | 108 (H)Comment: Testing | 65 - 99 mg/dL | [facility] | | | performed at [facility];[address] | | | | | [address];[place] | | | | | [address] | | | + + + + + + + + + + | Performing | Address | City/State/Zipcode | Phone Number | | Organization | | | | + + + + + | [facility] | [address] | [place] [address] | | + + + + + POCT glucose (09/22/2018 11:21 AM) + + + + + | Component | Value | Ref Range | Performed At | + + + + + | GLUCOSE,POC SCREEN | 105 (H)Comment: Testing | 65 - 99 mg/dL | [facility] | | | performed at [facility] | | | | | [address];[place] | | | | | [address] | | | + + + + + + + + + + | Performing | Address | City/State/Zipcode | Phone Number | | Organization | | | | + + + + + | [facility] | [address] | [place] [address] | | + + + + + Hepatitis panel, chronic (09/22/2018 7:23 AM) + + + + + | Component | Value | Ref Range | Performed At | + + + + + | Hep A Total Ab | REACTIVE (A) | NON REACTIVE | [facility] | | | | | LABORATORY | + + + + + | HEP B SURFACE AG | NON REACTIVE | NON REACTIVE | [facility] | | | | | LABORATORY | + + + + + | HEP B CORE AB,TOTAL | NON REACTIVE | NON REACTIVE | [facility] | | | | | LABORATORY | + + + + + | HEP B SURFACE | 0.80Comment: | <1.00 IV | [facility] | | ANTIBODY | <1.00 | | LABORATORY | | | Non Immune1.00 OR | | | | | MORE Indicates | | | | | vaccine response or | | | | | response to HBV | | | | | infection. An Index | | | | | Value (IV) of 1.00 is | | | | | equivalent to 10 | | | | | mIU/mL. Samples with | | | | | an IV of 1.00 or greater | | | | | are considered reactive | | | | | (protected) in | | | | | accordance with CDC | | | | | Guidelines. | | | + + + + + | HEPATITIS C | NON REACTIVE | NON REACTIVE | [facility] | | | | | LABORATORY | + + + + + | HEPATITIS INTERP | Current or past HAV | | [facility] | | | infection. No serologic | | LABORATORY | | | evidence of HCV | | | | | infection or HBV | | | | | infection or | | | | | vaccination.Comment: | | | | | Testing performed at | | | | | [facility], [address] [place] [address] | | | | | [place], [place] | | | | | [address] | | | + + + + + + + + + + | Performing | Address | City/State/Zipcode | Phone Number | | Organization | | | | + + + + + | [facility] | [address] [place] [address] | [place] [address] | [phone] | | LABORATORY | [address] | | | + + + + + POCT glucose (09/22/2018 6:03 AM) + + + + + | Component | Value | Ref Range | Performed At | + + + + + | GLUCOSE,POC SCREEN | 84Comment: Testing | 65 - 99 mg/dL | [facility] | | | performed at [facility];[address] | | | | | [address];[place] | | | | | [address] | | | + + + + + + + + + + | Performing | Address | City/State/Zipcode | Phone Number | | Organization | | | | + + + + + | [facility] | [address] | [place] [address] | | + + + + + POCT glucose (09/21/2018 9:10 PM) + + + + + | Component | Value | Ref Range | Performed At | + + + + + | GLUCOSE,POC SCREEN | 103 (H)Comment: Testing | 65 - 99 mg/dL | [facility] | | | performed at [facility];[address] | | | | | [address];[place] | | | | | [address] | | | + + + + + + + + + + | Performing | Address | City/State/Zipcode | Phone Number | | Organization | | | | + + + + + | [facility] | [address] | [place] [address] | | + + + + + POCT glucose (09/21/2018 4:11 PM) + + + + + | Component | Value | Ref Range | Performed At | + + + + + | GLUCOSE,POC SCREEN | 86Comment: Testing | 65 - 99 mg/dL | [facility] | | | performed at [facility];[address] | | | | | [address];[place] | | | | | [address] | | | + + + + + + + + + + | Performing | Address | City/State/Zipcode | Phone Number | | Organization | | | | + + + + + | [facility] | [address] | [place] [address] | | + + + + + Vancomycin, trough (09/21/2018 2:27 PM) + + + + + | Component | Value | Ref Range | Performed At | + + + + + | VANCOMYCIN,TROUGH | <3.0 (L)Comment: 15 to | 10 - 20 ug/mL | [facility] | | | 20 ug/mL for meningitis, | | | | | osteomyelitis, | | | | | endocarditis, sepsis, or | | | | | healthcare associated | | | | | pneumonia, or an RONY | | | | | equal to or greater than | | | | | 1.0 ug/mLTesting | | | | | performed at [facility];[address] | | | | | [address];[place] | | | | | [address] | | | + + + + + + + | Specimen | + + | Blood | + + + + + + + | Performing | Address | City/State/Zipcode | Phone Number | | Organization | | | | + + + + + | [facility] | [address] | [place] [address] | | + + + + + POCT glucose (09/21/2018 11:41 AM) + + + + + | Component | Value | Ref Range | Performed At | + + + + + | GLUCOSE,POC SCREEN | 99Comment: Testing | 65 - 99 mg/dL | [facility] | | | performed at [facility];[address] | | | | | [address];[place] | | | | | [address] | | | + + + + + + + + + + | Performing | Address | City/State/Zipcode | Phone Number | | Organization | | | | + + + + + | [facility] | [address] | [place] [address] | | + + + + + Lipid panel (09/21/2018 6:10 AM) + + + + + | Component | Value | Ref Range | Performed At | + + + + + | CHOLESTEROL | 119 | <200 mg/dL | [facility] | | | | | LABORATORY | + + + + + | Triglycerides | 70 | <150 mg/dL | [facility] | | | | | LABORATORY | + + + + + | HDL CHOL | 38 (L) | >40 mg/dL | [facility] | | | | | LABORATORY | + + + + + | LDL CALC | 67Comment: Testing | <100 mg/dL | [facility] | | | performed at [facility], [address] | | LABORATORY | | | [address], | | | | | [place] [address] | | | + + + + + + + | Specimen | + + | Blood | + + + + + + + | Performing | Address | City/State/Zipcode | Phone Number | | Organization | | | | + + + + + | [facility] | [address] | [place] [address] | [phone] | | LABORATORY | [address] | | | + + + + + Phosphorus (09/21/2018 6:10 AM) + + + + + | Component | Value | Ref Range | Performed At | + + + + + | PHOSPHORUS | 5.1 (H)Comment: Testing | 2.3 - 4.8 mg/dL | [facility] | | | performed at [facility], [address] | | LABORATORY | | | [facility], | | | | | [place] [address] | | | + + + + + + + | Specimen | + + | Blood | + + + + + + + | Performing | Address | City/State/Zipcode | Phone Number | | Organization | | | | + + + + + | [facility] | [address] [place] [address] | [place] [address] | [phone] | | LABORATORY | [address] | | | + + + + + Magnesium (09/21/2018 6:10 AM) + + + + + | Component | Value | Ref Range | Performed At | + + + + + | MAGNESIUM | 2.1Comment: Testing | 1.7 - 2.4 mg/dL | [facility] | | | performed at [facility], [facility] [address] | | LABORATORY | | | [address] [facility], | | | | | [place] [address] | | | + + + + + + + | Specimen | + + | Blood | + + + + + + + | Performing | Address | City/State/Zipcode | Phone Number | | Organization | | | | + + + + + | [facility] | [address] | [place] [address] | [phone] | | LABORATORY | [address] | | | + + + + + Glycohemoglobin A1c (09/21/2018 6:10 AM) + + + + + | Component | Value | Ref Range | Performed At | + + + + + | HEMOGLOBIN A1C | 5.7Comment: HbA1c method | 4.0 - 6.0 % | [facility] | | | is certified by [employer] | | LABORATORY | | | and traceable to the | | | | | DCCT reference | | | | | method.ADA guidelines | | | | | indicate: | | | | | Prediabetes: 5.7 - | | | | | 6.4 Diabetes: | | | | | >6.4 Glycemic | | | | | control for adults with | | | | | diabetes: <7.0Effective | | | | | 08/02/2018: Note New | | | | | Method | | | + + + + + | ESTIMATED AVG | 117Comment: Estimated | <154 mg/dL | [facility] | | GLUCOSE | Average Glucose | | LABORATORY | | | calculated from | | | | | hemoglobin A1c by use of | | | | | the ADA recommended | | | | | formula.Testing | | | | | performed at [facility], [address] | | | | | [facility] [facility], | | | | | [place] [address] | | | + + + + + + + | Specimen | + + | Blood | + + + + + + + | Performing | Address | City/State/Zipcode | Phone Number | | Organization | | | | + + + + + | [facility] | [address] | [place] [address] | [phone] | | LABORATORY | [address] | | | + + + + + Basic metabolic panel (09/21/2018 6:10 AM) + + + + + | Component | Value | Ref Range | Performed At | + + + + + | SODIUM | 135 | 135 - 145 mmol/L | [facility] | | | | | LABORATORY | + + + + + | POTASSIUM | 4.6 | 3.5 - 4.9 mmol/L | [facility] | | | | | LABORATORY | + + + + + | CHLORIDE | 93 (L) | 99 - 109 mmol/L | [facility] | | | | | LABORATORY | + + + + + | CO2 | 32 | 23 - 32 mmol/L | [facility] | | | | | LABORATORY | + + + + + | ANION GAP AGAP | 15 | 5 - 20 mmol/L | [facility] | | | | | LABORATORY | + + + + + | GLUCOSE | 65 | 65 - 99 mg/dL | [facility] | | | | | LABORATORY | + + + + + | BUN | 18 | 8 - 25 mg/dL | [facility] | | | | | LABORATORY | + + + + + | CREATININE | 3.5 (H) | 0.50 - 1.00 mg/dL | [facility] | | | | | LABORATORY | + + + + + | BUN/CREAT | 5 | | [facility] | | | | | LABORATORY | + + + + + | CALCIUM | 9.0 | 8.5 - 10.5 mg/dL | [facility] | | | | | LABORATORY | + + + + + | EGFR | 14 (L)Comment: GFR <60: | >60 mL/min/1.73m2 | [facility] | | | CHRONIC KIDNEY DISEASE, | | LABORATORY | | | IF FOUND OVER A 3 MONTH | | | | | PERIOD.GFR <15: KIDNEY | | | | | FAILURE.FOR | | | | | AMERICANS, MULTIPLY THE | | | | | CALCULATED GFR BY | | | | | 1.210.This eGFR is | | | | | calculated using the | | | | | MDRD IDMS traceable | | | | | equation.Testing | | | | | performed at [facility], [facility] | | | | | [facility], | | | | | [place] [address] | | | + + + + + + + | Specimen | + + | Blood | + + + + + + + | Performing | Address | City/State/Zipcode | Phone Number | | Organization | | | | + + + + + | [facility] | [address] [place] [address] | [place] [address] | [phone] | | LABORATORY | [address] | | | + + + + + CBC w/auto diff (reflex to manual) (09/21/2018 6:10 AM) + + + + + | Component | Value | Ref Range | Performed At | + + + + + | WBC | 7.63 | 3.80 - 11.00 K/uL | [facility] | | | | | LABORATORY | + + + + + | RBC | 3.70 | 3.70 - 5.10 M/uL | [facility] | | | | | LABORATORY | + + + + + | HGB | 9.3 (L) | 11.3 - 15.5 g/dL | [facility] | | | | | LABORATORY | + + + + + | HCT | 30.0 (L) | 34.0 - 46.0 % | [facility] | | | | | LABORATORY | + + + + + | MCV | 81.0 | 80.0 - 100.0 fl | [facility] | | | | | LABORATORY | + + + + + | MCH | 25.1 (L) | 27.0 - 34.0 pg | [facility] | | | | | LABORATORY | + + + + + | MCHC | 30.9 (L) | 32.0 - 35.5 g/dL | [facility] | | | | | LABORATORY | + + + + + | RDW SD | 52.5 | 37 - 53 fl | [facility] | | | | | LABORATORY | + + + + + | PLT | 273 | 150 - 400 K/uL | [facility] | | | | | LABORATORY | + + + + + | MPV | 8.6 | fl | [facility] | | | | | LABORATORY | + + + + + | DIFF TYPE | AUTOMATED | | [facility] | | | | | LABORATORY | + + + + + | NEUTROPHILS | 69.73 | % | [facility] | | | | | LABORATORY | + + + + + | LYMPHOCYTES | 14.95 | % | [facility] | | | | | LABORATORY | + + + + + | MONOCYTES | 9.94 | % | [facility] | | | | | LABORATORY | + + + + + | EOSINOPHILS | 4.24 | % | [facility] | | | | | LABORATORY | + + + + + | BASOPHILS | 1.14 | % | [facility] | | | | | LABORATORY | + + + + + | NEUTROPHILS ABS | 5.32 | 1.90 - 7.40 K/uL | [facility] | | | | | LABORATORY | + + + + + | LYMPHOCYTES ABS | 1.14 | 1.00 - 3.90 K/uL | [facility] | | | | | LABORATORY | + + + + + | MONOCYTES ABS | 0.76 | 0.00 - 0.80 K/uL | [facility] | | | | | LABORATORY | + + + + + | EOSINOPHILS ABS | 0.32 | 0.00 - 0.50 K/uL | [facility] | | | | | LABORATORY | + + + + + | BASOPHILS ABS | 0.09 | 0.00 - 0.10 K/uL | [facility] | | | | | LABORATORY | + + + + + | MORPHOLOGY | 1+Comment: | | [facility] | | | ANISO1+HYPO1+POLYNORMAL | | LABORATORY | | | PLT MORPHTesting | | | | | performed at [facility], [address] | | | | | [facility], | | | | | [place] [address] | | | | |POLY | | | | |NORMAL PLT MORPH | | | | |Testing performed at [facility], [address], [place] [address] | | | | | | | | + + + + + + + | Specimen | + + | Blood | + + + + + + + | Performing | Address | City/State/Zipcode | Phone Number | | Organization | | | | + + + + + | [facility] | [address] | [place] [address] | [phone] | | LABORATORY | [address] | | | + + + + + POCT glucose (09/21/2018 6:05 AM) + + + + + | Component | Value | Ref Range | Performed At | + + + + + | GLUCOSE,POC SCREEN | 100 (H)Comment: Testing | 65 - 99 mg/dL | [facility] | | | performed at [facility] | | | | | [address];[place] | | | | | [address] | | | + + + + + + + + + + | Performing | Address | City/State/Zipcode | Phone Number | | Organization | | | | + + + + + | [facility] | [address] | [place] [address] | | + + + + + POCT glucose (09/21/2018 5:13 AM) + + + + + | Component | Value | Ref Range | Performed At | + + + + + | GLUCOSE,POC SCREEN | 74Comment: Testing | 65 - 99 mg/dL | [facility] | | | performed at [facility];[address] | | | | | [address];[place] | | | | | [address] | | | + + + + + + + + + + | Performing | Address | City/State/Zipcode | Phone Number | | Organization | | | | + + + + + | [facility] | [address] | [place] [address] | | + + + + + MRSA by PCR (09/20/2018 11:36 PM) + + + + + | Component | Value | Ref Range | Performed At | + + + + + | SOURCE | NARES(NOSE) | | [facility] | + + + + + | MRSA PCR | POSITIVE for MRSA by PCR | NEGATIVE | [facility] | | | (A)Comment: Testing | | | | | performed at [facility] | | | | | [address];[place] | | | | | [address] | | | + + + + + + + | Specimen | + + | Nasopharyngeal - | | Nares(Nose) | + + + + + + + | Performing | Address | City/State/Zipcode | Phone Number | | Organization | | | | + + + + + | [facility] | [address] | [place] [address] | | + + + + + POCT glucose (09/20/2018 11:28 PM) + + + + + | Component | Value | Ref Range | Performed At | + + + + + | GLUCOSE,POC SCREEN | 91Comment: Testing | 65 - 99 mg/dL | [facility] | | | performed at [facility];[address] | | | | | [address];[place] | | | | | [address] | | | + + + + + + + + + + | Performing | Address | City/State/Zipcode | Phone Number | | Organization | | | | + + + + + | [facility] | [address] | [place] [address] | | + + + + + Blood Culture Set 2 (09/20/2018 8:46 PM) + + + + + | Component | Value | Ref Range | Performed At | + + + + + | Specimen Description | BLOOD | | [facility] | | | | | LABORATORY | + + + + + | SPECIAL REQUESTS | R HAND | | [facility] | + + + + + | CULTURE | NO GROWTH 6 DAYS | | [facility] | | | | | LABORATORY | + + + + + + + | Specimen | + + | Blood - Blood | + + + + + + + | Performing | Address | City/State/Zipcode | Phone Number | | Organization | | | | + + + + + | [facility] | [address] | [place] [address] | [phone] | | LABORATORY | [address] | | | + + + + + | [facility] | [address] | [place] [address] | | + + + + + Blood Culture Set 1 (09/20/2018 7:50 PM) + + + + + | Component | Value | Ref Range | Performed At | + + + + + | Specimen Description | BLOOD | | [facility] | | | | | LABORATORY | + + + + + | SPECIAL REQUESTS | RAC | | [facility] | + + + + + | CULTURE | NO GROWTH 6 DAYS | | [facility] | | | | | LABORATORY | + + + + + + + | Specimen | + + | Blood - Blood | + + + + + + + | Performing | Address | City/State/Zipcode | Phone Number | | Organization | | | | + + + + + | [facility] | [address] | [place] [address] | [phone] | | LABORATORY | [address] | | | + + + + + | [facility] | [address] | [place] [address] | | + + + + + PROCALCITONIN (09/20/2018 7:50 PM) + + + + + | Component | Value | Ref Range | Performed At | + + + + + | PROCALCITONIN | 0.45Comment: | <0.5 ng/mL | [facility] | | | INTERPRETIVE | | | | | INFORMATION: PROCALCI | | | | | TONIN PCT <= 0.5 | | | | | ng/mL: Low risk | | | | | for progression to | | | | | severe | | | | | systemic bacteria | | | | | l infection (severe | | | | | sepsis/septic | | | | | shock). Does not | | | | | exclude an infection, | | | | | because | | | | | localized infecti | | | | | ons may be associated | | | | | with such low | | | | | levels. If PCT is | | | | | measured very early | | | | | after | | | | | bacterial challen | | | | | ge (usually <6 hours), | | | | | results may still | | | | | be low and should | | | | | re-assess PCT 6-24 | | | | | hours later. PCT >0.5 | | | | | and <= 2 | | | | | ng/mL: Moderate | | | | | risk for progression to | | | | | severe | | | | | systemic infectio | | | | | n (severe sepsis/septic | | | | | shock). Other | | | | | conditions are known to | | | | | elevate PCT, patient | | | | | should be | | | | | closely monitored both | | | | | clinically and | | | | | by re-assessing | | | | | PCT within 6-24 hours. | | | | | PCT > 2 | | | | | ng/mL: High | | | | | likelihood for | | | | | progression to severe | | | | | systemic bacteria | | | | | l infection (severe | | | | | sepsis/septic shock). | | | | | PCT >= 10 | | | | | ng/mL: High | | | | | likelihood of severe | | | | | sepsis or septic | | | | | shock.Testing performed | | | | | at [facility];[address] [facility] | | | | | [facility];[place] [address] | | | + + + + + + + + + + | Performing | Address | City/State/Zipcode | Phone Number | | Organization | | | | + + + + + | [facility] | [address] | [place] [address] | | + + + + + C-reactive protein (09/20/2018 7:50 PM) + + + + + | Component | Value | Ref Range | Performed At | + + + + + | CRP | 8.8 (H)Comment: Testing | <0.5 mg/dL | [facility] | | | performed [place] [facility] [id number] | | | | | [address];[place] | | | | | [address] | | | + + + + + + + | Specimen | + + | Blood | + + + + + + + | Performing | Address | City/State/Zipcode | Phone Number | | Organization | | | | + + + + + | [facility] | [address] | [place] [address] | | + + + + + ESR (09/20/2018 7:50 PM) + + + + + | Component | Value | Ref Range | Performed At | + + + + + | ESR | >130 (H)Comment: Testing | 0 - 20 mm/Hr | [facility] | | | performed at [facility] [place] | | [address];[place] | | | | | [address] | | | + + + + + + + | Specimen | + + | Blood | + + + + + + + | Performing | Address | City/State/Zipcode | Phone Number | | Organization | | | | + + + + + | [facility] | [address] | [place] [address] | | + + + + + Phosphorus (09/20/2018 7:50 PM) + + + + + | Component | Value | Ref Range | Performed At | + + + + + | PHOSPHORUS | 4.3Comment: Testing | 2.3 - 4.8 mg/dL | [facility] | | | performed at [facility] [place] | | | | | [address];[place] | | | | | [address] | | | + + + + + + + | Specimen | + + | Blood | + + + + + + + | Performing | Address | City/State/Zipcode | Phone Number | | Organization | | | | + + + + + | [facility] | [address] | [place] [address] | | + + + + + Magnesium (09/20/2018 7:50 PM) + + + + + | Component | Value | Ref Range | Performed At | + + + + + | MAGNESIUM | 1.8Comment: Testing | 1.7 - 2.4 mg/dL | [facility] | | | performed at [facility] [place] | | | [address];[place] | | | | | [address] | | | + + + + + + + | Specimen | + + | Blood | + + + + + + + | Performing | Address | City/State/Zipcode | Phone Number | | Organization | | | | + + + + + | [facility] | [address] | [place] [address] | | + + + + + Comprehensive metabolic panel (09/20/2018 7:50 PM) + + + + + | Component | Value | Ref Range | Performed At | + + + + + | SODIUM | 139 | 135 - 145 mmol/L | [facility] | + + + + + | POTASSIUM | 4.2 | 3.5 - 4.9 mmol/L | [facility] | + + + + + | CHLORIDE | 97 (L) | 99 - 109 mmol/L | [facility] | + + + + + | CO2 | 35 (H) | 23 - 32 mmol/L | [facility] | + + + + + | ANION GAP AGAP | 11 | 5 - 20 mmol/L | [facility] | + + + + + | GLUCOSE | 78 | 65 - 99 mg/dL | [facility] | + + + + + | BUN | 13 | 8 - 25 mg/dL | [facility] | + + + + + | CREATININE | 2.69 (H) | 0.50 - 1.00 mg/dL | [facility] | + + + + + | BUN/CREAT | 5 | | [facility] | + + + + + | CALCIUM | 8.4 (L) | 8.5 - 10.5 mg/dL | [facility] | + + + + + | TOTAL PROTEIN | 7.3 | 6.3 - 8.2 g/dL | [facility] | + + + + + | Albumin | 3.3 (L) | 3.6 - 5.0 g/dL | [facility] | + + + + + | GLOBULIN | 4.0 | 1.3 - 4.9 g/dL | [facility] | + + + + + | A/G | 0.8 (L) | 1.0 - 2.4 | [facility] | + + + + + | TBIL | 0.4 | 0.1 - 1.5 mg/dL | [facility] | + + + + + | ALK PHOS | 109 | 35 - 115 U/L | [facility] | + + + + + | AST | 16 | 10 - 45 U/L | [facility] | + + + + + | ALT | 9 (L) | 10 - 65 U/L | [facility] | + + + + + | EGFR | 20 (L)Comment: GFR <60: | >60 mL/min/1.73m2 | [facility] | | | CHRONIC KIDNEY DISEASE, | | | | | IF FOUND OVER A 3 MONTH | | | | | PERIOD.GFR <15: KIDNEY | | | | | FAILURE.FOR | | | | | AMERICANS, MULTIPLY THE | | | | | CALCULATED GFR BY | | | | | 1.210.This eGFR is | | | | | calculated using the | | | | | MDRD IDMS traceable | | | | | equation.Testing | | | | | performed at [facility] [place] | | | | | [facility];[place], [place] | | | | | [address] | | | + + + + + + + | Specimen | + + | Blood | + + + + + + + | Performing | Address | City/State/Zipcode | Phone Number | | Organization | | | | + + + + + | [facility] | [address] | [place] [address] | | + + + + + CBC W/Auto Diff (Reflex to Manual) (09/20/2018 7:50 PM) + + + + + | Component | Value | Ref Range | Performed At | + + + + + | WBC | 6.46 | 3.80 - 11.00 K/uL | [facility] | + + + + + | RBC | 3.73 | 3.70 - 5.10 M/uL | [facility] | + + + + + | HGB | 9.3 (L) | 11.3 - 15.5 g/dL | [facility] | + + + + + | HCT | 30.2 (L) | 34.0 - 46.0 % | [facility] | + + + + + | MCV | 80.9 | 80.0 - 100.0 fl | [facility] | + + + + + | MCH | 25.0 (L) | 27.0 - 34.0 pg | [facility] | + + + + + | MCHC | 30.9 (L) | 32.0 - 35.5 g/dL | [facility] | + + + + + | RDW SD | 53.8 (H) | 37 - 53 fl | [facility] | + + + + + | PLT | 280 | 150 - 400 K/uL | [facility] | + + + + + | MPV | 8.3 | fl | [facility] | + + + + + | DIFF TYPE | AUTOMATED | | [facility] | + + + + + | NEUTROPHILS | 64.74 | % | [facility] | + + + + + | LYMPHOCYTES | 18.82 | % | [facility] | + + + + + | MONOCYTES | 10.20 | % | [facility] | + + + + + | EOSINOPHILS | 5.26 | % | [facility] | + + + + + | BASOPHILS | 0.98 | % | [facility] | + + + + + | NEUTROPHILS ABS | 4.18 | 1.90 - 7.40 K/uL | [facility] | + + + + + | LYMPHOCYTES ABS | 1.22 | 1.00 - 3.90 K/uL | [facility] | + + + + + | MONOCYTES ABS | 0.66 | 0.00 - 0.80 K/uL | [facility] | + + + + + | EOSINOPHILS ABS | 0.34 | 0.00 - 0.50 K/uL | [facility] | + + + + + | BASOPHILS ABS | 0.06 | 0.00 - 0.10 K/uL | [facility] | + + + + + | MORPHOLOGY | NORMAL PLT MORPH | | [facility] | | | Comment: | | | | | 2+ | | | | | ANISO | | | | | 2+ | | | | | HYPO | | | | | | | | + + + + + | Platelet Estimate | ADEQUATEComment: Testing | | [facility] | | | performed at [facility] [place];[place] | | | | | [address] | | | + + + + + + + | Specimen | + + | Blood | + + + + + + + | Performing | Address | City/State/Zipcode | Phone Number | | Organization | | | | + + + + + | [facility] | [address] | [place] [address] | | + + + + + in this encounter Visit Diagnoses + + | Diagnosis | + + | Panniculitis - Primary | + + | Panniculitis, unspecified site | + + | ESRD (end stage renal disease) | + + | End stage renal disease | + + | Essential hypertension | + + | Unspecified essential hypertension | + + | Diabetes mellitus, type 2 (HCC) | + + | Type II or unspecified type diabetes mellitus without mention of complication, not | | stated as uncontrolled | + + | Smoker | + + | Tobacco use disorder | + + | Obesity (BMI 30-39.9) | + + | Renovascular hypertension | + + | Secondary renovascular hypertension, unspecified | + + | Anemia of chronic renal failure, stage 5 (HCC) | + + | Morbid obesity due to excess calories (HCC) | + + | ESRD on hemodialysis | + + | End stage renal disease | + + | Hyperphosphatemia | + + | Disorders of phosphorus metabolism | + + | Hypoalbuminemia | + + | Other disorders of plasma protein metabolism | + + | BMI 45.0-49.9, adult | + + Admitting Diagnoses + + | Diagnosis | + + | Panniculitis | + + | Panniculitis, unspecified site | + + | Essential hypertension | + + | Unspecified essential hypertension | + + | End-stage renal disease (HCC) - ESRD (end stage renal disease) | + + | End stage renal disease | + + | ABD wall cellulitis | + + Administered Medications + +--------+---------+------+------+------+ | Medication Order | MAR | Action | Dose | Rate | Site | | | Action | Date | | | | + +--------+---------+------+------+------+ + +---+ | acetaminophen (TYLENOL) | | | suppository 650 mg 650 mg, | | | Rectal, Every 6 Hours PRN, Mild | | | Pain (1-3), Fever, Starting Wed | | | 09/20/18 at 2152 | | + +---+ | | | + +---+ | acetaminophen (TYLENOL) tablet | | | 650 mg 650 mg, Oral, Every 6 | | | Hours PRN, Mild Pain (1-3), | | | Fever, Starting 09/20/18 at | | | 2152 | | + +---+ | | | + +---+ + +---------+ +--------+---+---+ | albumin human 25 % solution | New Bag | | 12.5 g | | | | 12.5 g 12.5 g, Intravenous, | | 9 09:00 | | | | | Every 1 Hour PRN, Other, for | | PDT | | | | | cramps or hypotension during | | | | | | | dialysis., Starting 09/29/18 | | | | | | | at 0714, DIALYSIS | | | | | | + +---------+ +--------+---+---+ +---+---+ | | | +---+---+ + +-------+ + +---+---+ | amoxicillin-clavulanate | Given | | 1 tablet | | | | (AUGMENTIN) 500-125 MG per tablet | | 9 12:50 | | | | | 1 tablet 1 tablet, Oral, Every | | PDT | | | | | 12 Hours Scheduled (2 times per | | | | | | | day), First dose on [facility] 09/28/18 | | | | | | | at 1100, Indications: Skin and | | | | | | | Soft Tissue Abscess | | | | | | + +-------+ + +---+---+ +---+---+ | | | +---+---+ + +-------+ + +---+---+ | amoxicillin-clavulanate | Given | | 1 tablet | | | | (AUGMENTIN) 500-125 MG per tablet | | 9 16:47 | | | | | 1 tablet 1 tablet, Oral, Every | | PDT | | | | | 24 Hours Scheduled (Daily), First | | | | | | | dose on [facility] 09/28/18 at 1800, | | | | | | | Indications: Skin and Soft Tissue | | | | | | | Abscess | | | | | | + +-------+ + +---+---+ +-------+ + +---+---+ | Given | | 1 tablet | | | | | 9 18:13 | | | | | | PDT | | | | +-------+ + +---+---+ +---+---+ | | | +---+---+ + +-------+ +--------+---+---+ | buPROPion (WELLBUTRIN) tablet | Given | | 100 mg | | | | 100 mg 100 mg, Oral, 2 Times | | 9 20:34 | | | | | Daily, First dose on Tue09/20/18 | | PDT | | | | | at 2230 | | | | | | + +-------+ +--------+---+---+ +-------+ +--------+---+---+ | Given | | 100 mg | | | | | 9 21:19 | | | | | | PDT | | | | +-------+ +--------+---+---+ | Given | | 100 mg | | | | | 9 08:27 | | | | | | PDT | | | | +-------+ +--------+---+---+ +---+---+ | | | +---+---+ + +-------+ + +---+---+ | calcium acetate (PHOSLO) | Given | | 2,001 mg | | | | capsule 2,001 mg 2,001 mg, Oral, | | 9 12:11 | | | | | 3 Times Daily With Meals, First | | PDT | | | | | dose on Tue09/20/18 at 2230 | | | | | | + +-------+ + +---+---+ +-------+ + +---+---+ | Given | | 2,001 mg | | | | | 9 08:52 | | | | | | PDT | | | | +-------+ + +---+---+ | Given | | 2,001 mg | | | | | 9 17:49 | | | | | | PDT | | | | +-------+ + +---+---+ +---+---+ | | | +---+---+ + +-------+ +-------+---+---+ | carvedilol (COREG) tablet 25 mg | Given | | 25 mg | | | | 25 mg, Oral, 2 Times Daily With | | 9 16:47 | | | | | Meals, First dose on [facility] 09/21/18 | | PDT | | | | | at 0800 | | | | | | + +-------+ +-------+---+---+ +-------+ +-------+---+---+ | Given | | 25 mg | | | | | 9 16:25 | | | | | | PDT | | | | +-------+ +-------+---+---+ | Given | | 25 mg | | | | | 9 08:27 | | | | | | PDT | | | | +-------+ +-------+---+---+ +---+---+ | | | +---+---+ + +-------+ +-------+---+---+ | cinacalcet (SENSIPAR) tablet 30 | Given | | 30 mg | | | | mg 30 mg, Oral, Daily, First | | 9 08:41 | | | | | dose on Tue09/20/18 at 2230 | | PDT | | | | + +-------+ +-------+---+---+ +-------+ +-------+---+---+ | Given | | 30 mg | | | | | 9 09:43 | | | | | | PDT | | | | +-------+ +-------+---+---+ | Given | | 30 mg | | | | | 9 08:27 | | | | | | PDT | | | | +-------+ +-------+---+---+ + +---+ | | | + +---+ | denture adhesive (FIXODENT) | | | cream SANDRINE Becerril, ZEUS, Other, | | | Starting 09/25/18 at 1449 | | + +---+ | | | + +---+ + +-------+ +-------+---+---+ | diphenhydrAMINE (BENADRYL) | Given | 09/23/2018 | 25 mg | | | | capsule 25 mg 25 mg, Oral, Every | | 20:31 | | | | | 6 Hours PRN, Itching, Starting | | PST | | | | | 09/22/18 at 2049 | | | | | | + +-------+ +-------+---+---+ +-------+ +-------+---+---+ | Given | | 25 mg | | | | | 9 06:39 | | | | | | PDT | | | | +-------+ +-------+---+---+ | Given | | 25 mg | | | | | 9 20:52 | | | | | | PDT | | | | +-------+ +-------+---+---+ +---+---+ | | | +---+---+ + +-------+ +------+---+---+ | doxazosin (CARDURA) tablet 1 mg | Given | | 1 mg | | | | 1 mg, Oral, 2 Times Daily, | | 9 20:34 | | | | | First dose on Tue09/20/18 at 2230 | | PDT | | | | + +-------+ +------+---+---+ +-------+ +------+---+---+ | Given | | 1 mg | | | | | 9 21:19 | | | | | | PDT | | | | +-------+ +------+---+---+ | Given | | 1 mg | | | | | 9 08:27 | | | | | | PDT | | | | +-------+ +------+---+---+ +---+---+ | | | +---+---+ + +-------+ +---------+---+---+ | epoetin curly (PROCRIT) | Given | 09/22/2018 | 10,000 | | | | injection 10,000 Units 10,000 | | 09:45 | Units | | | | Units, Intravenous, Once In | | PST | | | | | Dialysis, 09/22/18 at 0700, For | | | | | | | 1 dose, DIALYSIS | | | | | | + +-------+ +---------+---+---+ +---+---+ | | | +---+---+ + +-------+ +---------+---+---+ | epoetin curly (PROCRIT) | Given | | 10,000 | | | | injection 10,000 Units 10,000 | | 9 13:45 | Units | | | | Units, Intravenous, Once In | | PDT | | | | | Dialysis, [facility] 09/25/18 at 1100, | | | | | | | For 1 dose, DIALYSIS | | | | | | + +-------+ +---------+---+---+ +---+---+ | | | +---+---+ + +-------+ +---------+---+---+ | epoetin curly (PROCRIT) | Given | | 10,000 | | | | injection 10,000 Units 10,000 | | 9 08:00 | Units | | | | Units, Intravenous, Once In | | PDT | | | | | Dialysis, [facility] 09/27/18 at 0700, | | | | | | | For 1 dose, DIALYSIS | | | | | | + +-------+ +---------+---+---+ +---+---+ | | | +---+---+ + +-------+ +---------+---+---+ | epoetin curly (PROCRIT) | Given | | 10,000 | | | | injection 10,000 Units 10,000 | | 9 08:40 | Units | | | | Units, Intravenous, Once In | | PDT | | | | | Dialysis, 09/29/18 at 0730, | | | | | | | For 1 dose, DIALYSIS | | | | | | + +-------+ +---------+---+---+ +---+---+ | | | +---+---+ + +-------+ +--------+---+---+ | fentaNYL (SUBLIMAZE) injection | Given | | 25 mcg | | | | 25 mcg 25 mcg, Intravenous, | | 9 20:22 | | | | | Every 2 Hours PRN, Severe Pain | | PDT | | | | | (7-10), Starting 09/27/18 at | | | | | | | 1645 | | | | | | + +-------+ +--------+---+---+ +---+---+ | | | +---+---+ + +-------+ +--------+---+---+ | heparin (porcine) 5000 | Given | | 5,000 | | | | unit/0.5mL injection 5,000 Units | | 9 15:00 | Units | | | | 5,000 Units, Subcutaneous, Every | | PDT | | | | | 8 Hours Scheduled (3 times per | | | | | | | day), First dose on Tue09/20/18 at | | | | | | | 2230 | | | | | | + +-------+ +--------+---+---+ +-------+ +--------+---+---+ | Given | | 5,000 | | | | | 9 20:52 | Units | | | | | PDT | | | | +-------+ +--------+---+---+ | Given | | 5,000 | | | | | 9 06:22 | Units | | | | | PDT | | | | +-------+ +--------+---+---+ +---+---+ | | | +---+---+ + +-------+ +--------+---+---+ | HYDROmorphone (DILAUDID) | Given | 09/21/2018 | 0.5 mg | | | | injection 0.5 mg 0.5 mg, | | 13:33 | | | | | Intravenous, Every 3 Hours PRN, | | PST | | | | | Moderate Pain (4-6), Severe Pain | | | | | | | (7-10), Starting 09/20/18 at | | | | | | | 2157 | | | | | | + +-------+ +--------+---+---+ +-------+ +--------+---+---+ | Given | 09/21/2018 | 0.5 mg | | | | | 17:42 | | | | | | PST | | | | +-------+ +--------+---+---+ | Given | 09/21/2018 | 0.5 mg | | | | | 22:24 | | | | | | PST | | | | +-------+ +--------+---+---+ +---+---+ | | | +---+---+ + +-------+ +--------+---+---+ | HYDROmorphone (DILAUDID) | Given | | 0.5 mg | | | | injection 0.5 mg 0.5 mg, | | 9 15:01 | | | | | Intravenous, Every 5 Min PRN, | | PDT | | | | | Pain, Option Two for pain scale | | | | | | | 5-10/10. If no relief, proceed to | | | | | | | option 3., Starting [facility] 09/26/18 | | | | | | | at 1424, PACU | | | | | | + +-------+ +--------+---+---+ +---+---+ | | | +---+---+ + +-------+ +--------+---+---+ | HYDROmorphone (DILAUDID) | Given | | 0.5 mg | | | | injection 0.5 mg 0.5 mg, | | 9 09:09 | | | | | Intravenous, Every 3 Hours PRN, | | PDT | | | | | Moderate Pain (4-6), Severe Pain | | | | | | | (7-10), Starting [facility] 09/26/18 at | | | | | | | 1631 | | | | | | + +-------+ +--------+---+---+ +-------+ +--------+---+---+ | Given | | 0.5 mg | | | | | 9 13:03 | | | | | | PDT | | | | +-------+ +--------+---+---+ | Given | | 0.5 mg | | | | | 9 16:29 | | | | | | PDT | | | | +-------+ +--------+---+---+ +---+---+ | | | +---+---+ + +-------+ +---------+---+---+ | insulin lispro (human) | Given | | 1 Units | | | | (HUMALOG) injection 0-6 Units | | 9 16:53 | | | | | 0-6 Units, Subcutaneous, 3 Times | | PDT | | | | | Daily Before Meals, First dose on | | | | | | | [facility] 09/21/18 at 0630 | | | | | | + +-------+ +---------+---+---+ + +---+ | | | + +---+ | ondansetron (ZOFRAN) injection | | | 4 mg 4 mg, Intravenous, Every 6 | | | Hours PRN, Nausea, Vomiting, | | | Starting 09/20/18 at 2152 | | + +---+ | | | + +---+ + +-------+ +------+---+---+ | ondansetron (ZOFRAN-ODT) | Given | 09/22/2018 | 4 mg | | | | disintegrating tablet 4 mg 4 mg, | | 19:35 | | | | | Oral, Every 6 Hours PRN, Nausea, | | PST | | | | | Vomiting, Starting 09/20/18 at | | | | | | | 2152 | | | | | | + +-------+ +------+---+---+ +---+---+ | | | +---+---+ + +-------+ +-------+---+---+ | oxyCODONE (ROXICODONE) | Given | 09/21/2018 | 10 mg | | | | immediate release tablet 10 mg | | 21:38 | | | | | 10 mg, Oral, Every 4 Hours PRN, | | PST | | | | | Severe Pain (7-10), Starting [facility] | | | | | | | 09/21/18 at 0935 | | | | | | + +-------+ +-------+---+---+ +-------+ +-------+---+---+ | Given | 09/22/2018 | 10 mg | | | | | 01:55 | | | | | | PST | | | | +-------+ +-------+---+---+ | Given | 09/22/2018 | 10 mg | | | | | 06:19 | | | | | | PST | | | | +-------+ +-------+---+---+ +---+---+ | | | +---+---+ + +-------+ +------+---+---+ | oxyCODONE (ROXICODONE) | Given | | 5 mg | | | | immediate release tablet 5 mg 5 | | 9 21:30 | | | | | mg, Oral, Every 6 Hours PRN, | | PDT | | | | | Moderate Pain (4-6), Starting Fri | | | | | | | 09/22/18 at 1000 | | | | | | + +-------+ +------+---+---+ +-------+ +------+---+---+ | Given | | 5 mg | | | | | 9 04:03 | | | | | | PDT | | | | +-------+ +------+---+---+ | Given | | 5 mg | | | | | 9 10:39 | | | | | | PDT | | | | +-------+ +------+---+---+ +---+---+ | | | +---+---+ + +-------+ +------+---+---+ | oxyCODONE (ROXICODONE) | Given | | 5 mg | | | | immediate release tablet 5 mg 5 | | 9 13:03 | | | | | mg, Oral, Once, 09/27/18 at | | PDT | | | | | 1300, For 1 dose | | | | | | + +-------+ +------+---+---+ +---+---+ | | | +---+---+ + +-------+ +------+---+---+ | oxyCODONE (ROXICODONE) | Given | | 5 mg | | | | immediate release tablet 5 mg 5 | | 9 16:23 | | | | | mg, Oral, Every 4 Hours PRN, | | PDT | | | | | Moderate Pain (4-6), Starting Wed | | | | | | | 09/27/18 at 1700 | | | | | | + +-------+ +------+---+---+ +-------+ +------+---+---+ | Given | | 5 mg | | | | | 9 21:12 | | | | | | PDT | | | | +-------+ +------+---+---+ | Given | | 5 mg | | | | | 9 10:50 | | | | | | PDT | | | | +-------+ +------+---+---+ +---+---+ | | | +---+---+ + +-------+ +-------+---+---+ | piperacillin-tazobactam (ZOSYN) | Given | 09/20/2018 | 4.5 g | | | | 4-0.5 GM/100ML extended infusion | | 23:14 | | | | | bolus 4.5 g 4.5 g, Intravenous, | | PST | | | | | Administer over 30 Minutes, | | | | | | | Once, 09/20/18 at 2300, For 1 | | | | | | | dose, Administer loading dose | | | | | | | over 30 minutes | | | | | | + +-------+ +-------+---+---+ +---+---+ | | | +---+---+ + +-------+ +-------+---+---+ | piperacillin-tazobactam (ZOSYN) | Given | 09/23/2018 | 4.5 g | | | | 4-0.5 GM/100ML extended infusion | | 11:07 | | | | | bolus 4.5 g 4.5 g, Intravenous, | | PST | | | | | Administer over 30 Minutes, | | | | | | | Once, 09/23/18 at 1130, For 1 | | | | | | | dose, Administer loading dose | | | | | | | over 30 minutes. Subsequent doses | | | | | | | to be ordered by a pharmacist. | | | | | | | Second dose to start two hours | | | | | | | after end of loading dose. | | | | | | + +-------+ +-------+---+---+ +---+---+ | | | +---+---+ + +-------+ +---------+-------+---+ | piperacillin-tazobactam (ZOSYN) | Given | 09/21/2018 | 3.375 g | 12.5 | | | extended infusion 3.375 g 3.375 | | 00:42 | | mL/hr | | | g, Intravenous, Administer over | | PST | | | | | 4 Hours, Every 8 Hours, First | | | | | | | dose on [facility] 09/21/18 at 0130, | | | | | | | Administer over 4 hours | | | | | | + +-------+ +---------+-------+---+ +-------+ +---------+-------+---+ | Given | 09/21/2018 | 3.375 g | 12.5 | | | | 09:12 | | mL/hr | | | | PST | | | | +-------+ +---------+-------+---+ +---+---+ | | | +---+---+ + +-------+ +--------+-------+---+ | piperacillin-tazobactam (ZOSYN) | Given | | 2.25 g | 100 | | | IVPB 2.25 g 2.25 g, | | 9 05:02 | | mL/hr | | | Intravenous, Administer over 30 | | PDT | | | | | Minutes, Every 12 Hours, First | | | | | | | dose on 09/23/18 at 2330 | | | | | | + +-------+ +--------+-------+---+ +-------+ +--------+-------+---+ | Given | | 2.25 g | 100 | | | | 9 18:06 | | mL/hr | | | | PDT | | | | +-------+ +--------+-------+---+ | Given | | 2.25 g | 100 | | | | 9 05:51 | | mL/hr | | | | PDT | | | | +-------+ +--------+-------+---+ +---+---+ | | | +---+---+ + +-------+ +-------+---+---+ | povidone-iodine 5 % external | Given | | 4 mLs | | | | solution 4 mL 4 mL, Topical, | | 9 12:03 | | | | | Once, 09/26/18 at 1230, For 1 | | PDT | | | | | dose, 15 seconds per nare x2 | | | | | | + +-------+ +-------+---+---+ +---+---+ | | | +---+---+ + +-------+ + +---+---+ | sevelamer (RENVELA) tablet | Given | | 2,400 mg | | | | 2,400 mg 2,400 mg, Oral, 3 Times | | 9 11:40 | | | | | Daily With Meals, First dose on | | PDT | | | | | 09/26/18 at 0800 | | | | | | + +-------+ + +---+---+ +-------+ + +---+---+ | Given | | 2,400 mg | | | | | 9 16:23 | | | | | | PDT | | | | +-------+ + +---+---+ | Given | | 2,400 mg | | | | | 9 08:27 | | | | | | PDT | | | | +-------+ + +---+---+ +---+---+ | | | +---+---+ + +-------+ +---+---+---+ | sodium chloride (IV) 0.9 % | Given | | | | | | 1,000 mL with ceFAZolin (ANCEF) 2 | | 9 13:37 | | | | | g, gentamicin (GARAMYCIN) 160 | | PDT | | | | | mg, bacitracin 100,000 Units | | | | | | | irrigation solution Irrigation, | | | | | | | What [employer]les Mean To Maik [place] 09/26/18 at | | | | | | | 1130, For 1 dose, For irrigation | | | | | | | use only. | | | | | | + +-------+ +---+---+---+ +---+---+ | | | +---+---+ + +-------+ +--------+---+---+ | sodium chloride (PF) 0.9 % | Given | | 10 mLs | | | | flush 10 mL 10 mL, Intravenous, | | 9 13:53 | | | | | Every 8 Hours, First dose on Wed | | PDT | | | | | 09/20/18 at 2230 | | | | | | + +-------+ +--------+---+---+ +-------+ +--------+---+---+ | Given | | 10 mLs | | | | | 9 20:35 | | | | | | PDT | | | | +-------+ +--------+---+---+ | Given | | 10 mLs | | | | | 9 21:33 | | | | | | PDT | | | | +-------+ +--------+---+---+ +---+---+ | | | +---+---+ + +---------+ +---+ +---+ | sodium chloride 0.9 % infusion | New Bag | | | 30 mL/hr | | | at 30 mL/hr, Intravenous, | | 9 12:05 | | | | | Continuous, Starting 09/26/18 | | PDT | | | | | at 1230, Pre-op | | | | | | + +---------+ +---+ +---+ +---+---+ | | | +---+---+ + +-------+ +-------+---+---+ | traMADol (ULTRAM) tablet 50 mg | Given | | 50 mg | | | | 50 mg, Oral, Every 12 Hours PRN, | | 9 01:53 | | | | | Severe Pain (7-10), Starting Fri | | PDT | | | | | 09/22/18 at 0935 | | | | | | + +-------+ +-------+---+---+ +-------+ +-------+---+---+ | Given | | 50 mg | | | | | 9 16:35 | | | | | | PDT | | | | +-------+ +-------+---+---+ | Given | | 50 mg | | | | | 9 10:23 | | | | | | PDT | | | | +-------+ +-------+---+---+ +---+---+ | | | +---+---+ + +-------+ + +---+---+ | vancomycin (VANCOCIN) 2 g/250 | Given | 09/21/2018 | 2,000 mg | | | | mL IVPB 2,000 mg, Intravenous, | | 15:03 | | | | | Administer over 120 Minutes, | | PST | | | | | Once, [facility] 09/21/18 at 1530, For 1 | | | | | | | dose | | | | | | + +-------+ + +---+---+ + +---+ | | | + +---+ | vancomycin (VANCOCIN) 750 | | | mg/250 mL IVPB 750 mg, | | | Intravenous, Administer over 60 | | | Minutes, See Admin Instructions, | | | Starting [facility] 09/21/18 at 1451, | | | Administer dose during last hour | | | or immediately following each | | | hemodialysis session. Use Rx | | | button to message pharmacy for | | | dose. | | + +---+ | | | + +---+ + +-------+ +--------+---+---+ | vancomycin (VANCOCIN) 750 | Given | 09/22/2018 | 750 mg | | | | mg/250 mL IVPB 750 mg, | | 12:31 | | | | | Intravenous, Administer over 60 | | PST | | | | | Minutes, Once, Tue09/22/18 at | | | | | | | 0730, For 1 dose, Administer dose | | | | | | | during last hour or immediately | | | | | | | following each hemodialysis | | | | | | | session. Use Rx button to message | | | | | | | pharmacy for dose. | | | | | | + +-------+ +--------+---+---+ +---+---+ | | | +---+---+ + +-------+ +--------+---+---+ | vancomycin (VANCOCIN) 750 | Given | | 750 mg | | | | mg/250 mL IVPB 750 mg, | | 9 15:35 | | | | | Intravenous, Administer over 60 | | PDT | | | | | Minutes, Once, 09/25/18 at | | | | | | | 1300, For 1 dose, Administer dose | | | | | | | during last hour or immediately | | | | | | | following each hemodialysis | | | | | | | session. Use Rx button to message | | | | | | | pharmacy for dose. | | | | | | + +-------+ +--------+---+---+ +---+---+ | | | +---+---+ + +-------+ +--------+---+---+ | vancomycin (VANCOCIN) 750 | Given | | 750 mg | | | | mg/250 mL IVPB 750 mg, | | 9 16:28 | | | | | Intravenous, Administer over 60 | | PDT | | | | | Minutes, Once, 09/27/18 at | | | | | | | 1330, For 1 dose, Administer dose | | | | | | | during last hour or immediately | | | | | | | following each hemodialysis | | | | | | | session. Use Rx button to message | | | | | | | pharmacy for dose. | | | | | | + +-------+ +--------+---+---+ +---+---+ | | | +---+---+ + +-------+ +--------+---+---+ | vancomycin (VANCOCIN) 750 | Given | | 750 mg | | | | mg/250 mL IVPB 750 mg, | | 9 10:55 | | | | | Intravenous, Administer over 60 | | PDT | | | | | Minutes, Once, 09/29/18 at | | | | | | | 1100, For 1 dose, Administer dose | | | | | | | during last hour or immediately | | | | | | | following each hemodialysis | | | | | | | session. Use Rx button to message | | | | | | | pharmacy for dose. | | | | | | + +-------+ +--------+---+---+ +---+---+ | | | +---+---+ in this encounter
--- OUTSIDE RECORDS SUMMARY | ~2018-10-28 | XMS | Encounter Summary ---
Demographics + + + | Address | [address] | | | [place] [address] | + + + | Home Phone | | + + + | Preferred Language | Unknown | + + + | Marital Status | Single | + + + | Congregational Affiliation | Unknown | + + + | Race | Unknown | + + + | Ethnic Group | Unknown | + + + Author + + + | Author | [facility] | + + + | Organization | [facility] | + + + | Address | Unknown | + + + | Phone | Unavailable | + + + Support + + + + + | Name | Relationship | Address | Phone | + + + + + | Juliana Dixon | ECON | Unknown | | + + + + + | Mya Dixon | ECON | [address] | | | | | [place] | | | | | [address] | | + + + + + Care Team Providers + +------+ + | Care Die Finisher Name | Role | Phone | + +------+ + | Donis Martel MD | PCP | | + +------+ + Reason for Referral MRI/CAT Scan (Routine) + +--------+ + + + + | Status | Reason | Specialty | Diagnoses / | Referred By | Referred To | | | | | Procedures | Contact | Contact | + +--------+ + + + + | Pending | | Radiology | Diagnoses | See, | | | Review | | | Diagnosis | Medical | | | | | | unknown | Record [address]11 | | | | | | Procedures | | | | | | | CT abdomen | avenue | | | | | | pelvis | [place] | | | | | | without | [address] | | | | | | contrast | Phone: | | | | | | | [phone] | | | | | | | Fax: | | | | | | | [phone] | | + +--------+ + + + + Encounter Details +--------+ + + + + | Date | Type | Department | Care Team | Description | +--------+ + + + + | 09/20/ | Ancillary | [facility] | See, Medical | Diagnosis unknown | | 2019 | Orders | [facility] CT | Record [address] | | | | | [address] | [address] [place] [address] | | | | | [place] [address] | [place] [address] | | | | | [phone] | [phone] | | | | | | | [...] | | | | | | [place] [address] | | | | | | [phone] | | | | | | | | +--------+---------+ + + + as of this encounter Results CT abdomen pelvis without contrast (09/20/2018 5:21 PM) + + + | Narrative | Performed At | + + + | This is a non-reportable procedure without a radiologist report and | [facility] | | is used for image storage only | RADIOLOGY | + + + + + + + + | Performing | Address | City/State/Zipcode | Phone Number | | Organization | | | | + + + + + | [facility] | [address] | [place] [address] | | + + + + + in this encounter Visit Diagnoses + + | Diagnosis | + + | Diagnosis unknown | + + | Other unknown and unspecified cause of morbidity or mortality | + +
--- OUTSIDE RECORDS SUMMARY | ~2018-10-28 | XMS | Encounter Summary ---
Demographics + + + | Address | [address] | | | [place] [address] | + + + | Home Phone | | + + + | Preferred Language | Unknown | + + + | Marital Status | Single | + + + | Orthodox Affiliation | Unknown | + + + | Race | Unknown | + + + | Ethnic Group | Unknown | + + + Author + + + | Author | [facility] | + + + | Organization | [facility] | + + + | Address | Unknown | + + + | Phone | Unavailable | + + + Support + + + + + | Name | Relationship | Address | Phone | + + + + + | Juliana Dixon | ECON | Unknown | | + + + + + | Mya Dixon | ECON | [address] | | | | | [place] | | | | | [address] | | + + + + + Care Team Providers + +------+ + | Care Plastic Die Maker Apprentice Name | Role | Phone | + +------+ + | Donis Martel MD | PCP | | + +------+ + Reason for Visit + + + | Reason | Comments | + + + | Post-op Exam | | + + + Surgical (Urgent) +--------+ + [...] Surgery | | MD Ludin | MD Kyle | | | Required | | Panniculitis | [address] | [address] [place] [address] | | | | | | [address] | [place] | | | | | | [address] | [place], [place] | | | | | | [place], [place] | [address] Phone: | | | | | | [address] | [phone] | | | | | | Phone: | Fax: | | | | | | [phone] | [phone] | | | | | | Fax: | | | | | | | [phone] | | +--------+ + + + + + Encounter Details +--------+---------+ + + + | Date | Type | Department | Care Team | Description | +--------+---------+ + + + | 10/09/ | Office | [facility] | Kyle Alford, | Brayanulitis | | 2019 | Visit | Plastic Surgery and | MD Soriano Barrington | (Primary Dx) | | | | Dermatology [address] [place], | | | | | [address] | [place] [address] | | | | | [place] | [phone] | | | | | [address] | | | | | | [phone] | | | +--------+---------+ + + + Social History + + [...] + + + as of this encounter Progress Notes Kyle Alford MD - 10/09/2018 1:10 PM PDTFollow-up panniculectomy. No wound issues. Th e left drainage removed. Follow-up in 3-5 days for second drain removalin this encounter Plan of Treatment +--------+---------+ + + + | Date | Type | Specialty | Care Team | Description | +--------+---------+ + + + | 10/31/ | Office | Infectious Diseases | Jordan Beltrán DO | | | 2019 | Visit | | [address] | | | | | | [facility] [address] | | | | | | [phone] | | | | | | | | +--------+---------+ + + + as of this encounter Visit Diagnoses + + | Diagnosis | + + | Panniculitis - Primary | + + | Panniculitis, unspecified site | + +
--- OUTSIDE RECORDS SUMMARY | ~2018-10-28 | XMS | Encounter Summary ---
Demographics + + + | Address | [address] | | | [place] [address] | + + + | Home Phone | | + + + | Preferred Language | Unknown | + + + | Marital Status | Single | + + + | Sabianist Affiliation | Unknown | + + + | Race | Unknown | + + + | Ethnic Group | Unknown | + + + Author + + + | Author | [facility] | + + + | Organization | [facility] | + + + | Address | Unknown | + + + | Phone | Unavailable | + + + Support + + + + + | Name | Relationship | Address | Phone | + + + + + | Juliana Dixon | ECON | Unknown | | + + + + + | Mya Dixon | ECON | [address] | | | | | [place] | | | | | [address] | | + + + + + Care Team Providers + +------+ + | Care Companion Caregiver Name | Role | Phone | + +------+ + | Donis Martel MD | PCP | | + +------+ + Reason for Visit Consult and Treat (Routine) + +--------+ + + + + | Status | Reason | Specialty | Diagnoses / | Referred By | Referred To | | | | | Procedures | Contact | Contact | + +--------+ + + + + | Authorized | | Dermatology / | Diagnoses | Kris | Alayna, | | | | Plastic | Other | Iván Carrera MD | Aurelia Alcaraz, | | | | Surgery | disorders of | [address] | [address] | | | | | calcium | [place] | [address] | | | | | metabolism | [place] | [address] [place] | | | | | | [place] [address] | [place], [place] | | | | | | Phone: | [address] Phone: | | | | | | [phone] | [phone] | | | | | | Fax: | Fax: | | | | | | [phone] | [phone] | + +--------+ + + + + Encounter Details +--------+---------+ + + + | Date | Type | Department | Care Team | Description | +--------+---------+ + + + | 10/19/ | Office | [facility] | Kyle Alford, | Panniculitis | | 2019 | Visit | Plastic Surgery and | MD Bo Silva | (Primary Dx) | | | | Dermatology [address] | [place], | | | | | [address] | [place] [address] | | | | | [place], [place] | [phone] | | | | | [address] | | | | | | [phone] | | | +--------+---------+ + + + [...] encounter Progress Notes Kyle Alford MD - 10/19/2018 3:00 PM PDT3 weeks after panniculectomy. The remaining d rain is removed. No wound issues. Luz Elena removed. Follow-up as needed.in this encounter Plan of Treatment +--------+---------+ + + + | Date | Type | Specialty | Care Team | Description | +--------+---------+ + + + | 10/31/ | Office | Infectious Diseases | Jordan Beltrán DO | | | 2019 | Visit | | [address] | | | | | | [place] [address] | | | | | | [phone] | | | | | | | | +--------+---------+ + + + as of this encounter Visit Diagnoses + + | Diagnosis | + + | Panniculitis - Primary | + + | Panniculitis, unspecified site | + +
--- OUTSIDE RECORDS SUMMARY | ~2018-10-28 | XMS | Encounter Summary ---
Demographics + + + | Address | [address] | | | [place] [address] | + + + | Home Phone | | + + + | Preferred Language | Unknown | + + + | Marital Status | Single | + + + | Zoroastrian Affiliation | Unknown | + + + | Race | Unknown | + + + | Ethnic Group | Unknown | + + + Author + + + | Author | [facility] | + + + | Organization | [facility] | + + + | Address | Unknown | + + + | Phone | Unavailable | + + + Support + + + + + | Name | Relationship | Address | Phone | + + + + + | Juliana Dixon | ECON | Unknown | | + + + + + | Mya Dixon | ECON | [address] | | | | | [place] | | | | | [address] | | + + + + + Care Team Providers + +------+ + | Care Multimedia Production Assistant Name | Role | Phone | + +------+ + | Donis Martel MD | PCP | | + +------+ + Reason for Visit +--------+ + | Reason | Comments | +--------+ + | Other | September 2018-Светлана Avila Note | +--------+ + Encounter Details +--------+ + + + + | Date | Type | Department | Care Team | Description | +--------+ + + + + | 10/25/ | Documentati | [facility] | Eric Sun MD | Other (September | | 2018 | on Only | [place] [address] | 2019-[facility] Provider | | | | [address] | [address] [place], [place] | [facility] | | | | [address] | [address] | Note) | | | | [phone] | | | +--------+ + + + [...] [address] | | | | | | [place] [address] | | | | | | [phone] | | | | | | | | +--------+---------+ + + + as of this encounter Visit Diagnoses Not on filein this encounter
--- OUTSIDE RECORDS SUMMARY | ~2018-10-28 | XMS | Clinical Summary ---
Demographics + + + | Address | [address] | | | [place] [address] | + + + | Home Phone | | + + + | Preferred Language | Unknown | + + + | Marital Status | Single | + + + | Episcopal Affiliation | Unknown | + + + | Race | Unknown | + + + | Ethnic Group | Unknown | + + + Author + + + | Author | [facility] | + + + | Organization | [facility] | + + + | Address | Unknown | + + + | Phone | Unavailable | + + + Support + + + + + | Name | Relationship | Address | Phone | + + + + + | Juliana Dixon | ECON | Unknown | | + + + + + | Mya Dixon | ECON | [address] | | | | | [place] | | | | | [address] | | + + + + + Care Team Providers + +------+ + | Care [address] Light Name | Role | Phone | + +------+ + | Donis Martel MD | PP | | + +------+ + Allergies No Known Allergies Current Medications + + + +---------+------+------+-------+ | Prescription | Sig. | Disp. | Refills | Star | End | Statu | | | | | | t | Date | s | | | | | | Date | | | + + + +---------+------+------+-------+ | oxybutynin | Take 10 mg by mouth | | | | | Activ | | (DITROPAN) 5 MG | 2 (two) times daily. | | | | | e | | tablet | | | | | | | + + + +---------+------+------+-------+ | RENVELA 2.4 G | MIX AND TAKE 1 | 150 | 11 | 11/0 | | Activ | | packet | PACKET WITHEACH | each | | 1/20 | | e | | | MEALS 3 TIMES DAILY | | | 16 | | | | | AND WITH SNACKS | | | | | | + + + +---------+------+------+-------+ | albuterol (PROAIR | Inhale 2 puffs into | | | | | Activ | | HFA) 108 (90 BASE) | the lungs every 4 | | | | | e | | MCG/ACT inhaler | (four) hours as | | | | | | | | needed for Wheezing. | | | | | | + + + +---------+------+------+-------+ | amLODIPine | Take 1 tablet by | 30 | 1 | 03/1 | | Activ | | (NORVASC) 5 MG | mouth daily. | tablet | | 3/20 | | e | | tablet | | | | 17 | | | + + + +---------+------+------+-------+ | Cholecalciferol | TAKE 1 BY MOUTH | 30 | 11 | 06/1 | | Activ | | (VITAMIN D3) 5000 | DAILY | capsule | | 7/20 | | e | | units CAPS | | | | 17 | | | + + + +---------+------+------+-------+ | doxazosin | TAKE 1 BY MOUTH TWO | 60 | 10 | 07/0 | | Activ | | (CARDURA) 1 MG | TIMES DAILY | tablet | | 3/20 | | e | | tablet | | | | 17 | | | + + + +---------+------+------+-------+ | sertraline | Take 75 mg by mouth | | | | | Activ | | (ZOLOFT) 100 MG | daily. | | | | | e | | tablet | | | | | | | + + + +---------+------+------+-------+ | cinacalcet | Take 1 tablet by | 84 | 0 | 10/ | | Activ | | (SENSIPAR) 30 MG | mouth daily. Lot# | tablet | | 03/06 | | e | | tablet | [id number]. Exp date | | | 17 | | | | | 02/02. | | | | | | + + + +---------+------+------+-------+ | carvedilol (COREG) | Take 25 mg by mouth | | | | | Activ | | 25 MG tablet | 2 (two) times daily | | | | | e | | | with meals. | | | | | | + + + +---------+------+------+-------+ | buPROPion | Take 100 mg by mouth | | | | | Activ | | (WELLBUTRIN) 100 MG | 2 (two) times | | | | | e | | tablet | daily. | | | | | | + + + +---------+------+------+-------+ | oxyCODONE | Take 1 tablet by | 30 | 0 | 03/0 | | Activ | | (ROXICODONE) 5 MG | mouth every 6 (six) | tablet | | /20 | | e | | immediate release | hours as needed. | | | 19 | | | | tablet | | | | | | | + + + +---------+------+------+-------+ | albuterol | Ventolin HFA 90 | | | | | Activ | | (VENTOLIN HFA) 108 | mcg/actuation | | | | | e | | (90 Base) MCG/ACT | aerosol inhaler | | | | | | | inhaler | | | | | | | + + + +---------+------+------+-------+ | propranolol | Take 40 mg by mouth | | | | 03/1 | Disco | | (INDERAL) 40 MG | daily. | | | | 6/20 | ntinu | | tablet | | | | | 19 | ed | + + + +---------+------+------+-------+ | doxazosin | Take 4 mg by mouth 2 | | | | 03/1 | Disco | | (CARDURA) 4 MG | (two) times daily. | | | | 6/20 | ntinu | | tablet | Take with doxazosin | | | | 19 | ed | | | 1 mg tablet | | | | | | + + + +---------+------+------+-------+ | PHOSLO 667 MG CAPS | TAKE 3 BY MOUTH 3 | 390 | 11 | 02/ | 03/ | Disco | | | TIMES DAILY WITH | capsule | | /20 | 20 | ntinu | | | MEALS AND 2 BY | | | 18 | 19 | ed | | | MOUTH TWO TIMES | | | | | | | | DAILY WITH SNACKS | | | | | | + + + +---------+------+------+-------+ | vancomycin | Inject 750 mg into | 7500 mL | 0 | 03/1 | 03/2 | Expir | | (VANCOCIN) 750 | the vein After | | | 20 | 6/20 | ed | | mgIndications: | Hemodialysis (see | | | 19 | 19 | | | Panniculitis | admin instructions) | | | | | | | | for 12 days. | | | | | | + + + +---------+------+------+-------+ | | Take 1 tablet by | 10 | 0 | 03/1 | 03/2 | Disco | | amoxicillin-clavulan | mouth daily. | tablet | | 6/20 | 5/20 | ntinu | | ate (AUGMENTIN) | | | | 19 | 19 | ed | | 500-125 MG per | | | | | | | | tabletIndications: | | | | | | | | Skin and Soft Tissue | | | | | | | | Abscess | | | | | | | + + + +---------+------+------+-------+ | | Take 1 tablet by | 14 | 0 | 03/2 | 04/0 | Expir | | amoxicillin-clavulan | mouth daily for 14 | tablet | | 5/20 | 8/20 | ed | | ate (AUGMENTIN) | days. | | | 19 | 19 | | | 500-125 MG per | | | | | | | | tabletIndications: | | | | | | | | Skin and Soft Tissue | | | | | | | | Abscess | | | | | | | + + + +---------+------+------+-------+ | doxycycline | Take 1 capsule by | 28 | 2 | 03/2 | 04/0 | Expir | | (MONODOX) 100 MG | mouth 2 (two) times | capsule | | 5/20 | 8/20 | ed | | capsule | daily for 14 days. | | | 19 | 19 | | + + + +---------+------+------+-------+ + + +-------+ +------+------+-------+ | Hospital, Clinic, [...] Noted Date | + + + | Panniculitis | 09/21/2018 | + + + | Diabetes mellitus, type 2 (HCC) | 09/20/2018 | + + + | Morbid obesity [...] | 12/13/2015 | + + + | Non-compliance with [...] 7 | + + + + | Leucocytosis | 09/27/19 | | | | 17 | 9 | + + + + | Limb [...] 7 | + + + + | Pulmonary edema | 04/02/20 | | | | 15 | 9 | + + + + Encounters +--------+ + + + + | Date | Type | Specialty | Care Team | Description | +--------+ + + + + | 10/25/ | Documentati | | Eric Sun MD | Other (September | | 2018 | on Only | | | 2019-[facility] Provider | | | | | | Dialysis Rounding | | | | | | Note) | +--------+ + + + + | 10/19/ | Office | | Kyle Alford, | Panniculitis | | 2018 | Visit | | MD | (Primary Dx) | +--------+ + + + + | 10/11/ | Telephone | | Ludy Gonzales, | | | 2018 | | | SEMICONDUCTOR WAFERS SAW OPERATOR | | +--------+ + + + + | 10/09/ | Office | | Rodriguez Beltrán DO | Panniculitis | | 2018 | Visit | | | (Primary Dx); ESRD | | | | | | on hemodialysis | +--------+ + + + + | 10/09/ | Office | | Kyle Alford, | Panniculitis | | 2018 | Visit | | MD | (Primary Dx) | +--------+ + + + + | 09/26/ | Anesthesia | | Laura Nunez | | | 2019 | Event | | MD Nell | | +--------+ + + + + | 09/26/ | Procedure | | | | | 2019 | Pass | | | | +--------+ + + + + | 09/26/ | Surgery | | Kyle Alford, | PANNICULECTOMY | | 2019 | | | | | +--------+ + + + + | 09/25/ | Orders Only | | Ludy Gonzales, | Panniculitis | | 2019 | | | SEMICONDUCTOR WAFERS SAW OPERATOR | (Primary Dx) | +--------+ + + + + | 09/22/ | Documentati | | Eric Sun MD | Other (August | | 2018 | on Only | | | 2019-[facility] Provider | | | | | | Dialysis Rounding | | | | | | Note) | +--------+ + + + + | 09/20/ | Hospital | | Horace Escoto, | ESRD (end stage | | 2019 - | Encounter | | MD Ozuna, | renal disease) | | | | | MD Becki Whiteside, | (Primary Dx); | | | | | MD Ludin | Essential | | 2019 | | | | hypertension; | | | | | | Panniculitis | +--------+ + + + + +---+ + | | Discharge | | | Summaries | | | - Becki, | | | MD Ludin - | | | 09/30/2018 | | | 11:30 AM | | | PDT | | | Formatting | | | of this | | | note may be | | | different | | | from the | | | original.[facility] | [facility]: | | | Hospitalist | | | Discharge | | | SummaryDate | | | of | | | Admission: | | | | | | 09/20/2018Dat | | | e of | | | Discharge: | | | | | | 09/30/2018Di | | | scharge | | | Provider: | | | Ludin | | | Becki | | | Cong | | | Team: | | | Consulting | | | Physician: | | | Venkatesh | | | Arif, | | | MDConsultin | | | g | | | Physician: | | | Kyle | | | Alford, | | | MDConsultin | | | g | | | Physician: | | | Louisa | | | Paranada, | | | MDAdmitting | | | Provider: | | | Horace | | | Beiswenger, | | | | | | MDDischarge | | | Diagnoses: | | | | | | Principal | | | Problem: | | | Panniculiti | | | sActive | | | Problems: | | | Smoker | | | Obesity | | | (BMI | | | 30-39.9) | | | Hyperphosph | | | atemia | | | Hypoalbumin | | | emia | | | Anemia of | | | chronic | | | renal | | | failure, | | | stage 5 | | | (HCC) BMI | | | 45.0-49.9, | | | adult | | | Renovascula | | | r | | | hypertensio | | | n Morbid | | | obesity due | | | to excess | | | calories | | | (HCC) ESRD | | | on | | | hemodialysi | | | s Diabetes | | | mellitus, | | | type 2 | | | (HCC)Resolv | | | ed | | | Problems: | | | * No | | | resolved | | | hospital | | | problems. | | | *BRIEF | | | HISTORY OF | | | PRESENTATIO | | | N: | | | Corrina Nicole | | | Brice is a | | | 43 y.o. | | | female | | | whoHistory | | | of | | | end-stage | | | renal | | | disease, | | | diabetes, | | | hypertensio | | | n, history | | | of obesity, | | | who has | | | been | | | fighting | | | the | | | panniculiti | | | s for | | | several | | | days, tried | | | outpatient | | | IV | | | antibiotics | | | and failed | | | to | | | improve, so | | | she is | | | admitted by | | | Dr. | | | Rocío. | | | She | | | underwent | | | panniculect | | | socrates. She | | | tolerated | | | the surgery | | | well. She | | | had | | | expected | | | postop | | | pain, which | | | was | | | adequately | | | controlled | | | with oral | | | narcotics. | | | The | | | patient was | | | quite | | | decondition | | | ed from the | | | hospital | | | stay and | | | will be | | | discharged | | | to a | | | skilled | | | nursing | | | facility. | | | Blood | | | culture was | | | negative. | | | ID advised | | | 2 weeks of | | | IV | | | vancomycin | | | post | | | dialysis | | | and | | | Augmentin | | | for 2 | | | weeks. The | | | patient | | | still has 2 | | | drains in | | | her | | | abdomen, | | | which will | | | be removed | | | by | | | Alford | | | during the | | | clinic | | | visit. She | | | does not | | | need | | | regular | | | dressing | | | change. He | | | advised | | | dressing | | | change | | | prior to | | | discharge | | | and then | | | when he | | | follows up | | | with her in | | | the | | | clinic.Faci | | | lity-Admini | | | stered | | | Medications | | | Prior to | | | Admission | | | Medication | | | Dose Route | | | Frequency | | | Provider | | | Last Rate | | | Last Dose | | | | | | lidocaine | | | buffered | | | 1% | | | injection | | | 0.5 mL 0.5 | | | mL | | | Intradermal | | | Once Caden | | | T MD Kayy | | | | | | Prescriptio | | | ns Prior to | | | Admission | | | Medication | | | Sig | | | Dispense | | | Refill Last | | | Dose | | | buPROPion | | | | | | (WELLBUTRIN | | | ) 100 MG | | | tablet Take | | | 100 mg by | | | mouth 2 | | | (two) times | | | daily. | | | | | | | | | carvedilol | | | (COREG) 25 | | | MG tablet | | | Take 25 mg | | | by mouth 2 | | | (two) times | | | daily with | | | meals. | | | Taking at | | | 0600 | | | | | | cinacalcet | | | (SENSIPAR) | | | 30 MG | | | tablet Take | | | 1 tablet | | | by mouth | | | daily. Lot# | | | [id number]. | | | Exp date | | | 02/02. 84 | | | tablet 0 | | | Taking at | | | Unknown | | | time | | | doxazosin | | | (CARDURA) | | | 1 MG tablet | | | TAKE 1 BY | | | MOUTH TWO | | | TIMES | | | DAILY 60 | | | tablet 10 | | | Taking at | | | Unknown | | | time | | | albuterol | | | (PROAIR | | | HFA) 108 | | | (90 BASE) | | | MCG/ACT | | | inhaler | | | Inhale 2 | | | puffs into | | | the lungs | | | every 4 | | | (four) | | | hours as | | | needed for | | | Wheezing. | | | Not Taking | | | at Unknown | | | time | | | | | | amLODIPine | | | (NORVASC) 5 | | | MG tablet | | | Take 1 | | | tablet by | | | mouth | | | daily. 30 | | | tablet 1 | | | 02/28/2017 | | | at Unknown | | | time | | | | | | Cholecalcif | | | alo | | | (VITAMIN | | | D3) 5000 | | | units CAPS | | | TAKE 1 BY | | | MOUTH DAILY | | | (Patient | | | not taking: | | | Reported | | | on | | | 02/28/2017) | | | 30 capsule | | | 11 Not | | | Taking at | | | Unknown | | | time | | | | | | oxybutynin | | | (DITROPAN) | | | 5 MG tablet | | | Take 10 mg | | | by mouth 2 | | | (two) | | | times | | | daily. | | | Not Taking | | | at Unknown | | | time | | | RENVELA | | | 2.4 G | | | packet MIX | | | AND TAKE 1 | | | PACKET | | | WITHEACH | | | MEALS 3 | | | TIMES DAILY | | | AND WITH | | | SNACKS | | | (Patient | | | not taking: | | | Reported | | | on | | | 02/28/2017) | | | 150 each 11 | | | Not Taking | | | at Unknown | | | time | | | | | | sertraline | | | (ZOLOFT) | | | 100 MG | | | tablet Take | | | 75 mg by | | | mouth | | | daily. | | | 02/28/2017 | | | at Unknown | | | time | | | DISCHARGE | | | EXAMVital | | | Signs:BP | | | 117/57 (BP | | | Location: | | | Right upper | | | arm) | | | | Pulse 70 | | | | Temp 98 | | | F (36.7 | | | C) (Oral) | | | | Resp 20 | | | | Ht | | | 1.689 m (5' | | | 6.5") | | | | Wt 108.8 kg | | | (239 lb | | | 13.8 oz) | | | | SpO2 93% | | | | BMI 38.13 | | | kg/m | | | Physical | | | ExamGeneral | | | | | | Appearance: | | | awake, | | | alert, | | | oriented, | | | in no acute | | | | | | distressEye | | | s: No | | | gross | | | abnormaliti | | | es.Neck: | | | neck- | | | supple, no | | | mass, | | | non-tenderL | | | ungs: | | | Normal | | | expansion. | | | Clear to | | | auscultatio | | | n. No | | | rales, | | | rhonchi, or | | | | | | wheezing.Ab | | | domen: 2 | | | drains in | | | place. | | | Binder in | | | placeExtrem | | | ities: | | | Extremities | | | warm to | | | touch, | | | pink, with | | | no | | | edema.DATAR | | | ecent | | | LabsLab | | | | | | 9 | | | | | | 2 | | | | | | 5 | | | | | | 1 WBC | | | 12.34* | | | 14.78* | | | 14.43* | | | 14.33* HGB | | | 8.6* 8.3* | | | 8.2* 8.5* | | | HCT 27.6* | | | 26.5* 26.5* | | | 28.1* PLT | | | 328 313 292 | | | 292 | | | NEUTOPHILPC | | | T 67.57 | | | 71.16 -- | | | 74.28 | | | MONOPCT | | | 11.35 10.20 | | | -- 9.23 | | | Recent | | | LabsLab | | | | | | 9 | | | | | | 2 | | | | | | 5 NA 132* | | | 131* 131* K | | | 4.5 4.6 | | | 4.5 CL 93* | | | 92* 95* CO2 | | | 30 27 27 | | | BUN 15 22 | | | 14 | | | CREATININE | | | 3.8* 5.1* | | | 3.7* | | | Phosphorus: | | | Lab | | | Results | | | Component | | | Value Date | | | PHOS 3.7 | | | 09/30/2018 | | | Invalid | | | input(s): | | | LABALBUNo | | | results for | | | input(s): | | | MG in the | | | last 168 | | | hours.No | | | results for | | | input(s): | | | AMYLASE in | | | the last | | | 168 | | | hours.No | | | results for | | | input(s): | | | PHART, | | | PO2ART, | | | PNQ4MEK, | | | O5GNKZDH, | | | BEART in | | | the last | | | 168 | | | hours.No | | | results for | | | input(s): | | | APTT, INR, | | | PTT in the | | | last 168 | | | hours.No | | | results for | | | input(s): | | | TSH, | | | T3FREE, | | | FREET4 in | | | the last | | | 168 | | | hours.No | | | results for | | | input(s): | | | CKTOTAL, | | | TROPONINI, | | | TROPONINT, | | | CKMBINDEX | | | in the last | | | 168 | | | hours.Radio | | | logyNo | | | results | | | found.Dispo | | | sition: | | | HomeConditi | | | on: | | | StableCode | | | Status: | | | PriorDischa | | | rge | | | Instruction | | | sCBC W/Auto | | | Diff | | | (Reflex to | | | Manual) | | | Standing | | | Status: | | | Future | | | Standing | | | Exp. Date: | | | 09/28/19 | | | Order | | | Comments: | | | STANDING | | | ORDER: | | | Please draw | | | weekly | | | while on IV | | | | | | antibiotics | | | . | | | Comprehensi | | | ve | | | metabolic | | | panel | | | Standing | | | Status: | | | Future | | | Standing | | | Exp. Date: | | | 09/28/19 | | | Order | | | Comments: | | | STANDING | | | ORDER: | | | Please draw | | | weekly | | | while on IV | | | | | | antibiotics | | | . | | | Ambulatory | | | Referral to | | | Wound | | | Clinic | | | Referral | | | Priority: | | | Routine | | | Referral | | | Type: | | | Consultatio | | | n Referral | | | Reason: | | | Specialty | | | Services | | | Required | | | Requested | | | Specialty: | | | Wound Care | | | Number of | | | Visits | | | Requested: | | | 1 | | | Ambulatory | | | referral to | | | Plastic | | | Surgery | | | Referral | | | Priority: | | | Urgent | | | Referral | | | Type: | | | Surgical | | | Referral | | | Reason: | | | Specialty | | | Services | | | Required | | | Referred to | | | Provider: | | | ALFORD, | | | KYLE | | | Requested | | | Specialty: | | | Plastic | | | Surgery | | | Number of | | | Visits | | | Requested: | | | 1 | | | Ambulatory | | | referral to | | | Infectious | | | Disease | | | Referral | | | Priority: | | | Urgent | | | Referral | | | Type: | | | Consultatio | | | n Referral | | | Reason: | | | Specialty | | | Services | | | Required | | | Referred to | | | Provider: | | | YORK, RODRIGUEZ | | | Requested | | | Specialty: | | | Infectious | | | Diseases | | | Number of | | | Visits | | | Requested: | | | 1 Call MD | | | for: | | | Persistant | | | Nausea and | | | Vomiting | | | Call MD | | | for: | | | Redness, | | | Tenderness, | | | or Signs | | | of | | | Infection | | | (Pain, | | | Swelling, | | | Redness, | | | Odor or | | | Green/Yello | | | w Discharge | | | Around | | | Incision | | | Site) Call | | | MD for: | | | Persistant | | | Dizziness | | | or | | | Light-Heade | | | dness | | | Follow | | | up:Donis | | | [place], | | | [id number] | [address], [address] | | | [address] | | | n [place] | | | [phone] | | | [phone] | | | w upDAVITA | | | DIALYSIS - | | | [id number] | | | [address] | | | [address] | | | [place] | | | [address] | | | [phone] | | | Rodriguez York, | | | [id number] | | | [address] | | | [address] | | | d [place] | | | [phone] | | | [phone] | | | 10/10/2018Fr | | | ancis | | | Alford, | | | [id number] | | | [place] | | | [address] | | | [address] | | | [place] | | | [phone] | | | [phone] | | | week | | | Medication | | | List START | | | taking | | | these | | | medications | | | | | | amoxicillin | | | -clavulanat | | | e 500-125 | | | MG per | | | tabletQTY: | | | 10 | | | tabletRefil | | | ls: | | | 0Commonly | | | known as: | | | AUGMENTINTa | | | ke 1 tablet | | | by mouth | | | daily. | | | oxyCODONE 5 | | | MG | | | immediate | | | release | | | tabletQTY: | | | 30 | | | tabletRefil | | | ls: | | | 0Commonly | | | known as: | | | ROXICODONET | | | heriberto 1 | | | tablet by | | | mouth every | | | 6 (six) | | | hours as | | | needed. | | | vancomycin | | | 750 mgQTY: | | | 7500 | | | mLRefills: | | | 0Commonly | | | known as: | | | VANCOCINInj | | | ect 750 mg | | | into the | | | vein After | | | Hemodialysi | | | s (see | | | admin | | | instruction | | | s) for 12 | | | days. | | | CHANGE how | | | you take | | | these | | | medications | | | doxazosin | | | 1 MG | | | tabletQTY: | | | 60 | | | tabletRefil | | | ls: | | | 10Commonly | | | known as: | | | CARDURATAKE | | | 1 BY MOUTH | | | TWO TIMES | | | DAILYWhat | | | changed: | | | Another | | | medication | | | with the | | | same name | | | was | | | removed. | | | Continue | | | taking this | | | | | | medication, | | | and follow | | | the | | | directions | | | you see | | | here. | | | CONTINUE | | | taking | | | these | | | medications | | | albuterol | | | 108 (90 | | | BASE) | | | MCG/ACT | | | inhalerRefi | | | lls: | | | 0Commonly | | | known as: | | | PROAIR HFA | | | amLODIPine | | | 5 MG | | | tabletQTY: | | | 30 | | | tabletRefil | | | ls: | | | 1Commonly | | | known as: | | | NORVASCTake | | | 1 tablet | | | by mouth | | | daily. | | | buPROPion | | | 100 MG | | | tabletRefil | | | ls: | | | 0Commonly | | | known as: | | | WELLBUTRIN | | | carvedilol | | | 25 MG | | | tabletRefil | | | ls: | | | 0Commonly | | | known as: | | | COREG | | | cinacalcet | | | 30 MG | | | tabletQTY: | | | 84 | | | tabletRefil | | | ls: | | | 0Commonly | | | known as: | | | SENSIPARTak | | | e 1 tablet | | | by mouth | | | daily. Lot# | | | [id number]. | | | Exp date | | | 02/02. | | | oxybutynin | | | 5 MG | | | tabletRefil | | | ls: | | | 0Commonly | | | known as: | | | DITROPAN | | | RENVELA 2.4 | | | g | | | packetQTY: | | | 150 | | | eachRefills | | | : | | | 11Generic | | | drug: | | | sevelamer | | | carbonateMI | | | X AND TAKE | | | 1 PACKET | | | WITHEACH | | | MEALS 3 | | | TIMES DAILY | | | AND WITH | | | SNACKS | | | sertraline | | | 100 MG | | | tabletRefil | | | ls: | | | 0Commonly | | | known as: | | | ZOLOFT | | | Vitamin D3 | | | 5000 units | | | CapsQTY: | | | 30 | | | capsuleRefi | | | lls: | | | 11TAKE 1 BY | | | MOUTH | | | DAILY You | | | might also | | | be taking | | | other | | | medications | | | not listed | | | above. If | | | you have | | | questions | | | about any | | | of your | | | other | | | medications | | | , talk to | | | the person | | | who | | | prescribed | | | them or | | | your | | | Primary | | | Care | | | Provider. | | | STOP | | | taking | | | these | | | medications | | | PHOSLO | | | 667 MG | | | CapsGeneric | | | drug: | | | Calcium | | | Acetate | | | (Phos | | | Binder) | | | propranolol | | | 40 MG | | | tabletCommo | | | nly known | | | as: | | | INDERAL | | | Where to | | | Get Your | | | Medications | | | You can | | | get these | | | medications | | | from any | | | pharmacy | | | Bring a | | | paper | | | prescriptio | | | n for each | | | of these | | | medications | | | | | | amoxicillin | | | -clavulanat | | | e 500-125 | | | MG per | | | tablet | | | oxyCODONE 5 | | | MG | | | immediate | | | release | | | tablet | | | vancomycin | | | 750 mg | | | Discharge | | | took 35 | | | minutes, to | | | include | | | final | | | examination | | | , | | | discussion | | | of | | | admission, | | | and | | | preparation | | | of | | | prescriptio | | | ns, | | | instruction | | | s for | | | on-going | | | care, | | | follow-up | | | and | | | documentati | | | on of | | | discharge | | | summary.Nit | | | in Becki, | | | | | | MD3/ | | | 11:30 AM | +---+ + +--------+ +---+ + + | 09/20/ | Hospital | | See, Medical | Diagnosis unknown | | 2018 | Encounter | | Record | | +--------+ +---+ + + | 09/20/ | Ancillary | | See, Medical | Diagnosis unknown | | 2018 | Orders | | Record | | +--------+ +---+ + + | 09/01/ | Documentati | | Eric Sun MD | Other (July | on Only | | | 2019-[facility] Provider | | | | | | Dialysis Rounding | | | | | | Note) | +--------+ +---+ + + from Last 3 Months Immunizations +------+ + + | Name | Dates Previously Given | Next Due | +------+ + + | Tdap | 12/16/2009 | | +------+ + + Family History + + +------+ + | [...] + + + | Blood Pressure | 131/73 | 10/09/2018 2:19 PM PDT | + + + + | Pulse | 55 | 10/09/2018 2:19 PM PDT | + + + + | Temperature | 35.8 C (96.4 F) | 10/09/2018 2:19 PM PDT | + + + + | Respiratory Rate | 16 | 10/09/2018 2:19 PM PDT | + + + + | Oxygen Saturation | 97% | 10/09/2018 2:19 PM PDT | + + + + | Inhaled Oxygen | - | - | | Concentration | | | + + + + | Weight | 111 kg (244 lb 12.8 | 10/09/2018 2:19 PM PDT | | | oz) | | + + + + | Height | 168.9 cm (5' 6.5") | 09/20/2018 9:53 PM PST | + + + + | Body Mass Index | 38.92 | 10/09/2018 2:19 PM PDT | + + + + Plan of Treatment +--------+---------+ + + + | Date | Type | Specialty | Care Team | Description | +--------+---------+ + + + | 10/31/ | Office | | Rodriguez Beltrán DO | | | 2019 | Visit | | [address] | | | | | | [place] [address] | | | | | | [phone] | | | | | | | | +--------+---------+ + + + + + + + + | Health Maintenance | Due Date | Last Done | Comments | + + + + + | Diabetic Eye Exam | | | | | | 7 | | | + + + + + | Diabetic Foot Exam | | | | | | 7 | | | + + + + + | Microalbumin | | | | | Screening | 7 | | | + + [...] Vaccine: Influenza | | | | | (Season Ended) | 9 | | | + + + + + | Hemoglobin A1c | | 09/21/2018, 12/13/2015 | | | | 9 | | | + + + + + | Vaccine: | | 12/16/2009 | | | Dtap/Tdap/Td (2 - | 0 | | | | Td) | | | | + + + + + Procedures + +--------+ + + + | [...] | + +--------+ + + + | [facility]AND[facility] | EMIGDIO | 09/29/2018 | | [...] | | | L, | | | RESIDENTIAL SUPPORT WORKER | +---+--------+ + +--------+ + + + | POCT [...] | + +--------+ + + + | HEPATITIS | STAT | 09/22/2018 [...] | + +--------+ + + + | VANCOMYCIN, TROUGH | Timed | [...] | + +--------+ + + + | LIPID PANEL | Routin | 09/21/2018 | | Results for this | | | e - AM | 6:10 AM | | procedure are in the | | | | PST | | results section. | + +--------+ + + + | PHOSPHOROUS | Routin | 09/21/2018 | | Results for this | | | e - AM | 6:10 AM | | procedure are in the | | | | PST | | results section. | + +--------+ + + + | MAGNESIUM | Routin | 09/21/2018 | | Results for this | | | e - AM | 6:10 AM | | procedure are in the | | | | PST | | results section. | + +--------+ + + + | HEMOGLOBIN A1C | Routin | [...] | + +--------+ + + + | MRSA BY PCR | Timed [...] | + +--------+ + + + | BLOOD CULTURE, SET 2 | Timed | 09/20/2018 | | Results for this | | | | 8:46 PM | | procedure are in the | | | | PST | | results section. | + +--------+ + + + | PROCALCITONIN | STAT | 09/20/2018 | | Results for this | | | | 7:50 PM | | procedure are in the | | | | PST | | results section. | + +--------+ + + + | C-REACTIVE PROTEIN | STAT | 09/20/2018 | | Results for this | | | | 7:50 PM | | procedure are in the | | | | PST | | results section. | + +--------+ + + + | SEDIMENTATION RATE, | STAT | 09/20/2018 | | Results for this | | AUTOMATED | | 7:50 PM | | procedure are in the | | | | PST | | results section. | + +--------+ + + + | PHOSPHOROUS | STAT | 09/20/2018 | | Results for this | | | | 7:50 PM | | procedure are in the | | | | PST | | results section. | + +--------+ + + + | MAGNESIUM | STAT | 09/20/2018 | | Results for this | | | | 7:50 PM | | procedure are in the | | | | PST | | results section. | + +--------+ + + + | COMPREHENSIVE | STAT | 09/20/2018 | | Results for this | | METABOLIC PANEL | | 7:50 PM | | procedure are in the | | | | PST | | results section. | + +--------+ + + + | CBC W/AUTO DIFF | STAT | 09/20/2018 | | Results for this | | (REFLEX TO MANUAL) | | 7:50 PM | | procedure are in the | | | | PST | | results section. | + +--------+ + + + | BLOOD CULTURE, SET 1 | Timed | 09/20/2018 | | Results for this | | | | 7:50 PM | | procedure are in the | | | | PST | | results section. | + +--------+ + + + | CT ABDOMEN PELVIS WO | Routin | 09/20/2018 | Diagnosis unknown | Results for this | | CONTRAST | e | 5:21 PM | | procedure are in the | | | | PST | | results section. | + +--------+ + + + from Last 3 Months Results CBC W/Auto Diff (Reflex to Manual) (09/30/2018 5:29 AM)Only the most recent of 10 results within the time period is included. + + + + + | Component [...] | LABORATORY | | | performed at [facility], [address] | | | | [address], | | | | | [place] [address] | | | | | | | | + + + + + + + | Specimen | + + | Blood | + + + + + + + | Performing | Address | City/State/Zipcode | Phone Number | | Organization | | | | + + + + + | [facility] | [address] | [place] [address] | [phone] | | LABORATORY | [address] | | | + + + + + Phosphorus (09/30/2018 5:29 AM)Only the most recent of 6 results within the time period is included. + + + + + | Component | Value | Ref Range | Performed At | + + + + + | PHOSPHORUS | 3.7Comment: Testing | 2.3 - 4.8 mg/dL | [facility] | | | performed at [address], [address] | | LABORATORY | | | [facility], | | | | | [place] [address] | | | + + + + + + + | Specimen | + + | Blood | + + + + + + + | Performing | Address | City/State/Zipcode | Phone Number | | Organization | | | | + + + + + | [facility] | [address] | [place] [address] | [phone] | | LABORATORY | [address] | | | + + + + + Calcium, ionized (09/30/2018 5:29 AM)Only the most recent of 3 results within the time per iod is included. + + + + + | Component | Value | Ref Range | Performed At | + + + + + | CA++ | 1.03 (L) | 1.08 - 1.25 mmol/L | [facility] | + + + + + | pH | 7.436Comment: Testing | 7.300 - 7.450 | [facility] | | | performed at [facility] | | | | | [address];[place] | | | | | [address] | | | + + + + + + + | Specimen | + + | Blood | + + + + + + + | Performing | Address | City/State/Zipcode | Phone Number | | Organization | | | | + + + + + | [facility] | [address] | [place] [address] | | + + + + + Basic metabolic panel (09/30/2018 5:29 AM)Only the most recent of 9 results within the period is included. + + + + + | Component [...] | | | | | performed at [facility], [address] | | | | | [facility] [place], | | | | | [place] [address] | | | + + + + + + + | Specimen | + + | Blood | + + + + + + + | Performing | Address | City/State/Zipcode | Phone Number | | Organization | | | | + + + + + | [facility] | [address] | [place] [address] | [phone] | | LABORATORY | [address] | | | + + + + + POCT glucose (09/30/2018 5:16 AM)Only the most recent of 41 results within the time period is included. + + + + + | Component | Value | Ref Range | Performed At | + + + + + | GLUCOSE,POC SCREEN | 94Comment: Testing | 65 - 99 mg/dL | [facility] | | | performed at [facility] | | [address];[place] | | | | | [address] | | | + + + + + + + + + + | Performing | Address | City/State/Zipcode | Phone Number | | Organization | | | | + + + + + | [facility] | [address] | [place] [address] | | + + + + + Iron ely (09/29/2018 1:47 PM) + + + + [...] | [facility] | | | performed at [facility], [address] | | LABORATORY | | | [address], | | | | | [place] [address] | | | + + + + + + + | Specimen | + + | Blood | + + + + + + + | Performing | Address | City/State/Zipcode | Phone Number | | Organization | | | | + + + + + | [facility] | [address] | [place] [address] | [phone] | | LABORATORY | [address] | | | + + + + + Folate (09/29/2018 1:47 PM) + + + + + | Component | Value | Ref Range | Performed At | + + + + + | FOLATE | 5.0 (L)Comment: Testing | >5.4 ng/mL | [facility] | | | performed at [facility], [address] | | LABORATORY | | | [facility], | | | | | [place] [address] | | | + + + + + + + | Specimen | + + | Blood | + + + + + + + | Performing | Address | City/State/Zipcode | Phone Number | | Organization | | | | + + + + + | [facility] | [address] | [place] [address] | [phone] | | LABORATORY | [address] | | | + + + + + Ferritin (09/29/2018 1:47 PM) + + + + + | Component | Value | Ref Range | Performed At | + + + + + | FERRITIN | 344 (H)Comment: Testing | 6 - 170 ng/mL | [facility] | | | performed at [facility], [address] | | LABORATORY | | | [address], | | | | | [place] [address] | | | + + + + + + + | Specimen | + + | Blood | + + + + + + + | Performing | Address | City/State/Zipcode | Phone Number | | Organization | | | | + + + + + | [facility] | [address] | [place] [address] | [phone] | | LABORATORY | [address] | | | + + + + + Vitamin B12 (09/29/2018 1:47 PM) + + + + + | Component | Value | Ref Range | Performed At | + + + + + | VITAMIN B12 | 921Comment: Testing | 254 - 1,320 pg/mL | [facility] | | | performed at [facility], [address] | | LABORATORY | | | [address], | | | | | [place] [address] | | | + + + + + + + | Specimen | + + | Blood | + + + + + + + | Performing | Address | City/State/Zipcode | Phone Number | | Organization | | | | + + + + + | [facility] | [address] | [place] [address] | [phone] | | LABORATORY | [address] | | | + + + + + Vancomycin, random (09/29/2018 6:12 AM) + + + + + | Component | Value | Ref Range | Performed At | + + + + + | VANCOMYCIN,RANDOM | 24.1Comment: Testing | ug/mL | [facility] | | | performed at [facility] | | | | | [address];[place] | | | | | [address] | | | + + + + + + + | Specimen | + + | Blood | + + + + + + + | Performing | Address | City/State/Zipcode | Phone Number | | Organization | | | | + + + + + | [facility] | [address] | [place] [address] | | + + + + + Pathology histology - tissue (09/26/2018 3:00 PM) + + | Specimen | + + | Tissue | + + + + + | Narrative | Performed At | + + + | SPECIMEN(S): A RIGHT ABDOMINAL PANNUS SPECIMEN SOURCE: A. RIGHT | [facility] | | ABDOMINAL PANNUS CLINICAL HISTORY: Panniculitis. [...] | | material. Representatively submitted in (A1-A2). am:BES:mrf | | | PERFORMING LABORATORY: The technical component was performed by | | | [email or web address], [address] [place] [address] (Medical | | | Director: Ludy Savage MD; CLIA# [id number]). Professional | | | interpretation was performed by [facility], [facility]. | | | [facility], [address] [place] [address] | | | (Pear Picker: Vance Foley M.D.; | | | CLIA#: [id number]). Diagnostician: Vance Foley MD | | | Pathologist Electronically Signed 09/27/2018 | | + + + + +---------+ + + | Performing | Address | City/State/Zipcode | Phone Number | | Organization | | | | + +---------+ + + | [facility] | | | | + +---------+ + + Hepatitis panel, chronic (09/22/2018 7:23 [...] performed at | | | | | [facility], [address] [facility] [address] | | | | | [place] | | | | | [address] | | | + + + + + + + + + + | Performing | Address | City/State/Zipcode | Phone Number | | Organization | | | | + + + + + | [facility] | [address] | [place] [address] | [phone] | | LABORATORY | [address] | | | + + + + + Vancomycin, trough (09/21/2018 2:27 PM) + + + + + | Component | Value | Ref Range | Performed At | + + + + + | VANCOMYCIN,TROUGH | <3.0 (L)Comment: 15 to | 10 - 20 ug/mL | [facility] | | | 20 ug/mL for [...] [facility] [place];[address] | | | | | [address];[place] | | | | | [address] | | | + + + + + + + | Specimen | + + | Blood | + + + + + + + | Performing | Address | City/State/Zipcode | Phone Number | | Organization | | | | + + + + + | [facility] | [address] | [place] [address] | | + + + + + Magnesium (09/21/2018 6:10 AM)Only the most recent of 2 results within the time period is included. + + + + + | Component | Value | Ref Range | Performed At | + + + + + | MAGNESIUM | 2.1Comment: Testing | 1.7 - 2.4 mg/dL | [facility] | | | performed at [facility], [address] | | LABORATORY | | | [facility], | | | | | [place] [address] | | | + + + + + + + | Specimen | + + | Blood | + + + + + + + | Performing | Address | City/State/Zipcode | Phone Number | | Organization | | | | + + + + + | [facility] | [address] | [place] [address] | [phone] | | LABORATORY | [address] | | | + + + + + Glycohemoglobin A1c (09/21/2018 6:10 AM) + + + + + | Component | Value | Ref Range | Performed At | + + + + + | HEMOGLOBIN A1C | 5.7Comment: HbA1c method | 4.0 - 6.0 % | [facility] | | | is certified by [employer] | | LABORATORY | | | and [...] | 117Comment: Estimated | <154 mg/dL | [facility] | | GLUCOSE | Average Glucose | | LABORATORY | | | calculated from | | | | | hemoglobin A1c by use of | | | | | the ADA recommended | | | | | formula.Testing | | | | | performed at [facility], [address] | | | | | [facility], | | | | | [place] [address] | | | + + + + + + + | Specimen | + + | Blood | + + + + + + + | Performing | Address | City/State/Zipcode | Phone Number | | Organization | | | | + + + + + | [facility] | [address] | [place] [address] | [phone] | | LABORATORY | [address]vd[address] | | | + + + + + Lipid panel (09/21/2018 6:10 AM) + + + + + | Component | Value | Ref Range | Performed At | + + + + + | CHOLESTEROL | 119 | <200 mg/dL | [facility] | | | | | LABORATORY | [...] | [facility] | | | performed at [facility], [address] | | LABORATORY | | | [address], | | | | | [place] [address] | | | + + + + + + + | Specimen | + + | Blood | + + + + + + + | Performing | Address | City/State/Zipcode | Phone Number | | Organization | | | | + + + + + | [facility] | [address] | [place] [address] | [phone] | | LABORATORY | [address] | | | + + + + + MRSA by PCR (09/20/2018 11:36 PM) + + + + + | Component | Value | Ref Range | Performed At | + + + + + | SOURCE | NARES(NOSE) | | [facility] | + + + + + | MRSA PCR | POSITIVE for MRSA by PCR | NEGATIVE | [facility] | | | (A)Comment: Testing | | | | | performed at [facility];[address] | | | | | [address];[place] | | | | | [address] | | | + + + + + + + | Specimen | + + | Nasopharyngeal - | | Nares(Nose) | + + + + + + + | Performing | Address | City/State/Zipcode | Phone Number | | Organization | | | | + + + + + | [facility] | [address] | [place] [address] | | + + + + + Blood Culture Set 2 (09/20/2018 8:46 PM) + + + + + | Component | Value | Ref Range | Performed At | + + + + + | Specimen Description | BLOOD | | [facility] | | | | | LABORATORY | + + + + + | SPECIAL REQUESTS | R HAND | | [facility] | + + [...] | + + + + + | [facility] | [address] | [place] [address] | [phone] | | LABORATORY | [address]vd[address] | | | + + + + + | [facility] | [address] | [place] [address] | | + + + + + PROCALCITONIN (09/20/2018 7:50 PM) + + + + + | Component | Value | Ref Range | Performed At | + + + + + | PROCALCITONIN | 0.45Comment: | <0.5 ng/mL | [facility] | | | INTERPRETIVE | | [...] | | at [facility];[address] [place] [address] | | | | | [facility];[place] [address] | | | + + + + + + + + + + | Performing | Address | City/State/Zipcode | Phone Number | | Organization | | | | + + + + + | [facility] | [address] | [place] [address] | | + + + + + Blood Culture Set 1 (09/20/2018 7:50 PM) + + + + + | Component | Value | Ref Range | Performed At | + + + + + | Specimen Description | BLOOD | | [facility] | | | | | LABORATORY | + + + + + | SPECIAL REQUESTS | RAC | | [facility] | + + [...] + + + | [facility] | [address] | [place] [address] | [phone] | | LABORATORY | [address]vd[address] | | | + + + + + | [facility] | [address] | [place] [address] | | + + + + + ESR (09/20/2018 7:50 PM) + + + + + | Component | Value | Ref Range | Performed At | + + + + + | ESR | >130 (H)Comment: Testing | 0 - 20 mm/Hr | [facility] | | | performed at [facility];[address] | | [address];[place] | | | | | [address] | | | + + + + + + + | Specimen | + + | Blood | + + + + + + + | Performing | Address | City/State/Zipcode | Phone Number | | Organization | | | | + + + + + | [facility] | [address] | [place] [address] | | + + + + + C-reactive protein (09/20/2018 7:50 PM) + + + + + | Component | Value | Ref Range | Performed At | + + + + + | CRP | 8.8 (H)Comment: Testing | <0.5 mg/dL | [facility] | | | performed at [facility];[address] | | | | | [address];[place] | | | | | [address] | | | + + + + + + + | Specimen | + + | Blood | + + + + + + + | Performing | Address | City/State/Zipcode | Phone Number | | Organization | | | | + + + + + | [facility] | [address] | [place] [place] [place] [address] | | + + + + + Comprehensive metabolic panel (09/20/2018 7:50 PM) + + + + + | Component | Value | Ref Range | Performed At | + + + + + | SODIUM | 139 | 135 - 145 mmol/L | [facility] | + + + + + | POTASSIUM | 4.2 | 3.5 - 4.9 mmol/L | [facility] | + + + + + | CHLORIDE | 97 (L) | 99 - 109 mmol/L | [facility] | + + + + + | CO2 | 35 (H) | 23 - 32 mmol/L | [facility] | + + + + + | ANION GAP AGAP | 11 | 5 - 20 mmol/L | [facility] | + + + + + | GLUCOSE | 78 | 65 - 99 mg/dL | [facility] | + + + + + | BUN | 13 | 8 - 25 mg/dL | [facility] | + + + + + | CREATININE | 2.69 (H) | 0.50 - 1.00 mg/dL | [facility] | + + + + + | BUN/CREAT | 5 | | [facility] | + + + + + | CALCIUM | 8.4 (L) | 8.5 - 10.5 mg/dL | [facility] | + + [...] 0.8 (L) | 1.0 - 2.4 | [facility] | + + + + + | TBIL | 0.4 | 0.1 - 1.5 mg/dL | [facility] | + + + + + | ALK PHOS | 109 | 35 - 115 U/L | [facility] | + + + + + | AST | 16 | 10 - 45 U/L | [facility] | + + + + + | ALT | 9 (L) | 10 - 65 U/L | [facility] | + + + + + | EGFR | 20 (L)Comment: GFR <60: | >60 mL/min/1.73m2 | [facility] | | | CHRONIC KIDNEY DISEASE, [...] – [place];[address] | | | | | [address];[place], [place] | | | | | [address] | | | + + + + + + + | Specimen | + + | Blood | + + + + + + + | Performing | Address | City/State/Zipcode | Phone Number | | Organization | | | | + + + + + | [facility] | [address] | [place] [address] | | + + + + + CT abdomen pelvis without contrast (09/20/2018 5:21 [...] | + + + + + | [facility] | [address] | [place] [address] | | + + + + + from Last 3 Months Insurance + +--------+ +------+-------+ + | Payer | Benefi | Subscriber | Type | Phone | Address | | | t Plan | ID | | | | | | / | | | | | | | Group | | | | | + +--------+ +------+-------+ + | MEDICAID | [place] | [id number] | | | [address] | | | [address] | | | | [place] | | | [place] | | | | [address] | | | [place] | | | | | + +--------+ [...] | Self [birth year] Home: | [address] | | | al/Fam | | [phone] | [phone] | [place] | | | [place] | | | [phone] | [phone] | + +--------+ +--------+ + +
--- OUTSIDE RECORDS SUMMARY | ~2018-10-28 | XMS | Encounter Summary ---
Demographics + + + | Address | [address] | | | [place] [address] | + + + | Home Phone | | + + + | Preferred Language | Unknown | + + + | Marital Status | Single | + + + | Gnosticist Affiliation | Unknown | + + + | Race | Unknown | + + + | Ethnic Group | Unknown | + + + Author + + + | Author | [facility] | + + + | Organization | [facility] | + + + | Address | Unknown | + + + | Phone | Unavailable | + + + Support + + + + + | Name | Relationship | Address | Phone | + + + + + | Juliana Dixon | ECON | Unknown | | + + + + + | Mya Dixon | ECON | [address] | | | | | [place] | | | | | [address] | | + + + + + Care Team Providers + +------+ + | Care Paper Machine Backtender Name | Role | Phone | + +------+ + | Donis Martel MD | PCP | | + +------+ + Encounter Details +--------+ + + + + | Date | Type | Department | Care Team | Description | +--------+ + + + + | 09/26/ | Procedure | [facility] | | | | 2019 | [facility] | [facility] | | | | | | Operating Room [address] | | | | | | [address] | | | | | | [place] [address] | | | | | | [phone] | | | +--------+ + + + [...] | | | | | [place] [address] | | | | | | [phone] | | | | | | | | +--------+---------+ + + + as of this encounter Visit Diagnoses Not on filein this encounter
--- OUTSIDE RECORDS SUMMARY | ~2018-10-28 | XMS | Encounter Summary ---
Demographics + + + | Address | [address] | | | [place] [address] | + + + | Home Phone | | + + + | Preferred Language | Unknown | + + + | Marital Status | Single | + + + | Yarsani Affiliation | Unknown | + + + | Race | Unknown | + + + | Ethnic Group | Unknown | + + + Author + + + | Author | [facility] | + + + | Organization | [facility] | + + + | Address | Unknown | + + + | Phone | Unavailable | + + + Support + + + + + | Name | Relationship | Address | Phone | + + + + + | Juliana Dixon | ECON | Unknown | | + + + + + | Mya Dixon | ECON | [address] | | | | | [place] | | | | | [address] | | + + + + + Care Team Providers + +------+ + | Care Manager Data Name | Role | Phone | + [...] | | Panniculitis | [address] | [address] [place] [address] | | | | | | [address] | [place] | | | | | | [address] | [place], [place] | | | | | | [place], [place] | [address] Phone: | | | | | | [address] | [phone] | | | | | | Phone: | Fax: | | | | | | [phone] | [phone] | | | | | | Fax: | | | | | | | [phone] | | +--------+ + + + + + Encounter Details +--------+---------+ + + + | Date | Type | Department | Care Team | Description | +--------+---------+ + + + | 10/09/ | Office | [facility] | Kyle Alford, | Brayanulitis | | 2019 | Visit | Plastic Surgery and | MD [place] | (Primary Dx) | | | | Dermatology [address] [place], | | | | | [address] | [place] [address] | | | | | [place] | [phone] | | | | | [address] | | | | | | [phone] | | | +--------+---------+ + + + [...] [place] | | | | | | [place] [address] | | | | | | [phone] | | | | | | | | +--------+---------+ + + + as of this encounter Visit Diagnoses + + | Diagnosis | + + | Panniculitis - Primary | + + | Panniculitis, unspecified site | + +
--- OUTSIDE RECORDS SUMMARY | ~2018-10-28 | XMS | Encounter Summary ---
Demographics + + + | Address | [address] | | | [place] [address] | + + + | Home Phone | | + + + | Preferred Language | Unknown | + + + | Marital Status | Single | + + + | Yazidism Affiliation | Unknown | + + + | Race | Unknown | + + + | Ethnic Group | Unknown | + + + Author + + + | Author | [facility] | + + + | Organization | [facility] | + + + | Address | Unknown | + + + | Phone | Unavailable | + + + Support + + + + + | Name | Relationship | Address | Phone | + + + + + | Juliana Dixon | ECON | Unknown | | + + + + + | Mya Dixon | ECON | [address] | | | | | [place] | | | | | [address] | | + + + + + Care Team Providers + +------+ + | Care Crown Ironer Name | Role | Phone | + +------+ + | Donis Martel MD | PCP | | + +------+ + Reason for Visit MRI/CAT Scan (Routine) + +--------+ + + [...] | | | | | without | [id number] | | | | | | contrast | Phone: | | | | | | | [phone] | | | | | | | Fax: | | | | | | | [phone] | | + +--------+ + + + + Encounter Details +--------+ + + + + | Date | Type | Department | Care Team | Description | +--------+ + + + + | 09/20/ | Hospital | [facility] | See, Medical | Diagnosis unknown | | 2019 | Encounter | [facility] | Record [address] | | | | | RADIOLOGY [address] | [address] [facility] | | | | | [address] | [place] [address] | | | | | [place] [address] | [phone] | | | | | [phone] | | | +--------+ + + + [...] + + + as of this encounter Medications at Time of Discharge [...] BY MOUTH | 30 | 11 | / | | | (VITAMIN D3) 5000 | DAILY | capsule | | 17 | | | units CAPS | | | | | | + + + +---------+ + + | cinacalcet | Take 1 tablet by | 84 | 0 | 05/04/20 | | | (SENSIPAR) 30 MG | mouth daily. Lot# | tablet | | 17 | | | tablet | [id number]. Exp date | | | | | [...] + +---------+ + + | doxazosin | Take 4 mg by mouth 2 | | | | | | (CARDURA) 4 MG | (two) times daily. | | | | 9 | | tablet | Take with doxazosin | | | | | | | 1 mg tablet | | | | | + + + +---------+ + + | PHOSLO 667 MG CAPS | TAKE 3 BY MOUTH 3 | 390 | 11 | 09/04/19 | | | | TIMES DAILY WITH | capsule | | 18 | 9 | | | MEALS AND 2 BY | | | | | | | MOUTH TWO TIMES | | | | | | | DAILY WITH SNACKS | | | | | + + + +---------+ + + | propranolol | Take 40 mg by mouth | | | | | | (INDERAL) 40 MG | daily. | | | | 9 | | tablet | | | | | | + + + +---------+ + + as of this encounter Plan of Treatment +--------+---------+ + + + | Date | Type | Specialty | Care Team | Description | +--------+---------+ + + + | 10/31/ | Office | Infectious Diseases | Jordan Beltrán DO | | | 2019 | Visit | | [address] | | | | | | [place] [address] | | | | | | [phone] | | | | | | | | +--------+---------+ + + + as of this encounter Procedures [...] section. | + +--------+ + + + in this encounter Results CT abdomen pelvis without contrast (09/20/2018 5:21 PM) + + + | Narrative | Performed At | + + + | This is a non-reportable procedure without a radiologist report and | [facility] | | is used for image storage only | RADIOLOGY | + + + + + + + + | Performing | Address | City/State/Zipcode | Phone Number | | Organization | | | | + + + + + | [facility] | [address] | [place] [address] | | + + + + + in this encounter Visit Diagnoses + + | Diagnosis | + + | Diagnosis unknown | + + | Other unknown and unspecified cause of morbidity or mortality | + +
--- OUTSIDE RECORDS SUMMARY | ~2018-10-28 | XMS | Encounter Summary ---
Demographics + + + | Address | [address] | | | [place] [address] | + + + | Home Phone | | + + + | Preferred Language | Unknown | + + + | Marital Status | Single | + + + | Latter-Day Affiliation | Unknown | + + + | Race | Unknown | + + + | Ethnic Group | Unknown | + + + Author + + + | Author | [facility] | + + + | Organization | [facility] | + + + | Address | Unknown | + + + | Phone | Unavailable | + + + Support + + + + + | Name | Relationship | Address | Phone | + + + + + | Juliana Dixon | ECON | Unknown | | + + + + + | Mya Dxion | ECON | [address] | | | | | [place] | | | | | [address] | | + + + + + Care Team Providers + +------+ + | Care Patternator Name | Role | Phone | + +------+ + | Donis Martel MD | PCP | | + +------+ + Reason for Visit +--------+ + | Reason | Comments | +--------+ + | Other | July 2018-Светлана Avila Note | +--------+ + Encounter Details +--------+ + + + + | Date | Type | Department | Care Team | Description | +--------+ + + + + | 09/01/ | Documentati | [facility] Nephrology | Eric Sun MD | Other (July | | 2018 | on Only | [address] | [address] | 2019-[facility] Provider | | | | [address] | [address] [place], [place] | Dialysis Rounding | | | | [place] [address] | [address] | Note) | | | | [phone] | | | +--------+ + + + [...] Alexander | | | | | | [place] [address] | | | | | | [phone] | | | | | | | | +--------+---------+ + + + as of this encounter Visit Diagnoses Not on filein this encounter
--- OUTSIDE RECORDS SUMMARY | ~2018-10-28 | XMS | Encounter Summary ---
Demographics + + + | Address | [address] | | | [place] [address] | + + + | Home Phone | | + + + | Preferred Language | Unknown | + + + | Marital Status | Single | + + + | Yazdanism Affiliation | Unknown | + + + | Race | Unknown | + + + | Ethnic Group | Unknown | + + + Author + + + | Author | [facility] | + + + | Organization | [facility] | + + + | Address | Unknown | + + + | Phone | Unavailable | + + + Support + + + + + | Name | Relationship | Address | Phone | + + + + + | Juliana Dixon | ECON | Unknown | | + + + + + | Mya Dixon | ECON | [address] | | | | | [place] | | | | | [address] | | + + + + + Care Team Providers + +------+ + | Care Oil Furnace Installer Name | Role | Phone | + +------+ + | Donis Martel MD | PCP | | + +------+ + Encounter Details +--------+ + + + + | Date | Type | Department | Care Team | Description | +--------+ + + + + | 09/25/ | Orders Only | [facility] | Ludy Gonzales, | Panniculitis | | 2019 | | Plastic Surgery and | DIGITAL PERFORMANCE ANALYST | (Primary Dx) | | | | Dermatology [address] | | | | | | [address] | | | | | | [place] | | | | | | [address] | | | | | | [phone] | | | +--------+ + + + [...] [place] | | | | | | [facility] [address] | | | | | | [phone] | | | | | | | | +--------+---------+ + + + + +--------+ + + | Name | Priori | Associated Diagnoses | Order Schedule | | | ty | | | + +--------+ + + | Case Request Operating Room: | Routin | Panniculitis | Expected: | | PANNICULECTOMY | e | | 09/25/2018, Expires: | | | | | 09/26/2019 | + +--------+ + + as of this encounter Visit Diagnoses + + | Diagnosis | + + | Panniculitis - Primary | + + | Panniculitis, unspecified site | + +
--- OUTSIDE RECORDS SUMMARY | ~2018-10-28 | XMS | Encounter Summary ---
Demographics + + + | Address | [address] | | | [place] [address] | + + + | Home Phone | | + + + | Preferred Language | Unknown | + + + | Marital Status | Single | + + + | Jewish Affiliation | Unknown | + + + | Race | Unknown | + + + | Ethnic Group | Unknown | + + + Author + + + | Author | [facility] | + + + | Organization | [facility] | + + + | Address | Unknown | + + + | Phone | Unavailable | + + + Support + + + + + | Name | Relationship | Address | Phone | + + + + + | Juliana Dixon | ECON | Unknown | | + + + + + | Mya Dixon | ECON | [address] | | | | | [place] | | | | | [address] | | + + + + + Care Team Providers + +------+ + | Care Keymodule Assembly Machine Tender Name | Role | Phone | + [...] | | 2018 | on Only | [address] | [address] | 2019-[facility] Provider | | | | [address] | [address] [place], [place] | Dialysis Rounding | | | | [place] [address] | [address] | Note) | | | | [phone] | | | +--------+ + + + [...] [address] | | | | | | [place] [address] | | | | | | [phone] | | | | | | | | +--------+---------+ + + + as of this encounter Visit Diagnoses Not on filein this encounter
--- OUTSIDE RECORDS SUMMARY | ~2018-10-28 | XMS | Encounter Summary ---
Demographics + + + | Address | [address] | | | [place] [address] | + + + | Home Phone | | + + + | Preferred Language | Unknown | + + + | Marital Status | Single | + + + | Evangelical Affiliation | Unknown | + + + | Race | Unknown | + + + | Ethnic Group | Unknown | + + + Author + + + | Author | [facility] | + + + | Organization | [facility] | + + + | Address | Unknown | + + + | Phone | Unavailable | + + + Support + + + + + | Name | Relationship | Address | Phone | + + + + + | Juliana Dixon | ECON | Unknown | | + + + + + | Mya Dixon | ECON | [address] | | | | | [place] | | | | | [address] | | + + + + + Care Team Providers + +------+ + | Care Forging Press Operator Name | Role | Phone | + +------+ + | Donis Martel MD | PCP | | + +------+ + Encounter Details +--------+ + + + + | Date | Type | Department | Care Team | Description | +--------+ + + + + | 10/11/ | Telephone | [facility] | Ludy Gonzales, | | | 2018 | | Plastic Surgery and | GUM MIXER | | | | | Dermatology [address] | | | | | | [address] | | | | | | [place] | | | | | | [address] | | | | | | [phone] | | | +--------+ + + + [...] Alexander | | | | | | [place] [address] | | | | | | [phone] | | | | | | | | +--------+---------+ + + + as of this encounter Visit Diagnoses Not on filein this encounter
--- OUTSIDE RECORDS SUMMARY | ~2018-10-28 | XMS | Encounter Summary ---
Demographics + + + | Address | [address] | | | [place] [address] | + + + | Home Phone | | + + + | Preferred Language | Unknown | + + + | Marital Status | Single | + + + | Adventism Affiliation | Unknown | + + + | Race | Unknown | + + + | Ethnic Group | Unknown | + + + Author + + + | Author | [facility] | + + + | Organization | [facility] | + + + | Address | Unknown | + + + | Phone | Unavailable | + + + Support + + + + + | Name | Relationship | Address | Phone | + + + + + | Juliana Dixon | ECON | Unknown | | + + + + + | Mya Dixon | ECON | [address] | | | | | [place] | | | | | [address] | | + + + + + Care Team Providers + +------+ + | Care Supervisor Compounding And Finishing Name | Role | Phone | + [...] | | | | | without | [address] | | | | | | contrast | Phone: | | | | | | | [phone] | | | | | | | Fax: | | | | | | | [phone] | | + +--------+ + + + + Encounter Details +--------+ + + + + | Date | Type | Department | Care Team | Description | +--------+ + + + + | 09/20/ | Hospital | [facility] | See, Medical | Diagnosis unknown | | 2019 | Encounter | [facility] | Record [address] | | | | | RADIOLOGY [address] | [address] | | | | | [address] | [place] [address] | | | | | [place] [address] | [phone] | | | | | [phone] | | | +--------+ + + + [...] | 17 | | | tablet | [id number]. Exp date | | | | | [...] | | | | | [place] [address] | | | | | | [phone] | | | | | | | [...] | + + + + + | [facility] | [address] | [place] [address] | | + + + + + in this encounter Visit Diagnoses + + | Diagnosis | + + | Diagnosis unknown | + + | Other unknown and unspecified cause of morbidity or mortality | + +
--- OUTSIDE RECORDS SUMMARY | ~2018-10-28 | XMS | Encounter Summary ---
Demographics + + + | Address | [address] | | | [place] [address] | + + + | Home Phone | | + + + | Preferred Language | Unknown | + + + | Marital Status | Single | + + + | Nondenominational Affiliation | Unknown | + + + | Race | Unknown | + + + | Ethnic Group | Unknown | + + + Author + + + | Author | [facility] | + + + | Organization | [facility] | + + + | Address | Unknown | + + + | Phone | Unavailable | + + + Support + + + + + | Name | Relationship | Address | Phone | + + + + + | Juliana Dixon | ECON | Unknown | | + + + + + | Mya Dixon | ECON | [address] | | | | | [place] | | | | | [address] | | + + + + + Care Team Providers + +------+ + | Care Emergency Medicine Name | Role | Phone | + [...] | | 2018 | on Only | [address] | [address] | 2019-[facility] Provider | | | | [address] | [address] [place], [place] | Dialysis Rounding | | | | [place] [address] | [address] | Note) | | | | [phone] | | | +--------+ + + + [...] Alexander | | | | | | [place] [address] | | | | | | [phone] | | | | | | | | +--------+---------+ + + + as of this encounter Visit Diagnoses Not on filein this encounter
--- OUTSIDE RECORDS SUMMARY | ~2018-10-28 | XMS | Encounter Summary ---
Demographics + + + | Address | [address] | | | [place] [address] | + + + | Home Phone | | + + + | Preferred Language | Unknown | + + + | Marital Status | Single | + + + | Judaism Affiliation | Unknown | + + + | Race | Unknown | + + + | Ethnic Group | Unknown | + + + Author + + + | Author | [facility] | + + + | Organization | [facility] | + + + | Address | Unknown | + + + | Phone | Unavailable | + + + Support + + + + + | Name | Relationship | Address | Phone | + + + + + | Juliana Dixon | ECON | Unknown | | + + + + + | Mya Dixon | ECON | [address] | | | | | [place] | | | | | [address] | | + + + + + Care Team Providers + +------+ + | Care Apprentice Painter Hand Name | Role | Phone | + +------+ + | Jatin Rodríguez MD | PCP | | + +------+ + Reason for Visit Auth/Cert +--------+--------+ + [...] +--------+--------+ + + + + Encounter Details +--------+---------+ + + + | Date | Type | Department | Care Team | Description | +--------+---------+ + + + | 09/26/ | Surgery | [facility] | Qamar Alford, | PANNICULECTOMY | | 2019 | | [facility] | [address] [place] [address] | | | | | Operating Room [address] | [address] [place], | | | | | [place] | [place] [address] | | | | | [place] [address] | [phone] | | | | | [phone] | | | +--------+---------+ + + + [...] this note may be different from gela hernandez original. [facility] Service: Hospitalist Discharge Summary Date of Admission: [...] stay and will be discharged to a [facility]p facility. Blood culture wa s negative. ID [...] Take 1 tablet by mouth daily. Lot# [id number]. Exp date 02/02. 84 tablet 0 Taking [...] 10.20 -- 9.23 Recent Labs Lab 09/30/18 0509/29/18 0612 09/28/18 0525 NA 132* 131* 131* [...] hours. No results for input(s): PHART, PO2ART, KJK4ZRU, M3FOGUGP, BEART in the last 168 hours. No [...] up: Jatin Rodríguez MD [address] [place] [address] Follow up [facility] [place] [address] [place] [address] Jordan Ho DO [address] [facility] [address] On 10/10/2018 Qamar Alford MD [address] [facility] [address] In 1 week Medication List START taking [...] Take 1 tablet by mouth daily. Lot# [id number]. Exp date 02/02. oxybutynin 5 MG tablet [...] if it appears clean. Dr Alford w ill change it at clinic appointment in 1 [...] | 17 | | | tablet | [id number]. Exp date | | | | | [...] as of this encounter Progress Notes Ludin Connell MD - 09/29/2018 11:09 AM PDTFormatting of this note may be different from gela hernandez original. [facility] Service: Hospitalist Progress Note Hospital Day: LOS: [...] Oral TID WC tumescent anesthetic solution Infiltration Smoke Chaser to OR tumescent anesthetic solution Infiltration Smoke Chaser to OR sodium chloride (PF) 10 mL [...] Extremities: ++edema DATA Recent Labs Lab 09/29/18 0612 09/28/18 0525 09/27/18 0521 09/26/18 0555 WBC 14.78* 14.43* 14.33* 10.22 HGB [...] hours. No results for input(s): PHART, PO2ART, JTA8LRG, E7BHFDGQ, BEART in the last 168 hours. No [...] will be on vancomycin/augm entin through Vin[facility] 26. FU corrected Ca every day for now [...] was completed later after rounds. Dictation software, [employer], was used which may contain error for [...] Oral TID WC tumescent anesthetic solution Infiltration Smoke Chaser to OR tumescent anesthetic solution Infiltration Smoke Chaser to OR sodium chloride (PF) 10 mL Intravenous Q8H vancomycin 750 mg Intravenous See Admin Instructions vancomycin 750 mg Intravenous Once dextrose Jordan Ho, - 09/29/2018 8:04 AM PDTFormatting of this note may be different from the original. [facility] Service: Infectious Disease Progress Note Hospital Day: [...] with hemodialysis. The patient initially presented to [facility], and was transferred here with the supposedly [...] Oral TID WC tumescent anesthetic solution Infiltration Smoke Chaser to OR tumescent anesthetic solution Infiltration Smoke Chaser to OR sodium chloride (PF) 10 mL [...] ESRD on hemodialysis Diabetes mellitus, type 2 ([facility]) ASSESSMENT & PLAN Panniculitis (09/21/2018) appreciate panniculectomy. [...] needed. Code Status: Prior JORDAN HO, 09/29/2018[facility] - 09/29/2018 7:58 AM PDTFormatting of this note may be different from the original. Vancomycin Monitoring Subjective Pharmacy to dose vancomycin per protocol. Diagnosis: Panniculitis. Vancomycin Day: 9 Objective Lab Results Component Value Date/Time CREATININE 5.1 (H) 09/29/2018 06:12 AM WBC 14.78 (H) 09/29/2018 06:12 AM Wt= 112 kg, CrCl= HD, Tmax afeb Cultures= Bloodx2 [id number], MRSA PCR - Pos . Other Abx= Augmentin Current Vancomycin Dose = 750 mg post dialysis Vancomycin Random Level: 24.1 ug/mL on 09/29/18 @ 0612. Assessment Per protocol, continue current dosing for a random level between 15-25 ug/mL. Vancomycin will continue through October 10. Plan Continue vancomycin HD protocol. No further levels needed at this time. Pharmacist: Vance Real, [facility] - 09/28/2018 1:27 PM PDTRenal Dosing Monitoring: S: Renal dose monitoring per protocol. O: Dialysis Patient A/P: Changed dosing of Augmentin from 500-125 mg BID to 500-125 mg QD based on dialysis dos ing and per Wilbert/Gaffney Guide. Pharmacist: Vance Rosenberg, PharmD Derrick Sanchez MD - 09/28/2018 12:55 PM PDTFormatting of [...] evaluation: Lab Results Component Value Date BUN 14 09/28/2018 CREATININE 3.7 (H) 09/28/2018 EGFR 14 (L) 09/28/2018 NA 131 (L) 09/28/2018 K 4.5 09/28/2018 CL 95 (L) 09/28/2018 CO2 27 09/28/2018 CA 7.9 (L) 09/28/2018 PHOS 3.3 09/28/2018 MG 2.1 09/21/2018 ALB 3.3 (L) 09/20/2018 HGB 8.2 (L) 09/28/2018 Lab Results Component Value Date ANIONGAP 14 09/28/2018 Assessment and Recommendations: 1. ESRD on [...] will be on vancomycin/augm entin through [facility] 26. FU corrected Ca every day for now [...] hour period. Strict I/O Daily weights. DERRICK FARIHA, MD 09/28/2018 Plan of care was discussed with Dr. Connell. Portions of my previous notes have been carried over for continuity of care. She was seen earlier in the day and charting was completed later after rounds. Dictation software, [employer], was used which may contain error for [...] Oral TID WC tumescent anesthetic solution Infiltration Smoke Chaser to OR tumescent anesthetic solution Infiltration Smoke Chaser to OR sodium chloride (PF) 10 mL Intravenous Q8H vancomycin 750 mg Intravenous See Admin Instructions dextrose Ludin Connell MD - 09/28/2018 11:45 AM PDTFormatting of this note may be different from t mary original. [facility] Service: Hospitalist Progress Note Hospital Day: LOS: [...] Oral TID WC tumescent anesthetic solution Infiltration Smoke Chaser to OR tumescent anesthetic solution Infiltration Smoke Chaser to OR sodium chloride (PF) 10 mL [...] hours. No results for input(s): PHART, PO2ART, CLL3FSR, C6NJISXM, BEART in the last 168 hours. No [...] ESRD on hemodialysis Diabetes mellitus, type 2 ([facility]) Resolved Problems: * No resolved hospital problems. [...] Ludin Connell MD 09/28/2018 11:45 Vance Mendoza, [facility] - 09/28/2018 11:39 AM PDTFormatting of this note may be d ifferent from the original. Vancomycin Monitoring Subjective Pharmacy to dose vancomycin per protocol. Diagnosis: Panniculitis. Vancomycin Day: 8 Objective Lab Results Component Value Date/Time CREATININE 3.7 (H) 09/28/2018 05:25 AM WBC 14.43 (H) 09/28/2018 05:25 AM Wt= 112.4 kg, CrCl= HD, Tmax afeb Cultures= Bloodx2 [id number], MRSA PCR - Pos . Other Abx= [...] her for follow-up in about 7-10 days.Jordan Ho DO - 09/28/2018 9:55 AM PDTFormatting of this no te may be different from the original. [facility] Service: Infectious Disease Progress Note Hospital Day: [...] with hemodialysis. The patient initially presented to [facility], and was transferred here with the supposedly [...] Oral TID WC tumescent anesthetic solution Infiltration Smoke Chaser to OR tumescent anesthetic solution Infiltration Smoke Chaser to OR sodium chloride (PF) 10 mL [...] of discharge. Code Status: Prior JORDAN HO, 09/28/2018Diane Haider, JACKIE - 09/27/2018 3:53 PM PDTFormatting of this [...] Estimated Energy Needs Total Energy Estimated Needs 7336-6198 kcal/day Method for Estimating Needs 25-30 kcal/kg [...] risk Low Follow up date 10/04/18 Diane Lopez, MS-MPH, JACKIEN Ludin Connell MD - 09/27/2018 2:49 PM PDTFormatting of this note may be different from t mary original. [facility] Service: Hospitalist Progress Note Hospital Day: LOS: [...] Oral TID WC tumescent anesthetic solution Infiltration Smoke Chaser to OR tumescent anesthetic solution Infiltration Smoke Chaser to OR sodium chloride (PF) 10 mL [...] place Extremities: ++edema DATA Recent Labs Lab 09/27/1852009/26/1855 09/25/18537 WBC 14.33* 10.22 10.60 HGB 8.5* 9.2* 9.3* HCT 28.1* 29.0* 29.9* PLT 292 302 316 NEUTOPHILPCT 74.28 63.97 65.29 MONOPCT 9.23 9.57 8.17 Recent Labs Lab 09/27/1852009/26/1855 09/25/18 0538 09/20/18 1950 NA 132* 133* [...] hours. No results for input(s): PHART, PO2ART, HEL6FWJ, T7KYJRYE, BEART in the last 168 hours. No [...] hypertension Morbid obesity due to excess calories ([facility]) ESRD on hemodialysis Diabetes mellitus, type 2 ([facility]) Resolved Problems: * No resolved hospital problems. [...] Status: Prior Ludin Connell MD 09/27/2018 2:49 [facility], [facility] - 09/27/2018 12:55 PM PDTFormatting of this note may be di fferent from the original. Vancomycin Monitoring Subjective Pharmacy to dose vancomycin per protocol. Diagnosis: Panniculitis. Vancomycin Day: 7 Objective Lab Results Component Value Date/Time CREATININE 5.3 (H) 09/27/2018 05:21 AM WBC 14.33 (H) 09/27/2018 05:21 AM Wt= 113.3 kg, CrCl= HD, Tmax afeb, Procalcitonin 0.45 ng/mL on 09/20/18 Cultures= Bloodx2 [id number], MRSA PCR - Pos . Other Abx= [...] (09/27/18) pr ior to dialysis. Pharmacist: Jordan Hardy DO - 09/27/2018 11:26 AM PDTFormatting of this note may be different from the original. [facility] Service: Infectious Disease Progress Note Hospital Day: [...] with hemodialysis. The patient initially presented to [facility], and was transferred here with the supposedly [...] Oral TID WC tumescent anesthetic solution Infiltration Smoke Chaser to OR tumescent anesthetic solution Infiltration Smoke Chaser to OR sodium chloride (PF) 10 mL [...] ESRD on hemodialysis Diabetes mellitus, type 2 ([facility]) ASSESSMENT & PLAN Panniculitis (09/21/2018) This is [...] was completed later after rounds. Dictation software, [employer], was used which may contain error for [...] Oral TID WC tumescent anesthetic solution Infiltration Smoke Chaser to OR tumescent anesthetic solution Infiltration Smoke Chaser to OR sodium chloride (PF) 10 mL Intravenous Q8H vancomycin 750 mg Intravenous See Admin Instructions Derrick Gregory MD - 09/26/2018 6:19 PM PDTFormatting of this note may be different from t mary original. PCP : JATIN RODRÍGUEZ LOS: 6 [...] was completed later after rounds. Dictation software, [employer], was used which may contain error for [...] Oral TID WC tumescent anesthetic solution Infiltration Smoke Chaser to OR tumescent anesthetic solution Infiltration Smoke Chaser to OR sodium chloride (PF) 10 mL Intravenous Q8H vancomycin 750 mg Intravenous See Admin Instructions dextrose Dayna Ozuna MD - 09/26/2018 3:38 PM PDTFormatting of this note may be different f rom the original. [facility] Service: Hospitalist Progress Note Pt: Corrina [place] AGE/SEX: 43 y.o. female ROOM: [facility]44[facility] : 1975 PCP: JATIN RODRÍGUEZ ADMIT DATE: [...] Oral TID WC tumescent anesthetic solution Infiltration Smoke Chaser to OR tumescent anesthetic solution Infiltration Smoke Chaser to OR sodium chloride (PF) 10 mL [...] normal. Judgment normal. LABS: Recent Labs Lab 09/26/1855409/25/1853709/24/18523 WBC 10.22 10.60 11.57* HGB 9.2* 9.3* [...] hours. No results for input(s): PHART, PO2ART, TCE3LJN, U2WORCZL, BEART in the last 168 hours. No [...] Denzel Ozuna MD 09/26/2018 5:38 PM Jordan Ho DO - 09/26/2018 9:41 AM PDTFormatting of this note may be different from the original. [facility] Service: Infectious Disease Progress Note Hospital Day: [...] with hemodialysis. The patient initially presented to [facility], and was transferred here with the supposedly [...] Oral TID WC tumescent anesthetic solution Infiltration Smoke Chaser to OR sodium chloride (PF) 10 mL [...] Code Status: Full Code JORDAN HO, DO 09/26/2018Jn Campos - 09/25/2018 11:16 PM PDTOn call extension course counselor responded to staff vis it request per pt's mother while on site. Corrina (43/f) expressed feeling anxious prior to gigi edi tomorrow. Her mother requested a extension course counselor visit for prayer. Assumed goal of emotional/s piritual support. Visited briefly with Corrina and her mother. Corrnia showed normal signs of distress/anxiety prio r to surgery; stated she was not in any pain. Her mother stated she goes to dialysis 3x/week , but is hopeful tomorrow's surgery will be "successful". Per request, offered prayer of pea ce at Corrina's bedside with full participation. Corrina stated she "felt better" after prayer, adding she felt she would be able to rest now. Chief Clerk offered design center consultant support through the night and on site support at 0600. Family expre ssed openness to follow up visit post op. Left message for day extension course counselor to check in.Benita Ingram MD - 09/25/2018 4:00 PM PDTFormatting of this note may be different from the original . [facility] Service: NEPHROLOGY Dialysis/ Progress Note Corrina Knight 43 y.o. [id number] 4461/4461-1 female [facility] Day: LOS: 5 days 43-year-old female with past medical history significant for end-stage renal disease on hem odialysis 3 times a week Tuesday, hypertension, obesity, type II diabetes, anemia in end-stage renal disease, history of cva presented to [facility] with abdominal wall pain and swelling [...] Anemia of chronic renal failure, stage 5 ([facility]) 12/13/2015 Chronic kidney disease Diabetes mellitus, type 2 ([facility]) Dialysis patient ([facility]) ESRD (end stage renal disease) ([facility]) 04/02/2015 Essential hypertension 04/03/2015 Hypertension Obesity (BMI 30-39.9) Stroke ([facility]) Past Surgical History Procedure Laterality Date ANKLE [...] Take 1 tablet by mouth daily. Lot# [id number]. Exp date 02/02. 84 tablet 0 Taking [...] on file Social History Narrative Lives in [place] (lives with her sister who is her caregiver). Mother lives in [place]. Uses cane for ambulation. No kids Allergy: [...] radiologist report and is used for image [employer] only Patient's old records, imaging and labs [...] earlier and charting completed later Dictation software, [employer], used which may contain error for similar sounding words even af ter review. Personal communication requested for any clarification. Dayna Ozuna MD - 09/25/2018 2:52 PM PDTFormatting of this note may be different f rom the original. [facility] Service: Hospitalist Progress Note Pt: Corrina Knight [...] [START ON 09/26/2018] tumescent anesthetic solution Infiltration Smoke Chaser to OR sodium chloride (PF) 10 mL [...] normal. Judgment normal. LABS: Recent Labs Lab 09/25/18 0538 09/24/18 0524 09/23/18 0557 WBC 10.60 11.57* 10.54 HGB 9.3* [...] hours. No results for input(s): PHART, PO2ART, OBQ3CIS, E6VKLFLE, BEART in the last 168 hours. No [...] Dayna Ozuna MD 09/25/2018 2:52 PM Marcia Tran [facility] - 09/25/2018 11:42 AM PDTPatient is scheduled for HD today at 1300. Vanco mycin dose has been sent to the floor and RN has been notified that is should be given durin g the last hour of HD today.Jordan Ho DO - 09/25/2018 10:19 AM PDTFormatting of this note may be different from the original. [facility] Service: Infectious Disease Progress Note Hospital Day: [...] with hemodialysis. The patient initially presented to [facility], and was transferred here with the supposedly [...] resolved. Code Status: Full Code JORDAN HO, 09/25/2018Dayna Ozuna MD - 09/24/2018 3:35 PM PDTFormatting of this note may be di fferent from the original. [facility] Service: Hospitalist Progress Note Pt: Corrina Knight AGE/SEX: 43 y.o. female ROOM: 4461/4461-1 : 1975 PCP: JATIN RODRÍGUEZ ADMIT DATE: 09/20/2018 TODAY'S DATE: 09/24/2018 Hospital [...] Intake/Output Summary (Last 24 hours) at 09/24/18 1532 Last data filed at 09/24/18 0745 Gross [...] normal. Judgment normal. LABS: Recent Labs Lab 09/24/1852309/23/1857 09/21/18 0610 WBC 11.57* 10.54 7.63 HGB 9.1* 9.5* 9.3* HCT 29.1* 31.3* 30.0* PLT 294 274 273 NEUTOPHILPCT 67.46 69.41 69.73 MONOPCT 8.73 10.89 9.94 Recent Labs Lab 09/24/1852309/23/18 0557 09/21/18 0610 09/20/18 1950 NA 131* 132* 135 139 K 5.0* [...] hours. No results for input(s): PHART, PO2ART, WAT6BWK, C9LIYAFY, BEART in the last 168 hours. No [...] hypertension Morbid obesity due to excess calories ([facility]) Diabetes mellitus, type 2 (HCC) ASSESSMENT & [...] Ozuna MD 09/24/2018 3:35 PM Anna Xiao, [facility] - 09/24/2018 12:36 PM PDTClinical Pharmacy Note: Vancomycin Day 4 Goal Trough: 10-20 mcg/mL Current dose: 750 mg IV during last hour of each dialysis Plan: Continue same dose. No dialysis today, no dose today. Anna Xiao, Pharm.D. 09/24/2018 12:36 PM Jordan Ho DO - 09/24/2018 10:28 AM PDTFormatting of this note may be different from the original. [facility] Service: Infectious Disease Progress Note Hospital Day: [...] with hemodialysis. The patient initially presented to [facility], and was transferred here with the supposedly [...] may be di fferent from the original. [facility] Service: Hospitalist Progress Note Pt: Crorina Knight AGE/SEX: 43 y.o. female ROOM: 4461/4461-1 [...] hours. No results for input(s): PHART, PO2ART, QHO6ACP, Q1EQITSQ, BEART in the last 168 hours. No [...] hypertension Morbid obesity due to excess calories ([facility]) Diabetes mellitus, type 2 ([facility]) ASSESSMENT & PLAN 1. Panniculitis with recurrent [...] Dayna Ozuna MD 09/23/2018 2:29 PM Anna Xiao, [facility] - 09/23/2018 12:53 PM PSTClinical Pharmacy Note: Vancomycin Day 3 Goal Trough: 10-20 mcg/mL Current dose: 750 mg IV during last hour of each dialysis Plan: Continue same dose. No dialysis today, no dose today. Anna Xiao, Pharm.D. 09/23/2018 12:52 PM Vance Rosenberg, [facility] - 09/23/2018 10:58 AM PSTFormatting of this [...] 7.40 K/uL Final Comment: Testing performed at [facility];[address] [place] [address];[place] [address] CREATININE Date Value Ref Range Status 09/23/2018 [...] note may be different from the original. [facility] Service: Infectious Disease Progress Note Hospital Day: [...] with hemodialysis. The patient initially presented to [facility], and was transferred here with the supposedly [...] may be dif ferent from the original. [facility] Service: Hospitalist Progress Note Pt: Corrina Knight [...] normal. Judgment normal. LABS: Recent Labs Lab 09/21/18 0610 09/20/181949 WBC 7.63 6.46 HGB 9.3* 9.3* HCT [...] hours. No results for input(s): PHART, PO2ART, FZF7PIU, H3LTSZGY, BEART in the last 168 hours. No [...] MRSA nasal screen is positive Vancomycin was adde d, I consulted Dr. Ho recommended to D/C [...] note may be different from the original. [facility] Service: Infectious Disease Progress Note Hospital Day: [...] with hemodialysis. The patient initially presented to [facility], and was transferred here with the supposedly [...] hypertension Morbid obesity due to excess calories ([facility]) Diabetes mellitus, type 2 (HCC) ASSESSMENT & [...] Full Code JORDAN HO DO 09/22/2018Anna Xiao [facility] - 09/22/2018 8:58 AM PSTClinical Pharmacy Note: Vancomycin Day 2 Goal Trough: 10-20 mcg/mL Current dose: 750 mg IV during last hour of each hemodialysis Plan: Receiving dialysis this am, 750 mg IV dose planned for administration during last matty r of dialysis. Anna Xiao, Pharm.D. 09/22/2018 8:57 AM Anna Xiao [facility] - 09/21/2018 2:54 PM PSTFormatting of this [...] note may be different from the original. [facility] Service: NEPHROLOGY Progress Note Corrina Knight 43 y.o. [id number] 4461/4461-1 female [facility] Day: LOS: 1 day 43-year-old female with past medical history significant for end-stage renal disease on hem odialysis 3 times a week Tuesday, hypertension, obesity, type II diabetes, anemia in end-stage renal disease, history of cva presented to [facility] with abdominal wall pain and swelling [...] Anemia of chronic renal failure, stage 5 ([facility]) 12/13/2015 Chronic kidney disease Diabetes mellitus, type 2 ([facility]) Dialysis patient ([facility]) ESRD (end stage renal disease) ([facility]) 04/02/2015 Essential hypertension 04/03/2015 Hypertension Obesity (BMI 30-39.9) Stroke ([facility]) Past Surgical History Procedure Laterality Date ANKLE [...] Take 1 tablet by mouth daily. Lot# [id number]. Exp date tablet 0 Taking at Unknown [...] on file Social History Narrative Lives in [place] (lives with her sister who is her caregiver). Mother lives in [place]. Uses cane for ambulation. No kids Allergy: [...] radiologist report and is used for image [employer] only Patient's old records, imaging and labs [...] earlier and charting completed later Dictation software, [employer], used which may contain error for similar sounding words even af ter review. Personal communication requested for any clarification. Dayna Ozuna MD - 09/21/2018 8:38 AM PSTFormatting of this note may be different f rom the original. [facility] Service: Hospitalist Progress Note Pt: Corrina Knight [...] hours. No results for input(s): PHART, PO2ART, DJM4DAG, S1BKIUXQ, BEART in the last 168 hours. No [...] excess calories (HCC) Diabetes mellitus, type 2 ([facility]) ASSESSMENT & PLAN 1. Panniculitis with recurrent [...] AM PSTPlease document contact precautions on the fl owsheets/daily cares. Thank you! Mariana Infection Preventionin this encounter Plan of Treatment +--------+---------+ + + + | Date | Type | Specialty | Care Team | Description | +--------+---------+ + + + | 10/31/ | Office | Infectious Diseases | Jordan Ho DO | | | 2019 | Visit | | [address] [facility] [address] | | | | | | [place] [address] | | | | | | [phone] | | | | | | | [...] + +--------+ + + + | VANCOMYCIN, RANDOM | EMIGDIO | 09/29/2018 | | [...] | | | L, | | | COSMETOLOGIST APPRENTICE | +---+--------+ + +--------+ +---+ + | [...] | [facility] | | | performed at [facility], [address] | | LABORATORY | | | [address], | | | | | [place] [address] | | | + + + + + + + | Specimen | + + | Blood | + + + + + + + | Performing | Address | City/State/Zipcode | Phone Number | | Organization | | | | + + + + + | [facility] | [address] | [place] [address] | [phone] | | LABORATORY | [place]. | | [...] 7.436Comment: Testing | 7.300 - 7.450 | [facility] | | | performed at [facility];[address] | | [address];[place] | | | | | [address] | | | + + + + + + + | Specimen | + + | Blood | + + + + + + + | Performing | Address | City/State/Zipcode | Phone Number | | Organization | | | | + + + + + | [facility] | [address] | [place] [address] | | + + + + + [...] | | | | | performed at [facility], [address] | | | | | [facility], | | | | | [place] [address] | | | + + + + + + + | Specimen | + + | Blood | + + + + + + + | Performing | Address | City/State/Zipcode | Phone Number | | Organization | | | | + + + + + | [facility] | [address] | [place] [address] | [phone] | | LABORATORY | [address] | | [...] | LABORATORY | | | performed at [facility], [address] | | | | | [address], | | | | | [place] [address] | | | | | | | | + + + + + + + | Specimen | + + | Blood | + + + + + + + | Performing | Address | City/State/Zipcode | Phone Number | | Organization | | | | + + + + + | [facility] | [address] | [place] [address] | [phone] | | LABORATORY | [address] | | | + + + + + POCT glucose (09/30/2018 5:16 AM) + + + + + | Component | Value | Ref Range | Performed At | + + + + + | GLUCOSE,POC SCREEN | 94Comment: Testing | 65 - 99 mg/dL | [facility] | | | performed at [facility];[address];[place], [place] | | | | | [address] | | | + + + + + + + + + + | Performing | Address | City/State/Zipcode | Phone Number | | Organization | | | | + + + + + | [facility] | [address] | [place] [address] | | + + + + + POCT glucose (09/30/2018 12:26 AM) + + + + + | Component | Value | Ref Range | Performed At | + + + + + | GLUCOSE,POC SCREEN | 124 (H)Comment: Testing | 65 - 99 mg/dL | [facility] | | | performed at [facility];[address] | | | | | [address];[place] | | | | | [address] | | | + + + + + + + + + + | Performing | Address | City/State/Zipcode | Phone Number | | Organization | | | | + + + + + | [facility] | [address] | [place] [address] | | + + + + + POCT glucose (09/29/2018 9:30 PM) + + + + + | Component | Value | Ref Range | Performed At | + + + + + | GLUCOSE,POC SCREEN | 166 (H)Comment: Testing | 65 - 99 mg/dL | [facility] | | | performed at [facility];[address] | | | | | [address];[place] | | | | | [address] | | | + + + + + + + + + + | Performing | Address | City/State/Zipcode | Phone Number | | Organization | | | | + + + + + | [facility] | [address] | [place] [address] | | + + + + + POCT glucose (09/29/2018 4:31 PM) + + + + + | Component | Value | Ref Range | Performed At | + + + + + | GLUCOSE,POC SCREEN | 172 (H)Comment: Testing | 65 - 99 mg/dL | [facility] | | | performed at [facility];[address] | | | | | [address];[place] | | | | | [address] | | | + + + + + + + + + + | Performing | Address | City/State/Zipcode | Phone Number | | Organization | | | | + + + + + | [facility] | [address] | [place] [address] | | + + + + + Ferritin (09/29/2018 1:47 PM) + + + + + | Component | Value | Ref Range | Performed At | + + + + + | FERRITIN | 344 (H)Comment: Testing | 6 - 170 ng/mL | [facility] | | | performed at [facility], [address] | | LABORATORY | | | [address], | | | | | [place] [address] | | | + + + + + + + | Specimen | + + | Blood | + + + + + + + | Performing | Address | City/State/Zipcode | Phone Number | | Organization | | | | + + + + + | [facility] | [address] | [place] [address] | [phone] | | LABORATORY | [address] | | [...] | [facility] | | | performed at [facility], [address] | | LABORATORY | | | [address], | | | | | [place] [address] | | | + + + + + + + | Specimen | + + | Blood | + + + + + + + | Performing | Address | City/State/Zipcode | Phone Number | | Organization | | | | + + + + + | [facility] | [address] [place] [address] | [place] [address] | [phone] | | LABORATORY | [address] | | | + + + + + Vitamin B12 (09/29/2018 1:47 PM) + + + + + | Component | Value | Ref Range | Performed At | + + + + + | VITAMIN B12 | 921Comment: Testing | 254 - 1,320 pg/mL | [facility] | | | performed at [facility], [facility] [address] | | LABORATORY | | | [facility], | | | | | [place] [address] | | | + + + + + + + | Specimen | + + | Blood | + + + + + + + | Performing | Address | City/State/Zipcode | Phone Number | | Organization | | | | + + + + + | [facility] | [address] | [place] [address] | [phone] | | LABORATORY | [address] | | | + + + + + Folate (09/29/2018 1:47 PM) + + + + + | Component | Value | Ref Range | Performed At | + + + + + | FOLATE | 5.0 (L)Comment: Testing | >5.4 ng/mL | [facility] | | | performed at [facility], [address] | | LABORATORY | | | [address], | | | | | [place] [address] | | | + + + + + + + | Specimen | + + | Blood | + + + + + + + | Performing | Address | City/State/Zipcode | Phone Number | | Organization | | | | + + + + + | [facility] | [address] [place] [address] | [place] [address] | [phone] | | LABORATORY | [address] | | | + + + + + POCT glucose (09/29/2018 11:39 AM) + + + + + | Component | Value | Ref Range | Performed At | + + + + + | GLUCOSE,POC SCREEN | 108 (H)Comment: Testing | 65 - 99 mg/dL | [facility] | | | performed at [facility];[address] | | | | | [address];[place] | | | | | [address] | | | + + + + + + + + + + | Performing | Address | City/State/Zipcode | Phone Number | | Organization | | | | + + + + + | [facility] | [address] | [place] [address] | | + + + + + Phosphorus (09/29/2018 6:12 AM) + + + + + | Component | Value | Ref Range | Performed At | + + + + + | PHOSPHORUS | 4.7Comment: Testing | 2.3 - 4.8 mg/dL | [facility] | | | performed at [facility], [address] | | LABORATORY | | | [address], | | | | | [place] [address] | | | + + + + + + + | Specimen | + + | Blood | + + + + + + + | Performing | Address | City/State/Zipcode | Phone Number | | Organization | | | | + + + + + | [facility] | [address] | [place] [address] | [phone] | | LABORATORY | [address] | | [...] 7.405Comment: Testing | 7.300 - 7.450 | [facility] | | | performed at [facility];[address] | | | | | [address];[place] | | | | | [address] | | | + + + + + + + | Specimen | + + | Blood | + + + + + + + | Performing | Address | City/State/Zipcode | Phone Number | | Organization | | | | + + + + + | [facility] | [address] | [place] [address] | | + + + + + [...] | | | | | performed at [facility], [address] | | | | | [facility], | | | | | [place] [address] | | | + + + + + + + | Specimen | + + | Blood | + + + + + + + | Performing | Address | City/State/Zipcode | Phone Number | | Organization | | | | + + + + + | [facility] | [address] | [place] [address] | [phone] | | LABORATORY | [address] | | [...] performed | | | | | at [facility], [address] | | | | | [employer] | | | | | [place] [address] | | | | |Testing performed at [facility], [address] [employer], [place] [address] | | | | | | | | + + + + + + + | Specimen | + + | Blood | + + + + + + + | Performing | Address | City/State/Zipcode | Phone Number | | Organization | | | | + + + + + | [facility] | [address] | [place] [address] | [phone] | | LABORATORY | [address] | | | + + + + + Vancomycin, random (09/29/2018 6:12 AM) + + + + + | Component | Value | Ref Range | Performed At | + + + + + | VANCOMYCIN,RANDOM | 24.1Comment: Testing | ug/mL | [facility] | | | performed at [facility];[address] | | | | | [address];[place] | | | | | [address] | | | + + + + + + + | Specimen | + + | Blood | + + + + + + + | Performing | Address | City/State/Zipcode | Phone Number | | Organization | | | | + + + + + | [facility] | [address] | [place] [address] | | + + + + + POCT glucose (09/29/2018 5:39 AM) + + + + + | Component | Value | Ref Range | Performed At | + + + + + | GLUCOSE,POC SCREEN | 93Comment: Testing | 65 - 99 mg/dL | [facility] | | | performed at [facility];[address] | | | | | [address] [facility];[place], [place] | | | | | [address] | | | + + + + + + + + + + | Performing | Address | City/State/Zipcode | Phone Number | | Organization | | | | + + + + + | [facility] | [address] | [place] [address] | | + + + + + POCT glucose (09/28/2018 9:02 PM) + + + + + | Component | Value | Ref Range | Performed At | + + + + + | GLUCOSE,POC SCREEN | 122 (H)Comment: Testing | 65 - 99 mg/dL | [facility] | | | performed at [facility];[address] | | | | | [address];[place] | | | | | [address] | | | + + + + + + + + + + | Performing | Address | City/State/Zipcode | Phone Number | | Organization | | | | + + + + + | [facility] | [address] | [place] [address] | | + + + + + POCT glucose (09/28/2018 4:13 PM) + + + + + | Component | Value | Ref Range | Performed At | + + + + + | GLUCOSE,POC SCREEN | 130 (H)Comment: Testing | 65 - 99 mg/dL | [facility] | | | performed at [facility];[address] | | | | | [address];[place] | | | | | [address] | | | + + + + + + + + + + | Performing | Address | City/State/Zipcode | Phone Number | | Organization | | | | + + + + + | [facility] | [address] | [place] [address] | | + + + + + POCT glucose (09/28/2018 12:01 PM) + + + + + | Component | Value | Ref Range | Performed At | + + + + + | GLUCOSE,POC SCREEN | 122 (H)Comment: Testing | 65 - 99 mg/dL | [facility] | | | performed at [facility];[address] | | | | | [address];[place] | | | | | [address] | | | + + + + + + + + + + | Performing | Address | City/State/Zipcode | Phone Number | | Organization | | | | + + + + + | [facility] | [address] | [place] [address] | | + + + + + POCT glucose (09/28/2018 5:48 AM) + + + + + | Component | Value | Ref Range | Performed At | + + + + + | GLUCOSE,POC SCREEN | 100 (H)Comment: Testing | 65 - 99 mg/dL | [facility] | | | performed at [facility];[address] | | | | | [address];[place] | | | | | [address] | | | + + + + + + + + + + | Performing | Address | City/State/Zipcode | Phone Number | | Organization | | | | + + + + + | [facility] | [address] | [place] [address] | | + + + + + Phosphorus (09/28/2018 5:25 AM) + + + + + | Component | Value | Ref Range | Performed At | + + + + + | PHOSPHORUS | 3.3Comment: Testing | 2.3 - 4.8 mg/dL | [facility] | | | performed at [facility], [address] | | LABORATORY | | | [facility], | | | | | [place] [address] | | | + + + + + + + | Specimen | + + | Blood | + + + + + + + | Performing | Address | City/State/Zipcode | Phone Number | | Organization | | | | + + + + + | [facility] | [address] | [place] [address] | [phone] | | LABORATORY | [address] | | | + + + + + Calcium, ionized (09/28/2018 5:25 AM) + + + + + | Component | Value | Ref Range | Performed At | + + + + + | CA++ | 0.99 (L) | 1.08 - 1.25 mmol/L | [facility] | + + + + + | pH | 7.458 (H)Comment: | 7.300 - 7.450 | [facility] | | | Testing performed at | | | | | [facility];[address];[place] [address] | | | + + + + + + + | Specimen | + + | Blood | + + + + + + + | Performing | Address | City/State/Zipcode | Phone Number | | Organization | | | | + + + + + | [facility] | [address] | [place] [address] | | + + + + + [...] | | | | | performed at [facility], [address] | | | | | [facility], | | | | | [place] [address] | | | + + + + + + + | Specimen | + + | Blood | + + + + + + + | Performing | Address | City/State/Zipcode | Phone Number | | Organization | | | | + + + + + | [facility] | [address] | [place] [address] | [phone] | | LABORATORY | [address] | | | + + + + + CBC W/Auto Diff (Reflex to Manual) (09/28/2018 5:25 AM) + + + + + | Component | Value | Ref Range | Performed At | + + + + + | WBC | 14.43 (H) | 3.80 - 11.00 K/uL | [facility] | + + + + + | RBC | 3.22 (L) | 3.70 - 5.10 M/uL | [facility] | + + + + + | HGB | 8.2 (L) | 11.3 - 15.5 g/dL | [facility] | + + + + + | HCT | 26.5 (L) | 34.0 - 46.0 % | [facility] | + + + + + | MCV | 82.4 | 80.0 - 100.0 fl | [facility] | + + + + + | MCH | 25.5 (L) | 27.0 - 34.0 pg | [facility] | + + + + + | MCHC | 30.9 (L) | 32.0 - 35.5 g/dL | [facility] | + + + + + | RDW SD | 54.7 (H) | 37 - 53 fl | [facility] | + + + + + | PLT | 292 | 150 - 400 K/uL | [facility] | + + + + + | MPV | 8.4 | fl | [facility] | + + + + + [...] Eosinophils Manual | 3 | % | [facility] | + + + + + | Neutrophils Absolute | 10.83 (H) | 1.90 - 7.40 K/uL | [facility] | + + + + + | Lymphocytes Absolute | 1.73 | 1.00 - 3.90 K/uL | [facility] | + + + + + | Monocytes Absolute | 1.44 (H) | 0.00 - 0.80 K/uL | [facility] | + + + + + | Eosinophils Absolute | 0.43 | 0.00 - 0.50 K/uL | [facility] | + + + + + | Platelet Estimate | ADEQUATE | | [facility] | + + + + + | MORPHOLOGY | NORMAL PLT MORPHComment: | | [facility] | | | 1+ANISOTesting | | | | | performed at [facility];[address] | | | | | [address];[place] | | | | | [address] | | | | | | | | + + + + + + + | Specimen | + + | Blood | + + + + + + + | Performing | Address | City/State/Zipcode | Phone Number | | Organization | | | | + + + + + | [facility] | [address] | [place] [address] | | + + + + + POCT glucose (09/27/2018 9:07 PM) + + + + + | Component | Value | Ref Range | Performed At | + + + + + | GLUCOSE,POC SCREEN | 114 (H)Comment: Testing | 65 - 99 mg/dL | [facility] | | | performed at [facility];[address] | | | | | [address];[place] | | | | | [address] | | | + + + + + + + + + + | Performing | Address | City/State/Zipcode | Phone Number | | Organization | | | | + + + + + | [facility] | [address] | [place] [address] | | + + + + + POCT glucose (09/27/2018 4:35 PM) + + + + + | Component | Value | Ref Range | Performed At | + + + + + | GLUCOSE,POC SCREEN | 87Comment: Testing | 65 - 99 mg/dL | [facility] | | | performed at [facility];[address] | | | | | [address];[place] | | | | | [address] | | | + + + + + + + + + + | Performing | Address | City/State/Zipcode | Phone Number | | Organization | | | | + + + + + | [facility] | [address] | [place] [address] | | + + + + + POCT glucose (09/27/2018 11:25 AM) + + + + + | Component | Value | Ref Range | Performed At | + + + + + | GLUCOSE,POC SCREEN | 88Comment: Testing | 65 - 99 mg/dL | [facility] | | | performed at [facility];[address] | | | | | [address];[place] | | | | | [address] | | | + + + + + + + + + + | Performing | Address | City/State/Zipcode | Phone Number | | Organization | | | | + + + + + | [facility] | [address] | [place] [address] | | + + + + + POCT glucose (09/27/2018 5:40 AM) + + + + + | Component | Value | Ref Range | Performed At | + + + + + | GLUCOSE,POC SCREEN | 81Comment: Testing | 65 - 99 mg/dL | [facility] | | | performed at [facility];[address] | | | | | [address];[place] | | | | | [address] | | | + + + + + + + + + + | Performing | Address | City/State/Zipcode | Phone Number | | Organization | | | | + + + + + | [facility] | [address] | [place] [address] | | + + + + + Phosphorus (09/27/2018 5:21 AM) + + + + + | Component | Value | Ref Range | Performed At | + + + + + | PHOSPHORUS | 4.5Comment: Testing | 2.3 - 4.8 mg/dL | [facility] | | | performed at [facility], [address] | | LABORATORY | | | [address], | | | | | [place] [address] | | | + + + + + + + | Specimen | + + | Blood | + + + + + + + | Performing | Address | City/State/Zipcode | Phone Number | | Organization | | | | + + + + + | [id number] | [address] | [place] [address] | [phone] | | LABORATORY | [address] | | | + + + + + Basic metabolic panel (09/27/2018 5:21 AM) + + + + + | Component | Value | Ref Range | Performed At | + + + + + | SODIUM | 132 (L) | 135 - 145 mmol/L | [facility] | | | | | LABORATORY | [...] (H) | 0.50 - 1.00 mg/dL | [facility] | | | | | LABORATORY | + + + + + | BUN/CREAT | 5 | | [facility] | | | | | LABORATORY | + + + + + | CALCIUM | 8.1 (L) | 8.5 - 10.5 mg/dL | [facility] | | | | | LABORATORY | + + + + + | EGFR | 9 (L)Comment: GFR <60: | >60 mL/min/1.73m2 | [facility] | | | CHRONIC KIDNEY DISEASE, | [...] | | | | | performed at [facility], [address] | | | | | [facility], | | | | | [place] [address] | | | + + + + + + + | Specimen | + + | Blood | + + + + + + + | Performing | Address | City/State/Zipcode | Phone Number | | Organization | | | | + + + + + | [facility] | [address] [place] [address] | [place] [address] | [phone] | | LABORATORY | [address] | | [...] performed | | | | | at [facility], [address] | | | | | [facility], | | | | | [place] [address] | | | | |Testing performed at [facility], [address] [facility], [place] [address] | | | | | | | | + + + + + + + | Specimen | + + | Blood | + + + + + + + | Performing | Address | City/State/Zipcode | Phone Number | | Organization | | | | + + + + + | [facility] | [address] | [place] [address] | [phone] | | LABORATORY | [address] | | | + + + + + POCT glucose (09/26/2018 9:02 PM) + + + + + | Component | Value | Ref Range | Performed At | + + + + + | GLUCOSE,POC SCREEN | 125 (H)Comment: Testing | 65 - 99 mg/dL | [facility] | | | performed at [facility];[address] | | | | | [address];[place], [place] | | | | | [address] | | | + + + + + + + + + + | Performing | Address | City/State/Zipcode | Phone Number | | Organization | | | | + + + + + | [facility] | [address] | [place] [address] | | + + + + + POCT glucose (09/26/2018 4:03 PM) + + + + + | Component | Value | Ref Range | Performed At | + + + + + | GLUCOSE,POC SCREEN | 126 (H)Comment: Testing | 65 - 99 mg/dL | [facility] | | | performed at [facility];[address] | | | | | [address];[place] | | | | | [address] | | | + + + + + + + + + + | Performing | Address | City/State/Zipcode | Phone Number | | Organization | | | | + + + + + | [facility] | [address] | [place] [address] | | + + + + + Pathology histology - tissue (09/26/2018 3:00 PM) + + | Specimen | + + | Tissue | + + + + + | Narrative | Performed At | + + + | SPECIMEN(S): A RIGHT ABDOMINAL PANNUS SPECIMEN SOURCE: Leesa RODRIGUEZ | | ABDOMINAL PANNUS CLINICAL HISTORY: Panniculitis. [...] | | material. Representatively submitted in ([id number]). am:LINO:[email or web address] | | | PERFORMING LABORATORY: The technical component was performed by | | | [facility], [address] [place] [id number] (Medical | | | Director: Ludy Savage MD; CLIA# [id number]). Professional | | | interpretation [facility] by [facility]. | | | [facility], [address] [place] [address] | | | (Qc Chemist: Vance Foley M.D.; | | | [place]#: [id number]). Diagnostician: Vance Foley MD | | | Pathologist Electronically Signed 09/27/2018 | | + + + + +---------+ + + | Performing | Address | City/State/Zipcode | Phone Number | | Organization | | | | + +---------+ + + | [facility] | | | | + +---------+ + + POCT glucose (09/26/2018 2:58 PM) + + + + + | Component | Value | Ref Range | Performed At | + + + + + | GLUCOSE,POC SCREEN | 91Comment: Testing | 65 - 99 mg/dL | [facility] | | | performed at [facility];[address] | | | | | [address];[place] | | | | | [address] | | | + + + + + + + + + + | Performing | Address | City/State/Zipcode | Phone Number | | Organization | | | | + + + + + | [facility] | [address] | [place] [address] | | + + + + + POCT glucose (09/26/2018 11:28 AM) + + + + + | Component | Value | Ref Range | Performed At | + + + + + | GLUCOSE,POC SCREEN | 81Comment: Testing | 65 - 99 mg/dL | [facility] | | | performed at [facility];[address] | | | | | [address];[place], [place] | | | | | [address] | | | + + + + + + + + + + | Performing | Address | City/State/Zipcode | Phone Number | | Organization | | | | + + + + + | [facility] | [address] | [place] [address] | | + + + + + [...] (H) | 0.50 - 1.00 mg/dL | [facility] | | | | | LABORATORY | + + + + + | BUN/CREAT | 5 | | [facility] | | | | | LABORATORY | + + + + + | CALCIUM | 8.3 (L) | 8.5 - 10.5 mg/dL | [facility] | | | | | LABORATORY | [...] | | | | | performed at [facility], [address] | | | | | [facility], | | | | | [place] [address] | | | + + + + + + + | Specimen | + + | Blood | + + + + + + + | Performing | Address | City/State/Zipcode | Phone Number | | Organization | | | | + + + + + | [facility] | [address] [place] [address] | [place] [address] | [phone] | | LABORATORY | [facility]. | | | + + + + [...] | | | | | performed at [facility], [address] | | | | | [facility], | | | | | [place] [address] | | | | |HYPO | | | | |[address]AL [address]ORPH | | | | |Testing performed at [facility], [address] [facility], [place] [address] | | | | | | | | + + + + + + + | Specimen | + + | Blood | + + + + + + + | Performing | Address | City/State/Zipcode | Phone Number | | Organization | | | | + + + + + | [facility] | [address] [facility] | [place] [address] | [phone] | | LABORATORY | [address] | | | + + + + + POCT glucose (09/26/2018 5:24 AM) + + + + + | Component | Value | Ref Range | Performed At | + + + + + | GLUCOSE,POC SCREEN | 84Comment: Testing | 65 - 99 mg/dL | [facility] | | | performed at [facility];[address] | | | | | [address];[place], [place] | | | | | [address] | | | + + + + + + + + + + | Performing | Address | City/State/Zipcode | Phone Number | | Organization | | | | + + + + + | [facility] | [address] | [place] [address] | | + + + + + POCT glucose (09/25/2018 9:02 PM) + + + + + | Component | Value | Ref Range | Performed At | + + + + + | GLUCOSE,POC SCREEN | 115 (H)Comment: Testing | 65 - 99 mg/dL | [facility] | | | performed at [facility];[address] | | | | | [address];[place] | | | | | [address] | | | + + + + + + + + + + | Performing | Address | City/State/Zipcode | Phone Number | | Organization | | | | + + + + + | [facility] | [address] | [place] [address] | | + + + + + POCT glucose (09/25/2018 4:15 PM) + + + + + | Component | Value | Ref Range | Performed At | + + + + + | GLUCOSE,POC SCREEN | 116 (H)Comment: Testing | 65 - 99 mg/dL | [facility] | | | performed at [facility];[address] | | | | | [address];[place] | | | | | [address] | | | + + + + + + + + + + | Performing | Address | City/State/Zipcode | Phone Number | | Organization | | | | + + + + + | [facility] | [address] | [place] [address] | | + + + + + POCT glucose (09/25/2018 11:38 AM) + + + + + | Component | Value | Ref Range | Performed At | + + + + + | GLUCOSE,POC SCREEN | 112 (H)Comment: Testing | 65 - 99 mg/dL | [facility] | | | performed at [facility];[address] | | | | | [address];[place] | | | | | [address] | | | + + + + + + + + + + | Performing | Address | City/State/Zipcode | Phone Number | | Organization | | | | + + + + + | [facility] | [address] | [place] [address] | | + + + + + POCT glucose (09/25/2018 6:22 AM) + + + + + | Component | Value | Ref Range | Performed At | + + + + + | GLUCOSE,POC SCREEN | 103 (H)Comment: Testing | 65 - 99 mg/dL | [facility] | | | performed at [facility];[address] | | | | | [address];[place], [place] | | | | | [address] | | | + + + + + + + + + + | Performing | Address | City/State/Zipcode | Phone Number | | Organization | | | | + + + + + | [facility] | [address] | [place] [address] | | + + + + + [...] (H) | 0.50 - 1.00 mg/dL | [facility] | | | | | LABORATORY | + + + + + | BUN/CREAT | 7 | | [facility] | | | | | LABORATORY | + + + + + | CALCIUM | 8.2 (L) | 8.5 - 10.5 mg/dL | [facility] | | | | | LABORATORY | + + + + + | EGFR | 8 (L)Comment: GFR <60: | >60 mL/min/1.73m2 | [facility] | | | CHRONIC KIDNEY DISEASE, | [...] | | | | | performed at [facility], [address] | | | | | [facility], | | | | | [place] [address] | | | + + + + + + + | Specimen | + + | Blood | + + + + + + + | Performing | Address | City/State/Zipcode | Phone Number | | Organization | | | | + + + + + | [facility] | [address] | [place] [address] | [phone] | | LABORATORY | [address] | | [...] | | | | | performed at [facility], [address] | | | | | [address], | | | | | [place] [address] | | | | |HYPO | | | | |NORMAL PLT MORPH | | | | |Testing performed at [facility], [address] [place] [address] | | | | | | | | + + + + + + + | Specimen | + + | Blood | + + + + + + + | Performing | Address | City/State/Zipcode | Phone Number | | Organization | | | | + + + + + | [facility] | [address] | [place] [address] | [phone] | | LABORATORY | [address] | | | + + + + + POCT glucose (09/24/2018 10:02 PM) + + + + + | Component | Value | Ref Range | Performed At | + + + + + | GLUCOSE,POC SCREEN | 107 (H)Comment: Testing | 65 - 99 mg/dL | [facility] | | | performed at [facility];[address] | | | | | [address];[place] | | | | | [address] | | | + + + + + + + + + + | Performing | Address | City/State/Zipcode | Phone Number | | Organization | | | | + + + + + | [facility] | [address] | [place] [address] | | + + + + + POCT glucose (09/24/2018 4:38 PM) + + + + + | Component | Value | Ref Range | Performed At | + + + + + | GLUCOSE,POC SCREEN | 123 (H)Comment: Testing | 65 - 99 mg/dL | [facility] | | | performed at [facility];[address] | | | | | [address];[place] | | | | | [address] | | | + + + + + + + + + + | Performing | Address | City/State/Zipcode | Phone Number | | Organization | | | | + + + + + | [facility] | [address] | [place] [address] | | + + + + + POCT glucose (09/24/2018 12:04 PM) + + + + + | Component | Value | Ref Range | Performed At | + + + + + | GLUCOSE,POC SCREEN | 121 (H)Comment: Testing | 65 - 99 mg/dL | [facility] | | | performed at [facility];[address] | | | | | [address];[place] | | | | | [address] | | | + + + + + + + + + + | Performing | Address | City/State/Zipcode | Phone Number | | Organization | | | | + + + + + | [facility] | [address] | [place] [address] | | + + + + + POCT glucose (09/24/2018 5:53 AM) + + + + + | Component | Value | Ref Range | Performed At | + + + + + | GLUCOSE,POC SCREEN | 106 (H)Comment: Testing | 65 - 99 mg/dL | [facility] | | | performed at [facility];[address] | | | | | [address];[place] | | | | | [address] | | | + + + + + + + + + + | Performing | Address | City/State/Zipcode | Phone Number | | Organization | | | | + + + + + | [facility] | [address] | [place] [address] | | + + + + + [...] the | | | | | MDRD [facility] traceable | | | | | equation.Testing | | | | | performed at [facility], [address] | | | | | [facility], | | | | | [place] [address] | | | + + + + + + + | Specimen | + + | Blood | + + + + + + + | Performing | Address | City/State/Zipcode | Phone Number | | Organization | | | | + + + + + | [facility] | [address] | [place] [address] | [phone] | | LABORATORY | [address]vd. | | [...] | | | | ng performed at [facility], | | | | | [address] [facility], | | | | | [place] [address] | | | | |2+ | | | | |HYPO | | | | |Testing performed at [facility], [address] [facility], [place] [address] | | | | | | | | + + + + + + + | Specimen | + + | Blood | + + + + + + + | Performing | Address | City/State/Zipcode | Phone Number | | Organization | | | | + + + + + | [facility] | [address] | [place] [address] | [phone] | | LABORATORY | [address] | | | + + + + + POCT glucose (09/23/2018 10:15 PM) + + + + + | Component | Value | Ref Range | Performed At | + + + + + | GLUCOSE,POC SCREEN | 126 (H)Comment: Testing | 65 - 99 mg/dL | [facility] | | | performed at [facility];[address] | | | | | [address];[place] | | | | | [address] | | | + + + + + + + + + + | Performing | Address | City/State/Zipcode | Phone Number | | Organization | | | | + + + + + | [facility] | [address] | [place] [address] | | + + + + + POCT glucose (09/23/2018 4:51 PM) + + + + + | Component | Value | Ref Range | Performed At | + + + + + | GLUCOSE,POC SCREEN | 118 (H)Comment: Testing | 65 - 99 mg/dL | [facility] | | | performed at [facility];[address] | | | | | [address];[place], [place] | | | | | [address] | | | + + + + + + + + + + | Performing | Address | City/State/Zipcode | Phone Number | | Organization | | | | + + + + + | [facility] | [address] | [place] [address] | | + + + + + POCT glucose (09/23/2018 11:33 AM) + + + + + | Component | Value | Ref Range | Performed At | + + + + + | GLUCOSE,POC SCREEN | 131 (H)Comment: Testing | 65 - 99 mg/dL | [facility] | | | performed at [facility];[address] | | | | | [address];[place] | | | | | [address] | | | + + + + + + + + + + | Performing | Address | City/State/Zipcode | Phone Number | | Organization | | | | + + + + + | [facility] | [address] | [place] [address] | | + + + + + POCT glucose (09/23/2018 6:04 AM) + + + + + | Component | Value | Ref Range | Performed At | + + + + + | GLUCOSE,POC SCREEN | 93Comment: Testing | 65 - 99 mg/dL | [facility] | | | performed at [facility];[address] | | | | | [address];[place] | | | | | [address] | | | + + + + + + + + + + | Performing | Address | City/State/Zipcode | Phone Number | | Organization | | | | + + + + + | [facility] | [address] | [place] [address] | | + + + + + [...] (L)Comment: GFR <60: | >60 mL/min/1.73m2 | [facility] | | | CHRONIC KIDNEY DISEASE, | [...] the | | | | | MDRD IDID traceable | | | | | equation.Testing | | | | | performed at [facility], [address] | | | | | [facility], | | | | | [place] [address] | | | + + + + + + + | Specimen | + + | Blood | + + + + + + + | Performing | Address | City/State/Zipcode | Phone Number | | Organization | | | | + + + + + | [facility] | [address] | [place] [address] | [phone] | | LABORATORY | [address]vd. | | [...] | | | | esting performed at [facility], | | | | | [address] [facility], | | | | | [place] [address] | | | | |1+ | | | | |HYPO | | | | |Testing performed at [facility], [address] [facility], [place] [address] | | | | | | | | + + + + + + + | Specimen | + + | Blood | + + + + + + + | Performing | Address | City/State/Zipcode | Phone Number | | Organization | | | | + + + + + | [facility] | [address] | [place] [address] | [phone] | | LABORATORY | [address] | | | + + + + + POCT glucose (09/22/2018 9:16 PM) + + + + + | Component | Value | Ref Range | Performed At | + + + + + | GLUCOSE,POC SCREEN | 117 (H)Comment: Testing | 65 - 99 mg/dL | [facility] | | | performed at [facility];[address] | | | | | [address];[place], [place] | | | | | [address] | | | + + + + + + + + + + | Performing | Address | City/State/Zipcode | Phone Number | | Organization | | | | + + + + + | [facility] | [address] | [place] [address] | | + + + + + POCT glucose (09/22/2018 4:22 PM) + + + + + | Component | Value | Ref Range | Performed At | + + + + + | GLUCOSE,POC SCREEN | 108 (H)Comment: Testing | 65 - 99 mg/dL | [facility] | | | performed at [facility];[address] | | | | | [address];[place] | | | | | [address] | | | + + + + + + + + + + | Performing | Address | City/State/Zipcode | Phone Number | | Organization | | | | + + + + + | [facility] | [address] | [place] [address] | | + + + + + POCT glucose (09/22/2018 11:21 AM) + + + + + | Component | Value | Ref Range | Performed At | + + + + + | GLUCOSE,POC SCREEN | 105 (H)Comment: Testing | 65 - 99 mg/dL | [facility] | | | performed at [facility];[address] | | | | | [address];[place] | | | | | [address] | | | + + + + + + + + + + | Performing | Address | City/State/Zipcode | Phone Number | | Organization | | | | + + + + + | [facility] | [address] | [place] [address] | | + + + + + [...] performed at | | | | | [facility], [address] [facility] [place] [place] | | | | | [place] | | | | | [address] | | | + + + + + + + + + + | Performing | Address | City/State/Zipcode | Phone Number | | Organization | | | | + + + + + | [facility] | [address] | [place] [address] | [phone] | | LABORATORY | [address] | | | + + + + + POCT glucose (09/22/2018 6:03 AM) + + + + + | Component | Value | Ref Range | Performed At | + + + + + | GLUCOSE,POC SCREEN | 84Comment: Testing | 65 - 99 mg/dL | [facility] | | | performed at [facility];[address] | | | | | [address];[place] | | | | | [address] | | | + + + + + + + + + + | Performing | Address | City/State/Zipcode | Phone Number | | Organization | | | | + + + + + | [facility] | [address] | [place] [address] | | + + + + + POCT glucose (09/21/2018 9:10 PM) + + + + + | Component | Value | Ref Range | Performed At | + + + + + | GLUCOSE,POC SCREEN | 103 (H)Comment: Testing | 65 - 99 mg/dL | [facility] | | | performed at [facility];[address] | | | | | [address];[place], [place] | | | | | [address] | | | + + + + + + + + + + | Performing | Address | City/State/Zipcode | Phone Number | | Organization | | | | + + + + + | [facility] | [address] | [place] [address] | | + + + + + POCT glucose (09/21/2018 4:11 PM) + + + + + | Component | Value | Ref Range | Performed At | + + + + + | GLUCOSE,POC SCREEN | 86Comment: Testing | 65 - 99 mg/dL | [facility] | | | performed at [facility];[address] | | | | | [address];[place] | | | | | [address] | | | + + + + + + + + + + | Performing | Address | City/State/Zipcode | Phone Number | | Organization | | | | + + + + + | [facility] | [address] | [place] [address] | | + + + + + Vancomycin, trough (09/21/2018 2:27 PM) + + + + + | Component | Value | Ref Range | Performed At | + + + + + | VANCOMYCIN,TROUGH | <3.0 (L)Comment: 15 to | 10 - 20 ug/mL | [facility] | | | 20 ug/mL for meningitis, | | | | | osteomyelitis, | | | | | endocarditis, sepsis, or | | | | | healthcare associated | | | | | pneumonia, or an RONY | | | | | equal to or greater than | | | | | 1.0 ug/mLTesting | | | | | performed at [facility];[address] | | | | | [address];[place] | | | | | [address] | | | + + + + + + + | Specimen | + + | Blood | + + + + + + + | Performing | Address | City/State/Zipcode | Phone Number | | Organization | | | | + + + + + | [facility] | [address] | [place] [address] | | + + + + + POCT glucose (09/21/2018 11:41 AM) + + + + + | Component | Value | Ref Range | Performed At | + + + + + | GLUCOSE,POC SCREEN | 99Comment: Testing | 65 - 99 mg/dL | [facility] | | | performed at [facility];[address] | | | | | [address];[place] | | | | | [address] | | | + + + + + + + + + + | Performing | Address | City/State/Zipcode | Phone Number | | Organization | | | | + + + + + | [facility] | [address] | [place] [address] | | + + + + + [...] | [facility] | | | performed at [facility], [address] | | LABORATORY | | | [address], | | | | | [place] [address] | | | + + + + + + + | Specimen | + + | Blood | + + + + + + + | Performing | Address | City/State/Zipcode | Phone Number | | Organization | | | | + + + + + | [facility] | [address] | [place] [address] | [phone] | | LABORATORY | [address] | | | + + + + + Phosphorus (09/21/2018 6:10 AM) + + + + + | Component | Value | Ref Range | Performed At | + + + + + | PHOSPHORUS | 5.1 (H)Comment: Testing | 2.3 - 4.8 mg/dL | [facility] | | | performed at [facility], [address] | | LABORATORY | | | [address], | | | | | [place] [address] | | | + + + + + + + | Specimen | + + | Blood | + + + + + + + | Performing | Address | City/State/Zipcode | Phone Number | | Organization | | | | + + + + + | [facility] | [address] | [place] [address] | [phone] | | LABORATORY | [address] | | | + + + + + Magnesium (09/21/2018 6:10 AM) + + + + + | Component | Value | Ref Range | Performed At | + + + + + | MAGNESIUM | 2.1Comment: Testing | 1.7 - 2.4 mg/dL | [facility] | | | performed at [facility], [address] | | LABORATORY | | | [address], | | | | | [place] [address] | | | + + + + + + + | Specimen | + + | Blood | + + + + + + + | Performing | Address | City/State/Zipcode | Phone Number | | Organization | | | | + + + + + | [facility] | [address] | [place] [address] | [phone] | | LABORATORY | [address] | | | + + + + + Glycohemoglobin A1c (09/21/2018 6:10 AM) + + + + + | Component | Value | Ref Range | Performed At | + + + + + | HEMOGLOBIN A1C | 5.7Comment: HbA1c method | 4.0 - 6.0 % | [facility] | | | is certified by [employer] [...] | | | | | performed at [facility], [address] | | | | | [facility], | | | | | [place] [address] | | | + + + + + + + | Specimen | + + | Blood | + + + + + + + | Performing | Address | City/State/Zipcode | Phone Number | | Organization | | | | + + + + + | [facility] | [address] | [place] [address] | [phone] | | LABORATORY | [address]. | | [...] (H) | 0.50 - 1.00 mg/dL | [facility] | | | | | LABORATORY | + + + + + | BUN/CREAT | 5 | | [facility] | | | | | LABORATORY | + + + + + | CALCIUM | 9.0 | 8.5 - 10.5 mg/dL | [facility] | | | | | LABORATORY | + + + + + | EGFR | 14 (L)Comment: GFR <60: | >60 mL/min/1.73m2 | [facility] | | | CHRONIC KIDNEY DISEASE, | [...] | | | | | performed at [facility], [address] | | | | | [facility], | | | | | [place] [address] | | | + + + + + + + | Specimen | + + | Blood | + + + + + + + | Performing | Address | City/State/Zipcode | Phone Number | | Organization | | | | + + + + + | [facility] | [address] | [place] [address] | [phone] | | LABORATORY | [address] | | [...] | | | | | performed at [facility], [address] | | | | | [facility], | | | | | [place] [address] | | | | |POLY | | | | |NORMAL PLT MORPH | | | | |Testing performed at [facility], [address] [place] [address] | | | | | | | | + + + + + + + | Specimen | + + | Blood | + + + + + + + | Performing | Address | City/State/Zipcode | Phone Number | | Organization | | | | + + + + + | [facility] | [address] | [place] [address] | [phone] | | LABORATORY | [address] | | | + + + + + POCT glucose (09/21/2018 6:05 AM) + + + + + | Component | Value | Ref Range | Performed At | + + + + + | GLUCOSE,POC SCREEN | 100 (H)Comment: Testing | 65 - 99 mg/dL | [facility] | | | performed at [facility];[address] | | | | | [address];[place], [place] | | | | | [address] | | | + + + + + + + + + + | Performing | Address | City/State/Zipcode | Phone Number | | Organization | | | | + + + + + | [facility] | [address] | [place] [address] | | + + + + + POCT glucose (09/21/2018 5:13 AM) + + + + + | Component | Value | Ref Range | Performed At | + + + + + | GLUCOSE,POC SCREEN | 74Comment: Testing | 65 - 99 mg/dL | [facility] | | | performed at [facility];[address] | | | | | [address];[place] | | | | | [address] | | | + + + + + + + + + + | Performing | Address | City/State/Zipcode | Phone Number | | Organization | | | | + + + + + | [facility] | [address] | [place] [address] | | + + + + + MRSA by PCR (09/20/2018 11:36 PM) + + + + + | Component | Value | Ref Range | Performed At | + + + + + | SOURCE | NARES(NOSE) | | [facility] | + + + + + | MRSA PCR | POSITIVE for MRSA by PCR | NEGATIVE | [facility] | | | (A)Comment: Testing | | | | | performed at [facility];[address] | | | | | [address];[place] | | | | | [address] | | | + + + + + + + | Specimen | + + | Nasopharyngeal - | | Nares(Nose) | + + + + + + + | Performing | Address | City/State/Zipcode | Phone Number | | Organization | | | | + + + + + | [facility] | [address] | [place] [address] | | + + + + + POCT glucose (09/20/2018 11:28 PM) + + + + + | Component | Value | Ref Range | Performed At | + + + + + | GLUCOSE,POC SCREEN | 91Comment: Testing | 65 - 99 mg/dL | [facility] | | | performed at [facility];[address] | | | | | [address];[place] | | | | | [address] | | | + + + + + + + + + + | Performing | Address | City/State/Zipcode | Phone Number | | Organization | | | | + + + + + | [facility] | [address] | [place] [address] | | + + + + + [...] | + + + + + | [facility] | [address] | [place] [address] | [phone] | | LABORATORY | [address] | | | + + + + + | [facility] | [address] | [place] [address] | | + + + + + [...] | + + + + + | [facility] | [address] | [place] [address] | [phone] | | LABORATORY | [place]. | | | + + + + + | [facility] | [address] | [place] [address] | | + + + + + PROCALCITONIN (09/20/2018 7:50 PM) + + + + + | Component | Value | Ref Range | Performed At | + + + + + | PROCALCITONIN | 0.45Comment: | <0.5 ng/mL | [facility] | | | INTERPRETIVE | | [...] performed | | | | | at [facility];[address] | | | | | [place] [address] | | | + + + + + + + + + + | Performing | Address | City/State/Zipcode | Phone Number | | Organization | | | | + + + + + | [facility] | [address] | [place] [address] | | + + + + + C-reactive protein (09/20/2018 7:50 PM) + + + + + | Component | Value | Ref Range | Performed At | + + + + + | CRP | 8.8 (H)Comment: Testing | <0.5 mg/dL | [facility] | | | performed at [facility];[address] | | | | [address];[place], [place] | | | | | [address] | | | + + + + + + + | Specimen | + + | Blood | + + + + + + + | Performing | Address | City/State/Zipcode | Phone Number | | Organization | | | | + + + + + | [facility] | [address] | [place] [address] | | + + + + + ESR (09/20/2018 7:50 PM) + + + + + | Component | Value | Ref Range | Performed At | + + + + + | ESR | >130 (H)Comment: Testing | 0 - 20 mm/Hr | [facility] | | | performed at [facility];[address];[place] | | | | | [address] | | | + + + + + + + | Specimen | + + | Blood | + + + + + + + | Performing | Address | City/State/Zipcode | Phone Number | | Organization | | | | + + + + + | [facility] | [address] | [place] [address] | | + + + + + Phosphorus (09/20/2018 7:50 PM) + + + + + | Component | Value | Ref Range | Performed At | + + + + + | PHOSPHORUS | 4.3Comment: Testing | 2.3 - 4.8 mg/dL | [facility] | | | performed at [facility];[address] | | | [address];[place] | | | | | [address] | | | + + + + + + + | Specimen | + + | Blood | + + + + + + + | Performing | Address | City/State/Zipcode | Phone Number | | Organization | | | | + + + + + | [facility] | [address] | [place] [address] | | + + + + + Magnesium (09/20/2018 7:50 PM) + + + + + | Component | Value | Ref Range | Performed At | + + + + + | MAGNESIUM | 1.8Comment: Testing | 1.7 - 2.4 mg/dL | [facility] | | | performed at [facility];[address] | | [address];[place] | | | | | [address] | | | + + + + + + + | Specimen | + + | Blood | + + + + + + + | Performing | Address | City/State/Zipcode | Phone Number | | Organization | | | | + + + + + | [facility] | [address] | [place] [address] | | + + + + + Comprehensive metabolic panel (09/20/2018 7:50 PM) + + + + + | Component | Value | Ref Range | Performed At | + + + + + | SODIUM | 139 | 135 - 145 mmol/L | [facility] | + + + + + | POTASSIUM | 4.2 | 3.5 - 4.9 mmol/L | [facility] | + + + + + | CHLORIDE | 97 (L) | 99 - 109 mmol/L | [facility] | + + + + + | CO2 | 35 (H) | 23 - 32 mmol/L | [facility] | + + [...] 4.0 | 1.3 - 4.9 g/dL | [facility] | + + + + + | A/G | 0.8 (L) | 1.0 - 2.4 | [facility] | + + + + + | TBIL | 0.4 | 0.1 - 1.5 mg/dL | [facility] | + + + + + | ALK PHOS | 109 | 35 - 115 U/L | [facility] | + + + + + | AST | 16 | 10 - 45 U/L | [facility] | + + + + + | ALT | 9 (L) | 10 - 65 U/L | [facility] | + + + + + | EGFR | 20 (L)Comment: GFR <60: | >60 mL/min/1.73m2 | [facility] | | | CHRONIC KIDNEY DISEASE, [...] the | | | | | [facility]D [facility] traceable | | | | | equation.Testing | | | | | performed at [facility];[address] | | | | [address];[place] | | | | | [address] | | | + + + + + + + | Specimen | + + | Blood | + + + + + + + | Performing | Address | City/State/Zipcode | Phone Number | | Organization | | | | + + + + + | [facility] | [address] | [place] [address] | | + + + + + CBC W/Auto Diff (Reflex to Manual) (09/20/2018 7:50 PM) + + + + + | Component | Value | Ref Range | Performed At | + + + + + | WBC | 6.46 | 3.80 - 11.00 K/uL | [facility] | + + + + + | RBC | 3.73 | 3.70 - 5.10 M/uL | [facility] | + + + + + | HGB | 9.3 (L) | 11.3 - 15.5 g/dL | [facility] | + + + + + | HCT | 30.2 (L) | 34.0 - 46.0 % | [facility] | + + [...] (H) | 37 - 53 fl | [facility] | + + + + + | PLT | 280 | 150 - 400 K/uL | [facility] | + + + + + | MPV | 8.3 | fl | [facility] | + + + + + | DIFF TYPE | AUTOMATED | | [facility] | + + + + + | NEUTROPHILS | 64.74 | % | [facility] | + + + + + [...] 0.66 | 0.00 - 0.80 K/uL | [facility] | + + + + + | EOSINOPHILS ABS | 0.34 | 0.00 - 0.50 K/uL | [facility] | + + + + + | BASOPHILS ABS | 0.06 | 0.00 - 0.10 K/uL | [facility] | + + + + + | MORPHOLOGY | NORMAL PLT MORPH | | [facility] | | | Comment: | | | | | 2+ | | | | | ANISO | | | | | 2+ | | | | | HYPO | | | | | | | | + + + + + | Platelet Estimate | ADEQUATEComment: Testing | | [facility] | | | performed at [facility];[address] | | | | [address];[place] | | | | | [address] | | | + + + + + + + | Specimen | + + | Blood | + + + + + + + | Performing | Address | City/State/Zipcode | Phone Number | | Organization | | | | + + + + + | [facility] | [address] | [place] [address] | | + + + + + in this encounter Visit Diagnoses Not on filein this encounter Admitting Diagnoses + + | Diagnosis | [...] | | | | dose on [place] 09/28/18 at 1800, | | | | [...] | +---+---+ + +-------+ + +---+---+ | bacitracin ointment PRN, | Given | | 23 Units | | | | Starting [facility] 09/26/18 at 1436, | | 9 14:36 | | | | | Intra-op | | PDT | | | | + +-------+ + [...] | | | | | dose on 09/20/18 at 2230 | | PDT | | [...] | | | | | (7-10), Starting Tue09/27/18 at | | | | | | [...] | | +---+---+ + +-------+ +--------+---+---+ | lidocaine-EPINEPHrine 1 | Given | | 80 mLs | | | | %-1:[id number] 40 mL, | | 9 13:34 | | | | | bupivacaine-EPINEPHrine (PF) 0.5% | | PDT | | | | | -1:360323 60 mL in sodium | | | | | | | chloride (IV) 0.9 % 200 mL OR | | | | | | | medication mixture PRN, Starting | | | | | | | 09/26/18 at 1334, Intra-op | | | | | | + +-------+ +--------+---+---+ + +---+ | | | + +---+ | ondansetron (ZOFRAN) injection | | | 4 mg 4 mg, Intravenous, Every 6 | | | Hours PRN, Nausea, Vomiting, | | | Starting Tue09/20/18 at 2152 | | + +---+ | [...] | | | Starting [facility] 09/21/18 at 1451, | | | Administer dose during last hour | | | or immediately following each | | | hemodialysis session. Use Rx | | | button to message pharmacy for | | | dose. | | + +---+ | | | + +---+ in this encounter
--- OUTSIDE RECORDS SUMMARY | ~2018-10-28 | XMS | Encounter Summary ---
Demographics + + + | Address | [address] | | | [place] [address] | + + + | Home Phone | | + + + | Preferred Language | Unknown | + + + | Marital Status | Single | + + + | Judaism Affiliation | Unknown | + + + | Race | Unknown | + + + | Ethnic Group | Unknown | + + + Author + + + | Author | [facility] | + + + | Organization | [facility] | + + + | Address | Unknown | + + + | Phone | Unavailable | + + + Support + + + + + | Name | Relationship | Address | Phone | + + + + + | Juliana Dixon | ECON | Unknown | | + + + + + | Mya Dixon | ECON | [address] | | | | | [place] | | | | | [address] | | + + + + + Care Team Providers + +------+ + | Care Slab Tripper Name | Role | Phone | + +------+ + | Donis Martel MD | PCP | | + +------+ + Reason for Visit + + + | Reason | Comments | + + + | Hospitalization | Panniculitis | | Follow-up | | + + + Encounter Details +--------+---------+ + + + | Date | Type | Department | Care Team | Description | +--------+---------+ + + + | 10/09/ | Office | [facility] | Jordan Beltrán DO | Panniculitis | | 2019 | Visit | Infectious Disease | [address] | (Primary Dx); ESRD | | | | [address] | [place] [address] | on hemodialysis | | | | [facility] [address] | [phone] | | | | | [place] [address] | | | | | | [phone] | | | +--------+---------+ + + + [...] + + + + | Height | - | - | + + + + | Body Mass Index | 38.92 | 10/09/2018 2:19 PM PDT | + + + + in this encounter Instructions Patient Instructions - Jordan Beltrán DO - 10/09/2018 3:00 PM PDTCall if you have any fevers , or if you have any recurrent redness, pain or swelling in the wound. Continue Augmentin. Start doxycycline on Tuesday evening.in this encounter Progress Notes Jordan Beltrán DO - 10/09/2018 3:00 PM PDTFormatting of this note may be different from the original. Subjective: Patient ID: Corrina Knight is a 43 y.o. female. Chief complaint: Follow-up panniculitis Inpatient summary: 43 y.o.femalewith significant past medical history of morbid obesity, type II diabetes mellitus, end-stage renal disease on hemodialysiswho presented on September 20 with abdominal w all pain, found to have cellulitis of the pannus. The patient has reportedly been treated wi th multiple recent courses of antibiotics, including a recent course of vancomycin with hemo dialysis. The patient initially presented to [facility], and [facility] with the supposedly need for surgical debridement, although CT scan did not show any ha dence of abscess. At the time of admission, the patient was placed on Zosyn. I am asked to blanche real regarding further antibiotic recommendations. The patient reports [...] and ultimately underwent panniculectomy on September 26. She was written to continue treatment with oral Augmentin and intravenous vancomycin for total of 14 days postoperatively, to be compl eted on October 10. Interim history: The patient presents for follow-up today and reports that she has been tolerating her antib iotics without difficulty. She denies any nausea, vomiting or diarrhea. Appetite is the same as usual. She denies any fevers or chills. She still has some discomfort in her incision. 1 of HER-2 drains was removed today, and the other may be removed on depending on e amount of output. The following portions of the patient's history were reviewed and updated as appropriate an d is available elsewhere in the record: allergies, current medications, past medical history , past social history and problem list. Review of Systems Constitutional: Negative for chills, diaphoresis and fever. HENT: Negative for mouth sores and tinnitus. Respiratory: Negative for shortness of breath. Gastrointestinal: Negative for abdominal pain, diarrhea, nausea and vomiting. Musculoskeletal: Negative for myalgias. Neurological: Negative for dizziness. Objective: Physical Exam Constitutional: She is oriented to person, place, and time. Vital signs are normal. She is cooperative. HENT: Mouth/Throat: Oropharynx is clear and moist and mucous membranes are normal. There is no evidence of thrush. Neck: No edema present. Cardiovascular: Normal rate, regular rhythm and normal heart sounds. Abdomina/Gl: Soft. Bowel sounds are normal. There is no tenderness. Lymphadenopathy: She has no cervical adenopathy. She has no axillary adenopathy. Neurological: She is alert and oriented to person, place, and time. Skin: Skin is warm, dry and intact. No rash noted. Incision across the width of the pannus has ambar in place, appears to be healing well wi th no areas of dehiscence. There is no erythema or induration. There is palpable subcutaneou s scar tissue as expected. Single CALEB drain contains scant sanguinous fluid. Nursing note and vitals reviewed. Assessment and Plan: Visit Diagnoses and Associated Orders: Corrina was seen today for hospitalization follow-up. Panniculitis Status post panniculectomy. The wound appears to be healing well with no signs of infection . Because of drain remains in place, I would favor extending the antibiotics a little longer , although no further IV therapy should be needed. Continue oral Augmentin along with doxycy laura. We will check back in 2 weeks to review progress. ESRD on hemodialysis Augmentin dosed accordingly. No adjustment needed for doxycycline. Other orders - amoxicillin-clavulanate (AUGMENTIN) 500-125 MG per tablet; Take 1 tablet by mouth stevo ly for 14 days. - doxycycline (MONODOX) 100 MG capsule; Take 1 capsule by mouth 2 (two) times daily for 14 days. A total of 15 minutes was spent face to face with the patient, of which greater than 10 min utes was spent in education and councilling regarding the above issues. in this encounter Plan of Treatment +--------+---------+ + + + | Date | Type | Specialty | Care Team | Description | +--------+---------+ + + + | 10/31/ | Office | Infectious Diseases | Jordan Beltrán DO | | | 2018 | Visit | | [address] | | | | | | [place] [address] | | | | | | [phone] | | | | | | | | +--------+---------+ + + + as of this encounter Visit Diagnoses + + | Diagnosis | + + | Panniculitis - Primary | + + | Panniculitis, unspecified site | + + | ESRD on hemodialysis | + + | End stage renal disease | + +
--- OUTSIDE RECORDS SUMMARY | ~2018-10-28 | XMS | Encounter Summary ---
Demographics + + + | Address | [address] | | | [place] [address] | + + + | Home Phone | | + + + | Preferred Language | Unknown | + + + | Marital Status | Single | + + + | Latter Day Affiliation | Unknown | + + + | Race | Unknown | + + + | Ethnic Group | Unknown | + + + Author + + + | Author | [facility] | + + + | Organization | [facility] | + + + | Address | Unknown | + + + | Phone | Unavailable | + + + Support + + + + + | Name | Relationship | Address | Phone | + + + + + | Juliana Dixon | ECON | Unknown | | + + + + + | Mya Dixon | ECON | [address] | | | | | [place] | | | | | [address] | | + + + + + Care Team Providers + +------+ + | Care Director Of Real Estate Name | Role | Phone | + [...] | | | | [address] | [place], [place] | | | | | | [place], [place] | [address] Phone: | | | | | | [address] | [phone] | | | | | | Phone: | Fax: | | | | | | [phone] | [phone] | | | | | | Fax: | | | | | | | [phone] | | + + + + + [...] | Panniculitis | [address] | [address] | | | | | | [address] | Point | | | | | | [address] | [place], [place] | | | | | | [place], [place] | [address] Phone: | | | | | | [address] | [phone] | | | | | | Phone: | Fax: | | | | | | [phone] | [phone] | | | | | | Fax: | | | | | | | [phone] | | +--------+ + + + + + Consultation (Routine) + + + + + + + | Status | Reason | Specialty | Diagnoses / | Referred By | Referred To | | | | | Procedures | Contact | Contact | + + + + + + + | New Request | Specialty | Wound Care | Diagnoses | | [facility]ound | | | Services | | | Laith, | Care [address] | | | Required | | Panniculitis | Dayna Rizzo MD | [address] | | | | | | [address] | [place], [place] | | | | | | BLVD | [address] Phone: | | | | | | [place], [place] | [phone] | | | | | | [address] | Fax: | | | | | | Phone: | [phone] | | | | | | [phone] | | | | | | | Fax: | | | | | | | [phone] | | + + + + + [...] + + | 09/20/ | Hospital | [facility] | Horace Escoto, | ESRD (end stage | | 2019 - | Encounter | [address] | MD [address] | renal disease) | | | | Floor [facility] | [place] [address] | (Primary Dx); | | 09/30/ | | [address] | [phone] | Essential | | 2018 | | [place] [address] | | hypertension; | | | | [phone] | Dayna Ozuna S, | Panniculitis | | | | | [address] | | | | | | [place] [address] | | | | | | [phone] | | | | | | | | | | | | Ludin Connell MD | | | | | | [address] | | | | | | [address] | | | | | | [place] [address] | | | | | | [phone] | | | | | | | [...] note may be different from gela michelle. [facility]: Hospitalist Discharge Summary Date of Admission: [...] stay and will be discharged to a long term facility. Blood culture wa s negative. ID [...] Take 1 tablet by mouth daily. Lot# [id number]. Exp date 02/02. 84 tablet 0 Taking [...] hours. No results for input(s): PHART, PO2ART, CDM3LDX, K0IEOYYA, BEART in the last 168 hours. No [...] Jatin Rodríguez MD [address], [address] [place] [address] Follow up [facility] [address] [place] [id number] Jordan Ho DO [address] [facility] [id number] On 10/10/2018 Qamar Alford MD [address] [facility] [id number] In 1 week Medication List START taking [...] Take 1 tablet by mouth daily. Lot# [id number]. Exp date 02/02. oxybutynin 5 MG tablet [...] | 17 | | | tablet | [id number]. Exp date | | | | | [...] may be different from t he original. [facility]: Hospitalist Progress Note Hospital Day: LOS: [...] Oral TID WC tumescent anesthetic solution Infiltration Electrical Control Assembler to OR tumescent anesthetic solution Infiltration Electrical Control Assembler to OR sodium chloride (PF) 10 mL [...] hours. No results for input(s): PHART, PO2ART, ASK3OCU, W2AYLQPP, BEART in the last 168 hours. No [...] hypertension Morbid obesity due to excess calories ([facility]) ESRD on hemodialysis Diabetes mellitus, type 2 ([facility]) Resolved Problems: * No resolved hospital problems. [...] was completed later after rounds. Dictation software, [employer], was used which may contain error for [...] Oral TID WC tumescent anesthetic solution Infiltration Electrical Control Assembler to OR tumescent anesthetic solution Infiltration Electrical Control Assembler to OR sodium chloride (PF) 10 mL Intravenous Q8H vancomycin 750 mg Intravenous See Admin Instructions vancomycin 750 mg Intravenous Once dextrose Jordan Ho, - 09/29/2018 8:04 AM PDTFormatting of this note may be different from the original. [facility]: Infectious Disease Progress Note Hospital Day: [...] with hemodialysis. The patient initially presented to [facility], and was transferred here with the supposedly [...] Oral TID WC tumescent anesthetic solution Infiltration Electrical Control Assembler to OR tumescent anesthetic solution Infiltration Electrical Control Assembler to OR sodium chloride (PF) 10 mL [...] hypertension Morbid obesity due to excess calories ([facility]) ESRD on hemodialysis Diabetes mellitus, type 2 ([facility]) ASSESSMENT & PLAN Panniculitis (09/21/2018) appreciate panniculectomy. [...] Code Status: Prior JORDAN HO, 09/29/2018Vance Rosenberg, [facility] - 09/29/2018 7:58 AM PDTFormatting of this note may be different from the original. Vancomycin Monitoring Subjective Pharmacy to dose vancomycin per protocol. Diagnosis: Panniculitis. Vancomycin Day: 9 Objective Lab Results Component Value Date/Time CREATININE 5.1 (H) 09/29/2018 06:12 AM WBC 14.78 (H) 09/29/2018 06:12 AM Wt= 112 kg, CrCl= HD, Tmax afeb Cultures= Bloodx2 NAHMy2A, MRSA PCR - Pos . Other Abx= Augmentin Current Vancomycin Dose = 750 mg post dialysis Vancomycin Random Level: 24.1 ug/mL on 09/29/18 @ 0612. Assessment Per protocol, continue current dosing for a random level between 15-25 ug/mL. Vancomycin will continue through October 10. Plan Continue vancomycin HD protocol. No further levels needed at this time. Pharmacist: Vance Real, [facility] - 09/28/2018 1:27 PM PDTRenal Dosing Monitoring: [...] was completed later after rounds. Dictation software, [employer], was used which may contain error for [...] Oral TID WC tumescent anesthetic solution Infiltration Electrical Control Assembler to OR tumescent anesthetic solution Infiltration Electrical Control Assembler to OR sodium chloride (PF) 10 mL Intravenous Q8H vancomycin 750 mg Intravenous See Admin Instructions dextrose Ludin Connell MD - 09/28/2018 11:45 AM PDTFormatting of this note may be different from t mary original. [facility]: Hospitalist Progress Note Hospital Day: LOS: [...] Oral TID WC tumescent anesthetic solution Infiltration Electrical Control Assembler to OR tumescent anesthetic solution Infiltration Electrical Control Assembler to OR sodium chloride (PF) 10 mL [...] hours. No results for input(s): PHART, PO2ART, WIM3OFT, N8KXRYZH, BEART in the last 168 hours. No [...] Ludin Connell MD 09/28/2018 11:45 Vance Mendoza, [facility] - 09/28/2018 11:39 AM PDTFormatting of this note may be d ifferent from the original. Vancomycin Monitoring Subjective Pharmacy to dose vancomycin per protocol. Diagnosis: Panniculitis. Vancomycin Day: 8 Objective Lab Results Component Value Date/Time CREATININE 3.7 (H) 09/28/2018 05:25 AM WBC 14.43 (H) 09/28/2018 05:25 AM Wt= 112.4 kg, CrCl= HD, Tmax afeb Cultures= Bloodx2 [id number], MRSA PCR - Pos . Other Abx= [...] te may be different from the original. [facility]: Infectious Disease Progress Note Hospital Day: [...] with hemodialysis. The patient initially presented to [facility], and was transferred here with the supposedly [...] Oral TID WC tumescent anesthetic solution Infiltration Electrical Control Assembler to OR tumescent anesthetic solution Infiltration Electrical Control Assembler to OR sodium chloride (PF) 10 mL [...] Estimated Energy Needs Total Energy Estimated Needs 0158-7125 kcal/day Method for Estimating Needs 25-30 kcal/kg [...] may be different from t mary original. [facility]: Hospitalist Progress Note Hospital Day: LOS: [...] Oral TID WC tumescent anesthetic solution Infiltration Electrical Control Assembler to OR tumescent anesthetic solution Infiltration Electrical Control Assembler to OR sodium chloride (PF) 10 mL [...] hours. No results for input(s): PHART, PO2ART, VTB9KXJ, O0VFSXMC, BEART in the last 168 hours. No [...] ESRD on hemodialysis Diabetes mellitus, type 2 ([facility]) Resolved Problems: * No resolved hospital problems. [...] Ludin Connell MD 09/27/2018 2:49 Vance Owusu, [facility] - 09/27/2018 12:55 PM PDTFormatting of this note may be di fferent from the original. Vancomycin Monitoring Subjective Pharmacy to dose vancomycin per protocol. Diagnosis: Panniculitis. Vancomycin Day: 7 Objective Lab Results Component Value Date/Time CREATININE 5.3 (H) 09/27/2018 05:21 AM WBC 14.33 (H) 09/27/2018 05:21 AM Wt= 113.3 kg, CrCl= HD, Tmax afeb, Procalcitonin 0.45 ng/mL on 09/20/18 Cultures= Bloodx2 [id number], MRSA PCR - Pos . Other Abx= [...] note may be different from the original. [facility]: Infectious Disease Progress Note Hospital Day: [...] with hemodialysis. The patient initially presented to [facility], and was transferred here with the supposedly [...] Oral TID WC tumescent anesthetic solution Infiltration Electrical Control Assembler to OR tumescent anesthetic solution Infiltration Electrical Control Assembler to OR sodium chloride (PF) 10 mL [...] was completed later after rounds. Dictation software, [employer], was used which may contain error for [...] Oral TID WC tumescent anesthetic solution Infiltration Electrical Control Assembler to OR tumescent anesthetic solution Infiltration Electrical Control Assembler to OR sodium chloride (PF) 10 mL [...] was completed later after rounds. Dictation software, [employer], was used which may contain error for [...] Oral TID WC tumescent anesthetic solution Infiltration Electrical Control Assembler to OR tumescent anesthetic solution Infiltration Electrical Control Assembler to OR sodium chloride (PF) 10 mL Intravenous Q8H vancomycin 750 mg Intravenous See Admin Instructions dextrose Dayna Ozuna MD - 09/26/2018 3:38 PM PDTFormatting of this note may be different f rom the original. [facility]: Hospitalist Progress Note Pt: Corrina Knight [...] Oral TID WC tumescent anesthetic solution Infiltration Electrical Control Assembler to OR tumescent anesthetic solution Infiltration Electrical Control Assembler to OR sodium chloride (PF) 10 mL [...] hours. No results for input(s): PHART, PO2ART, ZKG9ADY, Q6AFHPNT, BEART in the last 168 hours. No [...] note may be different from the original. [facility]: Infectious Disease Progress Note Hospital Day: [...] with hemodialysis. The patient initially presented to [facility], and was transferred here with the supposedly [...] Oral TID WC tumescent anesthetic solution Infiltration Electrical Control Assembler to OR sodium chloride (PF) 10 mL [...] hypertension Morbid obesity due to excess calories ([facility]) Diabetes mellitus, type 2 ([facility]) ASSESSMENT & PLAN Panniculitis (09/21/2018) This is [...] Jn - 09/25/2018 11:16 PM PDTOn call permastone mechanic responded to staff vis it request per pt's mother while on site. Corrina (43/f) expressed feeling anxious prior to gigi edi tomorrow. Her mother requested a permastone mechanic visit for prayer. Assumed goal of emotional/s [...] she would be able to rest now. Conveyor Monitor offered revenue enforcement collection agent support through the night and on site support at [phone]. Family expre ssed openness to follow up visit post op. Left message for day permastone mechanic to check in.Benita Ingram MD - 09/25/2018 4:00 PM PDTFormatting of this note may be different from the original . [facility]: NEPHROLOGY Dialysis/ Progress Note Corrina Knight 43 y.o. [id number] female [facility] Day: LOS: 5 days 43-year-old female with past medical history significant for end-stage renal disease on hem odialysis 3 times a week Tuesday, hypertension, obesity, type II diabetes, anemia in end-stage renal disease, history of cva presented to [facility] with abdominal wall pain and swelling [...] Anemia of chronic renal failure, stage 5 ([facility]) 12/13/2015 Chronic kidney disease Diabetes mellitus, type 2 (HCC) Dialysis patient ([facility]) ESRD (end stage renal disease) ([facility]) 04/02/2015 Essential hypertension 04/03/2015 Hypertension Obesity (BMI 30-39.9) Stroke ([facility]) Past Surgical History Procedure Laterality Date ANKLE [...] Take 1 tablet by mouth daily. Lot# [id number]. Exp date tablet 0 Taking at Unknown [...] on file Social History Narrative Lives in [place] (lives with her sister who is her caregiver). Mother lives in [place]. Uses cane for ambulation. No kids Allergy: [...] radiologist report and is used for image [facility] only Patient's old records, imaging and labs [...] earlier and charting completed later Dictation software, [employer], used which may contain error for similar sounding words even af ter review. Personal communication requested for any clarification. Dayna Ozuna MD - 09/25/2018 2:52 PM PDTFormatting of this note may be different f rom the original. [facility]: Hospitalist Progress Note Pt: Corrina Knight [...] [START ON 09/26/2018] tumescent anesthetic solution Infiltration Electrical Control Assembler to OR sodium chloride (PF) 10 mL [...] hours. No results for input(s): PHART, PO2ART, LQF4YGA, X0QNTAUN, BEART in the last 168 hours. No [...] excess calories (HCC) Diabetes mellitus, type 2 ([facility]) ASSESSMENT & PLAN 1. Panniculitis with recurrent [...] Ozuna MD 09/25/2018 2:52 PM Marcia Tran, [facility] - 09/25/2018 11:42 AM PDTPatient is scheduled for HD today at 1300. Vanco mycin dose has been sent to the floor and RN has been notified that is should be given durin g the last hour of HD today.JerelJordan, DO - 09/25/2018 10:19 AM PDTFormatting of this note may be different from the original. [facility]: Infectious Disease Progress Note Hospital Day: [...] with hemodialysis. The patient initially presented to [facility], and was transferred here with the supposedly [...] may be di fferent from the original. [facility]: Hospitalist Progress Note Pt: Corrina Knight [...] hours. No results for input(s): PHART, PO2ART, HPF3NFC, X4JHAXFA, BEART in the last 168 hours. No [...] Ozuna MD 09/24/2018 3:35 PM Anna Xiao, [facility] - 09/24/2018 12:36 PM PDTClinical Pharmacy Note: Vancomycin Day 4 Goal Trough: 10-20 mcg/mL Current dose: 750 mg IV during last hour of each dialysis Plan: Continue same dose. No dialysis today, no dose today. Anna Xiao, Pharm.D. 09/24/2018 12:36 PM Jordan Ho DO - 09/24/2018 10:28 AM PDTFormatting of this note may be different from the original. [facility]: Infectious Disease Progress Note Hospital Day: [...] with hemodialysis. The patient initially presented to [facility], and was transferred here with the supposedly [...] may be di fferent from the original. [facility]: Hospitalist Progress Note Pt: Corrina Knight AGE/SEX: 43 y.o. female ROOM: [facility]/4461- : 1975 PCP: JATIN RODRÍGUEZ ADMIT [...] hours. No results for input(s): PHART, PO2ART, VKC5FOH, I1LIXGXM, BEART in the last 168 hours. No [...] hypertension Morbid obesity due to excess calories ([facility]) Diabetes mellitus, type 2 ([facility]) ASSESSMENT & PLAN 1. Panniculitis with recurrent [...] Ozuna MD 09/23/2018 2:29 PM Anna Xiao [facility] - 09/23/2018 12:53 PM PSTClinical Pharmacy Note: Vancomycin Day 3 Goal Trough: 10-20 mcg/mL Current dose: 750 mg IV during last hour of each dialysis Plan: Continue same dose. No dialysis today, no dose today. Anna Xiao Pharm.D. 09/23/2018 12:52 PM Vance Rosenberg, [facility] - 09/23/2018 10:58 AM PSTFormatting of this [...] 7.40 K/uL Final Comment: Testing performed at [facility];[address] [place] [address];[place] [address] CREATININE Date Value Ref Range Status 09/23/2018 [...] note may be different from the original. [facility]: Infectious Disease Progress Note Hospital Day: [...] with hemodialysis. The patient initially presented to [facility], and was transferred here with the supposedly [...] Anemia of chronic renal failure, stage 5 ([facility]) Renovascular hypertension Morbid obesity due to excess calories ([facility]) Diabetes mellitus, type 2 ([facility]) ASSESSMENT & PLAN Panniculitis (09/21/2018) This is [...] may be dif ferent from the original. [facility]: Hospitalist Progress Note Pt: Corrina Knight AGE/SEX: 43 y.o. female ROOM: [facility]4461- : 1975 PCP: JATIN RODRÍGUEZ ADMIT DATE: [...] hours. No results for input(s): PHART, PO2ART, HWX6LTW, A3TIAEEM, BEART in the last 168 hours. No [...] note may be different from the original. [facility]: Infectious Disease Progress Note Hospital Day: [...] with hemodialysis. The patient initially presented to [facility], and was transferred here with the supposedly [...] note may be different from the original. [facility]: NEPHROLOGY Progress Note Corrina Knight 43 y.o. [id number] [id number] female [facility] Day: LOS: 1 day 43-year-old female with past medical history significant for end-stage renal disease on hem odialysis 3 times a week Tuesday, hypertension, obesity, type II diabetes, anemia in end-stage renal disease, history of cva presented to [facility] with abdominal wall pain and swelling [...] Diabetes mellitus, type 2 (HCC) Dialysis patient ([facility]) ESRD (end stage renal disease) ([facility]) 04/02/2015 Essential hypertension 04/03/2015 Hypertension Obesity (BMI 30-39.9) Stroke ([facility]) Past Surgical History Procedure Laterality Date ANKLE [...] Take 1 tablet by mouth daily. Lot# [id number]. Exp date tablet 0 Taking at Unknown [...] on file Social History Narrative Lives in [place] (lives with her sister who is her caregiver). Mother lives in [place]. Uses cane for ambulation. No kids Allergy: [...] radiologist report and is used for image [facility] only Patient's old records, imaging and [...] earlier and charting completed later Dictation software, [employer] Meet[employer], used which may contain error for similar sounding words even af ter review. Personal communication requested for any clarification. Dayna Ozuna MD - 09/21/2018 8:38 AM PSTFormatting of this note may be different f rom the original. [facility]: Hospitalist Progress Note Pt: Corrina Knight [...] hours. No results for input(s): PHART, PO2ART, VHF7UHZ, V6CPTDGZ, BEART in the last 168 hours. No [...] AM PSTPlease document contact precautions on the [place] owsheets/daily cares. Thank you! Mariana Infection Preventionin this encounter Plan of Treatment +--------+---------+ + + + | Date | Type | Specialty | Care Team | Description | +--------+---------+ + + + | 10/31/ | Office | Infectious Diseases | Jordan Ho DO | | | 2019 | Visit | | [address] [facility] | | | | | | [place] [address] | | | | | | [phone] | | | | | | | [...] | | | L, | | | MERCHANDISING STOCK ASSOCIATE | +---+--------+ + +--------+ +---+ + | [...] | [facility] | | | performed at [facility], [address] | | LABORATORY | | | [facility], | | | | | [place] [address] | | | + + + + + + + | Specimen | + + | Blood | + + + + + + + | Performing | Address | City/State/Zipcode | Phone Number | | Organization | | | | + + + + + | [facility] | [address] [facility] | [place] [address] | [phone] | | LABORATORY | [address] | | | + + + + + Calcium, ionized (09/30/2018 5:29 AM) + + + + + | Component | Value | Ref Range | Performed At | + + + + + | CA++ | 1.03 (L) | 1.08 - 1.25 mmol/L | [facility] | + + + + + | pH | 7.436Comment: Testing | 7.300 - 7.450 | [facility] | | | performed at [facility];[address] | [address];[place] | | | | | [address] | | | + + + + + + + | Specimen | + + | Blood | + + + + + + + | Performing | Address | City/State/Zipcode | Phone Number | | Organization | | | | + + + + + | [facility] | [address] | [place] [address] | | + + + + + [...] (L)Comment: GFR <60: | >60 mL/min/1.73m2 | [facility] | | | CHRONIC KIDNEY DISEASE, | [...] | | | | | performed at [facility], [address] | | | | | [facility], | | | | | [place] [address] | | | + + + + + + + | Specimen | + + | Blood | + + + + + + + | Performing | Address | City/State/Zipcode | Phone Number | | Organization | | | | + + + + + | [facility] | [address] [facility] | [place] [address] | [phone] | | LABORATORY | [address] | | [...] | LABORATORY | | | performed at [facility], [address] | | | | | [address], | | | | | [place] [address] | | | | | | | | + + + + + + + | Specimen | + + | Blood | + + + + + + + | Performing | Address | City/State/Zipcode | Phone Number | | Organization | | | | + + + + + | [facility] | [address] [facility] | [place] [address] | [phone] | | LABORATORY | [address] | | | + + + + + POCT glucose (09/30/2018 5:16 AM) + + + + + | Component | Value | Ref Range | Performed At | + + + + + | GLUCOSE,POC SCREEN | 94Comment: Testing | 65 - 99 mg/dL | [facility] | | | performed at [facility];[address] | | | | | [address];[place] | | | | | [address] | | | + + + + + + + + + + | Performing | Address | City/State/Zipcode | Phone Number | | Organization | | | | + + + + + | [facility] | [address] | [place] [address] | | + + + + + POCT glucose (09/30/2018 12:26 AM) + + + + + | Component | Value | Ref Range | Performed At | + + + + + | GLUCOSE,POC SCREEN | 124 (H)Comment: Testing | 65 - 99 mg/dL | [facility] | | | performed at [facility];[address] | | | | | [address];[place] | | | | | [address] | | | + + + + + + + + + + | Performing | Address | City/State/Zipcode | Phone Number | | Organization | | | | + + + + + | [facility] | [address] | [place] [address] | | + + + + + POCT glucose (09/29/2018 9:30 PM) + + + + + | Component | Value | Ref Range | Performed At | + + + + + | GLUCOSE,POC SCREEN | 166 (H)Comment: Testing | 65 - 99 mg/dL | [facility] | | | performed at [facility];[address] | | | | | [address] [facility], [place] | | | | | [address] | | | + + + + + + + + + + | Performing | Address | City/State/Zipcode | Phone Number | | Organization | | | | + + + + + | [facility] | [address] | [place] [address] | | + + + + + POCT glucose (09/29/2018 4:31 PM) + + + + + | Component | Value | Ref Range | Performed At | + + + + + | GLUCOSE,POC SCREEN | 172 (H)Comment: Testing | 65 - 99 mg/dL | [facility] | | | performed at [facility];[address] | | [address];[place] | | | | | [address] | | | + + + + + + + + + + | Performing | Address | City/State/Zipcode | Phone Number | | Organization | | | | + + + + + | [facility] | [address] | [place] [address] | | + + + + + Ferritin (09/29/2018 1:47 PM) + + + + + | Component | Value | Ref Range | Performed At | + + + + + | FERRITIN | 344 (H)Comment: Testing | 6 - 170 ng/mL | [facility] | | | performed at [facility], [address] | | LABORATORY | | | [address], | | | | | [place] [address] | | | + + + + + + + | Specimen | + + | Blood | + + + + + + + | Performing | Address | City/State/Zipcode | Phone Number | | Organization | | | | + + + + + | [facility] | [address] | [place] [address] | [phone] | | LABORATORY | [address] | | [...] | | | | | [place] [address] | | | + + + + + + + | Specimen | + + | Blood | + + + + + + + | Performing | Address | City/State/Zipcode | Phone Number | | Organization | | | | + + + + + | [facility] | [address] [place] [address] | [place] [address] | [phone] | | LABORATORY | Blvd[address] | | | + + + + + Vitamin B12 (09/29/2018 1:47 PM) + + + + + | Component | Value | Ref Range | Performed At | + + + + + | VITAMIN B12 | 921Comment: Testing | 254 - 1,320 pg/mL | [facility] | | | performed at [facility], [address] | | LABORATORY | | | [facility], | | | | | [place] [address] | | | + + + + + + + | Specimen | + + | Blood | + + + + + + + | Performing | Address | City/State/Zipcode | Phone Number | | Organization | | | | + + + + + | [facility] | [address] | [place] [address] | [phone] | | LABORATORY | [address]vd[address] | | | + + + + + Folate (09/29/2018 1:47 PM) + + + + + | Component | Value | Ref Range | Performed At | + + + + + | FOLATE | 5.0 (L)Comment: Testing | >5.4 ng/mL | [facility] | | | performed at [facility], [address] | | LABORATORY | | | [address], | | | | | [place] [address] | | | + + + + + + + | Specimen | + + | Blood | + + + + + + + | Performing | Address | City/State/Zipcode | Phone Number | | Organization | | | | + + + + + | [facility] | [address] [facility] | [place] [address] | [phone] | | LABORATORY | [address] | | | + + + + + POCT glucose (09/29/2018 11:39 AM) + + + + + | Component | Value | Ref Range | Performed At | + + + + + | GLUCOSE,POC SCREEN | 108 (H)Comment: Testing | 65 - 99 mg/dL | [facility] | | | performed at [facility];[address] | | | | | [address];[place] | | | | | [address] | | | + + + + + + + + + + | Performing | Address | City/State/Zipcode | Phone Number | | Organization | | | | + + + + + | [facility] | [address] [facility] | [place] [address] | | + + + + + Phosphorus (09/29/2018 6:12 AM) + + + + + | Component | Value | Ref Range | Performed At | + + + + + | PHOSPHORUS | 4.7Comment: Testing | 2.3 - 4.8 mg/dL | [facility] | | | performed at [facility], [address] | | LABORATORY | | | [facility] [place], | | | | | [place] [address] | | | + + + + + + + | Specimen | + + | Blood | + + + + + + + | Performing | Address | City/State/Zipcode | Phone Number | | Organization | | | | + + + + + | [facility] | [address] | [place] [address] | [phone] | | LABORATORY | [address]vd[address] | | | + + + + + Calcium, ionized (09/29/2018 6:12 AM) + + + + + | Component | Value | Ref Range | Performed At | + + + + + | CA++ | 1.01 (L) | 1.08 - 1.25 mmol/L | [facility] | + + + + + | pH | 7.405Comment: Testing | 7.300 - 7.450 | [facility] | | | performed at [facility];[address] | | | | [address];[place], [place] | | | | | [address] | | | + + + + + + + | Specimen | + + | Blood | + + + + + + + | Performing | Address | City/State/Zipcode | Phone Number | | Organization | | | | + + + + + | [facility] | [address] | [place] [address] | | + + + + + [...] | | | | | performed at [facility], [address] | | | | | [address], | | | | | [place] [address] | | | + + + + + + + | Specimen | + + | Blood | + + + + + + + | Performing | Address | City/State/Zipcode | Phone Number | | Organization | | | | + + + + + | [facility] | [address] | [place] [address] | [phone] | | LABORATORY | [address] | | [...] performed | | | | | at [facility], [address] | | | | | [employer], | | | | | [place] [address] | | | | |Testing performed at [facility], [address], [place] [address] | | | | | | | | + + + + + + + | Specimen | + + | Blood | + + + + + + + | Performing | Address | City/State/Zipcode | Phone Number | | Organization | | | | + + + + + | [facility] | [address] | [place] [address] | [phone] | | LABORATORY | [address] | | | + + + + + Vancomycin, random (09/29/2018 6:12 AM) + + + + + | Component | Value | Ref Range | Performed At | + + + + + | VANCOMYCIN,RANDOM | 24.1Comment: Testing | ug/mL | [facility] | | | performed at [facility];[address] | | | | | [address];[place], [place] | | | | | [address] | | | + + + + + + + | Specimen | + + | Blood | + + + + + + + | Performing | Address | City/State/Zipcode | Phone Number | | Organization | | | | + + + + + | [facility] | [address] | [facility] [place] [address] | | + + + + + POCT glucose (09/29/2018 5:39 AM) + + + + + | Component | Value | Ref Range | Performed At | + + + + + | GLUCOSE,POC SCREEN | 93Comment: Testing | 65 - 99 mg/dL | [facility] | | | performed at [facility];[address] | | | | | [facility] | | | | | [address] | | | + + + + + + + + + + | Performing | Address | City/State/Zipcode | Phone Number | | Organization | | | | + + + + + | [facility] | [address] | [place] [address] | | + + + + + POCT glucose (09/28/2018 9:02 PM) + + + + + | Component | Value | Ref Range | Performed At | + + + + + | GLUCOSE,POC SCREEN | 122 (H)Comment: Testing | 65 - 99 mg/dL | [facility] | | | performed at [facility];[address] | | | | | [address];[place] | | | | | [address] | | | + + + + + + + + + + | Performing | Address | City/State/Zipcode | Phone Number | | Organization | | | | + + + + + | [facility] | [address] | [place] [address] | | + + + + + POCT glucose (09/28/2018 4:13 PM) + + + + + | Component | Value | Ref Range | Performed At | + + + + + | GLUCOSE,POC SCREEN | 130 (H)Comment: Testing | 65 - 99 mg/dL | [facility] | | | performed at [facility];[address] | | | | | [address];[place] | | | | | [address] | | | + + + + + + + + + + | Performing | Address | City/State/Zipcode | Phone Number | | Organization | | | | + + + + + | [facility] | [address] | [place] [address] | | + + + + + POCT glucose (09/28/2018 12:01 PM) + + + + + | Component | Value | Ref Range | Performed At | + + + + + | GLUCOSE,POC SCREEN | 122 (H)Comment: Testing | 65 - 99 mg/dL | [facility] | | | performed at [facility];[address] | | | | | [address];[place] | | | | | [address] | | | + + + + + + + + + + | Performing | Address | City/State/Zipcode | Phone Number | | Organization | | | | + + + + + | [facility] | [address] | [place] [address] | | + + + + + POCT glucose (09/28/2018 5:48 AM) + + + + + | Component | Value | Ref Range | Performed At | + + + + + | GLUCOSE,POC SCREEN | 100 (H)Comment: Testing | 65 - 99 mg/dL | [facility] | | | performed at [facility] | | | | | [address] [facility];[place], [place] | | | | | [address] | | | + + + + + + + + + + | Performing | Address | City/State/Zipcode | Phone Number | | Organization | | | | + + + + + | [facility] | [address] | [place] [address] | | + + + + + Phosphorus (09/28/2018 5:25 AM) + + + + + | Component | Value | Ref Range | Performed At | + + + + + | PHOSPHORUS | 3.3Comment: Testing | 2.3 - 4.8 mg/dL | [facility] | | | performed at [facility], [address] | | LABORATORY | | | [facility] [place], | | | | | [place] [address] | | | + + + + + + + | Specimen | + + | Blood | + + + + + + + | Performing | Address | City/State/Zipcode | Phone Number | | Organization | | | | + + + + + | [facility] | [address] | [place] [address] | [phone] | | LABORATORY | [address] | | [...] 7.458 (H)Comment: | 7.300 - 7.450 | [facility] | | | Testing performed at | | | | | [facility];[address] | | | [address];[place] [address] | | | + + + + + + + | Specimen | + + | Blood | + + + + + + + | Performing | Address | City/State/Zipcode | Phone Number | | Organization | | | | + + + + + | [facility] | [address] | [place] [address] | | + + + + + [...] | | | | | performed at [facility], [address] | | | | | [facility], | | | | | [place] [address] | | | + + + + + + + | Specimen | + + | Blood | + + + + + + + | Performing | Address | City/State/Zipcode | Phone Number | | Organization | | | | + + + + + | [facility] | [address] | [place] [address] | [phone] | | LABORATORY | [address] | | | + + + + + CBC W/Auto Diff (Reflex to Manual) (09/28/2018 5:25 AM) + + + + + | Component | Value | Ref Range | Performed At | + + + + + | WBC | 14.43 (H) | 3.80 - 11.00 K/uL | [facility] | + + + + + | RBC | 3.22 (L) | 3.70 - 5.10 M/uL | [facility] | + + + + + | HGB | 8.2 (L) | 11.3 - 15.5 g/dL | [facility] | + + + + + | HCT | 26.5 (L) | 34.0 - 46.0 % | [facility] | + + + + + [...] 292 | 150 - 400 K/uL | [facility] | + + + + + [...] 0.43 | 0.00 - 0.50 K/uL | [facility] | + + + + + | Platelet Estimate | ADEQUATE | | [facility] | + + + + + | MORPHOLOGY | NORMAL PLT MORPHComment: | | [facility] | | | 1+ANISOTesting | | | | | performed at [facility] | | | | | [address] [facility];[place], [place] | | | | | [address] | | | | | | | | + + + + + + + | Specimen | + + | Blood | + + + + + + + | Performing | Address | City/State/Zipcode | Phone Number | | Organization | | | | + + + + + | [facility] | [address] | [place] [address] | | + + + + + POCT glucose (09/27/2018 9:07 PM) + + + + + | Component | Value | Ref Range | Performed At | + + + + + | GLUCOSE,POC SCREEN | 114 (H)Comment: Testing | 65 - 99 mg/dL | [facility] | | | performed at [facility];[address] | | | | | [address];[place] | | | | | [address] | | | + + + + + + + + + + | Performing | Address | City/State/Zipcode | Phone Number | | Organization | | | | + + + + + | [facility] | [address] | [place] [address] | | + + + + + POCT glucose (09/27/2018 4:35 PM) + + + + + | Component | Value | Ref Range | Performed At | + + + + + | GLUCOSE,POC SCREEN | 87Comment: Testing | 65 - 99 mg/dL | [facility] | | | performed at [facility];[address] | | | | | [address];[place] | | | | | [address] | | | + + + + + + + + + + | Performing | Address | City/State/Zipcode | Phone Number | | Organization | | | | + + + + + | [facility] | [address] | [facility] [place] [address] | | + + + + + POCT glucose (09/27/2018 11:25 AM) + + + + + | Component | Value | Ref Range | Performed At | + + + + + | GLUCOSE,POC SCREEN | 88Comment: Testing | 65 - 99 mg/dL | [facility] | | | performed at [facility];[address] | | | | | [address];[place] | | | | | [address] | | | + + + + + + + + + + | Performing | Address | City/State/Zipcode | Phone Number | | Organization | | | | + + + + + | [facility] | [address] | [place] [address] | | + + + + + POCT glucose (09/27/2018 5:40 AM) + + + + + | Component | Value | Ref Range | Performed At | + + + + + | GLUCOSE,POC SCREEN | 81Comment: Testing | 65 - 99 mg/dL | [facility] | | | performed at [facility];[address] | | | | | [address];[place] | | | | | [address] | | | + + + + + + + + + + | Performing | Address | City/State/Zipcode | Phone Number | | Organization | | | | + + + + + | [facility] | [address] | [place] [address] | | + + + + + Phosphorus (09/27/2018 5:21 AM) + + + + + | Component | Value | Ref Range | Performed At | + + + + + | PHOSPHORUS | 4.5Comment: Testing | 2.3 - 4.8 mg/dL | [facility] | | | performed at [facility], [address] | | LABORATORY | | | [address], | | | | | [place] [address] | | | + + + + + + + | Specimen | + + | Blood | + + + + + + + | Performing | Address | City/State/Zipcode | Phone Number | | Organization | | | | + + + + + | [facility] | [address] | [place] [address] | [phone] | | LABORATORY | [address] | | [...] (H) | 0.50 - 1.00 mg/dL | [facility] | | | | | LABORATORY | + + + + + | BUN/CREAT | 5 | | [facility] | | | | | LABORATORY | + + + + + | CALCIUM | 8.1 (L) | 8.5 - 10.5 mg/dL | [facility] | | | | | LABORATORY | + + + + + | EGFR | 9 (L)Comment: GFR <60: | >60 mL/min/1.73m2 | [facility] | | | CHRONIC KIDNEY DISEASE, | [...] | | | | | performed at [facility], [address] | | | | | [facility], | | | | | [place] [address] | | | + + + + + + + | Specimen | + + | Blood | + + + + + + + | Performing | Address | City/State/Zipcode | Phone Number | | Organization | | | | + + + + + | [facility] | [address] | [place] [address] | [phone] | | LABORATORY | [address] | | [...] performed | | | | | at [facility], [address] | | | | | [facility], | | | | | [place] [address] | | | | |Testing performed at [facility], [address] [facility], [place] [address] | | | | | | | | + + + + + + + | Specimen | + + | Blood | + + + + + + + | Performing | Address | City/State/Zipcode | Phone Number | | Organization | | | | + + + + + | [facility] | [address] | [place] [address] | [phone] | | LABORATORY | [address] | | | + + + + + POCT glucose (09/26/2018 9:02 PM) + + + + + | Component | Value | Ref Range | Performed At | + + + + + | GLUCOSE,POC SCREEN | 125 (H)Comment: Testing | 65 - 99 mg/dL | [facility] | | | performed at [facility];[address] | | | | | [address];[place] | | | | | [address] | | | + + + + + + + + + + | Performing | Address | City/State/Zipcode | Phone Number | | Organization | | | | + + + + + | [facility] | [address] | [place] [address] | | + + + + + POCT glucose (09/26/2018 4:03 PM) + + + + + | Component | Value | Ref Range | Performed At | + + + + + | GLUCOSE,POC SCREEN | 126 (H)Comment: Testing | 65 - 99 mg/dL | [facility] | | | performed at [facility];[address] | | | | | [address];[place], [place] | | | | | [address] | | | + + + + + + + + + + | Performing | Address | City/State/Zipcode | Phone Number | | Organization | | | | + + + + + | [facility] | [address] | [place] [address] | | + + + + + Pathology histology - tissue (09/26/2018 3:00 PM) + + | Specimen | + + | Tissue | + + + + + | Narrative | Performed At | + + + | SPECIMEN(S): A RIGHT ABDOMINAL PANNUS SPECIMEN SOURCE: A. RIGHT | [facility] | | ABDOMINAL PANNUS CLINICAL HISTORY: [...] component was performed by | | | [facility], [address] [place] [id number] (Medical | | | Director: Ludy Savage MD; CLIA# [id number]). Professional | | | [facility]. | | | [address] [address] | | | (Transportation Refrigeration Technician: Vance Foley M.D.; | | | CLIA#: [id number]). Diagnostician: Vance Foley MD | | | [...] Testing | 65 - 99 mg/dL | [facility] | | | performed at [facility];[address] | | | | | [address] [facility];[place], [place] | | | | | [address] | | | + + + + + + + + + + | Performing | Address | City/State/Zipcode | Phone Number | | Organization | | | | + + + + + | [facility] | [address] | [place] [address] | | + + + + + POCT glucose (09/26/2018 11:28 AM) + + + + + | Component | Value | Ref Range | Performed At | + + + + + | GLUCOSE,POC SCREEN | 81Comment: Testing | 65 - 99 mg/dL | [facility] | | | performed at [facility];[address] | | | | | [address];[place] | | | | | [address] | | | + + + + + + + + + + | Performing | Address | City/State/Zipcode | Phone Number | | Organization | | | | + + + + + | [facility] | [address] | [place] [address] | | + + + + + [...] the | | | | | MDRD IDOH traceable | | | | | equation.Testing | | | | | performed at [facility], [address] | | | | | [facility], | | | | | [place] [address] | | | + + + + + + + | Specimen | + + | Blood | + + + + + + + | Performing | Address | City/State/Zipcode | Phone Number | | Organization | | | | + + + + + | [facility] | [address] | [place] [address] | [phone] | | LABORATORY | [address] | | [...] | | | | | performed at [facility], [address] | | | | | [facility], | | | | | [place] [address] | | | | |HYPO | | | | |NORMAL PLT MORPH | | | | |Testing performed at [facility], [address] [facility], [place] [address] | | | | | | | | + + + + + + + | Specimen | + + | Blood | + + + + + + + | Performing | Address | City/State/Zipcode | Phone Number | | Organization | | | | + + + + + | [facility] | [address] | [place] [address] | [phone] | | LABORATORY | [address] | | | + + + + + POCT glucose (09/26/2018 5:24 AM) + + + + + | Component | Value | Ref Range | Performed At | + + + + + | GLUCOSE,POC SCREEN | 84Comment: Testing | 65 - 99 mg/dL | [facility] | | | performed at [facility];[address] | | | | | [address];[place] | | | | | [address] | | | + + + + + + + + + + | Performing | Address | City/State/Zipcode | Phone Number | | Organization | | | | + + + + + | [facility] | [address] | [place] [address] | | + + + + + POCT glucose (09/25/2018 9:02 PM) + + + + + | Component | Value | Ref Range | Performed At | + + + + + | GLUCOSE,POC SCREEN | 115 (H)Comment: Testing | 65 - 99 mg/dL | [facility] | | | performed at [facility];[address] | | | | | [address];[place], [place] | | | | | [address] | | | + + + + + + + + + + | Performing | Address | City/State/Zipcode | Phone Number | | Organization | | | | + + + + + | [facility] | [address] | [place] [address] | | + + + + + POCT glucose (09/25/2018 4:15 PM) + + + + + | Component | Value | Ref Range | Performed At | + + + + + | GLUCOSE,POC SCREEN | 116 (H)Comment: Testing | 65 - 99 mg/dL | [facility] | | | performed at [facility];[address] | | | | | [address];[place] | | | | | [address] | | | + + + + + + + + + + | Performing | Address | City/State/Zipcode | Phone Number | | Organization | | | | + + + + + | [facility] | [address] | [place] [address] | | + + + + + POCT glucose (09/25/2018 11:38 AM) + + + + + | Component | Value | Ref Range | Performed At | + + + + + | GLUCOSE,POC SCREEN | 112 (H)Comment: Testing | 65 - 99 mg/dL | [facility] | | | performed at [facility];[address] | | | | | [address];[place] | | | | | [address] | | | + + + + + + + + + + | Performing | Address | City/State/Zipcode | Phone Number | | Organization | | | | + + + + + | [facility] | [address] | [place] [address] | | + + + + + POCT glucose (09/25/2018 6:22 AM) + + + + + | Component | Value | Ref Range | Performed At | + + + + + | GLUCOSE,POC SCREEN | 103 (H)Comment: Testing | 65 - 99 mg/dL | [facility] | | | performed at [facility];[address] | | | | | [address];[place], [place] | | | | | [address] | | | + + + + + + + + + + | Performing | Address | City/State/Zipcode | Phone Number | | Organization | | | | + + + + + | [facility] | [address] | [place] [address] | | + + + + + [...] (H) | 0.50 - 1.00 mg/dL | [facility] | | | | | LABORATORY | + + + + + | BUN/CREAT | 7 | | [facility] | | | | | LABORATORY | + + + + + | CALCIUM | 8.2 (L) | 8.5 - 10.5 mg/dL | [facility] | | | | | LABORATORY | + + + + + | EGFR | 8 (L)Comment: GFR <60: | >60 mL/min/1.73m2 | [facility] | | | CHRONIC KIDNEY [...] | | | | | performed at [facility], [address] | | | | | [place], | | | | | [place] [address] | | | + + + + + + + | Specimen | + + | Blood | + + + + + + + | Performing | Address | City/State/Zipcode | Phone Number | | Organization | | | | + + + + + | [facility] | [address] [facility] | [place] [address] | [phone] | | LABORATORY | [place]. | | [...] | | | | | performed at [facility], [address] | | | | [facility], | | | | | [place] [address] | | | | |HYPO | | | | |NORMAL PLT MORPH | | | | |Testing performed at [facility], [facility] [address] [facility], [place] [address] | | | | | | | | + + + + + + + | Specimen | + + | Blood | + + + + + + + | Performing | Address | City/State/Zipcode | Phone Number | | Organization | | | | + + + + + | [facility] | [address] [place], [place] [address] | [place] [address] | [phone] | | LABORATORY | [place]. | | | + + + + + POCT glucose (09/24/2018 10:02 PM) + + + + + | Component | Value | Ref Range | Performed At | + + + + + | GLUCOSE,POC SCREEN | 107 (H)Comment: Testing | 65 - 99 mg/dL | [facility] | | | performed at [facility];[address] | | | | | [address];[place], [place] | | | | | [address] | | | + + + + + + + + + + | Performing | Address | City/State/Zipcode | Phone Number | | Organization | | | | + + + + + | [facility] | [address] | [place] [address] | | + + + + + POCT glucose (09/24/2018 4:38 PM) + + + + + | Component | Value | Ref Range | Performed At | + + + + + | GLUCOSE,POC SCREEN | 123 (H)Comment: Testing | 65 - 99 mg/dL | [facility] | | | performed at [facility];[address];[place] | | | | | [address] | | | + + + + + + + + + + | Performing | Address | City/State/Zipcode | Phone Number | | Organization | | | | + + + + + | [facility] | [address] | [place] [address] | | + + + + + POCT glucose (09/24/2018 12:04 PM) + + + + + | Component | Value | Ref Range | Performed At | + + + + + | GLUCOSE,POC SCREEN | 121 (H)Comment: Testing | 65 - 99 mg/dL | [facility] | | | performed at [facility];[address] | | | | | [address];[place] | | | | | [address] | | | + + + + + + + + + + | Performing | Address | City/State/Zipcode | Phone Number | | Organization | | | | + + + + + | [facility] | [address] | [place] [address] | | + + + + + POCT glucose (09/24/2018 5:53 AM) + + + + + | Component | Value | Ref Range | Performed At | + + + + + | GLUCOSE,POC SCREEN | 106 (H)Comment: Testing | 65 - 99 mg/dL | [facility] | | | performed at [facility];[address] | | | | | [address];[place] | | | | | [address] | | | + + + + + + + + + + | Performing | Address | City/State/Zipcode | Phone Number | | Organization | | | | + + + + + | [facility] | [address] | [place] [address] | | + + + + + [...] | | | | | performed at [facility], [address] | | | | | [address], | | | | | [place] [address] | | | + + + + + + + | Specimen | + + | Blood | + + + + + + + | Performing | Address | City/State/Zipcode | Phone Number | | Organization | | | | + + + + + | [facility] | [address] | [place] [address] | [phone] | | LABORATORY | Blvd. | | [...] | | | | ng performed at [facility], | | | | | [address] [facility], | | | | | [place] [address] | | | | |2+ | | | | |HYPO | | | | |Testing performed at [facility], [facility] [address] [facility], [place] [address] | | | | | | | | + + + + + + + | Specimen | + + | Blood | + + + + + + + | Performing | Address | City/State/Zipcode | Phone Number | | Organization | | | | + + + + + | [facility] | [address] | [place] [address] | [phone] | | LABORATORY | Blvd. | | | + + + + + POCT glucose (09/23/2018 10:15 PM) + + + + + | Component | Value | Ref Range | Performed At | + + + + + | GLUCOSE,POC SCREEN | 126 (H)Comment: Testing | 65 - 99 mg/dL | [facility] | | | performed at [facility];[address] | | | | | [address];[place] | | | | | [address] | | | + + + + + + + + + + | Performing | Address | City/State/Zipcode | Phone Number | | Organization | | | | + + + + + | [facility] | [address] | [place] [address] | | + + + + + POCT glucose (09/23/2018 4:51 PM) + + + + + | Component | Value | Ref Range | Performed At | + + + + + | GLUCOSE,POC SCREEN | 118 (H)Comment: Testing | 65 - 99 mg/dL | [facility] | | | performed at [facility];[address] | | | | | [facility] | | | | | [address] | | | + + + + + + + + + + | Performing | Address | City/State/Zipcode | Phone Number | | Organization | | | | + + + + + | [facility] | [address] | [place] [address] | | + + + + + POCT glucose (09/23/2018 11:33 AM) + + + + + | Component | Value | Ref Range | Performed At | + + + + + | GLUCOSE,POC SCREEN | 131 (H)Comment: Testing | 65 - 99 mg/dL | [facility] | | | performed at [facility];[address] | | | | | [address];[place] | | | | | [address] | | | + + + + + + + + + + | Performing | Address | City/State/Zipcode | Phone Number | | Organization | | | | + + + + + | [facility] | [address] | [place] [address] | | + + + + + POCT glucose (09/23/2018 6:04 AM) + + + + + | Component | Value | Ref Range | Performed At | + + + + + | GLUCOSE,POC SCREEN | 93Comment: Testing | 65 - 99 mg/dL | [facility] | | | performed at [facility];[address] | | | | | [address];[place] | | | | | [address] | | | + + + + + + + + + + | Performing | Address | City/State/Zipcode | Phone Number | | Organization | | | | + + + + + | [facility] | [address] | [place] [address] | | + + + + + [...] the | | | | | [facility] traceable | | | | | equation.Testing | | | | | performed at [facility], [address] | | | | | [facility], | | | | | [place] [address] | | | + + + + + + + | Specimen | + + | Blood | + + + + + + + | Performing | Address | City/State/Zipcode | Phone Number | | Organization | | | | + + + + + | [facility] | [address] | [place] [address] | [phone] | | LABORATORY | Blvd. | | [...] | | | | esting performed at [facility], | | | | | [address] [facility] [facility], | | | | | [place] [address] | | | | |1+ | | | | |HYPO | | | | |Testing performed at [facility], [place] [address] | | | | | | | | + + + + + + + | Specimen | + + | Blood | + + + + + + + | Performing | Address | City/State/Zipcode | Phone Number | | Organization | | | | + + + + + | [facility] | [address] | [place] [address] | [phone] | | LABORATORY | [address]vd. | | | + + + + + POCT glucose (09/22/2018 9:16 PM) + + + + + | Component | Value | Ref Range | Performed At | + + + + + | GLUCOSE,POC SCREEN | 117 (H)Comment: Testing | 65 - 99 mg/dL | [facility] | | | performed at [facility];[address] | | | | | [address];[place] | | | | | [address] | | | + + + + + + + + + + | Performing | Address | City/State/Zipcode | Phone Number | | Organization | | | | + + + + + | [facility] | [address] | [place] [address] | | + + + + + POCT glucose (09/22/2018 4:22 PM) + + + + + | Component | Value | Ref Range | Performed At | + + + + + | GLUCOSE,POC SCREEN | 108 (H)Comment: Testing | 65 - 99 mg/dL | [facility] | | | performed at [facility];[address] | | | | | [address];[place] | | | | | [address] | | | + + + + + + + + + + | Performing | Address | City/State/Zipcode | Phone Number | | Organization | | | | + + + + + | [facility] | [address] | [place] [address] | | + + + + + POCT glucose (09/22/2018 11:21 AM) + + + + + | Component | Value | Ref Range | Performed At | + + + + + | GLUCOSE,POC SCREEN | 105 (H)Comment: Testing | 65 - 99 mg/dL | [facility] | | | performed at [facility];[address] | | | | | [address];[place] | | | | | [address] | | | + + + + + + + + + + | Performing | Address | City/State/Zipcode | Phone Number | | Organization | | | | + + + + + | [facility] | [address] | [place] [address] | | + + + + + [...] performed at | | | | | [facility], [address] [place] [address] | | | | | [place], [place] | | | | | [address] | | | + + + + + + + + + + | Performing | Address | City/State/Zipcode | Phone Number | | Organization | | | | + + + + + | [facility] | [address] [place] [address] | [place] [address] | [phone] | | LABORATORY | [address]. | | | + + + + + POCT glucose (09/22/2018 6:03 AM) + + + + + | Component | Value | Ref Range | Performed At | + + + + + | GLUCOSE,POC SCREEN | 84Comment: Testing | 65 - 99 mg/dL | [facility] | | | performed at [facility];[address] | | | | | [address];[place] | | | | | [address] | | | + + + + + + + + + + | Performing | Address | City/State/Zipcode | Phone Number | | Organization | | | | + + + + + | [facility] | [address] | [place] [address] | | + + + + + POCT glucose (09/21/2018 9:10 PM) + + + + + | Component | Value | Ref Range | Performed At | + + + + + | GLUCOSE,POC SCREEN | 103 (H)Comment: Testing | 65 - 99 mg/dL | [facility] | | | performed at [facility];[address] | | | | | [address];[place] | | | | | [address] | | | + + + + + + + + + + | Performing | Address | City/State/Zipcode | Phone Number | | Organization | | | | + + + + + | [facility] | [address] | [place] [address] | | + + + + + POCT glucose (09/21/2018 4:11 PM) + + + + + | Component | Value | Ref Range | Performed At | + + + + + | GLUCOSE,POC SCREEN | 86Comment: Testing | 65 - 99 mg/dL | [facility] | | | performed at [facility];[address] | | | | | [address];[place] | | | | | [address] | | | + + + + + + + + + + | Performing | Address | City/State/Zipcode | Phone Number | | Organization | | | | + + + + + | [facility] | [address] | [place] [address] | | + + + + + Vancomycin, trough (09/21/2018 2:27 PM) + + + + + | Component | Value | Ref Range | Performed At | + + + + + | VANCOMYCIN,TROUGH | <3.0 (L)Comment: 15 to | 10 - 20 ug/mL | [facility] | | | 20 ug/mL for meningitis, | | | | | osteomyelitis, | | | | | endocarditis, sepsis, or | | | | | healthcare associated | | | | | pneumonia, or an RONY | | | | | equal to or greater than | | | | | 1.0 ug/mLTesting | | | | | performed at [facility];[address] | | | | | [address];[place] | | | | | [address] | | | + + + + + + + | Specimen | + + | Blood | + + + + + + + | Performing | Address | City/State/Zipcode | Phone Number | | Organization | | | | + + + + + | [facility] | [address] | [place] [address] | | + + + + + POCT glucose (09/21/2018 11:41 AM) + + + + + | Component | Value | Ref Range | Performed At | + + + + + | GLUCOSE,POC SCREEN | 99Comment: Testing | 65 - 99 mg/dL | [facility] | | | performed at [facility];[address] | | | | | [address];[place] | | | | | [address] | | | + + + + + + + + + + | Performing | Address | City/State/Zipcode | Phone Number | | Organization | | | | + + + + + | [facility] | [address] | [place] [address] | | + + + + + [...] | [facility] | | | performed at [facility], [address] | | LABORATORY | | | [address], | | | | | [place] [address] | | | + + + + + + + | Specimen | + + | Blood | + + + + + + + | Performing | Address | City/State/Zipcode | Phone Number | | Organization | | | | + + + + + | [facility] | [address] | [place] [address] | [phone] | | LABORATORY | [address]vd[address] | | | + + + + + Phosphorus (09/21/2018 6:10 AM) + + + + + | Component | Value | Ref Range | Performed At | + + + + + | PHOSPHORUS | 5.1 (H)Comment: Testing | 2.3 - 4.8 mg/dL | [facility] | | | performed at [facility], [address] | | LABORATORY | | | [address] [facility], | | | | | [place] [address] | | | + + + + + + + | Specimen | + + | Blood | + + + + + + + | Performing | Address | City/State/Zipcode | Phone Number | | Organization | | | | + + + + + | [facility] | [address] [place] [address] | [place] [address] | [phone] | | LABORATORY | [address]vd[address] | | | + + + + + Magnesium (09/21/2018 6:10 AM) + + + + + | Component | Value | Ref Range | Performed At | + + + + + | MAGNESIUM | 2.1Comment: Testing | 1.7 - 2.4 mg/dL | [facility] | | | performed at [facility], [facility] [address] | | LABORATORY | | | [facility], | | | | | [place] [address] | | | + + + + + + + | Specimen | + + | Blood | + + + + + + + | Performing | Address | City/State/Zipcode | Phone Number | | Organization | | | | + + + + + | [facility] | [address] | [place] [address] | [phone] | | LABORATORY | [address]vd. | | | + + + + + Glycohemoglobin A1c (09/21/2018 6:10 AM) + + + + + | Component | Value | Ref Range | Performed At | + + + + + | HEMOGLOBIN A1C | 5.7Comment: HbA1c method | 4.0 - 6.0 % | [facility] | | | is certified by NGS [...] | 117Comment: Estimated | <154 mg/dL | [facility] | | GLUCOSE | Average Glucose | | LABORATORY | | | calculated from | | | | | hemoglobin A1c by use of | | | | | the ADA recommended | | | | | formula.Testing | | | | | performed at [facility], [address] | | | | | [facility], | | | | | [place] [address] | | | + + + + + + + | Specimen | + + | Blood | + + + + + + + | Performing | Address | City/State/Zipcode | Phone Number | | Organization | | | | + + + + + | [facility] | [address] | [place] [address] | [phone] | | LABORATORY | [address]vd[address] | | [...] (H) | 0.50 - 1.00 mg/dL | [facility] | | | | | LABORATORY | + + + + + | BUN/CREAT | 5 | | [facility] | | | | | LABORATORY | [...] | | | | | performed at [facility], [facility] | | | | | [facility], | | | | | [place] [address] | | | + + + + + + + | Specimen | + + | Blood | + + + + + + + | Performing | Address | City/State/Zipcode | Phone Number | | Organization | | | | + + + + + | [facility] | [address] [place] [address] | [place] [address] | [phone] | | LABORATORY | [address] | | [...] | | | | | performed at [facility], [address] | | | | | [facility], | | | | | [place] [address] | | | | |POLY | | | | |NORMAL PLT MORPH | | | | |Testing performed at [facility], [address] [facility], [place] [address] | | | | | | | | + + + + + + + | Specimen | + + | Blood | + + + + + + + | Performing | Address | City/State/Zipcode | Phone Number | | Organization | | | | + + + + + | [facility] | [address] | [place] [address] | [phone] | | LABORATORY | [address]. | | | + + + + + POCT glucose (09/21/2018 6:05 AM) + + + + + | Component | Value | Ref Range | Performed At | + + + + + | GLUCOSE,POC SCREEN | 100 (H)Comment: Testing | 65 - 99 mg/dL | [facility] | | | performed at [facility];[address] | | | | | [address];[place] | | | | | [address] | | | + + + + + + + + + + | Performing | Address | City/State/Zipcode | Phone Number | | Organization | | | | + + + + + | [facility] | [address] | [place] [address] | | + + + + + POCT glucose (09/21/2018 5:13 AM) + + + + + | Component | Value | Ref Range | Performed At | + + + + + | GLUCOSE,POC SCREEN | 74Comment: Testing | 65 - 99 mg/dL | [facility] | | | performed at [facility];[address] | | | | | [address];[place] | | | | | [address] | | | + + + + + + + + + + | Performing | Address | City/State/Zipcode | Phone Number | | Organization | | | | + + + + + | [facility] | [address] | [place] [address] | | + + + + + MRSA by PCR (09/20/2018 11:36 PM) + + + + + | Component | Value | Ref Range | Performed At | + + + + + | SOURCE | NARES(NOSE) | | [facility] | + + + + + | MRSA PCR | POSITIVE for MRSA by PCR | NEGATIVE | [facility] | | | (A)Comment: Testing | | | | | performed at [facility] | | | | | [address];[place] | | | | | [address] | | | + + + + + + + | Specimen | + + | Nasopharyngeal - | | Nares(Nose) | + + + + + + + | Performing | Address | City/State/Zipcode | Phone Number | | Organization | | | | + + + + + | [facility] | [address] | [place] [address] | | + + + + + POCT glucose (09/20/2018 11:28 PM) + + + + + | Component | Value | Ref Range | Performed At | + + + + + | GLUCOSE,POC SCREEN | 91Comment: Testing | 65 - 99 mg/dL | [facility] | | | performed at [facility];[address] | | | | | [address];[place] | | | | | [address] | | | + + + + + + + + + + | Performing | Address | City/State/Zipcode | Phone Number | | Organization | | | | + + + + + | [facility] | [address] | [place] [address] | | + + + + + [...] | [address] | [place] [address] | [phone] | | LABORATORY | Blvd. | | | + + + + + | [facility] | [address] | [place] [address] | | + + + + + [...] + + + | [facility] | [address] | [place] [address] | [phone] | | LABORATORY | [address]. | | | + + + + + | [facility] | [address] | [place] [address] | | + + + + + PROCALCITONIN (09/20/2018 7:50 PM) + + + + + | Component | Value | Ref Range | Performed At | + + + + + | PROCALCITONIN | 0.45Comment: | <0.5 ng/mL | [facility] | | | INTERPRETIVE | | [...] performed | | | | | at [facility];[address] [facility] | | | | | [facility];[place] [address] | | | + + + + + + + + + + | Performing | Address | City/State/Zipcode | Phone Number | | Organization | | | | + + + + + | [facility] | [address] [facility] | [place] [address] | | + + + + + C-reactive protein (09/20/2018 7:50 PM) + + + + + | Component | Value | Ref Range | Performed At | + + + + + | CRP | 8.8 (H)Comment: Testing | <0.5 mg/dL | [facility] | | | performed at [facility];[address] | | | | | [address];[place] | | | | | [address] | | | + + + + + + + | Specimen | + + | Blood | + + + + + + + | Performing | Address | City/State/Zipcode | Phone Number | | Organization | | | | + + + + + | [facility] | [address] | [place] [address] | | + + + + + ESR (09/20/2018 7:50 PM) + + + + + | Component | Value | Ref Range | Performed At | + + + + + | ESR | >130 (H)Comment: Testing | 0 - 20 mm/Hr | [facility] | | | performed at [facility];[address] | | | | | [address];[place] | | | | | [address] | | | + + + + + + + | Specimen | + + | Blood | + + + + + + + | Performing | Address | City/State/Zipcode | Phone Number | | Organization | | | | + + + + + | [facility] | [address] | [place] [address] | | + + + + + Phosphorus (09/20/2018 7:50 PM) + + + + + | Component | Value | Ref Range | Performed At | + + + + + | PHOSPHORUS | 4.3Comment: Testing | 2.3 - 4.8 mg/dL | [facility] | | | performed at [facility];[address] | | | | | [address];[place] | | | | | [address] | | | + + + + + + + | Specimen | + + | Blood | + + + + + + + | Performing | Address | City/State/Zipcode | Phone Number | | Organization | | | | + + + + + | [facility] | [address] | [place] [address] | | + + + + + Magnesium (09/20/2018 7:50 PM) + + + + + | Component | Value | Ref Range | Performed At | + + + + + | MAGNESIUM | 1.8Comment: Testing | 1.7 - 2.4 mg/dL | [facility] | | | performed at [facility];[address] | | | | | [address] [facility];[place] | | | | | [address] | | | + + + + + + + | Specimen | + + | Blood | + + + + + + + | Performing | Address | City/State/Zipcode | Phone Number | | Organization | | | | + + + + + | [facility] | [address] | [place] [address] | | + + + + + Comprehensive metabolic panel (09/20/2018 7:50 PM) + + + + + | Component | Value | Ref Range | Performed At | + + + + + | SODIUM | 139 | 135 - 145 mmol/L | [facility] | + + + + + | POTASSIUM | 4.2 | 3.5 - 4.9 mmol/L | [facility] | + + + + + | CHLORIDE | 97 (L) | 99 - 109 mmol/L | [facility] | + + + + + [...] 0.4 | 0.1 - 1.5 mg/dL | [facility] | + + + + + | ALK PHOS | 109 | 35 - 115 U/L | [facility] | + + + + + | AST | 16 | 10 - 45 U/L | [facility] | + + + + + | ALT | 9 (L) | 10 - 65 U/L | [facility] | + + + + + | EGFR | 20 (L)Comment: GFR <60: | >60 mL/min/1.73m2 | [facility] | | | CHRONIC KIDNEY DISEASE, [...] | | | | | performed at [facility] | | | | | [facility];[place], [place] | | | | | [address] | | | + + + + + + + | Specimen | + + | Blood | + + + + + + + | Performing | Address | City/State/Zipcode | Phone Number | | Organization | | | | + + + + + | [facility] | [address] | [place] [address] | | + + + + + CBC W/Auto Diff (Reflex to Manual) (09/20/2018 7:50 PM) + + + + + | Component | Value | Ref Range | Performed At | + + + + + | WBC | 6.46 | 3.80 - 11.00 K/uL | [facility] | + + + + + | RBC | 3.73 | 3.70 - 5.10 M/uL | [facility] | + + + + + [...] (L) | 32.0 - 35.5 g/dL | [facility] | + + + + + | RDW SD | 53.8 (H) | 37 - 53 fl | [facility] | + + + + + | PLT | 280 | 150 - 400 K/uL | [facility] | + + + + + | MPV | 8.3 | fl | [facility] | + + + + + | DIFF TYPE | AUTOMATED | | [facility] | + + + + + [...] MORPHOLOGY | NORMAL PLT MORPH | | [facility] | | | Comment: | | | | | 2+ | | | | | ANISO | | | | | 2+ | | | | | HYPO | | | | | | | | + + + + + | Platelet Estimate | ADEQUATEComment: Testing | | [facility] | | | performed at [facility];[address] | | | | | [address];[place] | | | | | [address] | | | + + + + + + + | Specimen | + + | Blood | + + + + + + + | Performing | Address | City/State/Zipcode | Phone Number | | Organization | | | | + + + + + | [facility] | [address] | [place] [address] | | + + + + + [...] | | | day), First dose on [facility] 09/28/18 | | | | | | [...] | | | | | dose on [facility] 09/28/18 at 1800, | | | | [...] PDT | | | | | Dialysis, [facility] 09/25/18 at 1100, | | | [...] PDT | | | | | Dialysis, [facility] 09/27/18 at 0700, | | | | [...] | | | | option 3., Starting [facility] 09/26/18 | | | | | | [...] | | | | | (7-10), Starting [facility] 09/26/18 at | | | | | [...] | | | | | | | [employer] 09/26/18 at | | [...] PST | | | | | Once, [facility] 09/21/18 at 1530, For 1 | | | | | | | dose | | | | | | + +-------+ + +---+---+ + +---+ | | | + +---+ | vancomycin (VANCOCIN) 750 | | | mg/250 mL IVPB 750 mg, | | | Intravenous, Administer over 60 | | | Minutes, See Admin Instructions, | | | Starting [facility] 09/21/18 at 1451, | | | Administer [...]
--- OUTSIDE RECORDS SUMMARY | ~2018-10-28 | XMS | Encounter Summary ---
Demographics + + + | Address | [address] | | | [place] [address] | + + + | Home Phone [...] | Author | [facility] | + + + | Organization | [facility] | + + + | Address | Unknown | + + + | Phone | Unavailable | + + + Support + + + + + | Name | Relationship | Address | Phone | + + + + + | Juliana Dixon | ECON | Unknown | | + + + + + | Mya Dixon | ECON | [address] | | | | | [place] | | | | | [address] | | + + + + + Care Team Providers + +------+ + | Care Manager Graphic Name | Role | Phone | + [...] | disorders of | [address] | CUTTING AND SPLICING SUPERVISOR [address] | | | | | calcium | [place] | Ricardo | | | | | metabolism | VALERIE | [address] | | | | | | [place] [address] | [place], [place] | | | | | | Phone: | [address] Phone: | | | | | | [phone] | [phone] | | | | | | Fax: | Fax: | | | | | | [phone] | [phone] | + +--------+ + + + + Encounter Details +--------+---------+ + + + | Date | Type | Department | Care Team | Description | +--------+---------+ + + + | 10/19/ | Office | [facility] | Kyle Alford, | Panniculitis | | 2019 | Visit | Plastic Surgery and | MD Bo Silva | (Primary Dx) | | | | Dermatology [address] | [address], | | | | | [address] | [place] [address] | | | | | [place], [place] | [phone] | | | | | [address] | | | | | | [phone] | | | +--------+---------+ + + + [...] as of this encounter Progress Notes Kyle Alfodr MD - 10/19/2018 3:00 PM PDT3 weeks [...] [address] | | | | | | [place] [address] | | | | | | [phone] | | | | | | | | +--------+---------+ + + + as of this encounter Visit Diagnoses + + | Diagnosis | + + | Panniculitis - Primary | + + | Panniculitis, unspecified site | + +
--- OUTSIDE RECORDS SUMMARY | ~2018-10-28 | XMS | Encounter Summary ---
Demographics + + + | Address | [address] | | | [place] [address] | + + + | Home Phone | | + + + | Preferred Language | Unknown | + + + | Marital Status | Single | + + + | Lutheran Affiliation | Unknown | + + + | Race | Unknown | + + + | Ethnic Group | Unknown | + + + Author + + + | Author | [facility] | + + + | Organization | [facility] | + + + | Address | Unknown | + + + | Phone | Unavailable | + + + Support + + + + + | Name | Relationship | Address | Phone | + + + + + | Juliana Dixon | ECON | Unknown | | + + + + + | Mya Dixon | ECON | [address] | | | | | [place] | | | | | [address] | | + + + + + Care Team Providers + +------+ + | Care Inspector Dials Name | Role | Phone | + [...] + + | 09/26/ | Anesthesia | [facility] | Laura Nunez | | | 2019 | Event | [facility] | MD Nell [address] | | | | | Operating Room [address] | | | | | [facility] | [place] [address] | | | | | [place] [address] | [phone] | | | | | [phone] | | | +--------+ + + + + Anesthesia Record + + + + + | Procedure Name | Responsible | Anesthesia Start | Anesthesia Stop Time | | | Anesthesiologist | Time | | + + + + + | PANNICULECTOMY (N/A | Laura Nunez, | 09/26/18 1233 | 09/26/18 1433 | | Abdomen) | MD | | | + + + + + +----+---+ + + | Da | T | Event | Comment | | te | i | | | | | m | | | | | e | | | +----+---+ + + | 03 | 1 | An Start | Pre-anesthetic vital signs reassessed. | | /1 | 2 | | | | 2/ | 3 | | | | 20 | 3 | | | | 19 | | | | +----+---+ + + | | 1 | An | | | | 2 | Induction | | | | 3 | | | | | 8 | | | +----+---+ + + | | 1 | An | | | | 2 | Intubation | | | | 4 | | | | | 4 | | | +----+---+ + + | | 1 | Quick Note | Pt therapeutic on abx | | | 2 | | | | | 5 | | | | | 4 | | | +----+---+ + + | | 1 | An | | | | 4 | Emergence | | | | 2 | | | | | 4 | | | +----+---+ + + | | 1 | Extubation | | | | 4 | | | | | 2 | | | | | 6 | | | +----+---+ + + | | 1 | an stop | | | | 4 | data | | | | 2 | | | | | 6 | | | +----+---+ + + | | 1 | An Stop | | | | 4 | | | | | 3 | | | | | 3 | | | +----+---+ + + +------+ | Meds | +------+ + +---------+ | Name | Total | + +---------+ | fentanyl 50 mcg/mL | 200 mcg | + +---------+ | lidocaine 2% | 80 mg | + +---------+ | propofol bolus | 80 mg | + +---------+ | ondansetron 2 mg/mL | 4 mg | + +---------+ | ePHEDrine 5 mg/mL | 5 mg | + +---------+ | etomidate 2mg/mL | 40 mg | + +---------+ | NS | 250 mL | + +---------+ + + | Name | + + | N2O | + + | O2 | + + | Air | + + | Sevoflurane-EX | + + | N2O | + + + + | No blood administrations on file. | + + +--------+ + + + | Type | Details | Placement | Removal | +--------+ + + + | Hemodi | AV Fistula; Left, Upper | 04/03/15 0042 by | | | alysis | | | | | | | | | | Aylaet | | | | | er | | | | +--------+ + + + | Wound | 09/20/181951; Yes; Cellulitis; | 09/20/181951 by | | | | Abdomen; Right, Lower, Quadrant; | Fernanda P | | | | Yes | DENIZ Davila | | +--------+ + + + | Wound | 09/21/182118; Yes; Diabetic | 09/21/182118 by | | | | Ulcer (wound "I have had since | Makeda Low RN | | | | june 2018"); Foot; Right; | | | | | Closed with callous; Yes (per pt) | | | +--------+ + + + | Wound | 09/21/18; 2118; Yes; Diabetic | 09/21/182118 by | | | | Ulcer (chronic wound "I have had | Makeda Low RN | | | | that one for over a year" per | | | | | pt'); Foot; Left; full thickness | | | | | ; Yes (per pt) | | | +--------+ + + + | Closed | 09/26/18; 1331; 1; Right; | 09/26/18 1331 by | | | /Sucti | Abdomen; 19 Fr. | Yazmin Hernández RN | | | on | | | | | Drain | | | | +--------+ + + + | Closed | 09/26/18; 1411; 2; Left; Abdomen; | 09/26/18 1411 by | | | /Sucti | Bulb; 19 Fr. | Yazmin Hernández RN | | | on | | | | | Drain | | | | +--------+ + + + | Wound | 09/26/18; 1438; Incision; | 09/26/18 1438 by | | | | Abdomen; Bilateral; coverall | Yazmin Hernández RN | | | | tape | | | +--------+ + + + | Periph | Placement Date: 09/26/18; | 09/26/18 1213 by | 09/28/18 0550 by | | eral | Placement Time: 1213; Removal | Jeanette Tucker RN | Makeda Low RN | | IV | Date: 09/28/18; Removal Time: | | | | | 0550; Size (Gauge): 20 G; | | | | | Orientation: Right; Location: | | | | | Forearm; Site Prep: | | | | | Chlorhexidine-Isopropyl Alcohol; | | | | | Insertion Attempts: 1 | | | +--------+ + + + in this encounter Social History + + + +--------+------+ | [...] [address] | | | | | | [place] [address] | | | | | | [phone] | | | | | | | | +--------+---------+ + + + as of this encounter Visit Diagnoses Not on filein this encounter Administered Medications + +--------+ +------+------+------+ | Medication Order | MAR | Action | Dose | Rate | Site | | | Action | Date | | | | + +--------+ +------+------+------+ | ephedrine injection | Given | | 5 mg | | | | Intravenous, PRN, Starting Tue | | 9 13:42 | | | | | 09/26/18 at 1342, Anesthesia | | PDT | | | | | Intra-op | | | | | | + +--------+ +------+------+------+ +---+---+ | | | +---+---+ + +-------+ +-------+---+---+ | etomidate (AMIDATE) injection | Given | | 40 mg | | | | PRN, Starting 09/26/18 at | | 9 12:38 | | | | | 1238, Anesthesia Intra-op | | PDT | | | | + +-------+ +-------+---+---+ +---+---+ | | | +---+---+ + +-------+ +---------+---+---+ | fentaNYL (SUBLIMAZE) injection | Given | | 100 mcg | | | | Intravenous, PRN, Starting Tue | | 9 12:38 | | | | | 09/26/18 at 1238, Anesthesia | | PDT | | | | | Intra-op | | | | | | + +-------+ +---------+---+---+ +-------+ +---------+---+---+ | Given | | 100 mcg | | | | | 9 13:15 | | | | | | PDT | | | | +-------+ +---------+---+---+ +---+---+ | | | +---+---+ + +-------+ +-------+---+---+ | lidocaine 2 % (MDV) 2 % | Given | | 80 mg | | | | injection Intravenous, PRN, | | 9 12:38 | | | | | Starting 09/26/18 at 1238, | | PDT | | | | | Anesthesia Intra-op | | | | | | + +-------+ +-------+---+---+ +---+---+ | | | +---+---+ + +-------+ +------+---+---+ | ondansetron (ZOFRAN) injection | Given | | 4 mg | | | | PRN, Nausea, Vomiting, Starting | | 9 14:10 | | | | | 09/26/18 at 1410, Anesthesia | | PDT | | | | | Intra-op | | | | | | + +-------+ +------+---+---+ +---+---+ | | | +---+---+ + +-------+ +-------+---+---+ | propofol (DIPRIVAN) injection | Given | | 30 mg | | | | Intravenous, PRN, Starting Tue | | 9 13:12 | | | | | 09/26/18 at 1312, Anesthesia | | PDT | | | | | Intra-op | | | | | | + +-------+ +-------+---+---+ +-------+ +-------+---+---+ | Given | | 30 mg | | | | | 9 13:14 | | | | | | PDT | | | | +-------+ +-------+---+---+ | Given | | 20 mg | | | | | 9 13:54 | | | | | | PDT | | | | +-------+ +-------+---+---+ +---+---+ | | | +---+---+ + +---------+ +---+---+---+ | sodium chloride 0.9 % infusion | New Bag | | | | | | Continuous PRN, Starting Tue | | 9 12:33 | | | | | 09/26/18 at 1233, Anesthesia | | PDT | | | | | Intra-op | | | | | | + +---------+ +---+---+---+ +---+---+ | | | +---+---+ in this encounter
--- OUTSIDE RECORDS SUMMARY | ~2018-10-28 | XMS | Clinical Summary ---
Demographics + + + | Address | [address] | | | [place] [address] | + + + | Home Phone | | + + + | Preferred Language | Unknown | + + + | Marital Status | Single | + + + | Baptism Affiliation | Unknown | + + + | Race | Unknown | + + + | Ethnic Group | Unknown | + + + Author + + + | Author | [facility] | + + + | Organization | [facility] | + + + | Address | Unknown | + + + | Phone | Unavailable | + + + Support + + + + + | Name | Relationship | Address | Phone | + + + + + | Juliana Dixon | ECON | Unknown | | + + + + + | Mya Dixon | ECON | [address] | | | | | [place] | | | | | [address] | | + + + + + Care Team Providers + +------+ + | Care Polytechnic Registrar Name | Role | Phone | + [...] | | e | | tablet | [id number]. 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 Lot# | | | [id number]. | | | Exp date | | [...] | | | PO2ART, | | | [id number], | | | [id number], | | | BEART in | | [...] | | | [place], | | | [address] | | | [address], [address] | | | [address] | | | n [place] | | | [phone] | | | [phone] | | | w upDAVITA | | | DIALYSIS - | | | [id number] | | | [address] | | | [address] | | | [place] | | | [address] | | | [phone] | | | Rodriguez [place], | | | DO[address] | | | [address] | | | [address] | | | d [place] | | | [id number] | | | [phone] | | | 10/10/2018Fr | | | ancis | | | [place], | | | MD[address] | | | [place] | | | Point | | | [address] | | | [place] | | | [phone] | | | [phone] 1 | | [...] | | daily. Lot# | | | [id number]. 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 | | [...] W | | LABORATORY | | | [facility], | | | | | [place] [address] | | | + + + + + + + | Specimen | + + | Blood | + + + + + + + | Performing | Address | City/State/Zipcode | Phone Number | | Organization | | | | + + + + + | [facility] | [address] | [place] [address] | [phone] | | LABORATORY | Blvd. | | [...] 7.436Comment: Testing | 7.300 - 7.450 | [facility] | | | performed at [facility];[address] | | | | | [address];[place] | | | | | [address] | | | + + + + + + + | Specimen | + + | Blood | + + + + + + + | Performing | Address | City/State/Zipcode | Phone Number | | Organization | | | | + + + + + | [facility] | [address] | [place] [address] | | + + + + + [...] | | | | | performed at [facility], [address] | | | | | [facility] [place], | | | | | [place] [address] | | | + + + + + + + | Specimen | + + | Blood | + + + + + + + | Performing | Address | City/State/Zipcode | Phone Number | | Organization | | | | + + + + + | [facility] | [address] | [place] [address] | [phone] | | LABORATORY | Blvd. | | | + + + + + POCT glucose (09/30/2018 5:16 AM)Only the most recent of 41 results within the time period is included. + + + + + | Component | Value | Ref Range | Performed At | + + + + + | GLUCOSE,POC SCREEN | 94Comment: Testing | 65 - 99 mg/dL | [facility] | | | performed at [facility];[address] | | | [address];[place] | | | | | [address] | | | + + + + + + + + + + | Performing | Address | City/State/Zipcode | Phone Number | | Organization | | | | + + + + + | [facility] | [address] | [place] [address] | | + + + + + [...] | [facility] | | | performed at [facility], [address] | | LABORATORY | | | [address], | | | | | [place] [address] | | | + + + + + + + | Specimen | + + | Blood | + + + + + + + | Performing | Address | City/State/Zipcode | Phone Number | | Organization | | | | + + + + + | [facility] | [address] | [place] [address] | [phone] | | LABORATORY | Blvd. | | | + + + + + Folate (09/29/2018 1:47 PM) + + + + + | Component | Value | Ref Range | Performed At | + + + + + | FOLATE | 5.0 (L)Comment: Testing | >5.4 ng/mL | [facility] | | | performed at [facility], [address] | | LABORATORY | | | [facility], | | | | | [place] [address] | | | + + + + + + + | Specimen | + + | Blood | + + + + + + + | Performing | Address | City/State/Zipcode | Phone Number | | Organization | | | | + + + + + | [facility] | [address] | [place] [address] | [phone] | | LABORATORY | Blvd. | | | + + + + + Ferritin (09/29/2018 1:47 PM) + + + + + | Component | Value | Ref Range | Performed At | + + + + + | FERRITIN | 344 (H)Comment: Testing | 6 - 170 ng/mL | [facility] | | | performed at [facility], [address] | | LABORATORY | | | [address], | | | | | [place] [address] | | | + + + + + + + | Specimen | + + | Blood | + + + + + + + | Performing | Address | City/State/Zipcode | Phone Number | | Organization | | | | + + + + + | [facility] | [address] | [place] [address] | [phone] | | LABORATORY | Blvd[address] | | | + + + + + Vitamin B12 (09/29/2018 1:47 PM) + + + + + | Component | Value | Ref Range | Performed At | + + + + + | VITAMIN B12 | 921Comment: Testing | 254 - 1,320 pg/mL | [facility] | | | performed at [facility], [address] | | LABORATORY | | | [address], | | | | | [place] [address] | | | + + + + + + + | Specimen | + + | Blood | + + + + + + + | Performing | Address | City/State/Zipcode | Phone Number | | Organization | | | | + + + + + | [facility] | [address] | [place] [address] | [phone] | | LABORATORY | [address] | | | + + + + + Vancomycin, random (09/29/2018 6:12 AM) + + + + + | Component | Value | Ref Range | Performed At | + + + + + | VANCOMYCIN,RANDOM | 24.1Comment: Testing | ug/mL | [facility] | | | performed at [facility] | | | | | [address];[place] | | | | | [address] | | | + + + + + + + | Specimen | + + | Blood | + + + + + + + | Performing | Address | City/State/Zipcode | Phone Number | | Organization | | | | + + + + + | [facility] | [address] | [place] [address] | | + + + + + Pathology histology - tissue (09/26/2018 3:00 PM) + + | Specimen | + + | Tissue | + + + + + | Narrative | Performed At | + + + | SPECIMEN(S): A RIGHT ABDOMINAL PANNUS SPECIMEN SOURCE: A. RIGHT | [facility] | | ABDOMINAL PANNUS CLINICAL HISTORY: [...] component was performed by | | | [facility], [address] [place] [address] (Medical | | | Director: Ludy Savage MD; CLIA# [id number]). Professional | | | interpretation was performed by [facility], [facility]. | | | [facility], [address] [place] [address] | | | (Foot Doctor: Vance Foley M.D.; | | | CLIA#: [id number]). Diagnostician: Vance Foley MD | | | [...] performed at | | | | | [facility], [address] | | | | | [place] | | | | | [address] | | | + + + + + + + + + + | Performing | Address | City/State/Zipcode | Phone Number | | Organization | | | | + + + + + | [facility] | [address] | [place] [address] | [phone] | | LABORATORY | Blvd. | | | + + + + + Vancomycin, trough (09/21/2018 2:27 PM) + + + + + | Component | Value | Ref Range | Performed At | + + + + + | VANCOMYCIN,TROUGH | <3.0 (L)Comment: 15 to | 10 - 20 ug/mL | [facility] | | | 20 ug/mL for meningitis, | | | | | osteomyelitis, | | | | | endocarditis, sepsis, or | | | | | healthcare associated | | | | | pneumonia, or an RONY | | | | | equal to or greater than | | | | | 1.0 ug/mLTesting | | | | | performed at [facility];[address] | | | | | [address];[place] | | | | | [address] | | | + + + + + + + | Specimen | + + | Blood | + + + + + + + | Performing | Address | City/State/Zipcode | Phone Number | | Organization | | | | + + + + + | [facility] | [address] | [place] [address] | | + + + + + Magnesium (09/21/2018 6:10 AM)Only the most recent of 2 results within the time period is included. + + + + + | Component | Value | Ref Range | Performed At | + + + + + | MAGNESIUM | 2.1Comment: Testing | 1.7 - 2.4 mg/dL | [facility] | | | performed at [facility], [address] | | LABORATORY | | | [facility], | | | | | [place] [address] | | | + + + + + + + | Specimen | + + | Blood | + + + + + + + | Performing | Address | City/State/Zipcode | Phone Number | | Organization | | | | + + + + + | [facility] | [address] | [place] [address] | [phone] | | LABORATORY | Blvd. | | [...] | | | | | performed at [facility], [address] | | | | | [facility], | | | | | [place] [address] | | | + + + + + + + | Specimen | + + | Blood | + + + + + + + | Performing | Address | City/State/Zipcode | Phone Number | | Organization | | | | + + + + + | [facility] | [address] | [place] [address] | [phone] | | LABORATORY | [address]vd. | | | + + + + + Lipid panel (09/21/2018 6:10 AM) + + + + + | Component | Value | Ref Range | Performed At | + + + + + | CHOLESTEROL | 119 | <200 mg/dL | [facility] | | | | | LABORATORY | [...] | [facility] | | | performed at [facility], [address] | | LABORATORY | | | [address], | | | | | [place] [address] | | | + + + + + + + | Specimen | + + | Blood | + + + + + + + | Performing | Address | City/State/Zipcode | Phone Number | | Organization | | | | + + + + + | [facility] | [address] | [place] [address] | [phone] | | LABORATORY | Blvd. | | | + + + + + MRSA by PCR (09/20/2018 11:36 PM) + + + + + | Component | Value | Ref Range | Performed At | + + + + + | SOURCE | NARES(NOSE) | | [facility] | + + + + + | MRSA PCR | POSITIVE for MRSA by PCR | NEGATIVE | [facility] | | | (A)Comment: Testing | | | | | performed at [facility];[address] | | | | | [address];[place] | | | | | [address] | | | + + + + + + + | Specimen | + + | Nasopharyngeal - | | Nares(Nose) | + + + + + + + | Performing | Address | City/State/Zipcode | Phone Number | | Organization | | | | + + + + + | [facility] | [address] | [place] [address] | | + + + + + [...] | + + + + + | [facility] | [address] | [place] [address] | [phone] | | LABORATORY | Blvd. | | | + + + + + | [facility] | [address] | [place] [address] | | + + + + + PROCALCITONIN (09/20/2018 7:50 PM) + + + + + | Component | Value | Ref Range | Performed At | + + + + + | PROCALCITONIN | 0.45Comment: | <0.5 ng/mL | [facility] | | | INTERPRETIVE | [...] performed | | | | | at [facility];[address] [place] [address] | | | | | [facility];[place] [address] | | | + + + + + + + + + + | Performing | Address | City/State/Zipcode | Phone Number | | Organization | | | | + + + + + | [facility] | [address] | [place] [address] | | + + + + + [...] + + + | [facility] | [address] | [place] [address] | [phone] | | LABORATORY | Blvd. | | | + + + + + | [facility] | [address] | [place] [address] | | + + + + + ESR (09/20/2018 7:50 PM) + + + + + | Component | Value | Ref Range | Performed At | + + + + + | ESR | >130 (H)Comment: Testing | 0 - 20 mm/Hr | [facility] | | | performed at [facility];[address] | | [address];[place] | | | | | [address] | | | + + + + + + + | Specimen | + + | Blood | + + + + + + + | Performing | Address | City/State/Zipcode | Phone Number | | Organization | | | | + + + + + | [facility] | [address] | [place] [address] | | + + + + + C-reactive protein (09/20/2018 7:50 PM) + + + + + | Component | Value | Ref Range | Performed At | + + + + + | CRP | 8.8 (H)Comment: Testing | <0.5 mg/dL | [facility] | | | performed at [facility];[address] | | | | | [address];[place] | | | | | [address] | | | + + + + + + + | Specimen | + + | Blood | + + + + + + + | Performing | Address | City/State/Zipcode | Phone Number | | Organization | | | | + + + + + | [facility] | [address] | [facility] [place] [address] | | + + + + + Comprehensive metabolic panel (09/20/2018 7:50 PM) + + + + + | Component | Value | Ref Range | Performed At | + + + + + | SODIUM | 139 | 135 - 145 mmol/L | [facility] | + + + + + | POTASSIUM | 4.2 | 3.5 - 4.9 mmol/L | [facility] | + + + + + | CHLORIDE | 97 (L) | 99 - 109 mmol/L | [facility] | + + + + + | CO2 | 35 (H) | 23 - 32 mmol/L | [facility] | + + + + + [...] (L)Comment: GFR <60: | >60 mL/min/1.73m2 | [facility] | | | CHRONIC KIDNEY [...] | | | | | performed at [facility];[address] | | | | | [address];[place], [place] | | | | | [address] | | | + + + + + + + | Specimen | + + | Blood | + + + + + + + | Performing | Address | City/State/Zipcode | Phone Number | | Organization | | | | + + + + + | [facility] | [address] | [place] [address] | | + + + + + [...] [facility] | [address] | [facility] [place] [place] [address] | | + + + + + [...] +------+-------+ + | MEDICAID | [facility] | [id number] | | | [address] | | | N | | | | [place] | | | [place] | | | | [phone] | | | HIGH WORKER | | | | | + +--------+ [...] | Self [birth year] Home: | [address] | | | al/Fam | | [phone] | [phone] | SHIRA LARSON | | | telly | | | [phone] | [phone] | + +--------+ +--------+ + +
--- OUTSIDE RECORDS SUMMARY | ~2018-10-28 | XMS | Encounter Summary ---
Demographics + + + | Address | [address] | | | [place] [address] | + + + | Home Phone | | + + + | Preferred Language | Unknown | + + + | Marital Status | Single | + + + | Orthodoxy Affiliation | Unknown | + + + | Race | Unknown | + + + | Ethnic Group | Unknown | + + + Author + + + | Author | [facility] | + + + | Organization | [facility] | + + + | Address | Unknown | + + + | Phone | Unavailable | + + + Support + + + + + | Name | Relationship | Address | Phone | + + + + + | Juliana Dixon | ECON | Unknown | | + + + + + | Mya Dixon | ECON | [address] | | | | | [place] | | | | | [address] | | + + + + + Care Team Providers + +------+ + | Care Territory Outside Sales Manager Name | Role | Phone | + +------+ + | Donis Martel MD | PCP | | + +------+ + Encounter Details +--------+ + + + + | Date | Type | Department | Care Team | Description | +--------+ + + + + | 10/11/ | Telephone | [facility] | Ludy Gonzales, | | | 2018 | | Plastic Surgery and | [facility] | | | | | Dermatology [address] | | | | | | [address] | | | | | | [place] | | | | | | [address] | | | | | | [phone] | | | +--------+ + + + [...] Alexander | | | | | | [place] [address] | | | | | | [phone] | | | | | | | | +--------+---------+ + + + as of this encounter Visit Diagnoses Not on filein this encounter
--- OUTSIDE RECORDS SUMMARY | ~2018-10-28 | XMS | Clinical Summary ---
Demographics + + + | Address | [address] | | | [place] [address] | + + + | Home Phone | | + + + | Preferred Language | Unknown | + + + | Marital Status | Single | + + + | Mu-Ism Affiliation | Unknown | + + + | Race | Unknown | + + + | Ethnic Group | Unknown | + + + Author + + + | Author | [facility] | | | and [place] | + + + | Organization | [facility] | | | and [place] [...] + | Mya Dixon | ECON | [address] | | | | | [place] | | | | | [address] | | + + + + + Care Team Providers + +------+ + | Care Abstract Checker Name | Role | Phone | + +------+ + | Donis Martel MD | PP | | + +------+ + Allergies Not on File Medications Not on file Active Problems Not [...] on file | | + + + + + + + | Job Start Date | Occupation | Industry | + + + + | Not on file | Not on file | Not on file | + + + + + + + + | Travel History | Travel Start | Travel End | + + + + + + | No recent travel history available. | + + Plan of Treatment + + [...] Last 3 Months Insurance + +--------+ +--------+ +---------+--------+ | Payer | Benefi | Subscriber | Effect | Phone | Address | Type | | | t Plan | ID | los | | | | | | / | | Dates | | | | | | Group | | | | | | + +--------+ +--------+ +---------+--------+ | [employer] | [employer] | [id number] | | [phone] | | Medica | | MEDICAID HMO | HEALTH | | [id number]-Pr | 1 | | id | | | MDCD | | esent | | | | | | HMO [place] | | | | | | + +--------+ +--------+ +---------+--------+ + +--------+ +--------+ + + | Guarantor Name | Accoun | Relation to | Date | Phone | Billing Address | | | t Type | Patient | of | | | | | | | | | | + +--------+ +--------+ + + | Corrina Knight | Person | Self [birth year] | [address] | | | ana/Ed | | 1975 | [phone] | [place] | | | telly | | | [address] ([place]) | [address] | + +--------+ +--------+ + + Advance Directives Patient has advance care planning documents on file. For more information, please contact:[facility] [place] [address]"
--- OUTSIDE RECORDS SUMMARY | ~2018-10-28 | XMS | Encounter Summary ---
Demographics + + + | Address | [address] | | | [place] [address] | + + + | Home Phone [...] + + + | Author | [facility] | + + + | Organization | [facility] | + + + | Address | Unknown | + + + | Phone | Unavailable | + + + Support + + + + + | Name | Relationship | Address | Phone | + + + + + | Juliana Dixon | ECON | Unknown | | + + + + + | Mya Dixon | ECON | [address] | | | | | [place] | | | | | [address] | | + + + + + Care Team Providers + +------+ + | Care Biomedical Engineer Name | Role | Phone | + [...] + + | 10/09/ | Office | [facility] | Jordan Beltrán DO | Panniculitis | | 2019 | Visit | Infectious Disease | [address] | (Primary Dx); ESRD | | | | [address] | [place] [address] | on hemodialysis | | | | [facility] [address] | [phone] | | | | | [place] [address] | | | | | | [phone] | | | +--------+---------+ + + + [...] hemo dialysis. The patient initially presented to [facility], and was transferred [facility] with the supposedly need for surgical [...] Alexander | | | | | | [place] [address] | | | | | | [phone] | | | | | | | | +--------+---------+ + + + as of this encounter Visit Diagnoses + + | Diagnosis | + + | Panniculitis - Primary | + + | Panniculitis, unspecified site | + + | ESRD on hemodialysis | + + | End stage renal disease | + +
--- OUTSIDE RECORDS SUMMARY | ~2018-10-28 | XMS | Encounter Summary ---
Demographics + + + | Address | [address] | | | [place] [address] | + + + | Home Phone | | + + + | Preferred Language | Unknown | + + + | Marital Status | Single | + + + | Episcopalian Affiliation | Unknown | + + + | Race | Unknown | + + + | Ethnic Group | Unknown | + + + Author + + + | Author | [facility] | + + + | Organization | [facility] | + + + | Address | Unknown | + + + | Phone | Unavailable | + + + Support + + + + + | Name | Relationship | Address | Phone | + + + + + | Juliana Dixon | ECON | Unknown | | + + + + + | Mya Dixon | ECON | [address] | | | | | [place] | | | | | [address] | | + + + + + Care Team Providers + +------+ + | Care Refrigerated Company Driver Name | Role | Phone | + [...] + + | 09/26/ | Surgery | [facility] | Qamar Alford, | PANNICULECTOMY | | 2019 | | [facility] | [address] [place] [address] | | | | | Operating Room [address] | [address] [place], | | | | | [place] | [place] [address] | | | | | [place] [address] | [phone] | | | | | [phone] | | | +--------+---------+ + + + [...] may be different from gela hernandez original. [facility] Service: Hospitalist Discharge Summary Date [...] stay and will be discharged to a assisted facility. Blood culture wa s negative. ID [...] Take 1 tablet by mouth daily. Lot# [id number]. Exp date 02/02. 84 tablet 0 Taking [...] hours. No results for input(s): PHART, PO2ART, NEN2NJX, Z1PQJSMW, BEART in the last 168 hours. No [...] [address], [address] [place] [address] Follow up [facility] [place] [address] [place] [address] Jordan Ho DO [address] [facility] [address] On 10/10/2018 Qamar Alford MD [address] [facility][note 3] [id number] In 1 week Medication List START taking [...] Take 1 tablet by mouth daily. Lot# [id number]. Exp date 02/02. oxybutynin 5 MG tablet [...] | 17 | | | tablet | [id number]. Exp date | | | | | [...] may be different from gela hernandez original. [facility] Service: Hospitalist Progress Note Hospital [...] Oral TID WC tumescent anesthetic solution Infiltration Machine Container Washer to OR tumescent anesthetic solution Infiltration Machine Container Washer to OR sodium chloride (PF) 10 mL [...] hours. No results for input(s): PHART, PO2ART, OVV0NII, U2IKWVJA, BEART in the last 168 hours. No [...] was completed later after rounds. Dictation software, SignaCert, was used which may contain error for [...] Oral TID WC tumescent anesthetic solution Infiltration Machine Container Washer to OR tumescent anesthetic solution Infiltration Machine Container Washer to OR sodium chloride (PF) 10 mL Intravenous Q8H vancomycin 750 mg Intravenous See Admin Instructions vancomycin 750 mg Intravenous Once dextrose Jordan Ho, - 09/29/2018 8:04 AM PDTFormatting of this note may be different from the original. [facility] Service: Infectious Disease Progress Note [...] with hemodialysis. The patient initially presented to [facility], and was transferred here with [...] Oral TID WC tumescent anesthetic solution Infiltration Machine Container Washer to OR tumescent anesthetic solution Infiltration Machine Container Washer to OR sodium chloride (PF) 10 mL [...] ESRD on hemodialysis Diabetes mellitus, type 2 ([facility]) ASSESSMENT & PLAN Panniculitis (09/21/2018) appreciate [...] needed. Code Status: Prior JORDAN HO, 09/29/2018[facility] 09/29/2018 7:58 AM PDTFormatting of this note may be different from the original. Vancomycin Monitoring Subjective Pharmacy to dose vancomycin per protocol. Diagnosis: Panniculitis. Vancomycin Day: 9 Objective Lab Results Component Value Date/Time CREATININE 5.1 (H) 09/29/2018 06:12 AM WBC 14.78 (H) 09/29/2018 06:12 AM Wt= 112 kg, CrCl= HD, Tmax afeb Cultures= Bloodx2 [id number], MRSA PCR - Pos . Other Abx= Augmentin Current Vancomycin Dose = 750 mg post dialysis Vancomycin Random Level: 24.1 ug/mL on 09/29/18 @ 0612. Assessment Per protocol, continue current dosing for a random level between 15-25 ug/mL. Vancomycin will continue through October 10. Plan Continue vancomycin HD protocol. No further levels needed at this time. Pharmacist: Vance Real, [facility] - 09/28/2018 1:27 PM PDTRenal Dosing Monitoring: [...] was completed later after rounds. Dictation software, SignaCert, was used which may contain error for [...] Oral TID WC tumescent anesthetic solution Infiltration Machine Container Washer to OR tumescent anesthetic solution Infiltration Machine Container Washer to OR sodium chloride (PF) 10 mL Intravenous Q8H vancomycin 750 mg Intravenous See Admin Instructions dextrose Ludin Connell MD - 09/28/2018 11:45 AM PDTFormatting of this note may be different from t mary original. [facility] Service: Hospitalist Progress Note Hospital [...] Oral TID WC tumescent anesthetic solution Infiltration Machine Container Washer to OR tumescent anesthetic solution Infiltration Machine Container Washer to OR sodium chloride (PF) 10 mL [...] hours. No results for input(s): PHART, PO2ART, DHA8CFC, E8BIPPEM, BEART in the last 168 hours. No [...] ESRD on hemodialysis Diabetes mellitus, type 2 ([facility]) Resolved Problems: * No resolved hospital [...] MD 09/28/2018 11:45 Vance Mendoza, [facility] - 09/28/2018 11:39 AM PDTFormatting of this note may be d ifferent from the original. Vancomycin Monitoring Subjective Pharmacy to dose vancomycin per protocol. Diagnosis: Panniculitis. Vancomycin Day: 8 Objective Lab Results Component Value Date/Time CREATININE 3.7 (H) 09/28/2018 05:25 AM WBC 14.43 (H) 09/28/2018 05:25 AM Wt= 112.4 kg, CrCl= HD, Tmax afeb Cultures= Bloodx2 [id number], MRSA PCR - Pos . Other Abx= [...] te may be different from the original. [facility] Service: Infectious Disease Progress Note [...] with hemodialysis. The patient initially presented to [facility], and was transferred here with [...] Oral TID WC tumescent anesthetic solution Infiltration Machine Container Washer to OR tumescent anesthetic solution Infiltration Machine Container Washer to OR sodium chloride (PF) 10 mL [...] Estimated Energy Needs Total Energy Estimated Needs 0748-1967 kcal/day Method for Estimating Needs 25-30 kcal/kg [...] may be different from t mary original. [facility] Service: Hospitalist Progress Note Hospital [...] Oral TID WC tumescent anesthetic solution Infiltration Machine Container Washer to OR tumescent anesthetic solution Infiltration Machine Container Washer to OR sodium chloride (PF) 10 mL [...] hours. No results for input(s): PHART, PO2ART, VTM8NZA, J0UNJFMP, BEART in the last 168 hours. No [...] hypertension Morbid obesity due to excess calories ([facility]) ESRD on hemodialysis Diabetes mellitus, type 2 ([facility]) Resolved Problems: * No resolved hospital [...] Status: Prior Ludin Connell MD 09/27/2018 2:49 [facility] - 09/27/2018 12:55 PM PDTFormatting of this note may be di fferent from the original. Vancomycin Monitoring Subjective Pharmacy to dose vancomycin per protocol. Diagnosis: Panniculitis. Vancomycin Day: 7 Objective Lab Results Component Value Date/Time CREATININE 5.3 (H) 09/27/2018 05:21 AM WBC 14.33 (H) 09/27/2018 05:21 AM Wt= 113.3 kg, CrCl= HD, Tmax afeb, Procalcitonin 0.45 ng/mL on 09/20/18 Cultures= Bloodx2 [id number], MRSA PCR - Pos . Other Abx= [...] note may be different from the original. [facility] Service: Infectious Disease Progress Note [...] with hemodialysis. The patient initially presented to [facility], and was transferred here with [...] Oral TID WC tumescent anesthetic solution Infiltration Machine Container Washer to OR tumescent anesthetic solution Infiltration Machine Container Washer to OR sodium chloride (PF) 10 mL [...] ESRD on hemodialysis Diabetes mellitus, type 2 ([facility]) ASSESSMENT & PLAN Panniculitis (09/21/2018) This [...] was completed later after rounds. Dictation software, SignaCert, was used which may contain error for [...] Oral TID WC tumescent anesthetic solution Infiltration Machine Container Washer to OR tumescent anesthetic solution Infiltration Machine Container Washer to OR sodium chloride (PF) 10 mL [...] was completed later after rounds. Dictation software, SignaCert, was used which may contain error for [...] Oral TID WC tumescent anesthetic solution Infiltration Machine Container Washer to OR tumescent anesthetic solution Infiltration Machine Container Washer to OR sodium chloride (PF) 10 mL Intravenous Q8H vancomycin 750 mg Intravenous See Admin Instructions dextrose Dayna Ozuna MD - 09/26/2018 3:38 PM PDTFormatting of this note may be different f rom the original. [facility] Service: Hospitalist Progress Note Pt: Corrina Knight AGE/SEX: 43 y.o. female ROOM: [facility] : 1975 PCP: JATIN RODRÍGUEZ ADMIT DATE: [...] Oral TID WC tumescent anesthetic solution Infiltration Machine Container Washer to OR tumescent anesthetic solution Infiltration Machine Container Washer to OR sodium chloride (PF) 10 mL [...] hours. No results for input(s): PHART, PO2ART, VCR4MTJ, C2QSDVBF, BEART in the last 168 hours. No [...] note may be different from the original. [facility] Service: Infectious Disease Progress Note [...] with hemodialysis. The patient initially presented to [facility], and was transferred here with [...] Oral TID WC tumescent anesthetic solution Infiltration Machine Container Washer to OR sodium chloride (PF) 10 mL [...] Campos - 09/25/2018 11:16 PM PDTOn call agricultural research engineer responded to staff vis it request per pt's mother while on site. Corrina (43/f) expressed feeling anxious prior to gigi edi tomorrow. Her mother requested a agricultural research engineer visit for prayer. Assumed goal of emotional/s [...] she would be able to rest now. Spring Repairer Helper Hand offered marketing and public relations manager support through the night and on site support at [phone]. Family expre ssed openness to follow up visit post op. Left message for day agricultural research engineer to check in.Benita Ingram MD - 09/25/2018 4:00 PM PDTFormatting of this note may be different from the original . [facility] Service: NEPHROLOGY Dialysis/ Progress Note Corrina [place] 43 y.o. [id number] female [facility] Day: LOS: 5 days 43-year-old female with [...] Anemia of chronic renal failure, stage 5 ([facility]) 12/13/2015 Chronic kidney disease Diabetes mellitus, type 2 ([facility]) Dialysis patient ([facility]) ESRD (end stage renal disease) ([facility]) 04/02/2015 Essential hypertension 04/03/2015 Hypertension Obesity (BMI 30-39.9) Stroke ([facility]) Past Surgical History Procedure Laterality Date [...] Take 1 tablet by mouth daily. Lot# [id number]. Exp date 02/02. 84 tablet 0 Taking [...] on file Social History Narrative Lives in [place] (lives with her sister who is her caregiver). Mother lives in [place]. Uses cane for ambulation. No kids Allergy: [...] radiologist report and is used for image [employer] only Patient's old records, imaging and labs [...] earlier and charting completed later Dictation software, SignaCert, used which may contain error for similar sounding words even af ter review. Personal communication requested for any clarification. Dayna Ozuna MD - 09/25/2018 2:52 PM PDTFormatting of this note may be different f rom the original. [facility] Service: Hospitalist Progress Note Pt: [...] [START ON 09/26/2018] tumescent anesthetic solution Infiltration Machine Container Washer to OR sodium chloride (PF) 10 mL [...] hours. No results for input(s): PHART, PO2ART, BRP9EYK, [id number], BEART in the last 168 hours. No [...] Ozuna MD 09/25/2018 2:52 PM Marcia Tran [facility] - 09/25/2018 11:42 AM PDTPatient is scheduled for HD today at 1300. Vanco mycin dose has been sent to the floor and RN has been notified that is should be given durin g the last hour of HD today.Jordan Ho DO - 09/25/2018 10:19 AM PDTFormatting of this note may be different from the original. [facility] Service: Infectious Disease Progress Note [...] with hemodialysis. The patient initially presented to [facility], and was transferred here with [...] may be di fferent from the original. [facility] Service: Hospitalist Progress Note Pt: [...] hours. No results for input(s): PHART, PO2ART, OOB4KGZ, R1VDPFOP, BEART in the last 168 hours. No [...] hypertension Morbid obesity due to excess calories ([facility]) Diabetes mellitus, type 2 (HCC) ASSESSMENT [...] 09/24/2018 3:35 PM Anna Xiao, [facility] - 09/24/2018 12:36 PM PDTClinical Pharmacy Note: Vancomycin Day 4 Goal Trough: 10-20 mcg/mL Current dose: 750 mg IV during last hour of each dialysis Plan: Continue same dose. No dialysis today, no dose today. Anna Xiao, Pharm.D. 09/24/2018 12:36 PM Jordan Ho DO - 09/24/2018 10:28 AM PDTFormatting of this note may be different from the original. [facility] Service: Infectious Disease Progress Note [...] with hemodialysis. The patient initially presented to [facility], and was transferred here with [...] may be di fferent from the original. [facility] Service: Hospitalist Progress Note Pt: [...] hours. No results for input(s): PHART, PO2ART, EQH9HPP, E7GCHZMM, BEART in the last 168 hours. No [...] hypertension Morbid obesity due to excess calories ([facility]) Diabetes mellitus, type 2 ([facility]) ASSESSMENT & PLAN 1. Panniculitis with [...] Ozuna MD 09/23/2018 2:29 PM Anna Xiao, [facility] - 09/23/2018 12:53 PM PSTClinical Pharmacy Note: Vancomycin Day 3 Goal Trough: 10-20 mcg/mL Current dose: 750 mg IV during last hour of each dialysis Plan: Continue same dose. No dialysis today, no dose today. Anna Xiao, Pharm.D. 09/23/2018 12:52 PM Vance Rosenberg, [facility] - 09/23/2018 10:58 AM PSTFormatting of this [...] 7.40 K/uL Final Comment: Testing performed at [facility];[address] [place] [address];[place] [address] CREATININE Date Value Ref Range Status 09/23/2018 [...] note may be different from the original. [facility] Service: Infectious Disease Progress Note [...] with hemodialysis. The patient initially presented to [facility], and was transferred here with [...] may be dif ferent from the original. [facility] Service: Hospitalist Progress Note Pt: [...] hours. No results for input(s): PHART, PO2ART, YOA5IJT, P4AHTJCR, BEART in the last 168 hours. No [...] note may be different from the original. [facility] Service: Infectious Disease Progress Note [...] with hemodialysis. The patient initially presented to [facility], and was transferred here with [...] hypertension Morbid obesity due to excess calories ([facility]) Diabetes mellitus, type 2 (HCC) ASSESSMENT [...] Full Code JORDAN HO DO 09/22/2018Anna Xiao [facility] - 09/22/2018 8:58 AM PSTClinical Pharmacy Note: Vancomycin Day 2 Goal Trough: 10-20 mcg/mL Current dose: 750 mg IV during last hour of each hemodialysis Plan: Receiving dialysis this am, 750 mg IV dose planned for administration during last matty r of dialysis. Anna Xiao, Pharm.D. 09/22/2018 8:57 AM Anna Xiao [facility] - 09/21/2018 2:54 PM PSTFormatting of this [...] note may be different from the original. [facility] Service: NEPHROLOGY Progress Note Corrina [place] 43 y.o. [id number] female [facility] Day: LOS: 1 day 43-year-old female with [...] Anemia of chronic renal failure, stage 5 ([facility]) 12/13/2015 Chronic kidney disease Diabetes mellitus, type 2 ([facility]) Dialysis patient ([facility]) ESRD (end stage renal disease) ([facility]) 04/02/2015 Essential hypertension 04/03/2015 Hypertension Obesity (BMI 30-39.9) Stroke ([facility]) Past Surgical History Procedure Laterality Date [...] Take 1 tablet by mouth daily. Lot# [id number]. Exp date tablet 0 Taking at Unknown [...] on file Social History Narrative Lives in [place] (lives with her sister who is her caregiver). Mother lives in [place]. Uses cane for ambulation. No kids Allergy: [...] report and is used for image [employer] only Patient's old records, imaging and labs [...] earlier and charting completed later Dictation software, SignaCert, used which may contain error for similar sounding words even af ter review. Personal communication requested for any clarification. Dayna Ozuna MD - 09/21/2018 8:38 AM PSTFormatting of this note may be different f rom the original. [facility] Service: Hospitalist Progress Note Pt: [...] hours. No results for input(s): PHART, PO2ART, KOM7PVD, W1ABDVDA, BEART in the last 168 hours. No [...] excess calories (HCC) Diabetes mellitus, type 2 ([facility]) ASSESSMENT & PLAN 1. Panniculitis with [...] | 2019 | Visit | | [address] [facility] | | | | | | [place] [address] | | | | | | [phone] | | | | | | | [...] | | | L, | | | RELEASE SPECIALIST | +---+--------+ + +--------+ +---+ + | [...] W | | LABORATORY | | | [address], | | | | | [place] [address] | | | + + + + + + + | Specimen | + + | Blood | + + + + + + + | Performing | Address | City/State/Zipcode | Phone Number | | Organization | | | | + + + + + | [facility] | [address] | [place] [address] | [phone] | | LABORATORY | [address]. | | [...] 7.436Comment: Testing | 7.300 - 7.450 | [facility] | | | performed at [facility];[address];[place] | | | | | [address] | | | + + + + + + + | Specimen | + + | Blood | + + + + + + + | Performing | Address | City/State/Zipcode | Phone Number | | Organization | | | | + + + + + | [facility] | [address] | [place] [address] | | + + + + + [...] | | | | | performed at [facility], [address] | | | | | [facility], | | | | | [place] [address] | | | + + + + + + + | Specimen | + + | Blood | + + + + + + + | Performing | Address | City/State/Zipcode | Phone Number | | Organization | | | | + + + + + | [facility] | [address] | [place] [address] | [phone] | | LABORATORY | [address] | | [...] | LABORATORY | | | performed at [facility], [address] | | | | | [address] [place], | | | | | [place] [address] | | | | | | | | + + + + + + + | Specimen | + + | Blood | + + + + + + + | Performing | Address | City/State/Zipcode | Phone Number | | Organization | | | | + + + + + | [facility] | [address] | [place] [address] | [phone] | | LABORATORY | [address] | | | + + + + + POCT glucose (09/30/2018 5:16 AM) + + + + + | Component | Value | Ref Range | Performed At | + + + + + | GLUCOSE,POC SCREEN | 94Comment: Testing | 65 - 99 mg/dL | [facility] | | | performed at [facility];[address];[place], [place] | | | | | [address] | | | + + + + + + + + + + | Performing | Address | City/State/Zipcode | Phone Number | | Organization | | | | + + + + + | [facility] | [address] | [facility] [address] | | + + + + + POCT glucose (09/30/2018 12:26 AM) + + + + + | Component | Value | Ref Range | Performed At | + + + + + | GLUCOSE,POC SCREEN | 124 (H)Comment: Testing | 65 - 99 mg/dL | [facility] | | | performed at [facility];[address] | | | | | [address];[place] | | | | | [address] | | | + + + + + + + + + + | Performing | Address | City/State/Zipcode | Phone Number | | Organization | | | | + + + + + | [facility] | [address] | [place] [address] | | + + + + + POCT glucose (09/29/2018 9:30 PM) + + + + + | Component | Value | Ref Range | Performed At | + + + + + | GLUCOSE,POC SCREEN | 166 (H)Comment: Testing | 65 - 99 mg/dL | [facility] | | | performed at [facility];[address] | | | | | [address];[place] | | | | | [address] | | | + + + + + + + + + + | Performing | Address | City/State/Zipcode | Phone Number | | Organization | | | | + + + + + | [facility] | [address] | [place] [address] | | + + + + + POCT glucose (09/29/2018 4:31 PM) + + + + + | Component | Value | Ref Range | Performed At | + + + + + | GLUCOSE,POC SCREEN | 172 (H)Comment: Testing | 65 - 99 mg/dL | [facility] | | | performed at [facility];[address] | | | | | [address];[place] | | | | | [address] | | | + + + + + + + + + + | Performing | Address | City/State/Zipcode | Phone Number | | Organization | | | | + + + + + | [facility] | [address] | [place] [address] | | + + + + + Ferritin (09/29/2018 1:47 PM) + + + + + | Component | Value | Ref Range | Performed At | + + + + + | FERRITIN | 344 (H)Comment: Testing | 6 - 170 ng/mL | [facility] | | | performed at [facility], [address] | | LABORATORY | | | [address], | | | | | [place] [address] | | | + + + + + + + | Specimen | + + | Blood | + + + + + + + | Performing | Address | City/State/Zipcode | Phone Number | | Organization | | | | + + + + + | [facility] | [address] | [place] [address] | [phone] | | LABORATORY | [address] | | [...] | [facility] | | | performed at [facility], [address] | | LABORATORY | | | [address], | | | | | [place] [address] | | | + + + + + + + | Specimen | + + | Blood | + + + + + + + | Performing | Address | City/State/Zipcode | Phone Number | | Organization | | | | + + + + + | [facility] | [address] [place] [address] | [place] [address] | [phone] | | LABORATORY | [address] | | | + + + + + Vitamin B12 (09/29/2018 1:47 PM) + + + + + | Component | Value | Ref Range | Performed At | + + + + + | VITAMIN B12 | 921Comment: Testing | 254 - 1,320 pg/mL | [facility] | | | performed at [facility], [facility] [address] | | LABORATORY | | | [facility], | | | | | [place] [address] | | | + + + + + + + | Specimen | + + | Blood | + + + + + + + | Performing | Address | City/State/Zipcode | Phone Number | | Organization | | | | + + + + + | [facility] | [address] | [place] [address] | [phone] | | LABORATORY | [address] | | | + + + + + Folate (09/29/2018 1:47 PM) + + + + + | Component | Value | Ref Range | Performed At | + + + + + | FOLATE | 5.0 (L)Comment: Testing | >5.4 ng/mL | [facility] | | | performed at [facility], [address] | | LABORATORY | | | [address], | | | | | [place] [address] | | | + + + + + + + | Specimen | + + | Blood | + + + + + + + | Performing | Address | City/State/Zipcode | Phone Number | | Organization | | | | + + + + + | [facility] | [address] [place] [address] | [place] [address] | [phone] | | LABORATORY | Blvd. | | | + + + + + POCT glucose (09/29/2018 11:39 AM) + + + + + | Component | Value | Ref Range | Performed At | + + + + + | GLUCOSE,POC SCREEN | 108 (H)Comment: Testing | 65 - 99 mg/dL | [facility] | | | performed at [facility] | | | | | [address];[place] | | | | | [address] | | | + + + + + + + + + + | Performing | Address | City/State/Zipcode | Phone Number | | Organization | | | | + + + + + | [facility] | [address] | [place] [address] | | + + + + + Phosphorus (09/29/2018 6:12 AM) + + + + + | Component | Value | Ref Range | Performed At | + + + + + | PHOSPHORUS | 4.7Comment: Testing | 2.3 - 4.8 mg/dL | [facility] | | | performed at [facility], [address] | | LABORATORY | | | [address], | | | | | [place] [address] | | | + + + + + + + | Specimen | + + | Blood | + + + + + + + | Performing | Address | City/State/Zipcode | Phone Number | | Organization | | | | + + + + + | [facility] | [address] | [place] [address] | [phone] | | LABORATORY | Blvd. | | [...] 7.405Comment: Testing | 7.300 - 7.450 | [facility] | | | performed at [facility] | | | | | [address];[place] | | | | | [address] | | | + + + + + + + | Specimen | + + | Blood | + + + + + + + | Performing | Address | City/State/Zipcode | Phone Number | | Organization | | | | + + + + + | [facility] | [address] | [place] [address] | | + + + + + [...] | | | | | performed at [facility], [address] | | | | | [facility], | | | | | [place] [address] | | | + + + + + + + | Specimen | + + | Blood | + + + + + + + | Performing | Address | City/State/Zipcode | Phone Number | | Organization | | | | + + + + + | [facility] | [address] | [place] [address] | [phone] | | LABORATORY | Blvd. | | [...] performed | | | | | at [facility], [address] | | | | | [place], | | | | | [place] [address] | | | | |Testing performed at [facility], [address], [place] [address] | | | | | | | | + + + + + + + | Specimen | + + | Blood | + + + + + + + | Performing | Address | City/State/Zipcode | Phone Number | | Organization | | | | + + + + + | [facility] | [address] | [place] [address] | [phone] | | LABORATORY | Blvd. | | | + + + + + Vancomycin, random (09/29/2018 6:12 AM) + + + + + | Component | Value | Ref Range | Performed At | + + + + + | VANCOMYCIN,RANDOM | 24.1Comment: Testing | ug/mL | [facility] | | | performed at [facility];[address] | | | | | [address];[place] | | | | | [address] | | | + + + + + + + | Specimen | + + | Blood | + + + + + + + | Performing | Address | City/State/Zipcode | Phone Number | | Organization | | | | + + + + + | [facility] | [address] | [place] [address] | | + + + + + POCT glucose (09/29/2018 5:39 AM) + + + + + | Component | Value | Ref Range | Performed At | + + + + + | GLUCOSE,POC SCREEN | 93Comment: Testing | 65 - 99 mg/dL | [facility] | | | performed at [facility];[address] | | | | | [address] [facility];[place], [place] | | | | | [address] | | | + + + + + + + + + + | Performing | Address | City/State/Zipcode | Phone Number | | Organization | | | | + + + + + | [facility] | [address] | [place] [address] | | + + + + + POCT glucose (09/28/2018 9:02 PM) + + + + + | Component | Value | Ref Range | Performed At | + + + + + | GLUCOSE,POC SCREEN | 122 (H)Comment: Testing | 65 - 99 mg/dL | [facility] | | | performed at [facility];[address] | | | | | [address];[place] | | | | | [address] | | | + + + + + + + + + + | Performing | Address | City/State/Zipcode | Phone Number | | Organization | | | | + + + + + | [facility] | [address] | [facility]NOTE [facility] [place] [address] | | + + + + + POCT glucose (09/28/2018 4:13 PM) + + + + + | Component | Value | Ref Range | Performed At | + + + + + | GLUCOSE,POC SCREEN | 130 (H)Comment: Testing | 65 - 99 mg/dL | [facility] | | | performed at [facility];[address] | | | | | [address];[place] | | | | | [address] | | | + + + + + + + + + + | Performing | Address | City/State/Zipcode | Phone Number | | Organization | | | | + + + + + | [facility] | [address] | [place] [address] | | + + + + + POCT glucose (09/28/2018 12:01 PM) + + + + + | Component | Value | Ref Range | Performed At | + + + + + | GLUCOSE,POC SCREEN | 122 (H)Comment: Testing | 65 - 99 mg/dL | [facility] | | | performed at [facility];[address] | | | | | [address];[place] | | | | | [address] | | | + + + + + + + + + + | Performing | Address | City/State/Zipcode | Phone Number | | Organization | | | | + + + + + | [facility] | [address] | [place] [address] | | + + + + + POCT glucose (09/28/2018 5:48 AM) + + + + + | Component | Value | Ref Range | Performed At | + + + + + | GLUCOSE,POC SCREEN | 100 (H)Comment: Testing | 65 - 99 mg/dL | [facility] | | | performed at [facility];[address] | | | | | [address];[place] | | | | | [address] | | | + + + + + + + + + + | Performing | Address | City/State/Zipcode | Phone Number | | Organization | | | | + + + + + | [facility] | [address] | [place] [address] | | + + + + + Phosphorus (09/28/2018 5:25 AM) + + + + + | Component | Value | Ref Range | Performed At | + + + + + | PHOSPHORUS | 3.3Comment: Testing | 2.3 - 4.8 mg/dL | [facility] | | | performed at [facility], [address] | | LABORATORY | | | [facility], | | | | | [place] [address] | | | + + + + + + + | Specimen | + + | Blood | + + + + + + + | Performing | Address | City/State/Zipcode | Phone Number | | Organization | | | | + + + + + | [facility] | [address] | [place] [address] | [phone] | | LABORATORY | Blvd[address] | | | + + + + + Calcium, ionized (09/28/2018 5:25 AM) + + + + + | Component | Value | Ref Range | Performed At | + + + + + | CA++ | 0.99 (L) | 1.08 - 1.25 mmol/L | [facility] | + + + + + | pH | 7.458 (H)Comment: | 7.300 - 7.450 | [facility] | | | Testing performed at | | | | | [facility];[address] | | | | [address];[place] [address] | | | + + + + + + + | Specimen | + + | Blood | + + + + + + + | Performing | Address | City/State/Zipcode | Phone Number | | Organization | | | | + + + + + | [facility] | [address] | [facility]NOTE [facility] [place] [address] | | + + + + + [...] | | | | | performed at [facility], [address] | | | | | [facility], | | | | | [place] [address] | | | + + + + + + + | Specimen | + + | Blood | + + + + + + + | Performing | Address | City/State/Zipcode | Phone Number | | Organization | | | | + + + + + | [facility] | [address] | [place] [address] | [phone] | | LABORATORY | [address]vd[address] | | | + + + + + CBC W/Auto Diff (Reflex to Manual) (09/28/2018 5:25 AM) + + + + + | Component | Value | Ref Range | Performed At | + + + + + | WBC | 14.43 (H) | 3.80 - 11.00 K/uL | [facility] | + + + + + | RBC | 3.22 (L) | 3.70 - 5.10 M/uL | [facility] | + + + + + | HGB | 8.2 (L) | 11.3 - 15.5 g/dL | [facility] | + + + + + | HCT | 26.5 (L) | 34.0 - 46.0 % | [facility] | + + + + + | MCV | 82.4 | 80.0 - 100.0 fl | [facility] | + + + + + | MCH | 25.5 (L) | 27.0 - 34.0 pg | [facility] | + + + + + | MCHC | 30.9 (L) | 32.0 - 35.5 g/dL | [facility] | + + + + + | RDW SD | 54.7 (H) | 37 - 53 fl | [facility] | + + + + + | PLT | 292 | 150 - 400 K/uL | [facility] | + + + + + | MPV | 8.4 | fl | [facility] | + + + + + [...] | | | | | performed at [facility];[address] | | | | | [address];[place] | | | | | [address] | | | | | | | | + + + + + + + | Specimen | + + | Blood | + + + + + + + | Performing | Address | City/State/Zipcode | Phone Number | | Organization | | | | + + + + + | [facility] | [address] | [place] [address] | | + + + + + POCT glucose (09/27/2018 9:07 PM) + + + + + | Component | Value | Ref Range | Performed At | + + + + + | GLUCOSE,POC SCREEN | 114 (H)Comment: Testing | 65 - 99 mg/dL | [facility] | | | performed at [facility];[address] | | | | | [address];[place] | | | | | [address] | | | + + + + + + + + + + | Performing | Address | City/State/Zipcode | Phone Number | | Organization | | | | + + + + + | [facility] | [address] | [place] [address] | | + + + + + POCT glucose (09/27/2018 4:35 PM) + + + + + | Component | Value | Ref Range | Performed At | + + + + + | GLUCOSE,POC SCREEN | 87Comment: Testing | 65 - 99 mg/dL | [facility] | | | performed at [facility];[address] | | | | | [address];[place] | | | | | [address] | | | + + + + + + + + + + | Performing | Address | City/State/Zipcode | Phone Number | | Organization | | | | + + + + + | [facility] | [address] | [place] [address] | | + + + + + POCT glucose (09/27/2018 11:25 AM) + + + + + | Component | Value | Ref Range | Performed At | + + + + + | GLUCOSE,POC SCREEN | 88Comment: Testing | 65 - 99 mg/dL | [facility] | | | performed at [facility];[address] | | | | | [address];[place] | | | | | [address] | | | + + + + + + + + + + | Performing | Address | City/State/Zipcode | Phone Number | | Organization | | | | + + + + + | [facility] | [address] | [facility]NOTE [facility] [place] [address] | | + + + + + POCT glucose (09/27/2018 5:40 AM) + + + + + | Component | Value | Ref Range | Performed At | + + + + + | GLUCOSE,POC SCREEN | 81Comment: Testing | 65 - 99 mg/dL | [facility] | | | performed at [facility];[address] | | | | | [address];[place] | | | | | [address] | | | + + + + + + + + + + | Performing | Address | City/State/Zipcode | Phone Number | | Organization | | | | + + + + + | [facility] | [address] | [place] [address] | | + + + + + Phosphorus (09/27/2018 5:21 AM) + + + + + | Component | Value | Ref Range | Performed At | + + + + + | PHOSPHORUS | 4.5Comment: Testing | 2.3 - 4.8 mg/dL | [facility] | | | performed at [facility], [address] | | LABORATORY | | | [address], | | | | | [place] [address] | | | + + + + + + + | Specimen | + + | Blood | + + + + + + + | Performing | Address | City/State/Zipcode | Phone Number | | Organization | | | | + + + + + | [facility] | [address] | [place] [address] | [phone] | | LABORATORY | [address]vd[address] | | | + + + + + Basic metabolic panel (09/27/2018 5:21 AM) + + + + + | Component | Value | Ref Range | Performed At | + + + + + | SODIUM | 132 (L) | 135 - 145 mmol/L | [facility] | | | | | LABORATORY | [...] (H) | 0.50 - 1.00 mg/dL | [facility] | | | | | LABORATORY | + + + + + | BUN/CREAT | 5 | | [facility] | | | | | LABORATORY | + + + + + | CALCIUM | 8.1 (L) | 8.5 - 10.5 mg/dL | [facility] | | | | | LABORATORY | + + + + + | EGFR | 9 (L)Comment: GFR <60: | >60 mL/min/1.73m2 | [facility] | | | CHRONIC KIDNEY DISEASE, | [...] | | | | | performed at [facility], [address] | | | | | [facility], | | | | | [place] [address] | | | + + + + + + + | Specimen | + + | Blood | + + + + + + + | Performing | Address | City/State/Zipcode | Phone Number | | Organization | | | | + + + + + | [facility] | [address] [place] [address] | [place] [address] | [phone] | | LABORATORY | [address] | | [...] performed | | | | | at [facility], [address] | | | | | [facility], | | | | | [place] [address] | | | | |Testing performed at [facility], [address] [facility], [place] [address] | | | | | | | | + + + + + + + | Specimen | + + | Blood | + + + + + + + | Performing | Address | City/State/Zipcode | Phone Number | | Organization | | | | + + + + + | [facility] | [address] | [place] [address] | [phone] | | LABORATORY | [address]vd[address] | | | + + + + + POCT glucose (09/26/2018 9:02 PM) + + + + + | Component | Value | Ref Range | Performed At | + + + + + | GLUCOSE,POC SCREEN | 125 (H)Comment: Testing | 65 - 99 mg/dL | [facility] | | | performed at [facility];[address] | | | | | [address];[place], [place] | | | | | [address] | | | + + + + + + + + + + | Performing | Address | City/State/Zipcode | Phone Number | | Organization | | | | + + + + + | [facility] | [address] | [place] [address] | | + + + + + POCT glucose (09/26/2018 4:03 PM) + + + + + | Component | Value | Ref Range | Performed At | + + + + + | GLUCOSE,POC SCREEN | 126 (H)Comment: Testing | 65 - 99 mg/dL | [facility] | | | performed at [facility];[address] | | | | | [address];[place] | | | | | [address] | | | + + + + + + + + + + | Performing | Address | City/State/Zipcode | Phone Number | | Organization | | | | + + + + + | [facility] | [address] | [place] [address] | | + + + + + [...] component was performed by | | | [email or web address], [address] [place] [address] (Medical | | | Director: Ludy Savage MD; CLIA# [id number]). Professional | | | interpretation [email or web address]. | | | [facility], [address] [place] [address] | | | (Dust Sampler: Vance Foley M.D.; | | | IA#: [id number]). Diagnostician: Vance Foley MD | | | [...] Testing | 65 - 99 mg/dL | [facility] | | | performed at [facility];[address] | | | | | [address];[place] | | | | | [address] | | | + + + + + + + + + + | Performing | Address | City/State/Zipcode | Phone Number | | Organization | | | | + + + + + | [facility] | [address] | [place] [address] | | + + + + + POCT glucose (09/26/2018 11:28 AM) + + + + + | Component | Value | Ref Range | Performed At | + + + + + | GLUCOSE,POC SCREEN | 81Comment: Testing | 65 - 99 mg/dL | [facility] | | | performed at [facility];[address] | | | | | [address];[place], [place] | | | | | [address] | | | + + + + + + + + + + | Performing | Address | City/State/Zipcode | Phone Number | | Organization | | | | + + + + + | [facility] | [address] | [place] [address] | | + + + + + [...] (H) | 0.50 - 1.00 mg/dL | [facility] | | | | | LABORATORY | + + + + + | BUN/CREAT | 5 | | [facility] | | | | | LABORATORY | + + + + + | CALCIUM | 8.3 (L) | 8.5 - 10.5 mg/dL | [facility] | | | | | LABORATORY [...] | | | | | performed at [facility], [address] | | | | | [facility], | | | | | [place] [address] | | | + + + + + + + | Specimen | + + | Blood | + + + + + + + | Performing | Address | City/State/Zipcode | Phone Number | | Organization | | | | + + + + + | [facility] | [address] [place] [address] | [place] [address] | [phone] | | LABORATORY | [facility]. | | | + + + + [...] | | | | | performed at [facility], [address] | | | | | [facility], | | | | | [place] [address] | | | | |HYPO | | | | |NORMAL PLT MORPH | | | | |Testing performed at [facility], [address] [facility], [place] [address] | | | | | | | | + + + + + + + | Specimen | + + | Blood | + + + + + + + | Performing | Address | City/State/Zipcode | Phone Number | | Organization | | | | + + + + + | [facility] | [address] | [place] [address] | [phone] | | LABORATORY | [address]vd[address] | | | + + + + + POCT glucose (09/26/2018 5:24 AM) + + + + + | Component | Value | Ref Range | Performed At | + + + + + | GLUCOSE,POC SCREEN | 84Comment: Testing | 65 - 99 mg/dL | [facility] | | | performed at [facility];[address] | | | | | [address];[place], [place] | | | | | [address] | | | + + + + + + + + + + | Performing | Address | City/State/Zipcode | Phone Number | | Organization | | | | + + + + + | [facility] | [address] | [place] [address] | | + + + + + POCT glucose (09/25/2018 9:02 PM) + + + + + | Component | Value | Ref Range | Performed At | + + + + + | GLUCOSE,POC SCREEN | 115 (H)Comment: Testing | 65 - 99 mg/dL | [facility] | | | performed at [facility];[address] | | | | | [address];[place] | | | | | [address] | | | + + + + + + + + + + | Performing | Address | City/State/Zipcode | Phone Number | | Organization | | | | + + + + + | [facility] | [address] | [place] [address] | | + + + + + POCT glucose (09/25/2018 4:15 PM) + + + + + | Component | Value | Ref Range | Performed At | + + + + + | GLUCOSE,POC SCREEN | 116 (H)Comment: Testing | 65 - 99 mg/dL | [facility] | | | performed at [facility];[address] | | | | | [address];[place] | | | | | [address] | | | + + + + + + + + + + | Performing | Address | City/State/Zipcode | Phone Number | | Organization | | | | + + + + + | [facility] | [address] [facility] | [place] [address] | | + + + + + POCT glucose (09/25/2018 11:38 AM) + + + + + | Component | Value | Ref Range | Performed At | + + + + + | GLUCOSE,POC SCREEN | 112 (H)Comment: Testing | 65 - 99 mg/dL | [facility] | | | performed at [facility];[address] | | | | | [address];[place] | | | | | [address] | | | + + + + + + + + + + | Performing | Address | City/State/Zipcode | Phone Number | | Organization | | | | + + + + + | [facility] | [address] | [place] [address] | | + + + + + POCT glucose (09/25/2018 6:22 AM) + + + + + | Component | Value | Ref Range | Performed At | + + + + + | GLUCOSE,POC SCREEN | 103 (H)Comment: Testing | 65 - 99 mg/dL | [facility] | | | performed at [facility];[address] | | | | | [address];[place], [place] | | | | | [address] | | | + + + + + + + + + + | Performing | Address | City/State/Zipcode | Phone Number | | Organization | | | | + + + + + | [facility] | [address] | [place] [address] | | + + + + + [...] (H) | 0.50 - 1.00 mg/dL | [facility] | | | | | LABORATORY | + + + + + | BUN/CREAT | 7 | | [facility] | | | | | LABORATORY | + + + + + | CALCIUM | 8.2 (L) | 8.5 - 10.5 mg/dL | [facility] | | | | | LABORATORY | + + + + + | EGFR | 8 (L)Comment: GFR <60: | >60 mL/min/1.73m2 | [facility] | | | CHRONIC KIDNEY DISEASE, | [...] | | | | | performed at [facility], [address] | | | | [facility], | | | | | [place] [address] | | | + + + + + + + | Specimen | + + | Blood | + + + + + + + | Performing | Address | City/State/Zipcode | Phone Number | | Organization | | | | + + + + + | [facility] | [address] | [place] [address] | [phone] | | LABORATORY | [address] | | [...] [address], | | | | | [place] [address] | | | | |HYPO | | | | |NORMAL PLT MORPH | | | | |Testing performed at [facility], [address] [place] [address] | | | | | | | | + + + + + + + | Specimen | + + | Blood | + + + + + + + | Performing | Address | City/State/Zipcode | Phone Number | | Organization | | | | + + + + + | [facility] | [address] | [place] [address] | [phone] | | LABORATORY | [address] | | | + + + + + POCT glucose (09/24/2018 10:02 PM) + + + + + | Component | Value | Ref Range | Performed At | + + + + + | GLUCOSE,POC SCREEN | 107 (H)Comment: Testing | 65 - 99 mg/dL | [facility] | | | performed at [facility];[address] | | | | | [address];[place] | | | | | [address] | | | + + + + + + + + + + | Performing | Address | City/State/Zipcode | Phone Number | | Organization | | | | + + + + + | [facility] | [address] | [place] [address] | | + + + + + POCT glucose (09/24/2018 4:38 PM) + + + + + | Component | Value | Ref Range | Performed At | + + + + + | GLUCOSE,POC SCREEN | 123 (H)Comment: Testing | 65 - 99 mg/dL | [facility] | | | performed at [facility];[address] | | | | | [facility];[place] | | | | | [address] | | | + + + + + + + + + + | Performing | Address | City/State/Zipcode | Phone Number | | Organization | | | | + + + + + | [facility] | [address] | [facility] [place] [address] | | + + + + + POCT glucose (09/24/2018 12:04 PM) + + + + + | Component | Value | Ref Range | Performed At | + + + + + | GLUCOSE,POC SCREEN | 121 (H)Comment: Testing | 65 - 99 mg/dL | [facility] | | | performed at [facility] [place] | | | | | [address];[place] | | | | | [address] | | | + + + + + + + + + + | Performing | Address | City/State/Zipcode | Phone Number | | Organization | | | | + + + + + | [facility] | [address] | [place] [address] | | + + + + + POCT glucose (09/24/2018 5:53 AM) + + + + + | Component | Value | Ref Range | Performed At | + + + + + | GLUCOSE,POC SCREEN | 106 (H)Comment: Testing | 65 - 99 mg/dL | [facility] | | | performed at [facility] | | | | | [address];[place] | | | | | [address] | | | + + + + + + + + + + | Performing | Address | City/State/Zipcode | Phone Number | | Organization | | | | + + + + + | [facility] | [address] | [place] [address] | | + + + + + [...] the | | | | | [facility] traceable | | | | | equation.Testing | | | | | performed at [facility], [address] | | | | [facility], | | | | | [place] [address] | | | + + + + + + + | Specimen | + + | Blood | + + + + + + + | Performing | Address | City/State/Zipcode | Phone Number | | Organization | | | | + + + + + | [facility] | [address] | [place] [address] | [phone] | | LABORATORY | [address] | | [...] | | | | ng performed at [facility], | | | | | [facility] [address] [facility], | | | | | [place] [address] | | | | |2+ | | | | |HYPO | | | | |Testing performed at [facility], [facility] [address] [facility], [place] [address] | | | | | | | | + + + + + + + | Specimen | + + | Blood | + + + + + + + | Performing | Address | City/State/Zipcode | Phone Number | | Organization | | | | + + + + + | [facility] | [address] | [place] [address] | [phone] | | LABORATORY | [address] | | | + + + + + POCT glucose (09/23/2018 10:15 PM) + + + + + | Component | Value | Ref Range | Performed At | + + + + + | GLUCOSE,POC SCREEN | 126 (H)Comment: Testing | 65 - 99 mg/dL | [facility] | | | performed at [facility] | | | | | [address];[place] | | | | | [address] | | | + + + + + + + + + + | Performing | Address | City/State/Zipcode | Phone Number | | Organization | | | | + + + + + | [facility] | [address] | [place] [address] | | + + + + + POCT glucose (09/23/2018 4:51 PM) + + + + + | Component | Value | Ref Range | Performed At | + + + + + | GLUCOSE,POC SCREEN | 118 (H)Comment: Testing | 65 - 99 mg/dL | [facility] | | | performed at [facility] | | | | | [facility];[place], [place] | | | | | [address] | | | + + + + + + + + + + | Performing | Address | City/State/Zipcode | Phone Number | | Organization | | | | + + + + + | [facility] | [address] | [place] [address] | | + + + + + POCT glucose (09/23/2018 11:33 AM) + + + + + | Component | Value | Ref Range | Performed At | + + + + + | GLUCOSE,POC SCREEN | 131 (H)Comment: Testing | 65 - 99 mg/dL | [facility] | | | performed at [facility];[address] | | | | | [address];[place] | | | | | [address] | | | + + + + + + + + + + | Performing | Address | City/State/Zipcode | Phone Number | | Organization | | | | + + + + + | [facility] | [address] | [facility] [place] [address] | | + + + + + POCT glucose (09/23/2018 6:04 AM) + + + + + | Component | Value | Ref Range | Performed At | + + + + + | GLUCOSE,POC SCREEN | 93Comment: Testing | 65 - 99 mg/dL | [facility] | | | performed at [facility];[address] | | | | | [address];[place] | | | | | [address] | | | + + + + + + + + + + | Performing | Address | City/State/Zipcode | Phone Number | | Organization | | | | + + + + + | [facility] | [address] | [place] [address] | | + + + + + [...] (L)Comment: GFR <60: | >60 mL/min/1.73m2 | [facility] | | | CHRONIC KIDNEY DISEASE, | [...] | | | | | performed at [facility], [address] | | | | [facility], | | | | | [place] [address] | | | + + + + + + + | Specimen | + + | Blood | + + + + + + + | Performing | Address | City/State/Zipcode | Phone Number | | Organization | | | | + + + + + | [facility] | [address] | [place] [address] | [phone] | | LABORATORY | [address] | | [...] | | | | esting performed at [facility], | | | | | [address] [facility], | | | | | [place] [address] | | | | |1+ | | | | |HYPO | | | | |Testing performed at [facility], [address] [facility], [place] [address] | | | | | | | | + + + + + + + | Specimen | + + | Blood | + + + + + + + | Performing | Address | City/State/Zipcode | Phone Number | | Organization | | | | + + + + + | [facility] | [address] | [place] [address] | [phone] | | LABORATORY | [address] | | | + + + + + POCT glucose (09/22/2018 9:16 PM) + + + + + | Component | Value | Ref Range | Performed At | + + + + + | GLUCOSE,POC SCREEN | 117 (H)Comment: Testing | 65 - 99 mg/dL | [facility] | | | performed at [facility];[address] | | | | | [address];[place], [place] | | | | | [address] | | | + + + + + + + + + + | Performing | Address | City/State/Zipcode | Phone Number | | Organization | | | | + + + + + | [facility] | [address] | [place] [address] | | + + + + + POCT glucose (09/22/2018 4:22 PM) + + + + + | Component | Value | Ref Range | Performed At | + + + + + | GLUCOSE,POC SCREEN | 108 (H)Comment: Testing | 65 - 99 mg/dL | [facility] | | | performed at [facility];[address] | | | | | [address];[place] | | | | | [address] | | | + + + + + + + + + + | Performing | Address | City/State/Zipcode | Phone Number | | Organization | | | | + + + + + | [facility] | [address] | [place] [address] | | + + + + + POCT glucose (09/22/2018 11:21 AM) + + + + + | Component | Value | Ref Range | Performed At | + + + + + | GLUCOSE,POC SCREEN | 105 (H)Comment: Testing | 65 - 99 mg/dL | [facility] | | | performed at [facility];[address] | | | | | [address];[place] | | | | | [address] | | | + + + + + + + + + + | Performing | Address | City/State/Zipcode | Phone Number | | Organization | | | | + + + + + | [facility] | [address] | [place] [address] | | + + + + + [...] performed at | | | | | [facility], [address] [facility] | | | | | [place] | | | | | [address] | | | + + + + + + + + + + | Performing | Address | City/State/Zipcode | Phone Number | | Organization | | | | + + + + + | [facility] | [address] | [place] [address] | [phone] | | LABORATORY | [address] | | | + + + + + POCT glucose (09/22/2018 6:03 AM) + + + + + | Component | Value | Ref Range | Performed At | + + + + + | GLUCOSE,POC SCREEN | 84Comment: Testing | 65 - 99 mg/dL | [facility] | | | performed at [facility];[address] | | | | | [address];[place] | | | | | [address] | | | + + + + + + + + + + | Performing | Address | City/State/Zipcode | Phone Number | | Organization | | | | + + + + + | [facility] | [address] | [place] [address] | | + + + + + POCT glucose (09/21/2018 9:10 PM) + + + + + | Component | Value | Ref Range | Performed At | + + + + + | GLUCOSE,POC SCREEN | 103 (H)Comment: Testing | 65 - 99 mg/dL | [facility] | | | performed at [facility];[address] | | | | | [address];[place], [place] | | | | | [address] | | | + + + + + + + + + + | Performing | Address | City/State/Zipcode | Phone Number | | Organization | | | | + + + + + | [facility] | [address] [facility] | [place] [address] | | + + + + + POCT glucose (09/21/2018 4:11 PM) + + + + + | Component | Value | Ref Range | Performed At | + + + + + | GLUCOSE,POC SCREEN | 86Comment: Testing | 65 - 99 mg/dL | [facility] | | | performed at [facility];[address] | | | | | [facility];[place] | | | | | [address] | | | + + + + + + + + + + | Performing | Address | City/State/Zipcode | Phone Number | | Organization | | | | + + + + + | [facility] | [address] | [place] [address] | | + + + + + Vancomycin, trough (09/21/2018 2:27 PM) + + + + + | Component | Value | Ref Range | Performed At | + + + + + | VANCOMYCIN,TROUGH | <3.0 (L)Comment: 15 to | 10 - 20 ug/mL | [facility] | | | 20 ug/mL for meningitis, | | | | | osteomyelitis, | | | | | endocarditis, sepsis, or | | | | | healthcare associated | | | | | pneumonia, or an RONY | | | | | equal to or greater than | | | | | 1.0 ug/mLTesting | | | | | performed at [facility];[address] | | | | | [address];[place] | | | | | [address] | | | + + + + + + + | Specimen | + + | Blood | + + + + + + + | Performing | Address | City/State/Zipcode | Phone Number | | Organization | | | | + + + + + | [facility] | [address] | [place] [address] | | + + + + + POCT glucose (09/21/2018 11:41 AM) + + + + + | Component | Value | Ref Range | Performed At | + + + + + | GLUCOSE,POC SCREEN | 99Comment: Testing | 65 - 99 mg/dL | [facility] | | | performed at [facility];[address] | | | | | [address];[place] | | | | | [address] | | | + + + + + + + + + + | Performing | Address | City/State/Zipcode | Phone Number | | Organization | | | | + + + + + | [facility] | [address] | [place] [address] | | + + + + + [...] | [facility] | | | performed at [facility], [address] | | LABORATORY | | | [address], | | | | | [place] [address] | | | + + + + + + + | Specimen | + + | Blood | + + + + + + + | Performing | Address | City/State/Zipcode | Phone Number | | Organization | | | | + + + + + | [facility] | [address] | [place] [address] | [phone] | | LABORATORY | [address] | | | + + + + + Phosphorus (09/21/2018 6:10 AM) + + + + + | Component | Value | Ref Range | Performed At | + + + + + | PHOSPHORUS | 5.1 (H)Comment: Testing | 2.3 - 4.8 mg/dL | [facility] | | | performed at [facility], [address] | | LABORATORY | | | [address], | | | | | [place] [address] | | | + + + + + + + | Specimen | + + | Blood | + + + + + + + | Performing | Address | City/State/Zipcode | Phone Number | | Organization | | | | + + + + + | [facility] | [address] | [place] [address] | [phone] | | LABORATORY | [address] | | | + + + + + Magnesium (09/21/2018 6:10 AM) + + + + + | Component | Value | Ref Range | Performed At | + + + + + | MAGNESIUM | 2.1Comment: Testing | 1.7 - 2.4 mg/dL | [facility] | | | performed at [facility], [address] | | LABORATORY | | | [facility], | | | | | [place] [address] | | | + + + + + + + | Specimen | + + | Blood | + + + + + + + | Performing | Address | City/State/Zipcode | Phone Number | | Organization | | | | + + + + + | [facility] | [address] | [place] [address] | [phone] | | LABORATORY | [address] | | [...] | | | | | performed at [facility], [address] | | | | | [facility], | | | | | [place] [address] | | | + + + + + + + | Specimen | + + | Blood | + + + + + + + | Performing | Address | City/State/Zipcode | Phone Number | | Organization | | | | + + + + + | [facility] | [address] | [place] [address] | [phone] | | LABORATORY | [address] | | [...] (H) | 0.50 - 1.00 mg/dL | [facility] | | | | | LABORATORY | + + + + + | BUN/CREAT | 5 | | [facility] | | | | | LABORATORY | + + + + + | CALCIUM | 9.0 | 8.5 - 10.5 mg/dL | [facility] | | | | | LABORATORY | + + + + + | EGFR | 14 (L)Comment: GFR <60: | >60 mL/min/1.73m2 | [facility] | | | CHRONIC KIDNEY DISEASE, | [...] | | | | | performed at [facility], [address] | | | | | [facility], | | | | | [place] [address] | | | + + + + + + + | Specimen | + + | Blood | + + + + + + + | Performing | Address | City/State/Zipcode | Phone Number | | Organization | | | | + + + + + | [facility] | [address] | [place] [address] | [phone] | | LABORATORY | [address] | | [...] | | | | | performed at [facility], [facility] [address] | | | | | [facility], | | | | | [place] [address] | | | | |POLY | | | | |NORMAL PLT MORPH | | | | |Testing performed at [facility], [facility] [place] [address] | | | | | | | | + + + + + + + | Specimen | + + | Blood | + + + + + + + | Performing | Address | City/State/Zipcode | Phone Number | | Organization | | | | + + + + + | [facility] | [address] | [place] [address] | [phone] | | LABORATORY | [address] | | | + + + + + POCT glucose (09/21/2018 6:05 AM) + + + + + | Component | Value | Ref Range | Performed At | + + + + + | GLUCOSE,POC SCREEN | 100 (H)Comment: Testing | 65 - 99 mg/dL | [facility] | | | performed at [facility];[address] | | | | | [address];[place], [place] | | | | | [address] | | | + + + + + + + + + + | Performing | Address | City/State/Zipcode | Phone Number | | Organization | | | | + + + + + | [facility] | [address] | [place] [address] | | + + + + + POCT glucose (09/21/2018 5:13 AM) + + + + + | Component | Value | Ref Range | Performed At | + + + + + | GLUCOSE,POC SCREEN | 74Comment: Testing | 65 - 99 mg/dL | [facility] | | | performed at [facility];[address] | | | | | [facility];[place] | | | | | [address] | | | + + + + + + + + + + | Performing | Address | City/State/Zipcode | Phone Number | | Organization | | | | + + + + + | [facility] | [address] | [place] [address] | | + + + + + MRSA by PCR (09/20/2018 11:36 PM) + + + + + | Component | Value | Ref Range | Performed At | + + + + + | SOURCE | NARES(NOSE) | | [facility] | + + + + + | MRSA PCR | POSITIVE for MRSA by PCR | NEGATIVE | [facility] | | | (A)Comment: Testing | | | | | performed at [facility];[address] | | | | | [address];[place] | | | | | [address] | | | + + + + + + + | Specimen | + + | Nasopharyngeal - | | Nares(Nose) | + + + + + + + | Performing | Address | City/State/Zipcode | Phone Number | | Organization | | | | + + + + + | [facility] | [address] | [place] [address] | | + + + + + POCT glucose (09/20/2018 11:28 PM) + + + + + | Component | Value | Ref Range | Performed At | + + + + + | GLUCOSE,POC SCREEN | 91Comment: Testing | 65 - 99 mg/dL | [facility] | | | performed at [facility];[address] | | | | | [address];[place] | | | | | [address] | | | + + + + + + + + + + | Performing | Address | City/State/Zipcode | Phone Number | | Organization | | | | + + + + + | [facility] | [address] | [place] [address] | | + + + + + [...] | + + + + + | [facility] | [address] | [place] [address] | [phone] | | LABORATORY | [address] | | | + + + + + | [facility] | [address] | [place] [address] | | + + + + + [...] | + + + + + | [facility] | [address] | [place] [address] | [phone] | | LABORATORY | [address] | | | + + + + + | [facility] | [address] | [place] [address] | | + + + + + PROCALCITONIN (09/20/2018 7:50 PM) + + + + + | Component | Value | Ref Range | Performed At | + + + + + | PROCALCITONIN | 0.45Comment: | <0.5 ng/mL | [facility] | | | INTERPRETIVE | [...] performed | | | | | at [facility];[address] [facility] | | | | | [address];[place] [address] | | | + + + + + + + + + + | Performing | Address | City/State/Zipcode | Phone Number | | Organization | | | | + + + + + | [facility] | [address] | [place] [address] | | + + + + + C-reactive protein (09/20/2018 7:50 PM) + + + + + | Component | Value | Ref Range | Performed At | + + + + + | CRP | 8.8 (H)Comment: Testing | <0.5 mg/dL | [facility] | | | performed at [facility];[address] | | | | | [address];[place], [place] | | | | | [address] | | | + + + + + + + | Specimen | + + | Blood | + + + + + + + | Performing | Address | City/State/Zipcode | Phone Number | | Organization | | | | + + + + + | [facility] | [address] | [place] [address] | | + + + + + ESR (09/20/2018 7:50 PM) + + + + + | Component | Value | Ref Range | Performed At | + + + + + | ESR | >130 (H)Comment: Testing | 0 - 20 mm/Hr | [facility] | | | performed at [facility];[address] | | | | | [address];[place] | | | | | [address] | | | + + + + + + + | Specimen | + + | Blood | + + + + + + + | Performing | Address | City/State/Zipcode | Phone Number | | Organization | | | | + + + + + | [facility] | [address] | [place] [address] | | + + + + + Phosphorus (09/20/2018 7:50 PM) + + + + + | Component | Value | Ref Range | Performed At | + + + + + | PHOSPHORUS | 4.3Comment: Testing | 2.3 - 4.8 mg/dL | [facility] | | | performed at [facility];[address] | | | | | [address];[place] | | | | | [address] | | | + + + + + + + | Specimen | + + | Blood | + + + + + + + | Performing | Address | City/State/Zipcode | Phone Number | | Organization | | | | + + + + + | [facility] | [address] | [place] [address] | | + + + + + Magnesium (09/20/2018 7:50 PM) + + + + + | Component | Value | Ref Range | Performed At | + + + + + | MAGNESIUM | 1.8Comment: Testing | 1.7 - 2.4 mg/dL | [facility] | | | performed at [facility];[address] | | | | | [address];[place] | | | | | [address] | | | + + + + + + + | Specimen | + + | Blood | + + + + + + + | Performing | Address | City/State/Zipcode | Phone Number | | Organization | | | | + + + + + | [facility] | [address] | [facility] [address] | | + + + + + Comprehensive metabolic panel (09/20/2018 7:50 PM) + + + + + | Component | Value | Ref Range | Performed At | + + + + + | SODIUM | 139 | 135 - 145 mmol/L | [facility] | + + + + + | POTASSIUM | 4.2 | 3.5 - 4.9 mmol/L | [facility] | + + + + + | CHLORIDE | 97 (L) | 99 - 109 mmol/L | [facility] | + + + + + [...] 0.8 (L) | 1.0 - 2.4 | [facility] | + + + + + | TBIL | 0.4 | 0.1 - 1.5 mg/dL | [facility] | + + + + + | ALK PHOS | 109 | 35 - 115 U/L | [facility] | + + + + + | AST | 16 | 10 - 45 U/L | [facility] | + + + + + | ALT | 9 (L) | 10 - 65 U/L | [facility] | + + + + + | EGFR | 20 (L)Comment: GFR <60: | >60 mL/min/1.73m2 | [facility] | | | CHRONIC KIDNEY [...] the | | | | | [facility] traceable | | | | | equation.Testing | | | | | performed at [facility];[address] | | | | | [address];[place] | | | | | [address] | | | + + + + + + + | Specimen | + + | Blood | + + + + + + + | Performing | Address | City/State/Zipcode | Phone Number | | Organization | | | | + + + + + | [facility] | [address] | [place] [address] | | + + + + + CBC W/Auto Diff (Reflex to Manual) (09/20/2018 7:50 PM) + + + + + | Component | Value | Ref Range | Performed At | + + + + + | WBC | 6.46 | 3.80 - 11.00 K/uL | [facility] | + + + + + [...] (H) | 37 - 53 fl | [facility] | + + + + + | PLT | 280 | 150 - 400 K/uL | [facility] | + + + + + | MPV | 8.3 | fl | [facility] | + + + + + | DIFF TYPE | AUTOMATED | | [facility] | + + + + + | NEUTROPHILS | 64.74 | % | [facility] | + + + + + [...] Platelet Estimate | ADEQUATEComment: Testing | | [facility] | | | performed at [facility];[address] | | | | | [address];[place] | | | | | [address] | | | + + + + + + + | Specimen | + + | Blood | + + + + + + + | Performing | Address | City/State/Zipcode | Phone Number | | Organization | | | | + + + + + | [facility] | [address] | [place] [address] | | + + + + + [...] 23 Units | | | | Starting [facility] 09/26/18 at 1436, | | 9 14:36 [...] | 80 mLs | | | | %-1:726650 40 mL, | | 9 13:34 | | | | | bupivacaine-EPINEPHrine (PF) 0.5% | | PDT | | | | | -1:608834 60 mL in sodium | | | [...] See Admin Instructions, | | | Starting [facility] 09/21/18 at 1451, | | | Administer dose during last hour | | | or immediately following each | | | hemodialysis session. Use Rx | | | button to message pharmacy for | | | dose. | | + +---+ | | | + +---+ in this encounter
--- OUTSIDE RECORDS SUMMARY | ~2018-10-28 | XMS | Encounter Summary ---
Demographics + + + | Address | [address] | | | [place] [address] | + + + | Home Phone [...] + | Author | [facility] | + + + | Organization | [facility] | + + + | Address | Unknown | + + + | Phone | Unavailable | + + + Support + + + + + | Name | Relationship | Address | Phone | + + + + + | Juliana Dixon | ECON | Unknown | | + + + + + | Mya Dixon | ECON | [address] | | | | | [place] | | | | | [address] | | + + + + + Care Team Providers + +------+ + | Care Senior Procurement Manager Name | Role | Phone | [...] | | | | | without | [address] | | | | | | contrast | Phone: | | | | | | | [phone] | | | | | | | Fax: | | | | | | | [phone] | | + +--------+ + + + + Encounter Details +--------+ + + + + | Date | Type | Department | Care Team | Description | +--------+ + + + + | 09/20/ | Ancillary | [facility] | See, Medical | Diagnosis unknown | | 2019 | Orders | [facility] [place] | Record [address] | | | | | [address] | [address] [place] [address] | | | | | [place] [address] | [place] [address] | | | | | [phone] | [phone] | | | | | | | [...] | | | | | [place] [address] | | | | | | [phone] | | | | | | | [...] [facility] | [address] | [place] [address] | | + + + + + in this encounter Visit Diagnoses + + | Diagnosis | + + | Diagnosis unknown | + + | Other unknown and unspecified cause of morbidity or mortality | + +
--- OUTSIDE RECORDS SUMMARY | ~2018-10-28 | XMS | Encounter Summary ---
Demographics + + + | Address | [address] | | | [place] [address] | + + + | Home Phone | | + + + | Preferred Language | Unknown | + + + | Marital Status | Single | + + + | Temple Affiliation | Unknown | + + + | Race | Unknown | + + + | Ethnic Group | Unknown | + + + Author + + + | Author | [facility] | + + + | Organization | [facility] | + + + | Address | Unknown | + + + | Phone | Unavailable | + + + Support + + + + + | Name | Relationship | Address | Phone | + + + + + | Juliana Dixon | ECON | Unknown | | + + + + + | Mya Dixon | ECON | [address] | | | | | [place] | | | | | [address] | | + + + + + Care Team Providers + +------+ + | Care Java Security Architect Name | Role | Phone | + +------+ + | Donis Martel MD | PCP | | + +------+ + Encounter Details +--------+ + + + + | Date | Type | Department | Care Team | Description | +--------+ + + + + | 09/25/ | Orders Only | [facility] | Ludy Gonzales, | Panniculitis | | 2019 | | Plastic Surgery and | TOWNSHIP CLERK | (Primary Dx) | | | | Dermatology [address] | | | | | | [address] | | | | | | [place] | | | | | | [phone] | | | | | | [phone] | | | +--------+ + + + [...] [place] | | | | | | [facility] [address] | | | | | | [phone] | | | | | | | [...]
--- OUTSIDE RECORDS SUMMARY | ~2018-10-28 | XMS | Clinical Summary ---
Demographics + + + | Address | [address] | | | [place] [address] | + + + | Home Phone | | + + + | Preferred Language | Unknown | + + + | Marital Status | Single | + + + | Lutheran Affiliation | Unknown | + + + | Race | Unknown | + + + | Ethnic Group | Unknown | + + + Author + + + | Author | [facility] | | | and [place] | + + + | Organization | [facility] | | | and [place] | [...] + | Mya Dixon | ECON | [address] | | | | | [place] | | | | | [address] | | + + + + + Care Team Providers + +------+ + | Care Senior Consumer Insights Consultant Name | Role | Phone | + [...] | [employer] | [employer] | [id number] | | [phone] | | Medica | [...] Person | Self | [birth year] | [address] | | | ana/Ed | | 1975 | [phone] | [place] | | | telly | | | [address] ([place]) | [phone] | + +--------+ +--------+ + + Advance Directives Patient has advance care planning documents on file. For more information, please contact:[facility] [place] [address]"
--- OUTSIDE RECORDS SUMMARY | ~2018-10-28 | XMS | Encounter Summary ---
Demographics + + + | Address | [address] | | | [place] [address] | + + + | Home Phone [...] + + | Author | [facility] | + + + | Organization | [facility] | + + + | Address | Unknown | + + + | Phone | Unavailable | + + + Support + + + + + | Name | Relationship | Address | Phone | + + + + + | Juliana Dixon | ECON | Unknown | | + + + + + | Mya Dixon | ECON | [address] | | | | | [place] | | | | | [address] | | + + + + + Care Team Providers + +------+ + | Care Obstetrics Teacher Name | Role | Phone | + [...] + + | 09/26/ | Anesthesia | [facility] | Laura Nunez | | | 2019 | Event | [facility] | MD [address] | | | | | [address] | | | | | [facility] | [place] [address] | | | | | [place] [address] | [phone] | | | | | [phone] | | | +--------+ + + + [...] Alexander | | | | | | [place] [address] | | | | | | [phone] | | | | | | | [...]
--- OUTSIDE RECORDS SUMMARY | 2018-10-28 14:36 | XMS ---
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 Care History Medical/Surgical 04/03/2018 [facility] - Patient is currently established with [facility]. If patient is seen in the ED during business hours. Please contact CHWs at [facility]. Care Recommendation: This patient has had [...] providing care. E.D. VISIT COUNT (12 MO.) [address] [place] [address]. TOTAL 11 NOTE: Visits indicate total known visits. ED/UCC VISIT TRACKING (12 MO.) 10/28/2018 14:34 [facility] [place] TYPE: Emergency COMPLAINT: - SOB 09/20/2018 14:25 [facility] [place] TYPE: Emergency COMPLAINT: - OPEN SORES ON ABD DIAGNOSES: - Erythematous condition, unspecified - Cellulitis of abdominal wall - Nicotine dependence, unspecified, uncomplicated - Obesity, unspecified - Personal history of transient ischemic attack (TIA), and cerebral infarction without residual deficits - Dependence on renal dialysis - End stage renal disease 09/13/2018 17:15 [facility] [place] TYPE: Emergency COMPLAINT: - STICH REMOVAL DIAGNOSES: - Nicotine dependence, unspecified, uncomplicated - Other detention (current) drug therapy - Dependence on renal [...] Cellulitis of left lower limb - 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 03/27/2018 13:27 [facility] [place] TYPE: Emergency COMPLAINT: - L LEG SWOLLEN/PAINFUL/NO INJURY DIAGNOSES: - 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 - Allergy to eggs - Other specified soft tissue disorders - Nicotine dependence, unspecified, uncomplicated - Cellulitis of left lower limb 12/26/2017 13:09 [facility] TYPE: Emergency COMPLAINT: - POSS INFECTION ON LEFT FOOT DIAGNOSES: - Allergy to eggs - Personal history of transient ischemic attack (TIA), and cerebral infarction without residual deficits - Local infection of the skin and subcutaneous tissue, unspecified - Other detention (current) drug therapy - Dependence on renal dialysis - Non-pressure chronic ulcer of other part of left foot with unspecified severity - Nicotine dependence, unspecified, uncomplicated INPATIENT VISIT TRACKING (12 MO.) 09/20/2018 19:26 [facility] DIAGNOSES: - Essential (primary) hypertension - End stage renal disease - ABD wall cellulitis - Panniculitis, unspecified [id number]
--- NOTE | 2018-10-28 19:56 | EKG ---
[facility] [address] [place] [address] Signed Normal sinus rhythm Possible Left atrial enlargement Left axis deviation Low voltage QRS Possible Anterolateral infarct (cited on or before 25-SEP-2016) Abnormal ECG When compared with ECG of 25-SEP-2016 22:10, Questionable change in initial forces of Lateral leads T wave inversion now evident in Anterior leads Confirmed by JEAN CASANOVA MD ([id number]) on 10/28/2018 7:55:45 PM Electronically Signed By: JEAN CASANOVA MD 10/28/181955 PATIENT NAME: SRINIVASAN BRICE Electrocardiogram DATE OF : 79 PHYSICIAN: JEAN CASANOVA MD REPORT #: [id number] REPORT IS CONFIDENTIAL AND NOT TO BE RELEASED WITHOUT AUTHORIZATION
--- NOTE | 2018-10-28 19:56 | EKG ---
[facility] [address] [place] [address] Signed Sinus tachycardia Possible Left atrial enlargement Right ventricular hypertrophy Anterolateral infarct (cited on or before 25-SEP-2016) Abnormal ECG When compared with ECG of 28-OCT-2018 15:41, (Unconfirmed) No significant change was found Confirmed by JEAN CASANOVA MD ([id number]) on 10/28/2018 7:56:02 PM Electronically Signed By: JEAN CASANOVA MD 10/28/181955 PATIENT NAME: SRINIVASAN BRICE Electrocardiogram DATE OF : 79 PHYSICIAN: JEAN CASANOVA MD REPORT #: [id number] REPORT IS CONFIDENTIAL AND NOT TO BE RELEASED WITHOUT AUTHORIZATION
== END 2018-10-28 19:12 | disposition short-term general hospital (02) ==
LOC: ED 14:34
DX: J44.9 Chronic obstructive pulmonary disease, unspecified (principal); R09.02 Hypoxemia; E87.6 Hypokalemia; I50.9 Heart failure, unspecified; F17.200 Nicotine dependence, unspecified, uncomplicated; Z79.899 Other long term (current) drug therapy
CPT/HCPCS: 36600; 71045; 80053; 82803; 83880; 84484; 85025; 93005; 93010; 94640; 94644; 94660; 96374; 96375; 99285-25; J1100; J2060